=== PATIENT | female | born 1970 | race Caucasian/White ===

== ENCOUNTER 2023-03-14 15:38 | Emergency (ER) | payer MEDICARE, MEDICAID, SELFPAY ==
[2023-03-14] VITALS (12 sets, daily range): BP systolic 130–159; BP diastolic 86–99; PULSE 65–105; RESP 12–20; TEMP 36.9; O2SAT 93–99; BMI 37.5
--- NOTE | 2023-03-14 15:50 | ED.CHESTPAI1 ---
HPI - Chest Pain General Chief Complaint: Chest Pain Stated Complaint: CHEST PAIN, ANXIETY Time Seen by Provider: 03/14/23 15:50 History of Present Illness HPI narrative: pt presents to the emergency department complaining of chest pain. Patient states pain is worse to the left upper chest. Pain is worse with palpation. Pain is worse with movement of the arm. She states the pain is sharp. She took 1 baby aspirin prior to coming to the emergency department. She states she has been ongoing in the last 2 days but worse today. She states she has anxiety and she has been itching getting it to anxiety. Yesterday when she had a she was anxious and she to home Klonopin and it helped. She states she is under a lot of stress because her spouse 4 years ago. The house that she used to live in belonged to her spouse's family and they have evicted her from the property so she is homeless and she has been staying with the kids. She sees a counselor who advised her to come and get checked out. Patient denies any history of heart disease. She had a stress test 4 years ago. She denies any shortness of breath, fever, chills, or cough. She denies any denies lightheadedness. She denies any lower extremity edema, or cramping. Does not have a history of thrombotic embolic disease. Patient is tearful and states that she does not have anyone to drive her home. She states she feels lonely. But that she is fine. She denies any suicide or homicide ideation. Related Data Home Medications Medication Instructions Recorded Confirmed cetirizine 10 mg tablet 10 mg PO DAILY 03/14/23 03/14/23 clonazepam 0.5 mg tablet 0.5 mg PO DAILY PRN anxiety 03/14/23 03/14/23 fluticasone propionate 50 2 spray intranasal Q12H 03/14/23 03/14/23 mcg/actuation nasal spray,suspension omeprazole 40 mg capsule,delayed 40 mg PO DAILY 03/14/23 03/14/23 release Previous Rx's Medication Instructions Recorded hydroxyzine HCl 25 mg tablet 25 mg PO Q8H PRN anxiety #20 tabs 03/14/23 lorazepam 1 mg tablet (Ativan) 0.5 mg PO Q8H PRN anxiety 5 days 03/14/23 #10 tabs Allergies Allergy/AdvReac Type Severity Reaction Status Date / Time azithromycin Allergy Unknown Verified 03/14/23 15:47 dicyclomine [From Bentyl] Allergy Unknown Verified 03/14/23 15:47 metoclopramide [From Reglan] Allergy Unknown Verified 03/14/23 15:47 Review of Systems ROS Status of ROS 10 or more systems reviewed and unremarkable except as noted in history and below PFSH PFS Social History Smoking status: Never smoker Exam Narrative Exam Narrative: Nurses notes and vital signs reviewed and patient is not hypoxic. General: Nontoxic, Well-appearing and in no apparent distress. Skin: Warm, dry, no pallor noted. No Rash Head: Normocephalic, atraumatic. Neck: Supple, non-tender. Eye: Pupils are equal, round and EOMI. No scleral icterus. Ears, Nose, Mouth, and Throat: TM clear, no posterior oropharynx erythema or nasal mucosal hypertrophy, uvula is mid-line Oral mucosa is moist Cardiovascular: Regular Rate and Rhythm without murmur, gallop or rub. Respiratory: No accessory muscle use or respiratory distress. Lungs are clear to auscultation, no wheezing, rales or rhonchi Chest Wall: Moderate tenderness To palpation to ribs 3 and 4 on the left. There is no crepitance, no step-offs, no ecchymosis, no erythema, no rashes, no signs of trauma, infection. Back: No midline thoracic or lumbar vertebral tenderness. No CVA tenderness Musculoskeletal: normal ROM, no calf or popliteal tenderness, no lower extremity edema/swelling GI: Abdomen is soft, non-distended. Normal bowel sounds. No masses appreciated. No tenderness to palpation. No rebound, guarding, or rigidity noted. Neurological: A&O x4. No cranial nerve dysfunction observed. No truncal ataxia. Moves all extremities. Sensation intact. Psychiatric: Cooperative and interactive. tearful Constitutional Vital Signs - 24 hr 03/14/23 15:41 03/14/23 15:44 03/14/23 15:49 Temperature 98.5 F Pulse Rate Pulse Rate [Monitor] 105 H Respiratory Rate 20 Blood Pressure Pulse Oximetry 97 93 L 96 Oxygen Delivery Method Room Air 03/14/23 15:50 03/14/23 16:00 03/14/23 16:00 Temperature Pulse Rate 85 77 78 Pulse Rate [Monitor] Respiratory Rate 15 19 17 Blood Pressure 159/98 H 144/99 H 144/99 H Pulse Oximetry 94 L 94 L 93 L Oxygen Delivery Method 03/14/23 16:30 03/14/23 17:00 03/14/23 17:30 Temperature Pulse Rate 76 70 75 Pulse Rate [Monitor] Respiratory Rate 12 18 13 Blood Pressure 146/97 H 149/97 H 135/95 H Pulse Oximetry 98 98 99 Oxygen Delivery Method 03/14/23 18:00 03/14/23 18:00 03/14/23 18:30 Temperature Pulse Rate 70 65 68 Pulse Rate [Monitor] Respiratory Rate 20 15 15 Blood Pressure 143/86 H 143/86 H 146/94 H Pulse Oximetry 96 96 96 Oxygen Delivery Method Course Vital Signs Vital signs: Vital Signs Temperature 98.5 F 03/14/23 15:41 Pulse Rate 105 H 03/14/23 15:41 Respiratory Rate 20 03/14/23 15:41 Pulse Oximetry 97 03/14/23 15:41 Oxygen Delivery Method Room Air 03/14/23 15:41 Temperature 98.5 F 03/14/23 15:41 Pulse Rate 68 03/14/23 18:30 Respiratory Rate 15 03/14/23 18:30 Blood Pressure 130/86 H 03/14/23 20:09 Pulse Oximetry 96 03/14/23 18:30 Oxygen Delivery Method Room Air 03/14/23 15:41 MDM - Chest Pain MDM Narrative Medical decision making narrative: Patient's history and physical are more consistent with anxiety and anterior chest wall pain. Patient states that she took an aspirin at home and she still having acid of feels like she has to burp. Patient was given a gastrointestinal cocktail. Thhe patient also takes Klonopin but she did not take any today. She took her last pill yesterday. She drove herself here and she does not have a ride so I am unable to give her any antianxiety medication during her stay in the emergency department. I did write the patient a prescription for anxiety. Patient is nontoxic, Differential Diagnosis Differential diagnosis: Likely pneumothorax, unstable angina pectoris, atypical chest pain, st elevation myocardial infarction, costochondritis and chest pain Lab Data Attestation: I reviewed the patient's lab results. Labs: Lab Results 03/14/23 03/14/23 Range/Units 16:15 17:55 WBC 7.0 (4.0-11.0) 10^3/uL RBC 5.39 (4.20-5.40) 10^6/uL Hgb 14.9 (12.0-16.0) g/dL Hct 44.9 (36.0-48.0) % MCV 83.3 (81.0-99.0) fL MCH 27.6 (26.7-34.0) pg MCHC 33.2 (29.9-35.2) g/dL RDW 13.3 (11.0-15.0) % Plt Count 193 (150-450) 10^3/uL MPV 11.0 (9.5-13.5) fL Neut % (Auto) 65.0 (43.0-75.0) % Lymph % (Auto) 24.8 (20.5-60.0) % [place] % (Auto) 7.3 (1.7-12.0) % Eos % (Auto) 1.9 (0.9-7.0) % Baso % (Auto) 0.6 (0.2-2.0) % Neut # (Auto) 4.6 (1.4-6.5) 10^3/uL Lymph # (Auto) 1.7 (1.2-3.8) 10^3/uL [place] # (Auto) 0.5 (0.3-0.8) 10^3/uL Eos # (Auto) 0.1 (0.0-0.7) 10^3/uL Baso # (Auto) 0.0 (0.0-0.1) 10^3/uL Abs Immat Gran (auto) 0.03 (0.00-0.03) 10^3/uL Imm/Tot Granulo (auto) 0.4 (0.0-0.5) % Sodium 137 (136-145) mmol/L Potassium 4.4 (3.5-5.1) mmol/L Chloride 102 (98-107) mmol/L Carbon Dioxide 27.8 (21.0-32.0) mmol/L Anion Gap 11.6 BUN 16.0 (7.0-18.0) mg/dL Creatinine 0.93 (0.55-1.02) mg/dL Est GFR ( Amer) >60 (>=60) Est GFR (Non-Af Amer) >60 (>=60) BUN/Creatinine Ratio 17.2 Glucose 106 (74-106) mg/dL Calcium 9.5 (8.5-10.1) mg/dL Total Bilirubin 0.5 (0.2-1.0) mg/dL AST 19 (15-37) U/L ALT 31 (14-59) U/L Alkaline Phosphatase 89 (46-116) U/L Troponin I High Sens 24.3 24.1 (4.0-51.3) pg/mL Total Protein 8.4 H (6.4-8.2) g/dL Albumin 3.9 (3.4-5.0) g/dL Globulin 4.5 g/dL Albumin/Globulin Ratio 0.9 ECG Data Attestation: I personally reviewed and interpreted this ECG as follows: Discharge Plan Discharge Chief Complaint: Chest Pain Clinical Impression: Anxiety, Atypical chest pain Patient Disposition: Home, Self-Care Time of Disposition Decision: 18:34 Condition: Good Mode of Transportation: Private Vehicle Prescriptions / Home Meds: New lorazepam [Ativan] 1 mg tablet 0.5 mg PO Q8H PRN (Reason: anxiety) 5 Days Qty: 10 0RF hydroxyzine HCl 25 mg tablet 25 mg PO Q8H PRN (Reason: anxiety) Qty: 20 0RF No Action cetirizine 10 mg tablet 10 mg PO DAILY clonazepam 0.5 mg tablet 0.5 mg PO DAILY PRN (Reason: anxiety) omeprazole 40 mg capsule,delayed release(DR/EC) 40 mg PO DAILY fluticasone propionate 50 mcg/actuation spray,suspension 2 spray INTRANASAL Q12H Instructions: Chest Pain (ED), Anxiety (ED) Stand Alone Forms: Portal Instructions Referrals: [facility] [Primary Care Provider] - 1 week Discharge Date/Time: 03/14/23 20:57
--- NOTE | 2023-03-14 15:51 | ECG_ITS ---
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
--- NOTE | 2023-03-14 16:05 | XR_ITS ---
[address] [address] Patient Name: LINA LANDA MRN: [id number] date: 1970 Sex: F Assigned Patient Location: ER Current Patient Location: ER Accession/Order Number: [id number] Exam Date: 03/14/2023 16:25 Report Date: 03/14/2023 17:12 At the request of: MERISSA CRUZ Procedure: XR chest 1V EXAM: XR chest 1V at 1656 hours HISTORY: cp COMPARISON: 07/30/2020 TECHNIQUE: AP upright portable chest x-ray FINDINGS: The heart is not enlarged and the vasculature is not distended. No acute infiltrate, effusion or pneumothorax is identified. The osseous structures are grossly intact. IMPRESSION: No acute infiltrate or evidence of cardiac decompensation. The overall appearance of the chest is essentially unchanged. Electronically authenticated by: SOCRATES TAVAREZ Date: 03/14/2023 17:12
[2023-03-14] MEDS: KETOROLAC TROMETHAMINE 30 MG/ML VIAL IVP (16:21)
[2023-03-14 16:27] LABS: Basophils Percent Auto 0.6 % (0.2-2.0); Eosinophils Absolute Auto 0.1 10^3/uL (0.0-0.7); Eosinophils Percent Auto 1.9 % (0.9-7.0); Hematocrit 44.9 % (36.0-48.0); Hemoglobin 14.9 g/dL (12.0-16.0); Immature Granulocytes Abs Auto 0.03 10^3/uL (0.00-0.03); Immature Granulocytes Pct Auto 0.4 % (0.0-0.5); Lymphocytes Absolute Auto 1.7 10^3/uL (1.2-3.8); Lymphocytes Percent Auto 24.8 % (20.5-60.0); Mean Corpuscular HGB Conc 33.2 g/dL (29.9-35.2); Mean Corpuscular Hemoglobin 27.6 pg (26.7-34.0); Mean Corpuscular Volume 83.3 fL (81.0-99.0); Monocytes Absolute Auto 0.5 10^3/uL (0.3-0.8); Monocytes Percent Auto 7.3 % (1.7-12.0); Neutrophils Absolute Auto 4.6 10^3/uL (1.4-6.5); Platelet Count 193 10^3/uL (150-450); Red Blood Count 5.39 10^6/uL (4.20-5.40); Red Cell Distribution Width 13.3 % (11.0-15.0)
[2023-03-14 16:46] LABS: Alanine Aminotransferase 31 U/L (14-59); Albumin Globulin Ratio 0.9; Albumin Level 3.9 g/dL (3.4-5.0); Alkaline Phosphatase 89 U/L (46-116); Anion Gap 11.6; Aspartate Amino Transferase 19 U/L (15-37); BUN Creatinine Ratio 17.2; Bilirubin Total 0.5 mg/dL (0.2-1.0); Calcium 9.5 mg/dL (8.5-10.1); Carbon Dioxide 27.8 mmol/L (21.0-32.0); Chloride 102 mmol/L (98-107); Estimated GFR (African America >60 (>=60); Estimated GFR (Non-African Ame >60 (>=60); Globulin 4.5 g/dL; Glucose 106 mg/dL (74-106); Potassium 4.4 mmol/L (3.5-5.1); Sodium 137 mmol/L (136-145); Total Protein 8.4 g/dL (6.4-8.2); Troponin I High Sensitivity 24.3 pg/mL (4.0-51.3)
[2023-03-14 18:16] LABS: Troponin I High Sensitivity 24.1 pg/mL (4.0-51.3)
[2023-03-14] MEDS: lidocaine HCL 15 ML, MAG HYDROX/ALUMINUM HYD/SIMETH 30 ML, HYOSCYAMINE SULFATE 0.25 MG PO (19:21)
== END 2023-03-14 20:57 | disposition home or self-care (01) ==
PROVIDERS: Emergency Provider Emergency Medicine
DX: R07.89 Other chest pain (principal); F41.9 Anxiety disorder, unspecified; Z79.899 Other long term (current) drug therapy
CPT/HCPCS: 36415; 71045; 80053; 84484; 85025; 93005; 96374; 99285

== ENCOUNTER 2023-06-04 14:21 | Outpatient (OUT) | payer MEDICARE, MEDICAID, SELFPAY ==
[2023-06-05 06:12] LABS: HSV 2 IgG, Type Spec 9.06 index (0.00-0.90)
== END 2023-06-04 14:22 | disposition home or self-care (01) ==
LOC: LAB 14:25
PROVIDERS: Visit Provider Obstetrics & Gynecology
DX: N89.8 Other specified noninflammatory disorders of vagina (principal)
CPT/HCPCS: 36415; 86695; 86696

== ENCOUNTER 2023-07-31 16:06 | Emergency (ER) | payer MEDICARE, MEDICAID, SELFPAY ==
[2023-07-31] VITALS (9 sets, daily range): BP systolic 147–149; BP diastolic 96–106; PULSE 77–98; RESP 14–22; TEMP 37; O2SAT 95–99; BMI 39.0
--- NOTE | 2023-07-31 16:24 | ECG_ITS ---
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
--- NOTE | 2023-07-31 16:24 | XR_ITS ---
The [address] [address] Patient Name: LINA LANDA MRN: [id number] date: 1970 Sex: F Assigned Patient Location: ER Current Patient Location: ER Accession/Order Number: [id number] Exam Date: 07/31/2023 16:35 Report Date: 07/31/2023 17:01 At the request of: RUTH BROWN Procedure: XR chest 1V EXAM: XR chest 1V at 1633 hours HISTORY: CP COMPARISON: 07/30/2020 TECHNIQUE: AP upright portable chest x-ray FINDINGS: Shallow inspiration. The heart is not enlarged and the vasculature is not distended. No acute infiltrate, effusion or pneumothorax is identified. The osseous structures are grossly intact. XR/XR chest 1V IMPRESSION: No acute infiltrate or evidence of cardiac decompensation. Shallow inspiration is noted. Given the differences in projection and technique, the overall appearance is essentially unchanged. Electronically authenticated by: SOCRATES TAVAREZ Date: 07/31/2023 17:01
--- NOTE | 2023-07-31 16:42 | ED_ITS ---
HPI - Chest Pain General Chief Complaint: Chest Pain Stated Complaint: Upper PAIN Time Seen by Provider: 07/31/23 16:23 Source: patient Mode of arrival: walk-in History of Present Illness HPI narrative: Patient coming to us with 4 days history of left-sided chest pain radiating to her back associated with cough, no nausea no vomiting no other complaints, mentioned that the pain is under her left breast , no nausea no vomiting no association with the take a deep breath but the pain is fixed and continuous since 4 days Palpation can cause the pain Related Data Home Medications Medication Instructions Recorded Confirmed cetirizine 10 mg tablet 10 mg PO DAILY 03/14/23 03/14/23 clonazepam 0.5 mg tablet 0.5 mg PO DAILY PRN anxiety 03/14/23 03/14/23 fluticasone propionate 50 2 spray intranasal Q12H 03/14/23 03/14/23 mcg/actuation nasal spray,suspension omeprazole 40 mg capsule,delayed 40 mg PO DAILY 03/14/23 03/14/23 release Previous Rx's Medication Instructions Recorded hydroxyzine HCl 25 mg tablet 25 mg PO Q8H PRN anxiety #20 tabs 03/14/23 lorazepam 1 mg tablet (Ativan) 0.5 mg PO Q8H PRN anxiety 5 days 03/14/23 #10 tabs meloxicam 7.5 mg tablet 7.5 mg PO DAILY PRN pain #10 tabs 07/31/23 Allergies Allergy/AdvReac Type Severity Reaction Status Date / Time azithromycin Allergy Unknown Verified 03/14/23 15:47 dicyclomine [From Bentyl] Allergy Unknown Verified 03/14/23 15:47 metoclopramide [From Reglan] Allergy Unknown Verified 03/14/23 15:47 Review of Systems ROS Status of ROS 10 or more systems reviewed and unremarkable except as noted in history and below PFSH PFSH Social History Smoking status: Former smoker Exam Narrative Exam Narrative: Nurses notes and vital signs reviewed and patient is not hypoxic. General: Well-appearing and in no apparent distress. Skin: Warm, dry, no pallor noted. No rash. Head: Normocephalic, atraumatic. Neck: Supple, non-tender. Eye: Pupils are equal, round and EOMI. No scleral icterus. Ears, Nose, Mouth, and Throat: TM are clear, no nasal mucosal hypertrophy. Oral mucosa is moist, no posterior oropharynx erythema, uvula is mid-line Cardiovascular: Regular Rate and Rhythm without murmur, gallop or rub. Respiratory: No accessory muscle use or respiratory distress. Lungs are clear to auscultation, no wheezing, rales or rhonchi Chest Wall: Tenderness upon palpation of the left lower chest just below the breast, the patient had tenderness upon palpation of the left shoulder Back: No midline thoracic or lumbar vertebral tenderness. No CVA tenderness Musculoskeletal: normal ROM, no calf or popliteal tenderness, no lower extremity edema/swelling GI: Abdomen is soft, non-distended. Normal bowel sounds. No masses appreciated. No tenderness to palpation. No rebound, guarding, or rigidity noted. Neurological: A&O x4. No cranial nerve dysfunction observed. No truncal ataxia. Moves all extremities. Sensation intact. Psychiatric: Cooperative and interactive. Normal mood and affect. Constitutional Vital Signs, click to edit/add: Last Vital Signs Temp 98.6 F 07/31/23 16:15 Pulse 81 07/31/23 17:20 Resp 19 07/31/23 17:20 BP 147/96 H 07/31/23 17:19 Pulse Ox 98 07/31/23 17:20 O2 Del Method Room Air 07/31/23 16:15 Course Vital Signs Vital signs: Vital Signs Temperature 98.6 F 07/31/23 16:15 Pulse Rate 98 H 07/31/23 16:15 Respiratory Rate 22 07/31/23 16:15 Blood Pressure 149/106 H 07/31/23 16:15 Pulse Oximetry 96 07/31/23 16:15 Oxygen Delivery Method Room Air 07/31/23 16:15 Temperature 98.6 F 07/31/23 16:15 Pulse Rate 81 07/31/23 17:20 Respiratory Rate 19 07/31/23 17:20 Blood Pressure 147/96 H 07/31/23 17:19 Pulse Oximetry 98 07/31/23 17:20 Oxygen Delivery Method Room Air 07/31/23 16:15 MDM - Chest Pain MDM Narrative Medical decision making narrative: the patient EKG showing sinus rhythm with a heart rate of [address] elevation or depression CBC and chemistry showed no acute pathology and the troponin is negative the patient chest x-ray also showed no acute pathology The patient chest pain is mostly muscular at the induced with palpation and has been going on for at least for 4 days the patient also was noted to be very anxious Supportive care right now with Toradol in the ER and the patient was discharged home with Nile She still was instructed to follow-up with her primary care doctor to further evaluation including her cholesterol level and other work-up due to her risk factors The patient is to follow up with primary care physician in next 2-3 days or to return to the emergency department should any of the signs or symptoms worsen or new symptoms develop. The patient agrees with the following Diagnosis and Treatment plan and the patient will be discharged home. Lab Data Labs: Lab Results 07/31/23 Range/Units 16:46 WBC 7.8 (4.0-11.0) 10^3/uL RBC 4.82 (4.20-5.40) 10^6/uL Hgb 13.4 (12.0-16.0) g/dL Hct 40.5 (36.0-48.0) % MCV 84.0 (81.0-99.0) fL MCH 27.8 (26.7-34.0) pg MCHC 33.1 (29.9-35.2) g/dL RDW 13.0 (11.0-15.0) % Plt Count 204 (150-450) 10^3/uL MPV 10.9 (9.5-13.5) fL Neut % (Auto) 64.8 (43.0-75.0) % Lymph % (Auto) 26.4 (20.5-60.0) % [place] % (Auto) 6.2 (1.7-12.0) % Eos % (Auto) 1.4 (0.9-7.0) % Baso % (Auto) 0.9 (0.2-2.0) % Neut # (Auto) 5.1 (1.4-6.5) 10^3/uL Lymph # (Auto) 2.1 (1.2-3.8) 10^3/uL [place] # (Auto) 0.5 (0.3-0.8) 10^3/uL Eos # (Auto) 0.1 (0.0-0.7) 10^3/uL Baso # (Auto) 0.1 (0.0-0.1) 10^3/uL Abs Immat Gran (auto) 0.02 (0.00-0.03) 10^3/uL Imm/Tot Granulo (auto) 0.3 (0.0-0.5) % PT 10.3 (9.0-11.6) sec INR 0.97 Sodium 140 (136-145) mmol/L Potassium 3.7 (3.5-5.1) mmol/L Chloride 106 (98-107) mmol/L Carbon Dioxide 27.6 (21.0-32.0) mmol/L Anion Gap 10.1 BUN 14.0 (7.0-18.0) mg/dL Creatinine 0.94 (0.55-1.02) mg/dL Est GFR ( Amer) >60 (>=60) Est GFR (Non-Af Amer) >60 (>=60) BUN/Creatinine Ratio 14.9 Glucose 91 (74-106) mg/dL Calcium 9.1 (8.5-10.1) mg/dL Total Bilirubin 0.4 (0.2-1.0) mg/dL AST 16 (15-37) U/L ALT 24 (14-59) U/L Alkaline Phosphatase 91 (46-116) U/L Troponin I High Sens 23.9 (4.0-51.3) pg/mL Total Protein 7.8 (6.4-8.2) g/dL Albumin 3.8 (3.4-5.0) g/dL Globulin 4.0 g/dL Albumin/Globulin Ratio 0.9 Discharge Plan Discharge Chief Complaint: Chest Pain Clinical Impression: Chest wall pain Patient Disposition: Home, Self-Care Time of Disposition Decision: 17:37 Prescriptions / Home Meds: New meloxicam 7.5 mg tablet 7.5 mg PO DAILY PRN (Reason: pain ) Qty: 10 0RF No Action cetirizine 10 mg tablet 10 mg PO DAILY clonazepam 0.5 mg tablet 0.5 mg PO DAILY PRN (Reason: anxiety) omeprazole 40 mg capsule,delayed release(DR/EC) 40 mg PO DAILY fluticasone propionate 50 mcg/actuation spray,suspension 2 spray INTRANASAL Q12H lorazepam [Ativan] 1 mg tablet 0.5 mg PO Q8H PRN (Reason: anxiety) 5 Days Qty: 10 0RF hydroxyzine HCl 25 mg tablet 25 mg PO Q8H PRN (Reason: anxiety) Qty: 20 0RF Instructions: Thoracic Pain (ED) Stand Alone Forms: Portal Instructions Referrals: [facility] [Primary Care Provider] - 1 week
[2023-07-31 16:52] LABS: Basophils Absolute Auto 0.1 10^3/uL (0.0-0.1); Basophils Percent Auto 0.9 % (0.2-2.0); Eosinophils Absolute Auto 0.1 10^3/uL (0.0-0.7); Eosinophils Percent Auto 1.4 % (0.9-7.0); Hematocrit 40.5 % (36.0-48.0); Hemoglobin 13.4 g/dL (12.0-16.0); Immature Granulocytes Abs Auto 0.02 10^3/uL (0.00-0.03); Immature Granulocytes Pct Auto 0.3 % (0.0-0.5); Lymphocytes Absolute Auto 2.1 10^3/uL (1.2-3.8); Lymphocytes Percent Auto 26.4 % (20.5-60.0); Mean Corpuscular HGB Conc 33.1 g/dL (29.9-35.2); Mean Corpuscular Hemoglobin 27.8 pg (26.7-34.0); Mean Platelet Volume 10.9 fL (9.5-13.5); Monocytes Absolute Auto 0.5 10^3/uL (0.3-0.8); Monocytes Percent Auto 6.2 % (1.7-12.0); Neutrophils Absolute Auto 5.1 10^3/uL (1.4-6.5); Neutrophils Percent Auto 64.8 % (43.0-75.0); Platelet Count 204 10^3/uL (150-450); Red Blood Count 4.82 10^6/uL (4.20-5.40); White Blood Count 7.8 10^3/uL (4.0-11.0)
[2023-07-31 17:07] LABS: INR 0.97; Prothrombin Time 10.3 sec (9.0-11.6)
[2023-07-31 17:12] LABS: Alanine Aminotransferase 24 U/L (14-59); Albumin Globulin Ratio 0.9; Albumin Level 3.8 g/dL (3.4-5.0); Alkaline Phosphatase 91 U/L (46-116); Anion Gap 10.1; Aspartate Amino Transferase 16 U/L (15-37); BUN Creatinine Ratio 14.9; Bilirubin Total 0.4 mg/dL (0.2-1.0); Calcium 9.1 mg/dL (8.5-10.1); Carbon Dioxide 27.6 mmol/L (21.0-32.0); Chloride 106 mmol/L (98-107); Estimated GFR (African America >60 (>=60); Estimated GFR (Non-African Ame >60 (>=60); Glucose 91 mg/dL (74-106); Potassium 3.7 mmol/L (3.5-5.1); Sodium 140 mmol/L (136-145); Total Protein 7.8 g/dL (6.4-8.2)
[2023-07-31 17:15] LABS: Troponin I High Sensitivity 23.9 pg/mL (4.0-51.3)
[2023-07-31] MEDS: FAMOTIDINE/PF 20 MG/2 ML VIAL IV (17:19)
[2023-07-31] MEDS: KETOROLAC TROMETHAMINE 30 MG/ML VIAL 15 MG IVP (17:19)
== END 2023-07-31 17:57 | disposition home or self-care (01) ==
PROVIDERS: Emergency Provider Emergency Medicine
DX: R07.89 Other chest pain (principal); Z79.899 Other long term (current) drug therapy; Z87.891 Personal history of nicotine dependence
CPT/HCPCS: 36415; 71045; 80053; 84484; 85025; 85610; 93005; 96374; 96375; 99285

== ENCOUNTER 2024-04-13 20:46 | Outpatient (REF) | payer MEDICARE, MEDICAID, SELFPAY ==
--- OUTSIDE RECORDS SUMMARY | 2024-04-13 21:06 | XMS_ITS ---
Patient Summarization (C-CDA 2.1 CCD) Created on: April 13, 2024 Ne Swann : 1970 Sex: Female Author Organization Sample organization Care Team Providers Care Agency Sales Representative Name Role Phone LINDA NUÑEZ Unavailable Unavailable LINDA NUÑEZ Unavailable Unavailable SELF, REFERRED Unavailable Unavailable MIGUEL BOWER Unavailable Unavailable MISC, DR CASTRO Primary Care Unavailable ANTHONY ., MERISSA Consulting Unavailable ANTHONY ., MERISSA Admitting Unavailable ANTHONY ., MERISSA Attending Unavailable JESSEE ADRIAN Consulting Unavailable DIAB ., RUTH Consulting Unavailable THI ., DR DOTSON Admitting Unavailable THI ., DR DOTSON Attending Unavailable MISC, DR CASTRO Primary Care Unavailable THI ., DR DOTSON Consulting Unavailable Bob Marinelli Unavailable MAURI NESS Attending Unavailable SERVICES, [facility] Primary Care Unava ilable JAVAN URBANO Attending Unavailab le SERVICES, [facility] Primary Care Unava ilable SERVICES, [facility] Primary Care Unava ilable VANESSA CRAMER Attending Unavailable JESUS SAVAGE Attending Unavailable JESUS SAVAGE Referring Unavailable SERVICES, [facility] Unava ilable Manuel Bolivar Attending Unavailab le Manuel Bolivar Admitting Unavailab le NON STAFF Primary Care Unavailable Allergies Allergy Classification Reported Allergen(s) Allergy Type Date of Onset Reaction(s) Facility (1 source) azithromycin Drug Allergy 7 [facility] Repository (2 sources) clarithromycin; Translations: [CLARITHROMYCIN] Drug Allergy 4 [facility] Repository (2 sources) dicyclomine Drug Allergy 3 [facility] Repository (2 sources) iothalamate Drug Allergy 3 [facility] Repository (1 source) traMADol Drug Allergy 4 [facility] Repository (1 source) Clarithromycin Drug Allergy 3 [facility] Repository (1 source) Clarithromycin Drug Allergy Unknown [facility] Other (2 sources) Dicyclomine; Translations: [DICYCLOMINE] Drug Allergy 0 Unknown [facility] Repository (2 sources) Metoclopramide; Translations: [METOCLOPRAMIDE] Drug Allergy 7 Unknown [facility] Repository (1 source) Dicyclomine; Translations: [DICYCLOMINE HCL] Drug Allergy 7 [facility] Repository (1 source) Clarithromycin Drug Allergy 3 [facility] Repository (1 source) Dicyclomine Drug Allergy 3 [facility] Repository (1 source) Metoclopramide Drug Allergy 3 [facility] Repository Encounters Encounter Date Encounter Type Care Provider Facility Start: 03-31-2024 ambulatory Manuel Silva acility:[facility] Start: 02-03-2024 End: 02-04-2024 Emergency department patient visit J[facility]US [facility] Start: 01-23-2024 End: 01-23-2024 ambulatory MAURI NESS Not Available Start: 12-06-2023 End: 12-06-2023 Emergency department patient visit [facility] Start: 11-11-2023 End: 11-11-2023 Emergency department patient visit [facility] Start: 12-14-2022 End: 12-14-2022 ambulatory Bob Marinelli Other [facility] Other Start: 12-14-2022 Telephone encounter Bob Reyes [facility] Start: 11-29-2022 End: 11-29-[address] DOCTOR MUSTAFA Facility:[facility] Start: 11-28-2022 End: 11-28-[address] MAURI NESS . Facility: Start: 03-18-2017 End: 03-19-2017 Ambulatory LINDA NUÑEZ Facility:[facility] Medications Current Medications Medication Drug Class(es) Dates Sig (Normalized) Sig (Original) Ascorbic Acid (1 source) Vitamin C Vitamin C Active Calcium (1 source) Phosphate Binder, Calcium Calcium + D Active clonazePAM (1 source) Benzodiazepine KlonoPIN Active Estroven (1 source) Estroven Active omeprazole 40 mg delayed release oral capsule (1 source) Proton Pump Inhibitor take 1 capsule by mouth every twelve hours Omeprazole 40 MG 1 tablet Orally twice a day for 90 days Active Oyster Shell Calcium/D (1 source) Oyster Shell Calcium/D Active RA Allergy Relief (1 source) RA Allergy Relie f Active Payers Date Payer Category Payer Self-pay 1970 Unknown [id number] 2.16.84 [id number] 1970 Unknown [id number] 2.16.84 [id number] 1970 Unknown [id number] 2.16.84 [id number] 1970 Unknown [id number] 2.16.8 [id number] 1970 Unknown [id number] 2.16.8 [id number] 1970 Unknown [id number] 2.16.8 [id number] 1970 Unknown [id number] 2.16.8 [id number] 1960 Medicaid [id number] 1960 Unknown [id number] Medicaid [id number] Unknown [id number] 2.16.8 [id number] Problems Problem Classification Problem Date Documented Da te Episodic/Chronic Abdominal pain (1 source) Right upper quadrant pain; Translations: [Right upper quadrant pain] Episodic Anxiety disorders (1 source) Anxiety disorder, unspecified; Translations: [ANXIETY DISORDER UNSPECIFIED] Onset: 12-03-2022 Chronic Esophageal disorders (2 sources) Gastro-esophageal reflux disease without esophagitis; Translations: [Gastroesophageal reflux disease] Onset: 12-03-2022 Chronic Essential hypertension (2 sources) Essential (primary) hypertension; Translations: [Hypertensive disorder] Onset: 11-11-2023 Chronic Headache; including migraine (4 sources) Headache; including migraine; Translations: [HEADACHE UNSPECIFIED] Onset: 11-29-2022 Other aftercare (1 source) 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; Translations: [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 THERAPY] Onset: 12-03-2022 Episodic Other connective tissue disease (1 source) Other specified soft tissue disorders; Translations: [Other specified soft tissue disorders] Onset: 02-03-2024 Episodic Other connective tissue disease (1 source) Leg swelling symptom Onset: 02-03-2024 Episodic Other gastrointestinal disorders (1 source) Irritable bowel syndrome without diarrhea; Translations: [IRRITABLE BOWEL SYND W/O DIARRHEA] Onset: 12-03-2022 Chronic Other gastrointestinal disorders (1 source) Irritable bowel syndrome; Translations: [Irritable bowel syndrome without diarrhea] Chronic Other gastrointestinal disorders (1 source) Diarrhea; Translations: [Diarrhea, unspecified] Episodic Other gastrointestinal disorders (1 source) Constipation; Translations: [Constipation, unspecified] Episodic Other non-traumatic joint disorders (1 source) Pain of right wrist; Translations: [Pain in right wrist] Episodic Other nutritional; endocrine; and metabolic disorders (2 sources) Obese class II; Translations: [Body mass index (BMI) 36.0-36.9, adult] Chronic Other screening for suspected conditions (not mental disorders or infectious disease) (4 sources) Encounter for screening for malignant neoplasm of cervix; Translations: [ENC SCREENING MALIG NEOPLASM CERV] Onset: 11-28-2022 Episodic Other upper respiratory disease (1 source) Pain in throat Onset: 12-06-2023 Episodic Other upper respiratory infections (1 source) Acute pharyngitis, unspecified; Translations: [Acute pharyngitis, unspecified] Onset: 12-06-2023 Episodic Residual codes; unclassified (1 source) Acquired absence of other specified parts of digestive tract; Translations: [ACQ ABSENCE OTH PART DIGESTV TRACT] Onset: 12-03-2022 Episodic Residual codes; unclassified (1 source) Acquired absence of both cervix and uterus; Translations: [ACQUIRED ABSENCE BOTH CERVIX AND UTERUS] Onset: 12-03-2022 Episodic Screening and history of mental health and substance abuse codes (1 source) Personal history of nicotine dependence; Translations: [PERSONAL HISTORY OF NICOTINE DEPEND] Onset: 12-03-2022 Episodic Unclassified (2 sources) Unknown / UNK(Unknown) Onset: 03-18-2017 Unclassified (1 source) Sore Throat, Anxiety Onset: 12-06-2023 Results Test Name Value Interpretation Reference Range Facil ity Fibrin D-dimer DDU (PPP) [Ma ss/Vol]on 02-03-2024 D DIMER 200 ng/mL DDU Normal <255 [facility] Comment on above: Result Comment: Results <255 ng/mL DDU: The presence of a VTE can safely be excluded with a negative D-Dimer result and Wells score. A negative result doesn't exclude the possibility of DIC. The test be repeated along with other diagnostic tests if the patient's symptoms persist or worsen. [email or web address] Performed By: #### 4 [id number] #### [facility] ([id number]) [address] [place] [address], [place] [address] XR KNEE LT 3 VWSon 4 XR KNEE LT 3 VWS XR KNEE LT 3 VWS XR KNEE LT 3 VWS HISTORY: Pain, swelling. No known injury. COMPARISON: None FINDINGS: No acute osseous abnormality, fracture, or dislocation. A fabella is present. Multiple calcific foci posterior to the knee may represent loose bodies and/or heterotopic ossification. No significant joint effusion is seen. Sclerotic focus in the distal metaphysis may represent ossified nonossifying fibroma. IMPRESSION: * No acute fracture or dislocation. Approved by Resident Joel Joiner MD on 02/03/2024 9:20 PM Bruce Palmer MD have personally reviewed the image(s) and agree with and/or edited the report Finalized by Bruce Armstrong MD on 02/03/2024 9:41 PM Normal [facility] RAPID STREP SCR NURSINGon S. pyogenes Ag EIA Ql (Throat) Negative Normal NEG [facility] Comment on above: Performed By: #### 6 [id number] #### [facility] ([id number]) [address] [facility] [place] [address] SARS/FLU A+B/RSV by NAAT/Mol ecularon 12-06-2023 SARS/FLU A+B/RSV by NAAT/Molecular FLU A PCR Negative (qualifier value) FLU B PCR Negative (qualifier value) RSV by PCR Negative (qualifier value) SARS CoV 2 Not detected (qualifier value) NOTE The Xpert Xpress SARS-CoV-2/Flu/RSV Plus test is a rapid, multiplexed real-time RT-PCR test intended for the simultaneous qualitative detection and differentiation of SARS-CoV-2, influenza A, influenza B and respiratory syncytial virus (RSV) viral RNA from individuals suspected of respiratory viral infection consistent with COVID-19 by their healthcare provider. This test has not been validated in asymptomatic patients. The Xpert Xpress SARS-CoV-2 test is intended for use by qualified and trained operators who are performing tests using either USINE IO or Tansler systems and is limited to laboratories that meet the CLIA requirements to perform high and moderate complexity tests. The Xpert Xpress SARS-CoV-2/Flu/RSV Plus is only for use under the Food and Drug Administration's Emergency Use Authorization. Results are for the simultaneous detection and differentiation of SARS-CoV-2, influenza A, influenza B and RSV nucleic acids in clinical specimens. SARS-CoV-2, influenza A, influenza B and RSV RNA identified by this test are generally detectable in upper respiratory samples during the acute phase of infection. Positive results are indicative of the presence of the identified virus, but do not rule out bacterial infection or co-infection with other pathogens not detected by this test. Clinical correlation with patient history and other diagnostic information is necessary to determine patient infection status. The agent detected may not be the definite cause of disease. Negative results do not preclude SARS-CoV-2, influenza A, influenza B and RSV infection and should not be used as the sole basis for treatment or other patient management decisions. Negative results must be combined with clinical observations, patient history and epidemiological information. An Invalid result may occur with specimen-associated inhibition unable to be resolved with specimen repeat. Fact Sheet for Healthcare Providers: https://www.fda.gov/me ángel/725564/download Fact Sheet for Patients: https://www.fda.gov/me ángel/845311/download Normal [facility] Comment on above: Performed By: #### C OVFLR #### [facility] ([id number]) [address] [place] [address], [place] [address] PAP ACOG PANEL 2: 30 to 65on 12-06-2022 . . Normal [facility] Comment on above: Result Comment: Perf ormed at: WB Performed By: #### 4 [id number] #### [facility] [address] [address] [address] Michael Arndt Age Gdln ACOG Testing - [facility] Comment on above: Performed By: #### 4 [id number] #### [facility] [address] [address] [address] Michael Arndt DIAGNOSIS: Comment Normal [facility] Comment on above: Result Comment: NEGA TIVE FOR INTRAEPITHELIAL LESION OR MALIGNANCY. Performed at: WB Performed By: #### 4 [id number] #### [facility] [address] [address] [address] Michael Arndt HPV Aptima Negative Normal Negative [facility] Comment on above: Result Comment: This nucleic acid amplification test detects fourteen high-risk HPV types (16,18,31,33,35,39,45,51,52,56,58,59,66,68) without differentiation. Performed at: =G Performed By: #### 4 [id number] #### [facility] [address] [address] [address] Michael Arndt HPV Genotype Reflex Comment [facility] Comment on above: Result Comment: Crit eria not met, HPV Genotype not performed. Performed at: WB Performed By: #### 4 [id number] #### [facility] [address] [address] [address] Michael Arndt Methodology: Comment Normal [facility] Comment on above: Result Comment: This liquid based ThinPrep(R) pap test was screened with the use of an image guided system. Performed at: WB Performed By: #### 4 [id number] #### [facility] [address] [place] [address] Dr. Michael Arndt Note: Comment Normal [facility] Comment on above: Result Comment: The Pap smear is a screening test designed to aid in the detection of premalignant and malignant conditions of the uterine cervix. It is not a diagnostic procedure and should not be used as the sole means of detecting cervical cancer. Both false-positive and false-negative reports do occur. . Performed at: WB Performed By: #### 4 [id number] #### [facility] [address] [place] [address] Dr. Michael Arndt Performed by: Comment Normal [facility] Comment on above: Result Comment: Kenia Puga, Edge Stainer (ASCP) Performed at: WB Performed By: #### 4 [id number] #### [facility] [address] [place] [address] Dr. Michael Arndt Specimen adequacy: Comment Normal [facility] Comment on above: Result Comment: Sati sfactory for evaluation. Performed at: WB Performed By: #### 4 [id number] #### [facility] [address] [place] [address] Dr. Michael Arndt CBC AUTO DIFFon 11-29-2022 BASO # 0.1 103/ul Normal 0.0-0.1 [facility] Comment on above: Performed By: #### C BC #### [facility] [address] [place] [address] Dr. Michael Arndt Basophils/100 WBC (Bld) 0.6 % Normal 0.2-2.0 [facility] Comment on above: Performed By: #### C BC #### [facility] [address] [place] [address] Dr. Michael Arndt EO # 0.2 103/ul Normal 0.0-0.7 [facility] Comment on above: Performed By: #### C BC #### [facility] [address] [place] [address] Dr. Michael Arndt Eosinophils/100 WBC (Bld) 2.2 % Normal 0.9-7.0 [facility] Comment on above: Performed By: #### C BC #### [facility] [address] [place] [address] Dr. Michael Arndt Erythrocyte distribution width (RBC) [Ratio] 13.2 % Normal 11.0-15.0 [facility] Comment on above: Performed By: #### C BC #### [facility] [address] [place] [address] Dr. Michael Arndt Hematocrit (Bld) [Volume fraction] 42.9 % Normal 36.0-48.0 [facility] Comment on above: Performed By: #### C BC #### [facility] [address] [place] [address] Dr. Michael Arndt Hemoglobin (Bld) [Mass/Vol] 14.0 g/dL Normal 12.0-16.0 [facility] Comment on above: Performed By: #### C BC #### [facility] [address] [place] [address] Dr. Michael Arndt IG # 0.03 10e3/ul Normal 0.00-0.03 [facility] Comment on above: Performed By: #### C BC #### [facility] [address] [place] [address] Dr. Michael Arndt IG % 0.4 % Normal 0.0-0.5 [facility] Comment on above: Performed By: #### C BC #### [facility] [address] [place] [address] Dr. Michael Arndt LYMPH # 2.1 103/ul Normal 1.2-3.8 [facility] Comment on above: Performed By: #### C BC #### [facility] [address] [place] [address] Dr. Michael Arndt Lymphocytes/100 WBC (Bld) 26.2 % Normal 20.5-60.0 [facility] Comment on above: Performed By: #### C BC #### [facility] [address] [place] [address] Dr. Michael Arndt MANUAL DIFF REQ NO Normal [facility] Comment on above: Performed By: #### C BC #### [facility] [address] [place], [place] [id number] Dr. Michael Arndt MCH (RBC) [Entitic mass] 27.1 pg Normal 26.7-34.0 [facility] Comment on above: Performed By: #### C BC #### [facility] [address] [place] [address] Dr. Michael Arndt MCHC (RBC) [Mass/Vol] 32.6 g/dL Normal 29.9-35.2 [facility] Comment on above: Performed By: #### C BC #### [facility] [address] [place] [address] Dr. Michael Arndt MCV (RBC) [Entitic vol] 83.1 fL Normal 81.0-99.0 [facility] Comment on above: Performed By: #### C BC #### [facility] [address] [place] [address] Dr. Michael Arndt MONO # 0.5 103/ul Normal 0.3-0.8 [facility] Comment on above: Performed By: #### C BC #### [facility] [address] [place] [address] Dr. Michael Arndt Monocytes/100 WBC (Bld) 6.5 % Normal 1.7-12.0 [facility] Comment on above: Performed By: #### C BC #### [facility] [address] [place] [address] Dr. Michael Arndt NEUT # 5.2 103/ul Normal 1.4-6.5 [facility] Comment on above: Performed By: #### C BC #### [facility] [address] [place] [address] Dr. Michael Arndt Neutrophils/100 WBC (Bld) 64.1 % Normal 43.0-75.0 [facility] Comment on above: Performed By: #### C BC #### [facility] [address] [place] [address] Dr. Michael Arndt Platelet mean volume (Bld) [Entitic vol] 10.6 fL Normal 9.5-13.5 [facility] Comment on above: Performed By: #### C BC #### [facility] [address] [address] [address] Michael Arndt PLT 206 103/ul Normal 150-450 [facility] Comment on above: Performed By: #### C BC #### [facility] [address] [address] [address] Michael Arndt RBC 5.16 106/ul Normal 4.20-5.40 [facility] Comment on above: Performed By: #### C BC #### [facility] [id number] Michael Arndt WBC 8.1 103/ul Normal 4.0-11.0 [facility] Comment on above: Performed By: #### C BC #### [facility] [id number] Michael Arndt CT HEAD WO CONon 11-29-2022 CT HEAD WO CON EXAMINATION: CT HEAD WO CON, 11/29/2022 6:11 PM EST HISTORY: HEADACHE COMPARISON: 10/14/2017 TECHNIQUE: CT scan of the head was performed without IV contrast. CT dose reduction technique was used, including Automated Exposure Control. FINDINGS: BRAIN PARENCHYMA/CSF SPACES: Ventricles are normal in size for age. There is no hemorrhage, mass effect or midline shift. There are no other significant findings. PARANASAL SINUSES: Clear. SKULL BASE AND CALVARIUM: Normal. EXTRACRANIAL SOFT TISSUES: Normal. IMPRESSION: No acute intracranial findings. Electronically authenticated by: ADRIAN HOOKS Date: 2022-11-29 19:11 Normal [facility] PROF 14(COMP METB)on 023 Albumin [Mass/Vol] 3.9 g/dL Normal 3.4-5.0 [facility] Comment on above: Performed By: #### C MP #### [facility] [address] [place] [address] Dr. Michael Arndt Albumin/Globulin [Mass ratio] 1.0 {ratio} Normal [facility] Comment on above: Performed By: #### C MP #### [facility] [address] [address] [address] Michael Arndt ALP [Catalytic activity/Vol] 95 U/L Normal 46-116 [facility] Comment on above: Performed By: #### C MP #### [facility] [address] [address] [address] Michael Arndt ALT [Catalytic activity/Vol] 27 U/L Normal 14-59 [facility] Comment on above: Performed By: #### C MP #### [facility] [address] [address] [address] Michael Arndt Anion gap [Moles/Vol] 6.7 mmol/L Normal [facility] Comment on above: Performed By: #### C MP #### [facility] [address] [address] [address] Michael Arndt AST [Catalytic activity/Vol] 30 U/L Normal 15-37 [facility] Comment on above: Performed By: #### C MP #### [facility] [address] [place] [address] Dr. Michael Arndt Bilirubin [Mass/Vol] 0.5 mg/dL Normal 0.2-1.0 [facility] Comment on above: Performed By: #### C MP #### [facility] [address] [place] [address] Dr. Michael Arndt Calcium [Mass/Vol] 9.5 mg/dL Normal 8.5-10.1 [facility] Comment on above: Performed By: #### C MP #### [facility] [address] [place] [address] Dr. Michael Arndt Chloride [Moles/Vol] 102 mmol/L Normal 98-107 [facility] Comment on above: Performed By: #### C MP #### [facility] [address] [place] [address] Dr. Michael Arndt CO2 [Moles/Vol] 27.9 mmol/L Normal 21.0-32.0 [facility] Comment on above: Performed By: #### C MP #### [facility] [address] [place] [address] Dr. Michael Arndt Creatinine [Mass/Vol] 0.89 mg/dL Normal 0.55-1.02 [facility] Comment on above: Performed By: #### C MP #### [facility] [address] [address] [address] Michael Arndt EGFR-AF KYRGYZ >60 Normal >=60 [facility] Comment on above: Performed By: #### C MP #### [facility] [address] [address] [address] Michael Arndt EGFR-NON AF KYRGYZ >60 Normal >=60 [facility] Comment on above: Performed By: #### C MP #### [facility] [address] [address] [address] Michael Arndt Globulin (S) [Mass/Vol] 4.0 g/dL Normal [facility] Comment on above: Performed By: #### C MP #### [facility] [address] [address] [address] Michael Arndt Glucose [Mass/Vol] 76 mg/dL Normal 74-106 [facility] Comment on above: Performed By: #### C MP #### [facility] [address] [address] [address] Michael Arndt Potassium [Moles/Vol] 3.6 mmol/L Normal 3.5-5.1 [facility] Comment on above: Performed By: #### C MP #### [facility] [address] [place] [address] Dr. Michael Arndt Protein [Mass/Vol] 7.9 g/dL Normal 6.4-8.2 [facility] Comment on above: Performed By: #### C MP #### [facility] [address] [address] [address] Michael Arndt Sodium [Moles/Vol] 133 mmol/L Critically low 136-145 [facility] Comment on above: Performed By: #### C MP #### [facility] [address] [place] [address] Dr. Michael Arndt Urea nitrogen [Mass/Vol] 12.0 mg/dL Normal 7.0-18.0 [facility] Comment on above: Performed By: #### C MP #### [facility] [address] [place] [address] Dr. Michael Arndt Urea nitrogen/Creatinin e [Mass ratio] 13.5 mg/mg Normal [facility] Comment on above: Performed By: #### C MP #### [facility] [address], [place] [address] Dr. [facility] 29 mm/hr Normal <=30 [facility] Comment on above: Performed By: #### S EDR #### [facility] [address], [place] [address] Dr. Michael Arndt Social History Date Type Detail Facility Unknown if ever smoked [facility] Other Sex Assigned At Sex Assigned At Bir th [facility] Other Evaluation note Note Date & Type Note Facility Evaluation note No Information [facility] Other History general Narrative - Reported Note Date & Type Note Facility History general Narrative - Reported Type Medical History Hypertension Medical History hypercholesterolemia Medical History Anxiety Medical History seizures Surgical History GALL BLADDER Surgical History PARTIAL HYSTERECTOMY Surgical History APPENDECTOMY [facility] Other Summary Purpose Family History No Family History Records FoundNo Family History Records FoundNo Family History Records FoundNo Family History Records FoundNo Family History Records Found Advance Directives No Advanced Directives Records FoundNo Advanced Directives Records FoundNo Advanced Directives Records FoundNo Advanced Directives Records FoundNo Advanced Directives Records Found Additional Source Comments INFORMATION SOURCE (unrecogn ized section and content) DATE CREATED AUTHOR 03/20/2018 [facility] DATE CREATED AUTHOR AUTHOR'S ORGANIZ ATION 12/07/2022 [facility] DATE CREATED AUTHOR AUTHOR'S ORGANIZ ATION 01/24/2024 [facility] DATE CREATED AUTHOR AUTHOR'S ORGANIZ ATION 02/05/2024 [facility] DATE CREATED AUTHOR AUTHOR'S ORGANIZ ATION 04/13/2024 [facility] REASON FOR VISIT (unrecogniz ed section and content) REFILL FOR RECORDS PERTAINING TO PATIENTS WHO ARE OR HAVE BEEN ENROLLED IN A CHEMICAL DEPENDENCY/SUBSTANCEABUSE PROGRAM, SOME INFORMATION MAY BE OMITTED. This clinical summary was aggregated from multiple sources. Caution should be exercised in using it in the provision of clinical care. This summary normalizes information from multiple sources, and as a consequence, information in this document may materially change the coding, format and clinical context of patient data. In addition, data may be omitted in some cases. CLINICAL DECISIONS SHOULD BE BASED ON THE PRIMARY CLINICAL RECORDS. [employer] [facility]. provides no warranty or guarantee of the accuracy or completeness of information in this document.
== END 2024-04-13 20:47 | disposition home or self-care (01) ==
LOC: LAB 20:46
PROVIDERS: Visit Provider Obstetrics & Gynecology
DX: Z01.419 Encounter for gynecological examination (general) (routine) without abnormal findings (principal)
CPT/HCPCS: 88175

== ENCOUNTER 2024-11-23 21:29 | Outpatient (REF) | payer MEDICARE, MEDICAID, SELFPAY ==
--- OUTSIDE RECORDS SUMMARY | 2024-11-23 21:33 | XMS_ITS | CCD ---
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 Name Role Phone LINDA NUÑEZ Unavailable Unavailable LINDA NUÑEZ Unavailable Unavailable SELF, REFERRED Unavailable Unavailable MIGUEL BOWER Unavailable Unavailable MISC, DR CASTRO Primary Care Unavailable ANTHONY ., MERISSA Consulting Unavailable ANTHONY ., MERISSA Admitting Unavailable ANTHONY ., MERISSA Attending Unavailable ADRIAN HOOKS Consulting Unavailable DIAB ., RUTH Consulting Unavailable JEFFERSON ., DR DOTSON Admitting Unavailable JEFFERSON ., DR DOTSON Attending Unavailable MISC, DR CASTRO Primary Care Unavailable JEFFERSON ., DR DOTSON Consulting Unavailable Bob Marinelli Unavailable [phone] Hanna JACKSON, [facility] Primary Care Provide r Jarett JACKSON, Use Unavailable NON STAFF Primary Care Provider UnavailMD Manuel Arriola Attending Provider ALISA Parkinson Attending Provider [phone] JR. ADONIS, NISHA Cruz Attending Unavaila ble LUCAS PAULINO Attending Unavailable JOSÉ PARKINSON Attending Unavailable JEFFERSONLUCAS Attending Unavailable JOSÉ PARKINSON Attending Unavailable LUCAS PAULINO Attending Unavailable JOSÉ PARKINSON Attending Unavailable LUCAS PAULINO Attending Unavailable JOSÉ PARKINSON Attending Unavailable JOSÉ PARKINSON Referring Unavailable PAM MAX Attending Unavailable LUCAS PAULINO Attending Unavailable JOSÉ PARKINSON Attending Unavailable LUCAS PAULINO Attending Unavailable PAM MAX Attending Unavailable SERVICES, [facility] Primary Care Unava ilable JAVAN URBANO Attending Unavailab le SERVICES, [facility] Primary Care Unava ilable JESUS SAVAGE Attending Unavailable JESUS SAVAGE Referring Unavailable SERVICES, [facility] Unava ilable SERVICES, [facility] Unava ilable SHAYNA, ELMIRA H Attending Unavailable SHAYNA, ELMIRA H Referring Unavailable SERVICES, [facility] Unava ilable SHAYNA, ELMIRA H Attending Unavailable SHAYNA, ELMIRA H Referring Unavailable SERVICES, [facility] Unava ilable SHAYNA, ELMIRA H Attending Unavailable SHAYNA, ELMIRA H Referring Unavailable SERVICES, [facility] Unava ilable JEFFERSON, LUCAS R Referring Unavailable SERVICES, [facility] Unava ilable SERVICES, [facility] Unava ilable YSABEL SCHULTE Attending Unavailable SERVICES, [facility] Unava ilable VANESSA CRAMER Attending Unavailable SERVICES, [facility] Unava ilable CATARINO SURESH Attending Unavailable JEFFERSON, LUCAS R Referring Unavailable SERVICES, [facility] Unava ilable José Parkinson Attending Unavailable José Parkinson Admitting Unavailable NON STAFF Primary Care Unavailable NON STAFF Primary Care Unavailable Manuel Bolivar Attending Unavailab le Manuel Bolivar Admitting Unavailab le Allergies Allergy Classification Reported Allergen(s) Allergy Type Date of Onset Reaction(s) Facility (1 source) azithromycin Drug Allergy 03-04-20 17 [facility] Repository (3 sources) clarithromycin; Translations: [CLARITHROMYCIN] Drug Allergy 03-18-20 14 [facility] Repository (2 sources) dicyclomine Drug Allergy 04-27-20 13 [facility] Repository (2 sources) iothalamate Drug Allergy 04-27-20 13 [facility]OF [facility] Repository (1 source) traMADol Drug Allergy 03-18-20 14 [facility] Repository (1 source) Clarithromycin Drug Allergy 04-27-20 13 [facility] Repository (1 source) Clarithromycin Drug Allergy Unknown [employer] Other (20 sources) Dicyclomine; Translations: [DICYCLOMINE] Drug Allergy 12-08-19 16 Anxiety [employer] Other (20 sources) Metoclopramide; Translations: [METOCLOPRAMIDE] Drug Allergy 12-08-19 16 Anaphylaxis, Anxiety, Rash [employer] Other (20 sources) Clarithromycin Allergy to substance 12-08-19 Anaphylaxis [facility] Work Phone: (20 sources) Dicyclomine; Translations: [DICYCLOMINE HCL] Drug Allergy 12-08-19 16 Anxiety [facility] (20 sources) Loratadine Allergy to substance 01-23-20 24 [facility] (20 sources) traMADol Drug Allergy 03-21-20 21 Nausea Only [facility] (20 sources) Macrolides And Ketolides Drug Allergy 12-08-19 16 Anaphylaxis [facility] (20 sources) Other Allergy to substance 06-19-20 Rash [facility] (1 source) Clarithromycin Drug Allergy 10-08-19 [facility] Repository (1 source) Dicyclomine Drug Allergy 10-08-19 [facility] Repository (1 source) Metoclopramide Drug Allergy 10-08-19 [facility] Repository Medications Current Medications Medication Drug Class(es) Dates Sig (Normalized) Sig (Original) Calcium (1 source) Phosphate Binder, Calcium Calcium + D Active cefTRIAXone 500 mg injection (19 sources) Cephalosporin Antibacterial Start: 07-29-2024 cefTRIAXone (Rocephin) vial 500 mg cephalexin 500 mg oral capsule (20 sources) Cephalosporin Antibacterial Start: 06-08-2024 End: 08-14-2024 take 1 capsule by mouth in the morning, then take 1 capsule by mouth in the evening, then take 1 capsule by mouth at bedtime cephalexin (Keflex) 500 MG capsule Indications: Urinary tract infection without hematuria, site unspecified Take 1 capsule (500 mg) by mouth in the morning and 1 capsule (500 mg) in the evening and 1 capsule (500 mg) before bedtime. Do all this for 10 days. 30 capsule 08/04/2024 08/14/2024 Active cetirizine hydrochloride 10 mg oral tablet (20 sources) Histamine-1 Receptor Antagonist Start: 02-20-2024 take 1 tablet by mouth at bedtime cetirizine (ZyrTEC) 10 MG tablet Take 10 mg by mouth at bedtime 02/20/2024 Active Estroven (1 source) Estroven Active loratadine 10 mg oral tablet (19 sources) loratadine (Claritin) 10 MG tablet Active omeprazole 40 mg delayed release oral capsule (20 sources) Proton Pump Inhibitor Start: 08-09-2024 take 1 capsule by mouth before mealtime omeprazole (PriLOSEC) [address] capsule Take 40 mg by mouth in the morning. Take before meals. 08/09/2024 Active End: 07-29-2024 take 1 capsule by mouth before mealtime omeprazole (PriLOSEC) [address] capsule Take 40 mg by mouth in the morning. Take before meals. 07/29/2024 Discontinued Oyster Shell Calcium/D (1 source) Oyster Shell Serge cium/D Active phenazopyridine hydrochloride 100 mg oral tablet (12 sources) Start: 06-08-20 End: 08-01-20 take 1 tablet by mouth three times daily as needed for muscle spasms phenazopyridine (Pyridium) 100 MG tablet Indications: Urinary tract infection without hematuria, site unspecified Take 1 tablet (100 mg) by mouth 3 (three) times a day as needed for bladder spasms for up to 3 days 10 tablet 07/29/2024 08/01/2024 Active RA Allergy Relief (1 source) RA Allergy Relie f Active terconazole 4 mg/ml vaginal cream (6 sources) Azole Antifungal Start: 09-01-20 End: 09-08-20 24 terconazole (Terazol 7) 0.4 % vaginal cream Indications: Yeast infection Insert 1 applicator into the vagina at bedtime for 7 days 45 g 09/01/2024 09/08/2024 Active Start: 08-04-2024 End: 08-11-2024 terconazole (Terazol 7) 0.4 % vaginal cream Indications: Yeast infection Insert 1 applicator into the vagina at bedtime for 7 days 45 g 08/04/2024 08/11/2024 Active valACYclovir 500 mg oral tablet (19 sources) Herpesvirus Nucleoside Analog DNA Polymerase Inhibitor, Herpes Simplex Virus Nucleoside Analog DNA Polymerase Inhibitor, Herpes Zoster Virus Nucleoside Analog DNA Polymerase Inhibitor Start: 07-29-2024 End: 01-25-2025 take 1 tablet by mouth once daily valACYclovir (Valtrex) 500 MG tablet Indications: Exposure to STD Take 1 tablet (500 mg) by mouth Daily 30 tablet 5 07/29/2024 01/25/2025 Active Completed/Discontinued Medications Medication Drug Class(es) Dates Sig (Normalized) Sig (Original) ascorbic acid 500 mg chewable tablet (12 sources) Vitamin C End: 09-01-2024 Ascorbic Acid (vitamin C) 500 MG tablet 1 (one) time each day at the same time 09/01/2024 Discontinued Vitamin C Active cholecalciferol 0.05 mg oral capsule (11 sources) Vitamin D End: 09-01-2024 cholecalciferol (Vitamin D-3) 50 MCG (1999 UT) capsule 1 capsule 1 (one) time each day at the same time 09/01/2024 Discontinued clonazePAM 0.5 mg oral tablet (13 sources) Benzodiazepine End: 07-29-2024 clonazePAM (KlonoPIN) 0.5 MG tablet Take 0.5 mg by mouth if needed. 07/29/2024 Discontinued KlonoPIN Active hydrocortisone acetate 10 mg/ml / pramoxine hydrochloride 10 mg/ml rectal foam (12 sources) Corticosteroid Start: 04-15-2024 End: 07-29-2024 Hydrocort-Pramoxine, Perianal, (Proctofoam HC) 1-1 % foam Indications: Other hemorrhoids Apply 1 Application topically if needed (every 2 hours) 15 g 04/15/2024 07/29/2024 Discontinued ibuprofen 800 mg oral tablet (11 sources) Nonsteroidal Anti-inflammatory Drug Start: 04-08-2024 End: 09-01-2024 take 1 tablet by mouth in the morning, then take 1 tablet by mouth in the evening, then take 1 tablet by mouth at bedtime ibuprofen 800 MG tablet Take 800 mg by mouth in the morning and 800 mg in the evening and 800 mg before bedtime. 04/08/2024 09/01/2024 Discontinued ketorolac tromethamine 10 mg oral tablet (11 sources) Nonsteroidal Anti-inflammatory Drug, Cyclooxygenase Inhibitor End: 09-01-2024 ketorolac (Toradol) 10 MG tablet 09/01/2024 Discontinued linaclotide 0.29 mg oral capsule (11 sources) Guanylate Cyclase-C Agonist End: 09-01-2024 linaCLOtide (Linzess) 290 MCG capsule 09/01/2024 Discontinued 12 hr loratadine 5 mg / pseudoephedrine sulfate 120 mg extended release oral tablet (11 sources) alpha-Adrenergic Agonist End: 09-01-2024 loratadine-pseudoephedr ine ER (Alavert Allergy/Sinus) 5-120 MG 12 hr tablet 09/01/2024 Discontinued LORazepam 1 mg oral tablet (11 sources) Benzodiazepine End: 09-01-2024 LORazepam (Ativan) 1 MG tablet 09/01/2024 Discontinued lubiprostone 0.008 mg oral capsule (11 sources) Chloride Channel Activator End: 09-01-2024 lubiprostone (Amitiza) 8 MCG capsule 09/01/2024 Discontinued meloxicam 15 mg oral tablet (11 sources) Nonsteroidal Anti-inflammatory Drug End: 09-01-2024 meloxicam (Mobic) 15 MG tablet 09/01/2024 Discontinued methocarbamol 750 mg oral tablet (11 sources) Muscle Relaxant End: 09-01-2024 methocarbamol (Robaxin) 750 MG tablet 09/01/2024 Discontinued 24 hr metoprolol succinate 25 mg extended release oral tablet (11 sources) beta-Adrenergic Diana End: 09-01-2024 metoprolol succinate XL (Toprol-XL) 25 MG 24 hr tablet 09/01/2024 Discontinued metroNIDAZOLE 500 mg oral tablet (20 sources) Nitroimidazole Antimicrobial Start: 10-06-2024 End: 10-20-2024 take 1 tablet by mouth in the morning metroNIDAZOLE (Flagyl) 500 MG tablet Indications: BV (bacterial vaginosis) Take 1 tablet (500 mg) by mouth in the morning and 1 tablet (500 mg) before bedtime. Do all this for 7 days. Do not drink alcohol while taking this medication. 14 tablet 10/06/2024 10/20/2024 Discontinued (Therapy completed) Start: 07-31-2024 End: 08-07-2024 take 1 tablet by mouth in the morning metroNIDAZOLE (Flagyl) 500 MG tablet Indications: BV (bacterial vaginosis) Take 1 tablet (500 mg) by mouth in the morning and 1 tablet (500 mg) before bedtime. Do all this for 7 days. Do not drink alcohol while taking this medication. 14 tablet 07/31/2024 08/07/2024 Active Start: 06-11-2024 End: 06-18-2024 take 1 tablet by mouth in the morning metroNIDAZOLE (Flagyl) 500 MG tablet Indications: Vaginal discharge Take 1 tablet (500 mg) by mouth in the morning and 1 tablet (500 mg) before bedtime. Do all this for 7 days. Do not drink alcohol while taking this medication. 14 tablet 06/11/2024 06/18/2024 Active End: 09-01-2024 metroNIDAZOLE (Vandazole) 0. 75 % vaginal gel 09/01/2024 Discontinued naproxen 500 mg oral tablet (11 sources) Nonsteroidal Anti-inflammatory Drug End: 09-01-2024 naproxen (Naprosyn) 500 MG tablet 09/01/2024 Discontinued simethicone 80 mg chewable tablet (11 sources) End: 09-01-2024 simethicone (Mylicon) 80 MG chewable tablet every 6 (six) hours 09/01/2024 Discontinued tamsulosin hydrochloride 0.4 mg oral capsule (9 sources) alpha-Adrenergic Diana Start: 06-08-2024 End: 07-29-2024 tamsulosin (Flomax) 0.4 MG 24 hr capsule TAKE 1 CAPUSLE DAILY 30 MINUTES AFTER SAME MEAL EACH DAY 06/08/2024 07/29/2024 Discontinued Problems Active Problems Problem Classification Problem Date Documented Da te Episodic/Chronic Abdominal pain (3 sources) Right upper quadrant pain; Translations: [Right upper quadrant pain] Onset: 08-18-2024 Episodic Administrative/social admission (2 sources) Patient encounter status; Translations: [Person consulting for explanation of examination or test findings] 08-04-2024 Episodic Anxiety disorders (1 source) Anxiety disorder, unspecified; Translations: [ANXIETY DISORDER UNSPECIFIED] Onset: 12-03-2022 Chronic Calculus of urinary tract (1 source) Calculus of ureter; Translations: [Calculus of ureter] Onset: 08-18-2024 Episodic E Codes: Fall (1 source) Fall Onset: 06-29-2024 Esophageal disorders (2 sources) Gastro-esophageal reflux disease without esophagitis; Translations: [Gastroesophageal reflux disease] Onset: 12-03-2022 Chronic Essential hypertension (1 source) Hypertensive disorder Onset: 10-06-2024 Chronic Headache; including migraine (4 sources) Headache; including migraine; Translations: [HEADACHE UNSPECIFIED] Onset: 11-29-2022 Hypertension with complications and secondary hypertension (1 source) Secondary hypertension, unspecified; Translations: [Secondary hypertension, unspecified] Onset: 10-06-2024 Chronic Inflammatory diseases of female pelvic organs (4 sources) Bacterial vaginosis; Translations: [Acute vaginitis] 08-04-2024 Episodic Mycoses (4 sources) Mycosis; Translations: [Candidiasis, unspecified] 08-04-2024 Episodic Nonspecific chest pain (1 source) Chest pain, unspecified; Translations: [Chest pain, unspecified] Onset: 10-06-2024 Episodic Other aftercare (1 source) Other predatory animal exterminator (current) drug therapy; Translations: [OTH JAIL CURRENT DRUG THERAPY] Onset: 12-03-2022 Episodic Other connective tissue disease (4 sources) Full thickness rotator cuff tear; Translations: [Complete rotator cuff tear or rupture of right shoulder, not specified as traumatic] 08-05-2024 Episodic Other female genital disorders (2 sources) Vaginal discharge; Translations: [Other specified noninflammatory disorders of vagina] 06-11-2024 Episodic Other female genital disorders (2 sources) Vaginal irritation; Translations: [Other specified noninflammatory disorders of vagina] 06-11-2024 Episodic Other female genital disorders (2 sources) Vaginal odor; Translations: [Other specified noninflammatory disorders of vagina] 06-11-2024 Episodic Other female genital disorders (2 sources) Burning sensation of vagina; Translations: [Other specified conditions associated with female genital organs and menstrual cycle] 10-06-2024 Episodic Other gastrointestinal disorders (1 source) Irritable bowel syndrome without diarrhea; Translations: [IRRITABLE BOWEL SYND W/O DIARRHEA] Onset: 12-03-2022 Chronic Other gastrointestinal disorders (1 source) Irritable bowel syndrome; Translations: [Irritable bowel syndrome without diarrhea] Chronic Other gastrointestinal disorders (1 source) Diarrhea; Translations: [Diarrhea, unspecified] Episodic Other gastrointestinal disorders (1 source) Constipation; Translations: [Constipation, unspecified] Episodic Other non-traumatic joint disorders (2 sources) Derangement of right shoulder joint; Translations: [Other specific joint derangements of right shoulder, not elsewhere classified] 06-29-2024 Chronic Other non-traumatic joint disorders (1 source) Other specific joint derangements of right shoulder, not elsewhere classified; Translations: [Other specific joint derangements of right shoulder, not elsewhere classified] Onset: 07-23-2024 Chronic Other non-traumatic joint disorders (1 source) Pain of right wrist; Translations: [Pain in right wrist] Episodic Other non-traumatic joint disorders (6 sources) Chronic pain of right upper limb; Translations: [Pain in right shoulder] 08-05-2024 Episodic Other nutritional; endocrine; and metabolic disorders (2 sources) Obese class II; Translations: [Body mass index (BMI) 36.0-36.9, adult] Chronic Other screening for suspected conditions (not mental disorders or infectious disease) (5 sources) Encounter for screening for malignant neoplasm of cervix; Translations: [Encounter for screening mammogram for malignant neoplasm of breast] Onset: 11-28-2022 Episodic Residual codes; unclassified (1 source) Acquired absence of other specified parts of digestive tract; Translations: [ACQ ABSENCE OTH PART DIGESTV TRACT] Onset: 12-03-2022 Episodic Residual codes; unclassified (1 source) Acquired absence of both cervix and uterus; Translations: [ACQUIRED ABSENCE BOTH CERVIX AND UTERUS] Onset: 12-03-2022 Episodic Residual codes; unclassified (1 source) Asymptomatic menopausal state; Translations: [Asymptomatic menopausal state] Onset: 11-11-2024 Episodic Screening and history of mental health and substance abuse codes (1 source) Personal history of nicotine dependence; Translations: [PERSONAL HISTORY OF NICOTINE DEPEND] Onset: 12-03-2022 Episodic Sprains and strains (2 sources) Strain of muscle(s) and tendon(s) of the rotator cuff of right shoulder, subsequent encounter; Translations: [Other specified aftercare] 06-10-2024 Episodic Unclassified (2 sources) Unknown / UNK(Unknown) Onset: 03-18-2017 Unclassified (1 source) Arm Injury Onset: 04-06-2024 Unclassified (1 source) Sore Throat, Anxiety Onset: 12-06-2023 Urinary tract infections (8 sources) Urinary tract infectious disease; Translations: [Urinary tract infection, site not specified] 07-29-2024 Episodic Past or Other Problems Problem Classification Problem Date Documented Date Episodic/Chronic E Codes: Fall (3 sources) Fall; Translations: [Unspecified fall, initial encounter] Onset: 06-29-2024 06-29-2024 Episodic Immunizations and screening for infectious disease (7 sources) Exposure to sexually transmissible disorder; Translations: [Contact with and (suspected) exposure to infections with a predominantly sexual mode of transmission] Onset: 06-11-2024 07-29-2024 Episodic Other circulatory disease (1 source) Elevated blood-pressure reading, without diagnosis of hypertension; Translations: [Elevated blood-pressure reading, without diagnosis of hypertension] Onset: 04-06-2024 Episodic Other connective tissue disease (1 source) Pain in upper limb Onset: 06-29-2024 Episodic Other connective tissue disease (1 source) Other specified soft tissue disorders; Translations: [Other specified soft tissue disorders] Onset: 02-03-2024 Episodic Other connective tissue disease (1 source) Leg swelling symptom Onset: 02-03-2024 Episodic Other female genital disorders (1 source) Other specified noninflammatory disorders of vagina; Translations: [Other specified noninflammatory disorders of vagina] Onset: 06-11-2024 Episodic Other injuries and conditions due to external causes (1 source) Unspecified injury of muscle(s) and tendon(s) of the rotator cuff of right shoulder, initial encounter; Translations: [Unspecified injury of muscle(s) and tendon(s) of the rotator cuff of right shoulder, initial encounter] Onset: 04-06-2024 Episodic Other non-traumatic joint disorders (3 sources) Pain in right shoulder; Translations: [Pain in joint, shoulder region] Onset: 06-29-2024 06-29-2024 Episodic Other upper respiratory disease (1 source) Pain in throat Onset: 12-06-2023 Episodic Other upper respiratory infections (1 source) Acute pharyngitis, unspecified; Translations: [Acute pharyngitis, unspecified] Onset: 12-06-2023 Episodic Spondylosis; intervertebral disc disorders; other back problems (1 source) Cervicalgia; Translations: [Cervicalgia] Onset: 06-29-2024 Episodic Superficial injury; contusion (1 source) Contusion of right shoulder, initial encounter; Translations: [Contusion of right shoulder, initial encounter] Onset: 04-06-2024 Episodic Results Test Name Value Interpretation Reference Range Facility MAMM SCREENING BILATERAL W C core stacker 11-12-2024 MAMM SCREENING BILATERAL W CAD MAMM SCREENING BILATERAL W CAD NE SWANN 1970 [id number] EXAM: MAMM SCREENING BILATERAL W CAD, 11/11/2024 2:16 PM CLINICAL INDICATIONS: Screening, Visit for screening mammogram COMPARISON: 12/13/2021 and priors TECHNIQUE: Bilateral digital tomosynthesis MLO and CC views of the breasts were obtained, with creation of synthetic 2D views. Computer aided detection was utilized. FINDINGS: There are scattered areas of fibroglandular density. There are no suspicious masses, calcifications, or areas of architectural distortion. IMPRESSION: No mammographic evidence of malignancy. BI-RADS: BI-RADS 1 - Negative RECOMMENDATION: Routine screening mammogram in 1 year. RISK ASSESSMENT: TC Lifetime risk: 7.6%. The patient's reported personal and family medical history was used calculate their Tyrer-zick lifetime risk of malignancy. Scores less than 20% are not considered high risk per ACR guidelines and patient should continue with the above recommendation. Finalized by Fernie Titus MD on 11/12/2024 11:01 AM 1 b MAMM 1 YR Normal [facility] DEXA SCAN CENTRAL SKELETALon 11-11-2024 DEXA SCAN CENTRAL SKELETAL DEXA SCAN CENTRAL SKELETAL CLINICAL INFORMATION: Postmenopausal. TECHNIQUE: Dual X-ray Absorptiometry (DXA) was performed. COMPARISON: 12/13/2021 FINDINGS: LUMBAR SPINE (L1-L4): BMD is 1.268 gm/cm2. Decrease of 2.5% since prior. T-score is 0.6. LEFT FEMORAL NECK: BMD is 0.928 gm/cm2. T-score is -0.8. LEFT TOTAL FEMUR: BMD is 0.892 gm/cm2. T-score is -0.9. RIGHT FEMORAL NECK: BMD is 0.975 gm/cm2. T-score is -0.5. RIGHT TOTAL FEMUR: BMD is 0.941 gm/cm2. T-score is -0.5. Total mean decrease in the femurs of 6.3% since prior. The estimated 10-year probability for a major osteoporotic fracture (utilizing FRAX) is 5.1% and for a hip fracture is 0.2%. IMPRESSION: The exam is considered to be normal by the National Osteoporosis Foundation guidelines. WHO CLASSIFICATION: Normal: T-score -1.0 or above Osteopenia: T-score -1.1 to < 2.5 Osteoporosis: T-score -2.5 or lower Secondary causes of bone loss should be evaluated if clinically indicated since the etiology of low BMD cannot be determined by BMD measurement alone. The current National Osteoporosis Foundation guide recommends treating patients with FRAX ten year risk scores of greater than or equal to 3% for hip fracture or greater than or equal to 20% for major osteoporotic fracture, to reduce their fracture risk. Finalized by Girish Ramirez MD on 11/11/2024 3:38 PM Normal [facility] RECURRENT VAGINITIS (HTRX)on 10-07-2024 ATOPOBIUM VAGINAE 0 [facility] ATOPOBIUM VAGINAE Not detected [facility] BVAB 2,3 (BACTERIAL VAGINOSIS ASSOCIATED BACTERIA 2, 3); MOBILUNCUS SPP 0 [facility] BVAB 2,3 (BACTERIAL VAGINOSIS ASSOCIATED BACTERIA 2, 3); MOBILUNCUS SPP Not detected [facility] RUBÉN ALBICANS, PARAPSILOSIS, TROPICALIS 0 [facility] RUBÉN ALBICANS, PARAPSILOSIS, TROPICALIS Not detected [facility] RUBÉN GLABRATA 0 [facility] RUBÉN GLABRATA [facility] Not detected N[facility] CHLAMYDIA TRACHOMATIS 0 [facility] CHLAMYDIA TRACHOMATIS Not detected [facility] GARDNERELLA VAGINALIS 28.648 Abnormal [facility] GARDNERELLA VAGINALIS Detected Abnormal [facility] Interpretation and review of laboratory results Abnormal [facility] MEGASPHAERA (TYPES 1, 2) 0 [facility] MEGASPHAERA (TYPES 1, 2) Not detected [facility] MYCOPLASMA GENITALIUM 0 [facility] MYCOPLASMA GENITALIUM Not detected [facility] NEISSERIA GONORRHOEAE 0 [facility] [place] GONORRHOEAE Not detected [facility] TRICHOMONAS VAGINALIS 0 [facility] TRICHOMONAS VAGINALIS Not detected [facility] BASIC METABOLIC PANLon 10-06 Anion gap [Moles/Vol] 9 mmol/L Normal 5-15 [facility] Comment on above: Performed By: #### C OVFLR #### [facility] ([id number]) [address] [place] [address] 55724 Calcium [Mass/Vol] 9.2 mg/dL Normal 8.5-10.5 [facility] Comment on above: Performed By: #### C OVFLR #### [facility] ([id number]) [address] [place] [address] Chloride [Moles/Vol] 103 mmol/L Normal 98-109 [facility] Comment on above: Performed By: #### C OVFLR #### [facility] ([id number]) [address] [place] [address] 68448 CO2 [Moles/Vol] 25 mmol/L Normal 22-32 [facility] Comment on above: Performed By: #### C OVFLR #### [facility] ([id number]) [address] [place] [address] 90545 Creatinine [Mass/Vol] 1.01 mg/dL High 0.40-1.00 [facility] Comment on above: Result Comment: METH OD TRACEABLE TO IDMS STANDARD Performed By: #### C OVFLR #### [facility] ([id number]) [address] [place] [address] 28207 GFR/1.73 sq M.predicted among non-blacks MDRD (S/P/Bld) [Vol rate/Area] 66 mL/min/{1.73_m2} Normal >59 [facility] Comment on above: Result Comment: Reported eGFR is based on the CKD-EPI 1 equation that does not use a race coefficient. Performed By: #### C OVFLR #### [facility] ([id number]) [address] [place] [address] 11304 Glucose [Mass/Vol] 106 mg/dL High 65-99 [facility] Comment on above: Performed By: #### C OVFLR #### [facility] ([id number]) [address] [place] [address] 65612 Potassium [Moles/Vol] 3.7 mmol/L Normal 3.5-5.0 [facility] Comment on above: Performed By: #### C OVFLR #### [facility] ([id number]) [address] [place] [address] 02160 Sodium [Moles/Vol] 137 mmol/L Normal 134-146 [facility] Comment on above: Performed By: #### C OVFLR #### [facility] ([id number]) [address] [place] [address] 03337 Urea nitrogen [Mass/Vol] 23 mg/dL Normal 5-23 [facility] Comment on above: Performed By: #### C OVFLR #### [facility] ([id number]) [address] [place] [address] 72057 CBC AND AUTO DIFFon 10-06-19 25 ABSOLUTE BASOPHIL 0.0 X10E9/L Normal 0.0-0.2 [facility] Comment on above: Performed By: #### C OVFLR #### [facility] ([id number]) [address] [place] [address] 64665 ABSOLUTE NEUTROPHIL 6.2 X10E9/L Normal 1.5-6.6 [facility] Comment on above: Performed By: #### C OVFLR #### [facility] ([id number]) [address] [place] [address] 67983 Basophils/100 WBC (Bld) 0.3 % Normal [facility] Comment on above: Performed By: #### C OVFLR #### [facility] ([id number]) [address] [place] [address] 19860 Eosinophils (Bld) [#/Vol] 0.2 10*3/uL Normal 0.0-0.4 [facility] Comment on above: Performed By: #### C OVFLR #### [facility] ([id number]) [address] [place] [address] 82487 Eosinophils/100 WBC (Bld) 2.0 % Normal [facility] Comment on above: Performed By: #### C OVFLR #### [facility] ([id number]) [address] [place] [address] 35377 Erythrocyte distribution width (RBC) [Ratio] 13.9 % Normal 11.5-15.0 [facility] Comment on above: Performed By: #### C OVFLR #### [facility] ([id number]) [address] [place] [address] 82376 Hematocrit (Bld) [Volume fraction] 42.1 % Normal 35-47 [facility] Comment on above: Performed By: #### C OVFLR #### [facility] ([id number]) [address] [place] [address] 67330 Hemoglobin (Bld) [Mass/Vol] 14.0 g/dL Normal 11.7-15.5 [facility] Comment on above: Performed By: #### C OVFLR #### [facility] ([id number]) [address] [place] [address] 57216 Lymphocytes (Bld) [#/Vol] 2.2 10*3/uL Normal 1.0-3.5 [facility] Comment on above: Performed By: #### C OVFLR #### [facility] ([id number]) [address] [place] [address] 72307 Lymphocytes/100 WBC (Bld) 23.6 % Normal [facility] Comment on above: Performed By: #### C OVFLR #### [facility] ([id number]) [address] [place] [address] 54790 MCH (RBC) [Entitic mass] 27.9 pg Normal 27-34 [facility] Comment on above: Performed By: #### C OVFLR #### [facility] ([id number]) [address] [place] [address] [place] [address] MCHC (RBC) [Mass/Vol] 33.3 g/dL Normal 32-36 [facility] Comment on above: Performed By: #### C OVFLR #### [facility] ([id number]) [address] [place] [address] 79030 MCV (RBC) [Entitic vol] 84 fL Normal 80-100 [facility] Comment on above: Performed By: #### C OVFLR #### [facility] ([id number]) [address] [place] [address] 16118 Monocytes (Bld) [#/Vol] 0.6 10*3/uL Normal 0-0.9 [facility] Comment on above: Performed By: #### C OVFLR #### [facility] ([id number]) [address] [place] [address] 58624 Monocytes/100 WBC (Bld) 6.5 % Normal [facility] Comment on above: Performed By: #### C OVFLR #### [facility] ([id number]) [address] [place] [address] 31614 Neutrophils/100 WBC (Bld) 67.6 % Normal [facility] Comment on above: Performed By: #### C OVFLR #### [facility] ([id number]) [address] [place] [address] 56989 Platelet mean volume (Bld) [Entitic vol] 9.1 fL Normal 7-12 [facility] Comment on above: Performed By: #### C OVFLR #### [facility] ([id number]) [address] [place] [address] 07103 Platelets (Bld) [#/Vol] 198 10*3/uL Normal 150-450 [facility] Comment on above: Performed By: #### C OVFLR #### [facility] ([id number]) [address] [place] [address] 65251 RBC COUNT 5.02 X10E12/L Normal 3.80-5.20 [facility] Comment on above: Performed By: #### C OVFLR #### [facility] ([id number]) [address] [place] [address] 42797 WBC (Bld) [#/Vol] 9.2 10*3/uL Normal 4.0-11.0 [facility] Comment on above: Performed By: #### C OVFLR #### [facility] ([id number]) [address] [place] [address] 35949 Troponin I.cardiac High sens itivity method [Mass/Vol]on 10-06-2024 1 HOUR TROP I, HIGH SENSITIVITY 2 ng/L Normal <16 [facility] Comment on above: Performed By: #### C OVFLR #### [facility] ([id number]) [address] [place] [address] 10750 TROPONIN I, HIGH SENSITIVITY 2 ng/L Normal <16 [facility] Comment on above: Performed By: #### C OVFLR #### [facility] ([id number]) [address] [place] [address] 60177 Urinalysis macro (dipstick) panel (U)on 09-01-2024 Bilirubin, UA Negative Negative - 4(70) +++ mg/dL [facility] Blood, UA Negative Negative - 50 Reinaldo/mcL [facility] Clarity, UA Clear [facility] Color, UA Yellow [facility] [employer] [facility] Glucose, UA Negative Negative - 1999(110) ++++ mg/dL [facility] Interpretation and review of laboratory results Normal [facility] Ketones, UA Negative Negative - 160(16) ++++ mg/dL [facility] Leukocytes, UA Negative Negative - 500+++ Rowan/mcL [facility] Nitrite, UA Negative Negative - Positive [facility] pH, UA 6 5 - 9 [facility] Protein, UA Negative Negative - 1999(20) ++++ mg/dL [facility] Spec Grav, UA 1.02 1 - 1.03 [facility] care Urobilinogen, UA 0.2 0.2 - 12 mg/dL [facility] e CBC AND AUTO DIFFon 08-18-20 24 ABSOLUTE BASOPHIL 0.0 X10E9/L Normal 0.0-0.2 [facility] Comment on above: Performed By: #### C OVFLR #### [facility] ([id number]) [address] [place] [address] 57225 ABSOLUTE NEUTROPHIL 5.0 X10E9/L Normal 1.5-6.6 [facility] Comment on above: Performed By: #### C OVFLR #### [facility] ([id number]) [address] [place] [address] 36828 Basophils/100 WBC (Bld) 0.6 % Normal [facility] Comment on above: Performed By: #### C OVFLR #### [facility] ([id number]) [address] [place] [address] 15179 Eosinophils (Bld) [#/Vol] 0.1 10*3/uL Normal 0.0-0.4 [facility] Comment on above: Performed By: #### C OVFLR #### [facility] ([id number]) [address] [place] [address] 07993 Eosinophils/100 WBC (Bld) 1.1 % Normal [facility] Comment on above: Performed By: #### C OVFLR #### [facility] ([id number]) [address] [place] [address] 71942 Erythrocyte distribution width (RBC) [Ratio] 13.9 % Normal 11.5-15.0 [facility] Comment on above: Performed By: #### C OVFLR #### [facility] ([id number]) [address] [place] [address] 23202 Hematocrit (Bld) [Volume fraction] 42.3 % Normal 35-47 [facility] Comment on above: Performed By: #### C OVFLR #### [facility] ([id number]) [address] [place] [address] 25214 Hemoglobin (Bld) [Mass/Vol] 14.3 g/dL Normal 11.7-15.5 [facility] Comment on above: Performed By: #### C OVFLR #### [facility] ([id number]) [address] [place] [address] 06811 Lymphocytes (Bld) [#/Vol] 1.8 10*3/uL Normal 1.0-3.5 [facility] Comment on above: Performed By: #### C OVFLR #### [facility] ([id number]) [address] [place] [address] 59355 Lymphocytes/100 WBC (Bld) 24.9 % Normal [facility] Comment on above: Performed By: #### C OVFLR #### [facility] ([id number]) [address] [place] [address] 58155 MCH (RBC) [Entitic mass] 28.3 pg Normal 27-34 [facility] Comment on above: Performed By: #### C OVFLR #### [facility] ([id number]) [address] [place] [address] 53720 MCHC (RBC) [Mass/Vol] 33.7 g/dL Normal 32-36 [facility] Comment on above: Performed By: #### C OVFLR #### [facility] ([id number]) [address] [place] [address] 71031 MCV (RBC) [Entitic vol] 84 fL Normal 80-100 [facility] Comment on above: Performed By: #### C OVFLR #### [facility] ([id number]) [address] [place] [address] 29933 Monocytes (Bld) [#/Vol] 0.4 10*3/uL Normal 0-0.9 [facility] Comment on above: Performed By: #### C OVFLR #### [facility] ([id number]) [address] [place] [address] 95546 Monocytes/100 WBC (Bld) 5.2 % Normal [facility] Comment on above: Performed By: #### C OVFLR #### [facility] ([id number]) [address] [place] [address] 17364 Neutrophils/100 WBC (Bld) 68.2 % Normal [facility] Comment on above: Performed By: #### C OVFLR #### [facility] ([id number]) [address] [place] [address] 50540 Platelet mean volume (Bld) [Entitic vol] 9.5 fL Normal 7-12 [facility] Comment on above: Performed By: #### C OVFLR #### [facility] ([id number]) [address] [place] [address] 70221 Platelets (Bld) [#/Vol] 203 10*3/uL Normal 150-450 [facility] Comment on above: Performed By: #### C OVFLR #### [facility] ([id number]) [address] [place] [address] 84636 RBC COUNT 5.04 X10E12/L Normal 3.80-5.20 [facility] Comment on above: Performed By: #### C OVFLR #### [facility] ([id number]) [address] [place] [address] 65417 WBC (Bld) [#/Vol] 7.4 10*3/uL Normal 4.0-11.0 [facility] Comment on above: Performed By: #### C OVFLR #### [facility] ([id number]) [address] [place] [address] [place] [address] COMPREHENSIVE METABOLIC PANE [facility] 08-18-2024 Albumin [Mass/Vol] 4.5 g/dL Normal 3.2-5.3 [facility] Comment on above: Performed By: #### C OVFLR #### [facility] ([id number]) [address] [place] [address] 43705 ALP [Catalytic activity/Vol] 79 U/L Normal 39-130 [facility] Comment on above: Performed By: #### C OVFLR #### [facility] ([id number]) [address] [place] [address] 97305 ALT [Catalytic activity/Vol] 18 U/L Normal 0-31 [facility] Comment on above: Performed By: #### C OVFLR #### [facility] ([id number]) [address] [place] [address] 78640 Anion gap [Moles/Vol] 10 mmol/L Normal 5-15 [facility] Comment on above: Performed By: #### C OVFLR #### [facility] ([id number]) [address] [place] [address] 48786 AST [Catalytic activity/Vol] 20 U/L Normal 0-41 [facility] Comment on above: Performed By: #### C OVFLR #### [facility] ([id number]) [address] [place] [address] 80051 Bilirubin [Mass/Vol] 0.8 mg/dL Normal 0.3-1.2 [facility] Comment on above: Performed By: #### C OVFLR #### [facility] ([id number]) [address] [place] [address] 99336 Calcium [Mass/Vol] 9.7 mg/dL Normal 8.5-10.5 [facility] Comment on above: Performed By: #### C OVFLR #### [facility] ([id number]) [address] [place] [address] 05932 Chloride [Moles/Vol] 104 mmol/L Normal 98-109 [facility] Comment on above: Performed By: #### C OVFLR #### [facility] ([id number]) [address] [place] [address] 92286 CO2 [Moles/Vol] 24 mmol/L Normal 22-32 [facility] Comment on above: Performed By: #### C OVFLR #### [facility] ([id number]) [address] [place] [address] 62433 Creatinine [Mass/Vol] 0.84 mg/dL Normal 0.40-1.00 [facility] Comment on above: Result Comment: METH OD TRACEABLE TO IDMS STANDARD Performed By: #### C OVFLR #### [facility] ([id number]) [address] [place] [address] 25940 GFR/1.73 sq M.predicted among non-blacks MDRD (S/P/Bld) [Vol rate/Area] 82 mL/min/{1.73_m2} Normal >59 [facility] Comment on above: Result Comment: Reported eGFR is based on the CKD-EPI 1 equation that does not use a race coefficient. Performed By: #### C OVFLR #### [facility] ([id number]) [address] [place] [address] 90251 Glucose [Mass/Vol] 86 mg/dL Normal 65-99 [facility] Comment on above: Performed By: #### C OVFLR #### [facility] ([id number]) [address] [place] [address] 27709 Potassium [Moles/Vol] 4.2 mmol/L Normal 3.5-5.0 [facility] Comment on above: Performed By: #### C OVFLR #### [facility] ([id number]) [address] [place] [address] Protein [Mass/Vol] 8.1 g/dL [facility] 6.0-8.0 [facility] Comment on above: Performed By: #### C OVFLR #### [facility] ([id number]) [address] [place] [address] Sodium [Moles/Vol] 138 mmol/L Normal 134-146 [facility] Comment on above: Performed By: #### C OVFLR #### [facility] ([id number]) [address] [place] [address] 93380 Urea nitrogen [Mass/Vol] 12 mg/dL Normal 5-23 [facility] Comment on above: Performed By: #### C OVFLR #### [facility] ([id number]) [address] [place] [address] ABDOMEN AND PELVIS WO CON Ton 08-18-2024 CT ABDOMEN AND PELVIS WO CONT CT ABDOMEN AND PELVIS WO CONT CT ABDOMEN AND PELVIS WO CONT HISTORY: Left-sided abdominal pain radiating to the back COMPARISON: CT abdomen pelvis 03/17/2019 TECHNIQUE: CT images of abdomen and pelvis obtained without the administration of contrast. Lack of IV contrast limits evaluation, especially solid organs. Automated exposure control was utilized. All CT scans at this facility use dose modulation, iterative reconstruction, and/or weight based dosing when appropriate to reduce radiation dose to as low as reasonably achievable. FINDINGS: Suboptimal evaluation of the solid organs, vessels, and lymph nodes in the absence of IV contrast. LOWER CHEST: Mild coronary artery calcification, otherwise unremarkable. LIVER AND BILIARY: No suspicious hepatic mass or lesion given noncontrast technique. Surgically absent gallbladder with clips in gallbladder fossa. PANCREAS: Unremarkable SPLEEN: Unremarkable ADRENALS: Unremarkable KIDNEYS, URETERS, AND BLADDER: Similar lobulated appearance of the right kidney was multifocal cortical irregularities compared to prior infection/infarction and right renal atrophy. No suspicious renal mass or lesion given noncontrast technique. Equivocal punctate calculus in the distal left ureter/UVJ (series 601, image 72). This is most likely a phlebolith. GI TRACT AND PERITONEUM: Surgically absent appendix. The terminal ileum is unremarkable appearing. There is no evidence of bowel obstruction. No pericolonic fat stranding or free intraperitoneal gas. Mild colonic diverticulosis. Small fat-containing periumbilical hernia. VASCULATURE: Unremarkable given noncontrast technique. LYMPH NODES: No enlarged lymph nodes by size criteria. REPRODUCTIVE ORGANS: Sequelae of prior hysterectomy. MUSCULOSKELETAL: Degenerative endplate changes throughout the visualized thoracolumbar spine. Chronic asymmetric sclerotic changes of the anterior portion of the left SI joint with some questionable erosions along the articular surface of the sacrum. IMPRESSION: * Equivocal punctate calculus within the distal left ureter at the UVJ. This is most likely a phlebolith adjacent to the ureter. No significant upstream collecting system dilatation. * Chronic sclerotic changes of the left SI joint with possible subtle erosions involving the articular surface of the sacrum. Correlate for acute on chronic sacroiliitis. This could be characterized in greater detail with nonemergent MRI if clinically indicated. Approved by Resident Ayden Machado DO on 08/18/2024 8:03 PM I, Sean Lambert MD have personally reviewed the image(s) and agree with and/or edited the report Finalized by Sean Lambert MD on 08/18/2024 8:25 PM Normal [facility] LIPASEon 08-18-2024 Lipase [Catalytic activity/Vol] 34 U/L Normal 17-40 [facility] Comment on above: Performed By: #### C OVFLR #### [facility] ([id number]) [address] [place] [address] 98625 URINE CULTUREon 08-18-2024 Bacteria identified Cx Nom (U) CULTURE RESULTS NO GROWTH AT <1000 CFU/mL Normal [facility] Comment on above: Performed By: #### C OVFLR #### [facility] ([id number]) [address] [place] [address] 68973 URN MACROSCOPIC NURon 2023 BILIRUBIN [facility] Negative Normal NEG [facility] Comment on above: Performed By: #### C OVFLR #### [facility] ([id number]) [address] [place] [address] 91422 BLOOD/HGB [facility] Trace Abnormal NEG [facility] Comment on above: Performed By: #### C OVFLR #### [facility] ([id number]) [address] [place] [address] 99878 GLUCOSE [facility] Negative Normal NEG [facility] Comment on above: Performed By: #### C OVFLR #### [facility] ([id number]) [address] [place] [address] 86361 KETONES [facility] Negative Normal NEG [facility] Comment on above: Performed By: #### C OVFLR #### [facility] ([id number]) [address] [place] [address] 23494 LEUKOCYTE ESTERASE [facility] Negative Normal NEG [facility] Comment on above: Performed By: #### C OVFLR #### [facility] ([id number]) [address] [place] [address] 84214 NITRITE [facility] Negative Normal NEG [facility] Comment on above: Performed By: #### C OVFLR #### [facility] ([id number]) [address] [place] [address] 28929 PH [facility] 5.5 Normal 5.0-8.5 [facility] Comment on above: Performed By: #### C OVFLR #### [facility] ([id number]) [address] [place] [address] 05750 PROTEIN [facility] Negative Normal NEG [facility] Comment on above: Performed By: #### C OVFLR #### [facility] ([id number]) [address] [place] [address] 16490 SPECIFIC GRAVITY [facility] 1.015 Normal 1.003-1.035 [facility] Comment on above: Performed By: #### C OVFLR #### [facility] ([id number]) [address] [place] [address], [place] [address] UROBILINOGEN [facility] 0.2 eu/dL Normal <1.1 [facility] Comment on above: Performed By: #### C OVFLR #### [facility] ([id number]) [address] [facility] [place] [address] Urinalysis macro (dipstick) panel (U)on 08-04-2024 Bilirubin, UA Negative Negative - 4(70) +++ mg/dL [facility] Blood, UA Positive Negative - 50 Reinaldo/mcL [facility] Comment on above: trace Clarity, UA Clear [facility] Color, UA Yellow [facility] [employer] [facility] Glucose, UA Negative Negative - 1999(110) ++++ mg/dL [facility] Interpretation and review of laboratory results Abnormal [facility] re Ketones, UA Negative Negative - 160(16) ++++ mg/dL [facility] Leukocytes, UA Negative Negative - 500+++ Rowan/mcL [facility] Nitrite, UA Negative Negative - Positive [facility] pH, UA 5.5 5 - 9 [employer] [facility] e Protein, UA Negative Negative - 1999(20) ++++ mg/dL [facility] Spec Grav, UA 1.01 1 - 1.03 [facility] Urobilinogen, UA 0.2 0.2 - 12 mg/dL [facility] RECURRENT VAGINITIS (HTRX)on 07-31-2024 ATOPOBIUM VAGINAE 15.259 Abnormal [facility] ATOPOBIUM VAGINAE Detected Abnormal [facility] BVAB 2,3 (BACTERIAL VAGINOSIS ASSOCIATED BACTERIA 2, 3); MOBILUNCUS SPP 0 [facility] BVAB 2,3 (BACTERIAL VAGINOSIS ASSOCIATED BACTERIA 2, 3); MOBILUNCUS SPP Not detected [facility] RUBÉN ALBICANS, PARAPSILOSIS, TROPICALIS 0 [facility] RUBÉN ALBICANS, PARAPSILOSIS, TROPICALIS Not detected [facility] RUBÉN GLABRATA 0 [facility] RUB[facility]N GLABRATA Not detected [facility]I [facility] RUBÉN KRUSEI Not [facility] CHLAMYDIA TRACHOMATIS 0 [facility] CHLAMYDIA TRACHOMATIS Not detected [facility] ERMB, C; MEFA 16.78 Abnormal [facility] ERMB, C; MEFA Detected Abnormal [facility] care GARDNERELLA VAGINALIS 23.99 Abnormal [facility] GARDNERELLA VAGINALIS Detected Abnormal [facility] Interpretation and review of laboratory results Abnormal [facility] re MEGASPHAERA (TYPES 1, 2) 0 [facility] MEGASPHAERA (TYPES 1, 2) Not detected [facility] MYCOPLASMA GENITALIUM 0 [facility] MYCOPLASMA GENITALIUM Not detected [facility] NEISSERIA GONORRHOEAE 0 [facility] NEISSERIA GONORRHOEAE Not detected [facility] TET B, TET M 19.734 Abnormal [facility] are TET B, TET M Detected Abnormal [facility] are TRICHOMONAS VAGINALIS 0 [facility] TRICHOMONAS VAGINALIS Not detected [facility] Urinalysis macro (dipstick) panel (U)on 07-29-2024 Bilirubin, UA Negative Negative - 4(70) +++ mg/dL [facility] Blood, UA Positive Negative - 50 Reinaldo/mcL [facility] Comment on above: moderate Clarity, UA Clear [facility] Color, UA Yellow [facility] Glucose, UA Negative Negative - 1999(110) ++++ mg/dL [facility] Interpretation and review of laboratory results Abnormal [facility] Ketones, UA Negative Negative - 160(16) ++++ mg/dL [facility] Leukocytes, UA Positive Negative - 500+++ Rowan/mcL [facility] Comment on above: large Nitrite, UA Negative Negative - Positive [facility] pH, UA 7 5 - 9 [facility] Protein, UA Negative Negative - 1999(20) ++++ mg/dL [facility] Spec Grav, UA 1.02 1 - 1.03 [facility] Urobilinogen, UA 0.2 0.2 - 12 mg/dL [facility] shoulder RT wo conon 07-01 MR shoulder RT wo con [facility] [place] [address] MRI Report Signed Patient: Ne Swann MR#: [id number] : 1970 Acct:[id number] Age/Sex: 54 / F ADM Date: 07/23/24 Loc: [facility] Room: Type: DEP CLI Attending Dr: José Parkinson ONCOLOGY PATIENT NAVIGATOR-C Copies to: José Parkinson 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 COMPARISON: None. PROCEDURE: Axial, oblique coronal, and oblique sagittal long TR images of the shoulder were obtained. FINDINGS: ROTATOR CUFF AND ASSOCIATED STRUCTURES Biceps Tendon: The biceps tendon is normally situated within the bicipital groove. No complete or partial biceps tendon tear is present. Rotator cuff: There is a full-thickness tear of the supraspinatus tendon with 2.4 cm in medial retraction of the tendon fibers. There is a full-thickness tear of the infraspinatus tendon with a few remaining fibers along the posterior aspect of the tendon. The infraspinatus tendon is intact. The subscapularis tendon is intact. Musculature: There is no muscular tear, contusion, or atrophy. Bursa: Fluid is noted throughout the subacromial bursa. OSSEOUS STRUCTURES Acromioclavicular joint: There are mild degenerative changes of the acromioclavicular joint. A type 2 acromion configuration is noted. There is no anterior or lateral acromial downsloping. Bones: No Hill-Sachs, reverse Hill-Sachs, or bony Bankart lesions are seen. There are no fractures or regions of abnormal bone marrow signal intensity. GLENOHUMERAL JOINT Joint: There is a moderate joint effusion. Cartilage: Preserved Labrum: There is increased signal intensity underlying the anterior and superior glenoid labrum possibly relating to a labral tear. Other support structures: Anterior joint capsule appears to be partially stripped from the anterior aspect of the glenoid, 9 mm medial to the articular surface. There is also suggestion of disruption of the joint capsule along the axillary recess, best seen on coronal images. MR/MR shoulder RT wo con IMPRESSION: 1. Anterior joint capsule appears to be partially stripped from the anterior aspect of the glenoid, 9 mm medial to the articular surface. There is also suggestion of disruption of the joint capsule along the axillary recess, best seen on coronal images. 2. There is a full-thickness tear of the supraspinatus tendon with 2.4 cm in medial retraction of the tendon fibers. 3. There is a full-thickness tear of the infraspinatus tendon with a few remaining fibers along the posterior aspect of the tendon. 4. There is increased signal intensity underlying the anterior and superior glenoid labrum possibly relating to a labral tear. 5. There is a moderate joint effusion. Impression dictated by: Teddy Richey M.D.07/23/2024 3:55 PM Dictation Location: RADIO-PC-14 Transcribed By: ALEXANDRU 07/23/24 1555 Dictated By: Teddy Richey II, MD 07/23/24 1540 Signed By: 07/23/24 1559 Normal [facility] XR Shoulder - right 2 Viewso n 07-01-2024 Imaging Result: scapular Y, axillary and AP x-rays of right shoulder showed humeral head to be well centered in the glenoid fossa. There was no evidence of subluxation or dislocation. There was no evidence of degenerative joint disease. Acromioclavicular joint appeared to be well preserved. There was no acute bony process including but not limited to fracture and/or dislocation. Impression: Unremarkable right shoulder. [employer] XR Shoulder - right 2 ViewsO rdered By: Jr. Roman on 07-01-2024 [employer] [employer] Work Phone: CT BRAIN WO CONTon CT BRAIN WO CONT CT BRAIN WO CONT CT BRAIN WO CONT HISTORY: Head pain, right facial bruising, fall COMPARISON: 08/26/2013 TECHNIQUE: * CT brain without intravenous contrast. Automated exposure control was utilized. * All CT scans at this facility use dose modulation, iterative reconstruction, and/or weight based dosing when appropriate to reduce radiation dose to as low as reasonably achievable. FINDINGS: No acute intracranial hemorrhage, territorial infarct, mass effect, or shift of midline structure. The cerebral volume, ventricles, cisterns, and sulci appear appropriate for patient age. Intraorbital contents appear unremarkable. Paranasal sinuses and mastoid air cells appear well aerated. Right infraorbital soft tissue contusion. IMPRESSION: * No acute intracranial findings by CT. * Right infraorbital soft tissue contusion. Approved by Resident: Dima Hidalgo MD on 06/29/2024 3:54 PM Vanessa Palmer MD have personally reviewed the image(s) and agree with and/or edited the report Finalized by Vanessa Ambriz MD on 06/29/2024 3:59 PM Normal [facility] CT CERVICAL SPINE WO CONTon 06-29-2024 CT CERVICAL SPINE WO CONT CT CERVICAL SPINE WO CONT HISTORY: A 53 year old female with the history of the fall and neck trauma days ago. EXAM/TECHNIQUE: Multidetector spiral CT scan of cervical spine is performed. Multiplanar reconstruction images are obtained. All CT scans at this facility use dose modulation, iterative reconstruction, and/or weight based dosing when appropriate to reduce radiation dose to as low as reasonably achievable. COMPARISON: None available. FINDINGS: There is no evidence of fracture through the cervical vertebrae. The posterior elements are intact. Sagittal and coronal images demonstrate normal vertebral heights. There is no evidence of compression fractures or acute bony pathology. Facet joints are intact. The odontoid process is intact. There are diffuse degenerative arthritic changes in the cervical spine with severe changes at C6-C7. Facet arthropathy seen at multiple levels. No significant prevertebral soft tissue abnormality is identified. IMPRESSION: * No evidence of fracture, spondylolisthesis or acute bony pathology. * Diffuse degenerative arthritis in the cervical spine and facet arthropathy at multiple levels. Finalized by Dhruv Cabrera MD on 06/29/2024 3:54 PM Normal [facility] CT FACIAL BONES WO CONTon CT FACIAL BONES WO CONT CT FACIAL BONES WO CONT 06/29/2024 3:34 PM:CT FACIAL BONES WO CONT INDICATION: Facial trauma, blunt COMPARISON: None TECHNIQUE/PROTOCOL: Standard noncontrast images through the facial bones and sinuses obtained with reformatted coronal and sagittal images. All CT scans at this facility use dose modulation, iterative reconstruction, and/or weight based dosing when appropriate to reduce radiation dose to as low as reasonably achievable. FINDINGS: Facial Bones: No acute orbital wall fracture. No acute maxillofacial or mandible fracture. Impacted left posterior maxillary molar. Facial Soft Tissues: Mild right periorbital soft tissue fat stranding.. Paranasal Sinuses: Clear Temporal Bone and Mastoid Air Cells: Normal normal Orbits: Normal Included portions of the brain: See separately dictated CT of the head. IMPRESSION: No acute facial bone fractures. Finalized by Javan Davila on 06/29/2024 3:57 PM Normal [facility] XR Shoulder - right 2 Viewso n 06-29-2024 Radiology Study observation (narrative) [facility] HIV 1+2 Ab+HIV1 p24 Ag IA Ql on 06-11-2024 HIV 1 and 2 Ab/Ag Screen Non-Reactive Normal NRCT [facility] Comment on above: Result Comment: This information has been disclosed to you from confidential records protected from disclosure by state law. You shall make no further disclosure of this information without the specific, written and informed release of the individual to whom it pertains, or as otherwise permitted by state law. A general authorization for the release of medical or other information is not sufficient for the purpose of the release of HIV test results or diagnoses. Performed By: #### 5 [id number] #### [facility] ([id number]) [address] [place] [address] Cytology Cervical or vaginal smear or scraping studyon 04-13-2024 [facility] XR HUMERUS RT MIN 2 VWSon XR HUMERUS RT MIN 2 VWS XR HUMERUS RT MIN 2 VWS Right humerus: HISTORY: Humeral pain. 2 views right humerus are obtained. There is no acute osseous, articular, or soft tissue abnormality. IMPRESSION: No acute findings. Finalized by Bruce Armstrong MD on 04/06/2024 8:52 PM Normal [facility] XR SHOULDER RT MIN 2 VWSon 0 04-06-2024 XR SHOULDER RT MIN 2 VWS XR SHOULDER RT MIN 2 VWS CLINICAL INFORMATION: fall c pain TECHNIQUE: XR SHOULDER RT MIN 2 VWS 3 views right shoulder were obtained. AC joint degenerative changes are mild. Humeral head shows normal articulation with the glenoid. No fracture or dislocation. IMPRESSION: Degenerative changes Finalized by Bruce Armstrong MD on 04/06/2024 8:46 PM Normal [facility] Fibrin D-dimer DDU (PPP) [Ma ss/Vol]on 02-03-2024 D DIMER 200 ng/mL DDU Normal <255 [facility] Comment on above: Result Comment: Results <255 ng/mL DDU: The presence of a VTE can safely be excluded with a negative D-Dimer result and Wells score. A negative result doesn't exclude the possibility of DIC. The test be repeated along with other diagnostic tests if the patient's symptoms persist or worsen. [email or web address] Performed By: #### 4 [id number] #### [facility] ([id number]) [address] [place] [id number] XR KNEE LT 3 VWSon XR KNEE LT 3 VWS XR KNEE [...] Joel Joiner MD on 02/03/2024 9:20 PM I, Bruce Armstrong MD have personally reviewed the image(s) and agree with and/or edited the report Finalized by Bruce Armstrong MD on 02/03/2024 9:41 PM Normal [facility] RAPID STREP SCR NURSINGon S. pyogenes Ag EIA Ql (Throat) Negative Normal NEG [facility] Comment on above: Performed By: #### 6 [id number] #### [facility] ([id number]) [address] [place] [address] SARS/FLU A+B/RSV by NAAT/Mol ecularon 12-06-2023 SARS/FLU [...] operators who are performing tests using either [employer]Be[employer] or P[employer] systems and is limited to laboratories that [...] repeat. Fact Sheet for Healthcare Providers: https://www.fda.gov/me ángel/834066/download Fact Sheet for Patients: https://www.fda.gov/me ángel/823382/download Normal [facility] Comment on above: Performed By: #### C OVFLR #### [facility] ([id number]) [address] [place] [address], [place] [address] PAP ACOG PANEL 2: 30 to 65on 12-06-2022 . . Normal [facility] Comment on above: Result Comment: Perf ormed at: WB Performed By: #### 4 [id number] #### [facility] [address] [place] [address] Dr. Michael Arndt Age Gdln ACOG Testing 30-65 Normal [facility] Comment on above: Performed By: #### 4 [id number] #### [facility] [address] [address] [address] Michael Arndt DIAGNOSIS: Comment Normal [facility] Comment on above: Result Comment: NEGA TIVE FOR INTRAEPITHELIAL LESION OR MALIGNANCY. Performed at: WB Performed By: #### 4 [id number] #### [facility] [address] [place] [address] Dr. Michael Arndt HPV Aptima Negative Normal Negative [facility] Comment on above: Result Comment: This nucleic acid amplification test detects fourteen high-risk HPV types (16,18,31,33,35,39,45,51,52,56,58,59,66,68) without differentiation. Performed at: =G Performed By: #### 4 [id number] #### [facility] [address] [address] [address] Michael Arndt HPV Genotype Reflex Comment Normal [facility] Comment on above: Result Comment: Crit eria not met, HPV Genotype not performed. Performed at: WB Performed By: #### 4 [id number] #### [facility] [address] [address] [address] Michael Arndt Methodology: Comment Normal [facility] Comment on above: Result Comment: This liquid based ThinPrep(R) pap test was screened with the use of an image guided system. Performed at: WB Performed By: #### 4 [id number] #### [facility] [address] [place] [address] Dr. Michael Arndt Note: Comment Normal [facility] Comment on above: Result Comment: The Pap smear is a screening test designed to aid in the detection of premalignant and malignant conditions of the uterine cervix. It is not a diagnostic procedure and should not be used as the sole means of detecting cervical cancer. Both false-positive and false-negative reports do occur. . Performed at: WB Performed By: #### 4 [id number] #### [facility] [address] [place] [address] Dr. Michael Arndt Performed by: Comment Normal [facility] Comment on above: Result Comment: Kenia Puga, Loom Doffer (ASCP) Performed at: WB Performed By: #### [id number] #### [facility] [address] [place] [address] Dr. Michael Arndt Specimen adequacy: Comment Normal [facility] Comment on above: Result Comment: Sati sfactory for evaluation. Performed at: WB Performed By: #### 4 [id number] #### [facility] [address] [place] [address] Dr. Michael Arndt CBC AUTO DIFFon 11-29-2022 BASO # 0.1 103/ul Normal 0.0-0.1 [facility] Comment on above: Performed By: #### C BC #### [facility] [address] [place] [address] Dr. Michael Arndt Basophils/100 WBC (Bld) 0.6 % Normal 0.2-2.0 [facility] Comment on above: Performed By: #### C BC #### [facility] [address] [place] [address] Dr. Michael Arndt EO # 0.2 103/ul Normal 0.0-0.7 [facility] Comment on above: Performed By: #### C BC #### [facility] [address] [place] [address] Dr. Michael Arndt Eosinophils/100 WBC (Bld) 2.2 % Normal 0.9-7.0 [facility] Comment on above: Performed By: #### C BC #### [facility] [address] [place] [address] Dr. Michael Arndt Erythrocyte distribution width (RBC) [Ratio] 13.2 % Normal 11.0-15.0 [facility] Comment on above: Performed By: #### C BC #### [facility] [address] [address] [address] Michael Arndt Hematocrit (Bld) [Volume fraction] 42.9 % Normal 36.0-48.0 [facility] Comment on above: Performed By: #### C BC #### [facility] [address] [place] [address] Dr. Michael Arndt Hemoglobin (Bld) [Mass/Vol] 14.0 g/dL Normal 12.0-16.0 [facility] Comment on above: Performed By: #### C BC #### [facility] [address] [place] [address] Dr. Michael Arndt IG # 0.03 10e3/ul Normal 0.00-0.03 [facility] Comment on above: Performed By: #### C BC #### [facility] [address] [place] [address] Dr. Michael Arndt IG % 0.4 % Normal 0.0-0.5 [facility] Comment on above: Performed By: #### C BC #### [facility] [address] [place] [address] Dr. Michael Arndt LYMPH # 2.1 103/ul Normal 1.2-3.8 [facility] Comment on above: Performed By: #### C BC #### [facility] [address] [place] [address] Dr. Michael Arndt Lymphocytes/100 WBC (Bld) 26.2 % Normal 20.5-60.0 [facility] Comment on above: Performed By: #### C BC #### [facility] [address] [place] [address] Dr. Michael Arndt MANUAL DIFF REQ NO Normal [facility] Comment on above: Performed By: #### C BC #### [facility] [address] [place] [address] Dr. Michael Arndt MCH (RBC) [Entitic mass] 27.1 pg Normal 26.7-34.0 [facility] Comment on above: Performed By: #### C BC #### [facility] [address] [address] [address] Michael Arndt MCHC (RBC) [Mass/Vol] 32.6 g/dL Normal 29.9-35.2 [facility] Comment on above: Performed By: #### C BC #### [facility] [address] [address] [address] Michael Arndt MCV (RBC) [Entitic vol] 83.1 fL Normal 81.0-99.0 [facility] Comment on above: Performed By: #### C BC #### [facility] [address] [place] [address] Dr. Michael Arndt MONO # 0.5 103/ul Normal 0.3-0.8 [facility] Comment on above: Performed By: #### C BC #### [facility] [address] [place] [address] Dr. Michael Arndt Monocytes/100 WBC (Bld) 6.5 % Normal 1.7-12.0 [facility] Comment on above: Performed By: #### C BC #### [facility] [address] [place] [address] Dr. Michael Arndt NEUT # 5.2 103/ul Normal 1.4-6.5 [facility] Comment on above: Performed By: #### C BC #### [facility] [address] [place] [address] Dr. Michael Arndt Neutrophils/100 WBC (Bld) 64.1 % Normal 43.0-75.0 [facility] Comment on above: Performed By: #### C BC #### [facility] [address] [place] [address] Dr. Michael Arndt Platelet mean volume (Bld) [Entitic vol] 10.6 fL Normal 9.5-13.5 [facility] Comment on above: Performed By: #### C BC #### [facility] [address] [place] [address] Dr. Michael Arndt PLT 206 103/ul Normal 150-450 [facility] Comment on above: Performed By: #### C BC #### [facility] [address] [address] [address] Michael Arndt RBC 5.16 106/ul Normal 4.20-5.40 [facility] Comment on above: Performed By: #### C BC #### [facility] [address] [place] [address] Dr. Michael Arndt WBC 8.1 103/ul Normal 4.0-11.0 [facility] Comment on above: Performed By: #### C BC #### [facility] [address] [place] [address] HEAD WO CONon [...] ADRIAN HOOKS Date: 2022-11-29 19:11 Normal [facility] PROF 14(COMP METB)on 023 Albumin [Mass/Vol] 3.9 g/dL Normal 3.4-5.0 [facility] Comment on above: Performed By: #### C MP #### [facility] [address] [place] [address] Dr. Michael Arndt Albumin/Globulin [Mass ratio] 1.0 {ratio} Normal [facility] Comment on above: Performed By: #### C MP #### [facility] [address] [place] [address] Dr. Michael Arndt ALP [Catalytic activity/Vol] 95 U/L Normal 46-116 [facility] Comment on above: Performed By: #### C MP #### [facility] [address] [place] [address] Dr. Michael Arndt ALT [Catalytic activity/Vol] 27 U/L Normal 14-59 [facility] Comment on above: Performed By: #### C MP #### [facility] [address] [address] [address] Michael Arndt Anion gap [Moles/Vol] 6.7 mmol/L Normal [facility] Comment on above: Performed By: #### C MP #### [facility] [address] [address] [address] Michael Arndt AST [Catalytic activity/Vol] 30 U/L Normal 15-37 [facility] Comment on above: Performed By: #### C MP #### [facility] [address] [address] [address] Michael Arndt Bilirubin [Mass/Vol] 0.5 mg/dL Normal 0.2-1.0 [facility] Comment on above: Performed By: #### C MP #### [facility] [address] [address] [address] Michael Arndt Calcium [Mass/Vol] 9.5 mg/dL Normal 8.5-10.1 [facility] Comment on above: Performed By: #### C MP #### [facility] [address] [address] [address] Michael Arndt Chloride [Moles/Vol] 102 mmol/L Normal 98-107 [facility] Comment on above: Performed By: #### C MP #### [facility] [address] [address] [address] Michael Arndt CO2 [Moles/Vol] 27.9 mmol/L Normal 21.0-32.0 [facility] Comment on above: Performed By: #### C MP #### [facility] [address] [address] [address] Michael Arndt Creatinine [Mass/Vol] 0.89 mg/dL Normal 0.55-1.02 [facility] Comment on above: Performed By: #### C MP #### [facility] [address] [address] [address] Michael Arndt EGFR-AF CITIZ[place] >60 Normal >=60 [facility] Comment on above: Performed By: #### C MP #### [facility] [address] [place] [address] Dr. Michael Arndt EGFR-NON AF CITIZEN [place] >60 Normal >=60 [facility] Comment on above: Performed By: #### C MP #### [facility] [address] [place] [address] Dr. Michael Arndt Globulin (S) [Mass/Vol] 4.0 g/dL Normal [facility] Comment on above: Performed By: #### C MP #### [facility] [address] [address] [address] Michael Arndt Glucose [Mass/Vol] 76 mg/dL Normal 74-106 [facility] Comment on above: Performed By: #### C MP #### [facility] [address] [place] [address] Dr. Michael Arndt Potassium [Moles/Vol] 3.6 mmol/L Normal 3.5-5.1 [facility] Comment on above: Performed By: #### C MP #### [facility] [address] [place] [address] Dr. Michael Arndt Protein [Mass/Vol] 7.9 g/dL Normal 6.4-8.2 [facility] Comment on above: Performed By: #### C MP #### [facility] [address] [place] [address] Dr. Michael Arndt Sodium [Moles/Vol] 133 mmol/L Critically low 136-145 [facility] Comment on above: Performed By: #### C MP #### [facility] [address] [place] [address] Dr. Michael Arndt Urea nitrogen [Mass/Vol] 12.0 mg/dL Normal 7.0-18.0 [facility] Comment on above: Performed By: #### C MP #### [facility] [address] [place] [address] Dr. Michael Arndt Urea nitrogen/Creatinine [Mass ratio] 13.5 mg/mg Normal [facility] Comment on above: Performed By: #### C MP #### [facility] Laboratory [address] [place] [address] Dr. Michael Arndt [facility] SED RATE 29 mm/hr Normal <=30 [facility] Comment on above: Performed By: #### S EDR #### [facility] [address] [place], [place] [id number] Dr. Michael Arndt Vital Signs Date Time Vital Sign Value Performing Clinician Ruba palomo 10-06-2024 13:48-0500 Body mass index (BMI) [Ratio] 33.81 kg/m2 Pam PLUMMER Work Phone: [facility] 10-06-2024 13:48-0500 Body weight 89.36 kg Pam Max PA Work Phone: [facility] 10-06-2024 13:48-0500 Diastolic blood pressure 78 mm[Hg] Pam PLUMMER Work Phone: [facility] 10-06-2024 13:48-0500 Systolic blood pressure 122 mm[Hg] Pam Max PA Work Phone: [facility] 09-01-2024 14:41-0500 Body height 162.6 cm Lucas Jefferson DO Work Phone: [facility] 09-01-2024 14:41-0500 Body mass index (BMI) [Ratio] 34.64 kg/m2 Lucas Jefferson DO Work Phone: [facility] 09-01-2024 14:41-0500 Body weight 91.54 kg Lucas Jefferson DO Work Phone: [facility] 09-01-2024 14:41-0500 Diastolic blood pressure 80 mm[Hg] Lucas Jefferson DO Work Phone: [facility] 09-01-2024 14:41-0500 Systolic blood pressure 120 mm[Hg] Lucas Jefferson DO Work Phone: [facility] 08-04-2024 13:32-0500 Body mass index (BMI) [Ratio] 35.96 kg/m2 Lucas Jefferson DO Work Phone: [facility] 08-04-2024 13:32-0500 Body weight 92.08 kg Lucas Jefferson DO Work Phone: [facility] 08-04-2024 13:32-0500 Diastolic blood pressure 74 mm[Hg] Lucas Jefferson DO Work Phone: [facility] 08-04-2024 13:32-0500 Systolic blood pressure 130 mm[Hg] Lucas Jefferson DO Work Phone: [facility] 07-29-2024 15:21-0400 Body mass index (BMI) [Ratio] 35.61 kg/m2 Pam PLUMMER Work Phone: [facility] 07-29-2024 15:21-0400 Body weight 91.17 kg Pam PLUMMER Work Phone: [facility] 06-11-2024 11:24-0400 Body height 160 cm Lucas Jefferson DO Work Phone: [facility] 06-11-2024 11:24-0400 Body mass index (BMI) [Ratio] 35.78 kg/m2 Lucas Jefferson DO Work Phone: [facility] 06-11-2024 11:24-0400 Body weight 91.63 kg Lucas Jefferson DO Work Phone: [facility] 06-11-2024 11:24-0400 Diastolic blood pressure 82 mm[Hg] Lucas Jefferson DO Work Phone: [facility] 06-11-2024 11:24-0400 Systolic blood pressure 130 mm[Hg] Lucas Jefferson DO Work Phone: [facility] Encounters Encounter Date Encounter Type Care Provider Facility Start: 11-23-2024 End: 11-23-2024 Bamboo flowsheet Lucas Jefferson DO Work Phone: [facility] Start: 11-23-2024 End: 11-23-2024 Bamboo flowsheet Lucas Jefferson DO Work Phone: [facility] Start: 11-11-2024 End: 11-11-2024 ambulatory [facility] Start: 11-10-2024 ambulatory NON STAFF Facility:[facility] Start: 10-20-2024 End: 10-20-2024 Bamboo flowsheet Jr. Nisha Roman DO Work Phone: [facility] Start: 10-20-2024 End: 10-20-2024 Bamboo flowsheet Jr. Nisha Cruz Stepanic DO Work Phone: [facility] Start: 10-20-2024 End: 10-20-2024 Office outpatient visit 15 minutes Jr. Nisha Cruz Stepdesiree DO Work Phone: [facility] Comment on above: Complete tear of rig ht rotator cuff, unspecified whether traumatic (Primary Dx); Chronic right shoulder pain Start: 10-20-2024 End: 10-20-2024 ambulatory NISHA SCOTT KARENDESIREE Not Available Start: 10-06-2024 End: 10-06-2024 Bamboo flowsheet Pam PLUMMER Work Phone: [facility] Start: 10-06-2024 End: 10-07-2024 Bamboo flowsheet Pam PLUMMER Work Phone: [facility] Start: 10-06-2024 End: 10-07-2024 External Result Encounter Pam PLUMMER Work Phone: [facility] Unsolicited Start: 10-06-2024 End: 10-06-2024 ambulatory PAM MAX Not Available Start: 10-06-2024 End: 10-06-2024 Office outpatient visit 15 minutes Pam PLUMMER Work Phone: [facility] Comment on above: Exposure to STD; Vaginal burning; BV (bacterial vaginosis) Start: 10-06-2024 End: 10-06-2024 Emergency department patient visit [facility] Start: 09-01-2024 End: 09-01-2024 Office outpatient visit 15 minutes Lucas Jefferson DO Work Phone: [facility] Comment on above: E-coli UTI; Yeast infection Start: 09-01-2024 End: 09-01-2024 ambulatory LUCAS JEFFERSON Not Available Start: 09-01-2024 End: 09-01-2024 Bamboo flowsheet Lucas Jefferson DO Work Phone: [facility] Start: 09-01-2024 End: 09-01-2024 Bamboo flowsheet Lucas Jefferson DO Work Phone: [facility] Start: 08-18-2024 End: 08-18-2024 Emergency department patient visit [facility] Start: 08-05-2024 End: 08-05-2024 Office outpatient visit 15 minutes José Parkinson NP Work Phone: [facility] Comment on above: Complete tear of rig ht rotator cuff, unspecified whether traumatic (Primary Dx); Chronic right shoulder pain Start: 08-05-2024 End: 08-05-2024 ambulatory JOSÉ PARKINSON Not Available Start: 08-04-2024 End: 08-04-2024 Bamboo flowsheet Lucas Jefferson DO Work Phone: [facility] Start: 08-04-2024 End: 08-04-2024 Bamboo flowsheet Lucas Jefferson DO Work Phone: [facility] Start: 08-04-2024 End: 08-04-2024 ambulatory LUCAS JEFFERSON Not Available Start: 08-04-2024 End: 08-04-2024 Office outpatient visit 15 minutes Lucas Jefferson DO Work Phone: [facility] Comment on above: Encounter to discuss test results; BV (bacterial vaginosis); E-coli UTI; Urinary tract infection without hematuria, site unspecified; Yeast infection Start: 07-29-2024 End: 07-29-2024 Office outpatient visit 15 minutes Pam PLUMMER Work Phone: [facility] Comment on above: Exposure to STD; Urinary tract infection without hematuria, site unspecified Start: 07-29-2024 End: 07-29-2024 ambulatory PAM MAX Not Available Start: 07-29-2024 End: 07-31-2024 External Result Encounter Pam PLUMMER Work Phone: [facility] Unsolicited Start: 07-29-2024 End: 07-31-2024 External Result Encounter Pam PLUMMER Work Phone: [facility] Unsolicited Start: 07-23-2024 End: 07-23-2024 Patient encounter procedure [facility] [address] Work Phone: Start: 07-23-2024 End: 07-23-2024 ambulatory NON STAFF [facility] Work Phone: Start: 07-10-2024 Registered Recurring [facility] Start: 07-08-2024 End: 07-14-2024 Telephone encounter José Parkinson NP Work Phone: [facility] Start: 07-02-2024 End: 07-02-2024 Telephone encounter José Parkinson NP Work Phone: [facility] Start: 06-29-2024 End: 06-29-2024 Emergency department patient visit [facility] Start: 06-29-2024 End: 06-29-2024 Office outpatient visit 10 minutes José Pakrinson NP Work Phone: [facility] Comment on above: Internal derangement of right shoulder (Primary Dx); Right shoulder pain, unspecified chronicity; Fall, initial encounter Start: 06-29-2024 End: 06-29-2024 ambulatory JOSÉ PARKINSON Not Available Start: 06-29-2024 End: 06-29-2024 Bamboo flowsheet José Parkinson ONCOLOGY PATIENT NAVIGATOR Work Phone: [facility] Start: 06-29-2024 End: 06-29-2024 Bamboo flowsheet José Parkinson ONCOLOGY PATIENT NAVIGATOR Work Phone: [facility] Start: 06-11-2024 End: 06-11-2024 ambulatory [facility] Start: 06-11-2024 End: 06-11-2024 Office outpatient visit 15 minutes Lucas Jefferson DO Work Phone: [facility] Comment on above: Vaginal discharge; Sexually transmitted disease exposure; Vaginal irritation; Vaginal odor Start: 06-11-2024 End: 06-11-2024 ambulatory LUCAS JEFFERSON Not Available Start: 06-10-2024 End: 06-10-2024 Office outpatient visit 10 minutes José Parkinson NP Work Phone: [facility] Comment on above: Strain of tendon of right rotator cuff, subsequent encounter (Primary Dx); Chronic right shoulder pain Start: 06-10-2024 End: 06-10-2024 ambulatory JOSÉ PARKINSON Not Available Start: 06-10-2024 End: 06-10-2024 Bamboo flowsheet José Parkinson NP Work Phone: [facility] Start: 06-10-2024 End: 06-10-2024 Bamboo flowsheet José Parkinson NP Work Phone: [facility] Start: 05-12-2024 End: 05-12-2024 ambulatory LUCAS JEFFERSON Not Available Start: 04-15-2024 End: 04-15-2024 ambulatory JOSÉ PARKINSON Not Available Start: 04-13-2024 End: 04-13-2024 ambulatory LUCAS JEFFERSON Not Available Start: 04-08-2024 End: 04-08-2024 ambulatory JOSÉ PARKINSON Not Available Start: 04-06-2024 End: 04-07-2024 Emergency department patient visit ELMIRA Uriarte [facility] Start: 04-06-2024 End: 04-07-2024 Emergency department patient visit ELMIRA Uriarte [facility] Start: 02-03-2024 End: 02-04-2024 Emergency department patient visit JESUS SAVAGE [facility] Start: 01-23-2024 End: 01-23-2024 ambulatory LUCAS JEFFERSON Not Available Start: 12-06-2023 End: 12-06-2023 Emergency department patient visit [facility] Start: 12-14-2022 End: 12-14-2022 ambulatory Bob Marinelli Other [employer] Other Start: 12-14-2022 Telephone encounter Bob Reyes ck [facility] Start: 11-29-2022 End: 11-29-[address] DOCTOR MUSTAFA Facility:[facility] Start: 11-28-2022 End: 11-28-[address] LUCAS PAULINO . Facility: Start: 03-18-2017 End: 03-19-2017 Ambulatory LINDA NUÑEZ Facility:[facility] Procedures Date Procedure Procedure Detail Performing Clinician Start: 10-06-2024 RECURRENT VAGINITIS (HTRX) Pam PLUMMER Work Phone: Start: 09-01-2024 Urnls dip stick/tabl et rgnt non-auto w/o micrscp Lucas Jefferson DO Work Phone: Start: 08-04-2024 Urnls dip stick/tabl et rgnt non-auto w/o micrscp Lucas Jefferson DO Work Phone: Start: 07-29-2024 RECURRENT VAGINITIS (HTRX) Pam PLUMMER Work Phone: Start: 07-29-2024 Urnls dip stick/tabl et rgnt non-auto w/o micrscp aPm PLUMMER Work Phone: Start: 07-23-2024 MRI of right shoulder Start: 06-29-2024 Radex shoulder compl ete minimum 2 views José Parkinson NP Work Phone: Start: 04-13-2024 Cytp cerv/vag auto t hin layer prep mnl screen Lucas Jefferson DO Work Phone: Plan of Treatment Date Care Activity Detail Author Start: 12-01-2024 End: 12-01-2024 Patient encounter procedure 12/01/2024 11:00 AM EST Office Visit [facility] [address] [place] [address] Jr. Nisha Roman, DO [address] [facility] [address] [place] [address] [facility] Start: 11-23-2024 End: 11-23-2024 Patient encounter procedure 11/23/2024 11:30 AM EST Procedure Visit [facility] [address] [place] [phone] Lucas Paulino, DO [address] [place] [address] Arrived [facility] Comment on above: Arrived Start: 11-12-2024 End: 11-12-2024 Patient encounter procedure 11/12/2024 11:00 AM EST Procedure Visit [facility] [address] [place] [place] [phone] Lucas Paulino, DO [address] [place] [address] [facility] Start: 10-20-2024 End: 10-20-2024 Patient encounter procedure [facility] Comment on above: Arrived Start: 09-09-2024 End: 09-09-2024 Patient encounter procedure 09/09/2024 11:15 AM EST Office Visit [facility] [address] [place] [address] [place] [address] Jr. Nisha Roman, DO [address] [facility] [address] [place] [address] [facility] Start: 09-01-2024 End: 09-01-2024 Patient encounter procedure [facility] Comment on above: Arrived Start: 08-12-2024 End: 08-12-2024 Patient encounter procedure 08/12/2024 1:45 PM EST Office Visit [facility] [address] [place] [address] [place] [address] Jr. Nisha Roman, DO [address] [facility] [address] [place] [address] [facility] Start: 08-05-2024 End: 08-05-2024 Patient encounter procedure 08/05/2024 1:00 PM EST Office Visit [facility] [address] [place] [phone] José Parkinson, NETTIE [address] [place] [address] [facility] Start: 07-23-2024 XR pre/post mri xray XR pre/post mri xray [facility] Start: 07-23-2024 [facility] Start: 07-14-2024 End: 07-14-2024 Professional / ancillary services management 07/14/2024 2:30 PM EDT Ancillary Procedure [facility] [address] [facility] [address] [place] [phone] [facility] Start: 07-01-2024 End: 07-01-2024 ambulatory 07/01/2024 1:00 PM EDT Evaluation [facility] [address] [place] [phone] Noam Carl, PT [address] [place] [address] [facility] Start: 06-29-2024 End: 06-29-2024 Patient encounter procedure 06/29/2024 2:15 PM EDT Office Visit [facility] [address] [place] [phone] José Parkinson, ONCOLOGY PATIENT NAVIGATOR [address] [place] [address] Arrived [facility] Comment on above: Arrived Start: 06-29-2024 End: 06-29-2025 MR Shoulder - right WO contrast MR shoulder right wo IV contrast Imaging Routine Internal derangement of right shoulder Expected: 06/29/2024 (Approximate), Expires: 06/29/2025 [facility] Work Phone: Comment on above: Expected: 06/29/2024 (Approximate), Expires: 06/29/2025 Start: 06-11-2024 End: 06-11-2024 Patient encounter procedure 06/11/2024 11:30 AM EDT [facility] [address] [place] [address] Lucas Paulino DO [address] [facility] [place] [address] [facility] Start: 06-10-2024 End: 06-10-2024 Patient encounter procedure 06/10/2024 2:30 PM EDT Office Visit [facility] [address] [place] [address] José Parkinson, NETTIE [address] [place], [place] [id number] Arrived [facility] Comment on above: Arrived CHLAMYDIA TRACHOMATI S (GENITO/STI) CHLAMYDIA TRACHOMATIS (GENITO/STI) Lab Routine Exposure to STD Ordered: 07/29/2024 [facility] Comment on above: Ordered: 07/29/2024 CHLAMYDIA TRACHOMATI S (GENITO/STI) CHLAMYDIA TRACHOMATIS (GENITO/STI) Lab Routine Vaginal discharge Ordered: 06/11/2024 [facility] Comment on above: Ordered: 06/11/2024 Hepatitis B virus surface Ag [Presence] in Serum or Plasma by Immunoassay Hepatitis BsAg Lab Routine Vaginal discharge Vaginal irritation Vaginal odor Ordered: 06/11/2024 [facility] Comment on above: Ordered: 06/11/2024 HIV-1/HIV-2 antigen/antibody combination immunoassay HIV-1 and HIV-2 antibodies Lab Routine Sexually transmitted disease exposure Ordered: 06/11/2024 [facility] Comment on above: Ordered: 06/11/2024 Neisseria gonorrhoea e DNA [Presence] in Unspecified specimen by ASHLEE with probe detection Neisseria gonorrhea DNA probe, direct Lab Routine Exposure to STD Ordered: 07/29/2024 [facility] Comment on above: Ordered: 07/29/2024 Neisseria gonorrhoea e DNA [Presence] in Unspecified specimen by ASHLEE with probe detection Neisseria gonorrhea DNA probe, direct Lab Routine Vaginal discharge Ordered: 06/11/2024 [facility] Comment on above: Ordered: 06/11/2024 Reagin Ab [Presence] in Serum by RPR RPR Lab Routine Vaginal discharge Vaginal irritation Vaginal odor Ordered: 06/11/2024 [facility] Comment on above: Ordered: 06/11/2024 SURESWAB(R) ADVANCED VAGINITIS PLUS, TMA SURESWAB(R) ADVANCED VAGINITIS PLUS, TMA Pathology and Cytology Routine Exposure to STD Ordered: 07/29/2024 [facility] [employer] Work Phone: Comment on above: Ordered: 07/29/2024 SURESWAB(R) ADVANCED VAGINITIS PLUS, TMA SURESWAB(R) ADVANCED VAGINITIS PLUS, TMA Pathology and Cytology Routine Vaginal discharge Ordered: 06/11/2024 [facility] [employer] Work Phone: Comment on above: Ordered: 06/11/2024 Payers Date Payer Category Payer Self-pay [id number] 2020 Medicare [employer] MEDICARE ADVANTAGE [facility] MEDICARE ADVANTAGE [id number] 2020-Present [id number] 2020 Medicare (Managed Care) [facility] [id number]. [id number] 2019 Medicaid [id number]. [id number]. [id number] 1969 Unknown [id number] 2.16.840.1.833421.3.579.2. 593 1969 Unknown [id number] 2.16.840.1.917467.3.579.2. 593 1969 Unknown [id number] 2.16.840.1.881703.3.579.2. 1259 1969 Unknown [id number] 2.16.840.1.566193.3.579.2. 125 1969 Unknown [id number] 2.16.840.1.381776.3.579.2. 1258 1969 Unknown [id number] 2.16.840.1.820005.3.579.2. 1258 1969 Unknown [id number] 2.16.840.1.224072.3.579.2. 125 1969 Unknown [id number] 2.16.840.1.690447.3.579.2. 125 1969 Unknown [id number] 2.16.840.1.425025.3.579.2. 1258 1969 Unknown [id number] 2.16.840.1.290863.3.579.2. 125 1969 Unknown [id number] 2.16.840.1.529159.3.579.2. 1259 1969 Unknown [id number] 2.16.840.1.400288.3.579.2. 125 1969 Unknown [id number] 2.16.840.1.050898.3.579.2. 1258 1969 Unknown [id number] 2.16.840.1.897411.3.579.2. 1258 1969 Unknown [id number] 2.16.840.1.726895.3.579.2. 1259 1969 Unknown [id number] 2.16.840.1.848800.3.579.2. 1259 1969 Unknown [id number] 2.16.840.1.396627.3.579.2. 1259 1969 Unknown [id number] 2.16.840.1.461867.3.579.2. 1286 1969 Unknown [id number] 2.16.840.1.306915.3.579.2. 128 1969 Unknown [id number] 2.16.840.1.781546.3.579.2. 128 1969 Unknown [id number] 2.16.840.1.724961.3.579.2. 1285 1969 Unknown [id number] 2.16.840.1.480267.3.579.2. 1285 1969 Unknown [id number] 2.16.840.1.987865.3.579.2. 1285 1969 Unknown [id number] 2.16.840.1.769831.3.579.2. 128 1969 Unknown [id number] 2.16.840.1.277601.3.579.2. 1285 1969 Unknown [id number] 2.16.840.1.089735.3.579.2. 1285 1969 Unknown [id number] 2.16.840.1.091538.3.579.2. 1285 1969 Unknown [id number] 2.16.840.1.134905.3.579.2. 128 1969 Unknown [id number] 2.16.840.1.698695.3.579.2. 1285 1969 Unknown [id number] 2.16.840.1.064352.3.579.2. 1286 1959 Medicaid [id number] 1959 Unknown [id number] Medicaid [id number] Unknown [id number] 2.16.840.1.251097.3.579.2. 531 Unknown [id number] 2.16.840.1.296779.3.579.2. 531 Social History Date Type Detail Facility Unknown if ever smoked [facility] [employer] Other Start: 10-20-2024 Sex Assigned At N [facility] [employer] Other Tobacco smoking status [facility] Tobacco smoking consumption unknown [facility] Start: 1970 Sex assigned at Not on file [facility] Start: 02-04-2018 Tobacco smoking status [facility] Never smoked tobacco (finding) [facility] Start: 1970 Sex Assigned At Female F [facility] Start: 10-20-2024 Tobacco smoking status [facility] Ex-smoker [facility] History of tobacco use Current smoker [facility] History of tobacco use Cigarette Smoker [facility] Start: 10-20-2024 Tobacco use and exposure Smokeless tobacco non-user [facility] Start: 10-20-2024 Alcoholic beverage intake Current drinker of alcohol (finding) [facility] Start: 10-20-2024 History of Social function [facility] Clinical Notes 06-10-2024 to 10-20-2024 Jr. Nisha Roman DO - 10/20/2024 11:00 AM KAVITHA Ferguson - 10/06/2024 1:10 PM Og Flores LPN - 09/01/2024 2:10 PM Tyrell aPrkinson NP - 08/05/2024 1:00 PM EST Note Date & Type Note Facility 10-20-2024 History of Present illness Narrative Images from the original note were not included. HISTORY OF PRESENT ILLNESS: EST PT Ne Swann is an 54 y.o. @ female. (EST PT) RT SHOULDER INJURY 04/05/24 (6 MTHS), TRIPPED AND FELL. ON 06/27/24, SHE WENT OUT WITH HER FRIENDS AND TRIPPED ON THE SIDEWALK AND FELL. HERE TO DISCUSS SURGICAL OPTIONS. PT FEARFUL ABOUT SURGERY/ANESTHESIA. XRAY EPIC 06/29/24 XRAY [facility] SHOULDER AND HUMERUS 04/06/24 MRI [facility] 07/23/24 (PUSHED THROUGH PACS) DEPO INJECTION 04/08/24 PHYSICIAN DIRECTED HEP PAIN DIFFUSE IN SHOULDER AND IN AXILLA. NOTES INTERMITTENT FLARE UPS, WORSE WITH COLD WEATHER. TAKING TYL PRN. USING ICE AND HEAT PRN. LIMITED ROM. ADMITS STIFFNESS AND TIGHTNESS. INTERMITTENT N/T IN FINGERS. DOES NOT WAKE AT HS. PAIN /10 TODAY. + POPPING. RT HANDED. ALLERGIES: Allergies Allergen Reactions Clarithromycin Anaphylaxis Other Reaction(s): respiratory distress Macrolides And Ketolides Anaphylaxis Metoclopramide Anaphylaxis, Anxiety and Rash Other Reaction(s): other Loratadine Other Reaction(s): skin feels like on fire Tramadol Nausea Only Dicyclomine Anxiety Other Reaction(s): Comments: increases pt's anxiety, increased anxiety Other Reaction(s): other Dicyclomine Hcl Anxiety Other Rash HOME MEDICATIONS: Current Outpatient Medications Medication Instructions cephalexin (KEFLEX) 500 mg, Oral, As needed cetirizine (ZYRTEC) 10 mg, Nightly loratadine (Claritin) 10 MG tablet omeprazole (PRILOSEC) 40 mg, Daily before breakfast valACYclovir (VALTREX) 500 mg, Oral, Daily PHYSICAL EXAM: Shoulder Musculoskeletal Exam Inspection Right Right shoulder inspection is normal. Ecchymosis: none Peripheral edema: none Atrophy: none Masses: none Palpation Right Crepitus: no crepitus Increased warmth: none Tenderness: present Anterior shoulder: mild AC joint: mild Proximal biceps: moderate Lateral arm: mild Range of Motion Right Right shoulder range of motion is normal. Active ROM: pain. Passive ROM: pain. Active forward elevation: 160. Passive forward elevation: 160. Shoulder active abduction: 160. Passive abduction: 160. Active external rotation at side: 40. Passive external rotation at side: 50. Internal rotation: L1. Strength Right External rotation: 5/5. Internal rotation: 5/5. Abduction: 3/5. Biceps: 5/5. Triceps: 5/5. Neurovascular Right Radial pulse: normal and 2+ Capillary refill: <3 sec Axillary nerve sensory distribution: normal Scapula Right Right shoulder scapula is normal. Position: normal Winging: none Special Tests Right Rotator Cuff Signs Neer's test: positive Wheeler test: positive Painful arc test: positive Biceps/lucho Signs Speed's test: positive General Constitutional: appears stated age Neurological: alert and oriented x3 Vitals: There is no height or weight on file to calculate BMI. Tobacco Use: Medium Risk (10/20/2024) Patient History Smoking Tobacco Use: Former Smokeless Tobacco Use: Never Passive Exposure: Not on file Alcohol Use: Not on file IMAGING: Procedures No orders of the defined types were placed in this encounter. ASSESSMENT: ICD-10-CM 1. Complete tear of right rotator cuff, unspecified whether traumatic M75.121 2. Chronic right shoulder pain M25.511 G89.29 PLAN: We have discussed the patient's MRI, symptoms, And physical exam at length. She has a large rotator cuff tear with impingement syndrome. We have discussed surgical and nonsurgical treatment options with her and the risks and benefits associated with both and she is requesting Nonsurgical treatment at this time because she has significant anxiety about going to sleep for surgical intervention. Ever since her . We have given her home exercise program. We have discussed restrictions and we'll see her back in 6 weeks and possibly discuss arthroscopy for attempted rotator cuff repair right shoulder. Questions answered in laymen terms at the bedside. The diagnosis, home exercise plan and any ongoing restrictions/ recommendations reviewed. If unable to be reached in office, I recommend evaluation at nearest Emergency Room if any symptoms worsened or new symptoms develop for requiring urgent evaluation. documented in this encounter [facility] 10-06-2024 History of Present illness Narrative Reason for Appointment: Patient ID: Ne Swann is a 54 y.o. female who presents for STI Screening (PT present today for STD check and vaginal burning.) Patient presents today for STD Check. MEDICATIONS Current Outpatient Medications Medication Instructions cephalexin (KEFLEX) 500 mg, Oral, As needed cetirizine (ZYRTEC) 10 mg, Nightly loratadine (Claritin) 10 MG tablet omeprazole (PRILOSEC) 40 mg, Daily before breakfast valACYclovir (VALTREX) 500 mg, Oral, Daily ALLERGIES Allergies Allergen Reactions Clarithromycin Anaphylaxis Other Reaction(s): respiratory distress Macrolides And Ketolides Anaphylaxis Metoclopramide Anaphylaxis, Anxiety and Rash Other Reaction(s): other Loratadine Other Reaction(s): skin feels like on fire Tramadol Nausea Only Dicyclomine Anxiety Other Reaction(s): Comments: increases pt's anxiety, increased anxiety Other Reaction(s): other Dicyclomine Hcl Anxiety Other Rash PROBLEMS Active Ambulatory Problems Diagnosis Date Noted No Active Ambulatory Problems Resolved Ambulatory Problems Diagnosis Date Noted No Resolved Ambulatory Problems Past Medical History: Diagnosis Date Arthritis Depression (CMS/HCC) Female bladder prolapse VIOLET (generalized anxiety disorder) (CMS/HCC) Hypertension (CMS/HCC) IBS (irritable bowel syndrome) Seizures (CMS/HCC) Venous stasis HISTORY PAST MEDICAL HISTORY SOCIAL HISTORY Past Medical History: Diagnosis Date Arthritis Depression (CMS/HCC) Female bladder prolapse VIOLET (generalized anxiety disorder) (CMS/HCC) Hypertension (CMS/HCC) IBS (irritable bowel syndrome) Seizures (CMS/HCC) Venous stasis Social History Tobacco Use Smoking status: Not on file Smokeless tobacco: Not on file Substance Use Topics Alcohol use: Not on file Drug use: Not on file FAMILY HISTORY Family History Problem Relation Name Age of Onset Ovarian cancer Mother Liver cancer Mother Diabetes Mother Heart failure Father Diabetes Father Hypertension Father Hyperlipidemia Father Heart disease Father Arthritis Father SURGICAL HISTORY Past Surgical History: Procedure Laterality Date APPENDECTOMY CHOLECYSTECTOMY 2012 HYSTERECTOMY LAPAROSCOPY DIAGNOSTIC / BIOPSY / ASPIRATION / LYSIS diagnostic REVIEW OF SYSTEMS Review of Systems: Review of Systems Constitutional: Negative. HENT: Negative. Eyes: Negative. Respiratory: Negative. Cardiovascular: Negative. Gastrointestinal: Negative. Genitourinary: Negative. Musculoskeletal: Negative. Skin: Negative. Neurological: Negative. All other systems reviewed and are negative. Hematological: Negative. Endocrine: Negative. Allergic/Immunologic: Negative. OBJECTIVE Objective: Physical Exam Constitutional: Appearance: Normal appearance. She is normal weight. Genitourinary: Right Adnexa: not tender and no mass present. Left Adnexa: not tender and no mass present. No cervical discharge. Breasts: Breasts are soft. Right: Normal. Left: Normal. HENT: Head: Normocephalic. Nose: Nose normal. Mouth/Throat: Mouth: Mucous membranes are moist. Cardiovascular: Rate and Rhythm: Normal rate. Pulses: Normal pulses. Pulmonary: Effort: Pulmonary effort is normal. Breath sounds: Normal breath sounds. Abdominal: General: Bowel sounds are normal. Palpations: Abdomen is soft. Musculoskeletal: General: Normal range of motion. Cervical back: Normal range of motion. Neurological: General: No focal deficit present. Mental Status: She is alert and oriented to person, place, and time. Skin: General: Skin is warm and dry. Psychiatric: Mood and Affect: Mood normal. Behavior: Behavior normal. Thought Content: Thought content normal. Judgment: Judgment normal. Vitals and nursing note reviewed. Exam conducted with a fish drier present. Vitals: Estimated body mass index is 34.64 kg/m as calculated from the following: Height as of 09/01/24: 5' 4 . Weight as of 09/01/24: 201 lb 12.8 oz. BP: No LMP recorded. Patient has had a hysterectomy. ASSESSMENT & PLAN ICD-10-CM 1. Exposure to STD Z20.2 2. Vaginal burning N94.89 Pt present today for an STD check and vaginal burning. PT states she had unprotected sex with her partner and would like to have cx's done for peace of mind. Documented by Neida Son MA on behalf of: KAVITHA Saldivar documented in this encounter [facility] 09-01-2024 History of Present illness Narrative Reason for Appointment: Patient ID: Ne Swann is a 54 y.o. female who presents for No chief complaint on file. Patient presents today for Acute Visit. and Follow up appointment to discuss results. MEDICATIONS Current Outpatient Medications Medication Instructions cephalexin (KEFLEX) 500 mg, Oral, As needed cetirizine (ZYRTEC) 10 mg, Nightly loratadine (Claritin) 10 MG tablet omeprazole (PRILOSEC) 40 mg, Daily before breakfast valACYclovir (VALTREX) 500 mg, Oral, Daily ALLERGIES Allergies Allergen Reactions Clarithromycin Anaphylaxis Other Reaction(s): respiratory distress Macrolides And Ketolides Anaphylaxis Metoclopramide Anaphylaxis, Anxiety and Rash Other Reaction(s): other Loratadine Other Reaction(s): skin feels like on fire Tramadol Nausea Only Dicyclomine Anxiety Other Reaction(s): Comments: increases pt's anxiety, increased anxiety Other Reaction(s): other Dicyclomine Hcl Anxiety Other Rash PROBLEMS Active Ambulatory Problems Diagnosis Date Noted No Active Ambulatory Problems Resolved Ambulatory Problems Diagnosis Date Noted No Resolved Ambulatory Problems Past Medical History: Diagnosis Date Arthritis Depression ([facility]) Female bladder prolapse VIOLET (generalized anxiety disorder) ([facility]/HCC) Hypertension (CMS/HCC) IBS (irritable bowel syndrome) Seizures (CMS/HCC) Venous stasis HISTORY PAST MEDICAL HISTORY SOCIAL HISTORY Past Medical History: Diagnosis Date Arthritis Depression (CMS/HCC) Female bladder prolapse VIOLET (generalized anxiety disorder) (CMS/HCC) Hypertension (CMS/HCC) IBS (irritable bowel syndrome) Seizures (CMS/HCC) Venous stasis Social History Tobacco Use Smoking status: Not on file Smokeless tobacco: Not on file Substance Use Topics Alcohol use: Not on file Drug use: Not on file FAMILY HISTORY Family History Problem Relation Name Age of Onset Ovarian cancer Mother Liver cancer Mother Diabetes Mother Heart failure Father Diabetes Father Hypertension Father Hyperlipidemia Father Heart disease Father Arthritis Father SURGICAL HISTORY Past Surgical History: Procedure Laterality Date APPENDECTOMY CHOLECYSTECTOMY 2012 HYSTERECTOMY LAPAROSCOPY DIAGNOSTIC / BIOPSY / ASPIRATION / LYSIS diagnostic REVIEW OF SYSTEMS Review of Systems: Review of Systems Constitutional: Negative. HENT: Negative. Eyes: Negative. Respiratory: Negative. Cardiovascular: Negative. Gastrointestinal: Negative. Genitourinary: Negative. Musculoskeletal: Negative. Skin: Negative. Neurological: Negative. All other systems reviewed and are negative. Hematological: Negative. Endocrine: Negative. Allergic/Immunologic: Negative. OBJECTIVE Objective: Physical Exam Constitutional: Appearance: Normal appearance. She is well-developed. Cardiovascular: Rate and Rhythm: Normal rate and regular rhythm. Pulmonary: Effort: Pulmonary effort is normal. Breath sounds: Normal breath sounds. Abdominal: General: Bowel sounds are normal. There is no distension. Palpations: Abdomen is soft. Tenderness: There is no abdominal tenderness. There is no guarding or rebound. Musculoskeletal: General: No swelling. Normal range of motion. Right lower leg: No edema. Left lower leg: No edema. Neurological: Mental Status: She is alert and oriented to person, place, and time. Skin: General: Skin is warm and dry. Psychiatric: Mood and Affect: Mood normal. Behavior: Behavior normal. Vitals and nursing note reviewed. Exam conducted with a fish drier present. Vitals: Estimated body mass index is 34.64 kg/m as calculated from the following: Height as of this encounter: 5' 4 . Weight as of this encounter: 201 lb 12.8 oz. BP: 120/80 No LMP recorded. Patient has had a hysterectomy. ASSESSMENT & PLAN ICD-10-CM 1. E-coli UTI N39.0 B96.20 Pt presents for UTI follow up- UA obtained. Pt has yeast infection after antibiotic. Rx for terazol 7 faxed to pharmacy. Pt to return for annual exam unless needed sooner. Documented by Fabiola Flores LPN on behalf of: Lucas Paulino DO documented in this encounter [facility] 08-05-2024 History of Present illness Narrative Images from the original note were not included. NAME: Ne Swann : 1970 HISTORY OF PRESENT ILLNESS: Ne Swann is an 54 y.o. @ female. (EST PT) RT SHOULDER INJURY 04/05/24 (4 MTHS), TRIPPED AND FELL. ON 06/27/24, SHE WENT OUT WITH HER FRIENDS AND TRIPPED ON THE SIDEWALK AND FELL. [place] [facility] [place] [facility] [place] 04/06[place] [facility] [place] ([place]ED THROUGH PACS) DEPO INJECTION 04/08/24 PHYSICIAN DIRECTED HEP PAIN DIFFUSE IN SHOULDER, ANTERIOR AND IN AXILLA. DENIES RADIATION DOWN ARM. TAKING TYL PRN. USING ICE AND HEAT PRN. SOMEWHAT IMPROVED ROM. STIFFNESS. INTERMITTENT N/T IN FINGERS. DOES NOT WAKE AT HS. RT HANDED. PAST MEDICAL HISTORY: Past Medical History: Diagnosis Date Arthritis Depression (CMS/HCC) Female bladder prolapse VIOLET (generalized anxiety disorder) ([facility]/HCC) Hypertension ([facility]/HCC) IBS (irritable bowel syndrome) Seizures ([facility]) Venous stasis PAST SURGICAL HISTORY: Past Surgical History: Procedure Laterality Date APPENDECTOMY CHOLECYSTECTOMY 2012 HYSTERECTOMY LAPAROSCOPY DIAGNOSTIC / BIOPSY / ASPIRATION / LYSIS diagnostic ALLERGIES: Allergies Allergen Reactions Clarithromycin Anaphylaxis Other Reaction(s): respiratory distress Macrolides And Ketolides Anaphylaxis Metoclopramide Anaphylaxis, Anxiety and Rash Other Reaction(s): other Loratadine Other Reaction(s): skin feels like on fire Tramadol Nausea Only Dicyclomine Anxiety Other Reaction(s): Comments: increases pt's anxiety, increased anxiety Other Reaction(s): other Dicyclomine Hcl Anxiety Other Rash HOME MEDICATIONS: Current Outpatient Medications Medication Instructions Ascorbic Acid (vitamin C) 500 MG tablet Every 24 hours cephalexin (KEFLEX) 500 mg, Oral, 3 times daily cephalexin (KEFLEX) 500 mg, Oral, 3 times daily cetirizine (ZYRTEC) 10 mg, Oral, Nightly cholecalciferol (Vitamin D-3) 50 MCG (1999) capsule 1 capsule, Every 24 hours ibuprofen 800 mg, 3 times daily ketorolac (Toradol) 10 MG tablet linaCLOtide (Linzess) 290 MCG capsule loratadine (Claritin) 10 MG tablet loratadine-pseudoephedrine ER (Alavert Allergy/Sinus) 5-120 MG 12 hr tablet LORazepam (Ativan) 1 MG tablet lubiprostone (Amitiza) 8 MCG capsule meloxicam (Mobic) 15 MG tablet methocarbamol (Robaxin) 750 MG tablet metoprolol succinate XL (Toprol-XL) 25 MG 24 hr tablet metroNIDAZOLE (FLAGYL) 500 mg, Oral, 2 times daily, Do not drink alcohol while taking this medication metroNIDAZOLE (Vandazole) 0.75 % vaginal gel naproxen (Naprosyn) 500 MG tablet simethicone (Mylicon) 80 MG chewable tablet Every 6 hours terconazole (Terazol 7) 0.4 % vaginal cream 1 applicator, Vaginal, Nightly valACYclovir (VALTREX) 500 mg, Oral, Daily Vitals: There is no height or weight on file to calculate BMI. PHYSICAL EXAM: Right Shoulder Exam Tenderness Right shoulder tenderness location: anterior lateral shoulder pain. Range of Motion Active abduction: 120 Forward flexion: 140 Muscle Strength Right shoulder normal muscle strength: 4+/5. Tests Cross arm: positive Impingement: positive Other Erythema: absent Right shoulder sensation: radicular pain down arm occasionally. Pulse: present Comments: Difficult to fully test due to pain. IMAGING: [place] [facility] [place]: 1. Anterior joint capsule appears to be partially stripped from the anterior aspect of the glenoid, 9 mm medial to the articular surface. There is also suggestion of disruption of the joint capsule along the axillary recess, best seen on coronal images. 2. There is a full-thickness tear of the supraspinatus tendon with 2.4 cm in medial retraction of the tendon fibers. 3. There is a full-thickness tear of the infraspinatus tendon with a few remaining fibers along the posterior aspect of the tendon. 4. There is increased signal intensity underlying the anterior and superior glenoid labrum possibly relating to a labral tear. 5. There is a moderate joint effusion. Impression dictated by: Teddy Richey Procedures ASSESSMENT: ICD-10-CM 1. Complete tear of right rotator cuff, unspecified whether traumatic M75.121 2. Chronic right shoulder pain M25.511 G89.29 PLAN: I reviewed MRI findings with the patient and discussed treatment options, answered questions. I discussed treatment options with patient including arthroscopic surgery. Patient is hesitant as she has fears about going through general anesthesia. Discussion included but was not limited to the risk of infection, blood clot, failure to improve and need for additional surgery. The patient was advised that surgery is not likely to make them pain free. I answered all of the patients questions. She will follow up with Dr. Roman to further discuss right shoulder scope. Questions answered in laymen terms at the bedside. The diagnosis, home exercise plan and any ongoing restrictions/ recommendations reviewed. If unable to be reached in office, I recommend evaluation at nearest Emergency Room if any symptoms worsened or new symptoms develop for requiring urgent evaluation. José Parkinson APRN-[employer] documented in this encounter [facility] 08-04-2024 History of Present illness Narrative Reason for Appointment: Patient ID: Ne Swann is a 54 y.o. female who presents for abnormal cx (Pt present today to discuss abnormal test results. Pt was positive for BV and positive Ecoli. Pt would like to discuss why she still has Ecoli after taking medication. ) Patient presents today for Acute Visit. MEDICATIONS Current Outpatient Medications Medication Instructions Ascorbic Acid (vitamin C) 500 MG tablet Every 24 hours cephalexin (KEFLEX) 500 mg, Oral, 3 times daily cetirizine (ZYRTEC) 10 mg, Oral, Nightly cholecalciferol (Vitamin D-3) 50 MCG (1999) capsule 1 capsule, Every 24 hours ibuprofen 800 mg, 3 times daily ketorolac (Toradol) 10 MG tablet linaCLOtide (Linzess) 290 MCG capsule loratadine (Claritin) 10 MG tablet loratadine-pseudoephedrine ER (Alavert Allergy/Sinus) 5-120 MG 12 hr tablet LORazepam (Ativan) 1 MG tablet lubiprostone (Amitiza) 8 MCG capsule meloxicam (Mobic) 15 MG tablet methocarbamol (Robaxin) 750 MG tablet metoprolol succinate XL (Toprol-XL) 25 MG 24 hr tablet metroNIDAZOLE (FLAGYL) 500 mg, Oral, 2 times daily, Do not drink alcohol while taking this medication metroNIDAZOLE (Vandazole) 0.75 % vaginal gel naproxen (Naprosyn) 500 MG tablet simethicone (Mylicon) 80 MG chewable tablet Every 6 hours valACYclovir (VALTREX) 500 mg, Oral, Daily ALLERGIES Allergies Allergen Reactions Clarithromycin Anaphylaxis Other Reaction(s): respiratory distress Macrolides And Ketolides Anaphylaxis Metoclopramide Anaphylaxis, Anxiety and Rash Other Reaction(s): other Loratadine Other Reaction(s): skin feels like on fire Tramadol Nausea Only Dicyclomine Anxiety Other Reaction(s): Comments: increases pt's anxiety, increased anxiety Other Reaction(s): other Dicyclomine Hcl Anxiety Other Rash PROBLEMS Active Ambulatory Problems Diagnosis Date Noted No Active Ambulatory Problems Resolved Ambulatory Problems Diagnosis Date Noted No Resolved Ambulatory Problems Past Medical History: Diagnosis Date Arthritis Depression (CMS/HCC) Female bladder prolapse VIOLET (generalized anxiety disorder) (CMS/HCC) Hypertension (CMS/HCC) IBS (irritable bowel syndrome) Seizures (CMS/HCC) Venous stasis HISTORY PAST MEDICAL HISTORY SOCIAL HISTORY Past Medical History: Diagnosis Date Arthritis Depression (CMS/HCC) Female bladder prolapse VIOLET (generalized anxiety disorder) (CMS/HCC) Hypertension (CMS/HCC) IBS (irritable bowel syndrome) Seizures (CMS/HCC) Venous stasis Social History Tobacco Use Smoking status: Not on file Smokeless tobacco: Not on file Substance Use Topics Alcohol use: Not on file Drug use: Not on file FAMILY HISTORY Family History Problem Relation Name Age of Onset Ovarian cancer Mother Liver cancer Mother Diabetes Mother Heart failure Father Diabetes Father Hypertension Father Hyperlipidemia Father Heart disease Father Arthritis Father SURGICAL HISTORY Past Surgical History: Procedure Laterality Date APPENDECTOMY CHOLECYSTECTOMY 2012 HYSTERECTOMY LAPAROSCOPY DIAGNOSTIC / BIOPSY / ASPIRATION / LYSIS diagnostic REVIEW OF SYSTEMS Review of Systems: Review of Systems OBJECTIVE Objective: OBGyn Exam Vitals: Estimated body mass index is 35.96 kg/m as calculated from the following: Height as of 06/11/24: 5' 3 . Weight as of this encounter: 203 lb. BP: 130/74 No LMP recorded. Patient has had a hysterectomy. ASSESSMENT & PLAN ICD-10-CM 1. Encounter to discuss test results Z71.2 2. BV (bacterial vaginosis) N76.0 B96.89 3. E-coli UTI N39.0 B96.20 4. Urinary tract infection without hematuria, site unspecified N39.0 POCT urinalysis dipstick manually resulted Documented by Fabiola Flores LPN on behalf of: Lucas Paulino DO documented in this encounter [facility] 07-29-2024 History of Present illness Narrative Reason for Appointment: Patient ID: Ne Swann is a 54 y.o. female who presents for STI Screening (Pt present today for std check) Patient presents today for STD Check. MEDICATIONS Current Outpatient Medications Medication Instructions Ascorbic Acid (vitamin C) 500 MG tablet Every 24 hours cetirizine (ZYRTEC) 10 mg, Oral, Nightly cholecalciferol (Vitamin D-3) 50 MCG (1999 [place]) capsule 1 capsule, Every 24 hours ibuprofen 800 mg, 3 times daily ketorolac (Toradol) 10 MG tablet linaCLOtide (Linzess) 290 MCG capsule loratadine (Claritin) 10 MG tablet loratadine-pseudoephedrine ER (Alavert Allergy/Sinus) 5-120 MG 12 hr tablet LORazepam (Ativan) 1 MG tablet lubiprostone (Amitiza) 8 MCG capsule meloxicam (Mobic) 15 MG tablet methocarbamol (Robaxin) 750 MG tablet metoprolol succinate XL (Toprol-XL) 25 MG 24 hr tablet metroNIDAZOLE (Vandazole) 0.75 % vaginal gel naproxen (Naprosyn) 500 MG tablet simethicone (Mylicon) 80 MG chewable tablet Every 6 hours ALLERGIES Allergies Allergen Reactions Clarithromycin Anaphylaxis Other Reaction(s): respiratory distress Macrolides And Ketolides Anaphylaxis Metoclopramide Anaphylaxis, Anxiety and Rash Other Reaction(s): other Loratadine Other Reaction(s): skin feels like on fire Tramadol Nausea Only Dicyclomine Anxiety Other Reaction(s): Comments: increases pt's anxiety, increased anxiety Other Reaction(s): other Dicyclomine Hcl Anxiety Other Rash PROBLEMS Active Ambulatory Problems Diagnosis Date Noted No Active Ambulatory Problems Resolved Ambulatory Problems Diagnosis Date Noted No Resolved Ambulatory Problems Past Medical History: Diagnosis Date Arthritis Depression (CMS/HCC) Female bladder prolapse VIOLET (generalized anxiety disorder) (CMS/HCC) Hypertension (CMS/HCC) IBS (irritable bowel syndrome) Seizures (CMS/HCC) Venous stasis HISTORY PAST MEDICAL HISTORY SOCIAL HISTORY Past Medical History: Diagnosis Date Arthritis Depression (CMS/HCC) Female bladder prolapse VIOLET (generalized anxiety disorder) (CMS/HCC) Hypertension (CMS/HCC) IBS (irritable bowel syndrome) Seizures (CMS/HCC) Venous stasis Social History Tobacco Use Smoking status: Not on file Smokeless tobacco: Not on file Substance Use Topics Alcohol use: Not on file Drug use: Not on file FAMILY HISTORY Family History Problem Relation Name Age of Onset Ovarian cancer Mother Liver cancer Mother Diabetes Mother Heart failure Father Diabetes Father Hypertension Father Hyperlipidemia Father Heart disease Father Arthritis Father SURGICAL HISTORY Past Surgical History: Procedure Laterality Date APPENDECTOMY CHOLECYSTECTOMY 2012 HYSTERECTOMY LAPAROSCOPY DIAGNOSTIC / BIOPSY / ASPIRATION / LYSIS diagnostic REVIEW OF SYSTEMS Review of Systems: Review of Systems Constitutional: Negative. HENT: Negative. Eyes: Negative. Respiratory: Negative. Cardiovascular: Negative. Gastrointestinal: Negative. Genitourinary: Positive for dysuria, flank pain and genital sores. Skin: Negative. Neurological: Negative. All other systems reviewed and are negative. Hematological: Negative. Endocrine: Negative. Allergic/Immunologic: Negative. OBJECTIVE Objective: Physical Exam Constitutional: Appearance: Normal appearance. She is normal weight. Genitourinary: Genitourinary Comments: Genital ulcer consistent with hsv Right Labia: rash. Left Labia: rash. HENT: Head: Normocephalic. Cardiovascular: Rate and Rhythm: Normal rate. Pulses: Normal pulses. Pulmonary: Effort: Pulmonary effort is normal. Breath sounds: Normal breath sounds. Abdominal: Palpations: Abdomen is soft. Musculoskeletal: General: Normal range of motion. Neurological: General: No focal deficit present. Mental Status: She is alert and oriented to person, place, and time. Psychiatric: Mood and Affect: Mood normal. Behavior: Behavior normal. Thought Content: Thought content normal. Judgment: Judgment normal. Vitals and nursing note reviewed. Vitals: Estimated body mass index is 35.61 kg/m as calculated from the following: Height as of 06/11/24: 5' 3 . Weight as of this encounter: 201 lb. BP: No LMP recorded. Patient has had a hysterectomy. ASSESSMENT & PLAN ICD-10-CM 1. Exposure to STD Z20.2 SURESWAB(R) ADVANCED VAGINITIS PLUS, TMA CHLAMYDIA TRACHOMATIS (GENITO/STI) Neisseria gonorrhea DNA probe, direct 2. Urinary tract infection without hematuria, site unspecified N39.0 Pt present today for a std check for having unprotected sex and a UTI. Pt is complaining of burning and irritation when she urinates. Complains of rectal pain w/some bleeding. A vaginal check and cx's were taken at today's visit. Pt believes she could of contracted an std from her partner and is having a lot of vaginal discomfort from having rough sex. Pam Max visualized some scratches inside the vagina and patient stated it was done by partners fingers. Pt was advised the cx's will come back in 2 days and someone in the office will call her if anything comes back positive. Urine was also sent out for cx. Pt complains of having an outbreak along her lips and would like a refill on her Valtrex. Pt was given a 500 mg Rocephin shot on the left glute due to PID symptoms. Pt unable to tolerated doxy or zithromax, we will notify pt if further tx needed when cultures returned. Keflex, pyridium and Valtrex was sent to her pharmacy to begin taking. Documented by Neida Son MA on behalf of: KAVITHA Saldivar documented in this encounter [facility] 07-14-2024 Telephone encounter Note error [facility] 07-14-2024 Miscellaneous Notes error documented in this encounter [facility] 07-02-2024 Telephone encounter Note Patient called asking if she could get her MRI done at [facility]? She called and they have an open machine. [facility] 07-02-2024 Miscellaneous Notes Patient called asking if she could get her MRI done at [facility]? She called and they have an open machine. documented in this encounter [facility] 06-29-2024 History of Present illness Narrative Images from the original note were not included. NAME: Ne Swann : 1970 HISTORY OF PRESENT ILLNESS: Ne Swann is an 53 y.o. @ female. (EST PT) RT SHOULDER INJURY 04/05/24 (12 WKS 1 DAY), TRIPPED AND FELL. S/P PT - HAS NOT BEEN TO PT YET ON WEDNESDAY 06/27, SHE WENT OUT WITH HER FRIENDS AND TRIPPED ON THE SIDEWALK AND FELL. XRAY TODAY EPIC 06/29/24 XRAY [facility] SHOULDER AND HUMERUS 04/06/24 DEPO INJECTION 04/08/24 PHYSICIAN DIRECTED HEP PAIN DIFFUSE IN SHOULDER, AXILLA AND DOWN ARM. TAKING TYL PRN. USING ICE AND HEAT. LIMITED ROM. RT HANDED. PAST MEDICAL HISTORY: Past Medical History: Diagnosis Date Arthritis Depression (CMS/HCC) Female bladder prolapse VIOLET (generalized anxiety disorder) (CMS/HCC) Hypertension (CMS/HCC) IBS (irritable bowel syndrome) Seizures (CMS/HCC) Venous stasis PAST SURGICAL HISTORY: Past Surgical History: Procedure Laterality Date APPENDECTOMY CHOLECYSTECTOMY 2012 HYSTERECTOMY LAPAROSCOPY DIAGNOSTIC / BIOPSY / ASPIRATION / LYSIS diagnostic ALLERGIES: Allergies Allergen Reactions Clarithromycin Anaphylaxis Other Reaction(s): respiratory distress Macrolides And Ketolides Anaphylaxis Metoclopramide Anaphylaxis, Anxiety and Rash Other Reaction(s): other Loratadine Other Reaction(s): skin feels like on fire Tramadol Nausea Only Dicyclomine Anxiety Other Reaction(s): Comments: increases pt's anxiety, increased anxiety Other Reaction(s): other Dicyclomine Hcl Anxiety Other Rash HOME MEDICATIONS: Current Outpatient Medications Medication Instructions cephalexin (Keflex) 500 MG capsule TAKE 1 CAPSULE BY MOUTH 3 TIMES DAILY FOR 7 DAYS UNITL GONE TAKE WITH FOOD cetirizine (ZYRTEC) 10 mg, Oral, Nightly clonazePAM (KLONOPIN) 0.5 mg, Oral, As needed Hydrocort-Pramoxine, Perianal, (Proctofoam HC) 1-1 % foam 1 Application, Apply externally, As needed omeprazole (PRILOSEC) 40 mg, Oral, Daily before breakfast phenazopyridine (Pyridium) 100 MG tablet TAKE 1-2 TABLETS 3 TIMES DAILY FOR URINARY PAIN TAKE WITH LARGE MEAL tamsulosin (Flomax) 0.4 MG 24 hr capsule TAKE 1 CAPUSLE DAILY 30 MINUTES AFTER SAME MEAL EACH DAY Vitals: There is no height or weight on file to calculate BMI. PHYSICAL EXAM: Right Shoulder Exam Tenderness Right shoulder tenderness location: anterior lateral shoulder pain. Range of Motion Active abduction: 90 Forward flexion: 90 Muscle Strength Abduction: 5/5 Tests Cross arm: positive Impingement: positive Other Erythema: absent Right shoulder sensation: radicular pain down arm occasionally. Pulse: present Comments: Difficult to fully test due to pain. IMAGING: I reviewed xray of humerus and right shoulder from [facility] 04/06/24 which showed no acute findings. XR shoulder 2+ views right Imaging Result: scapular Y, axillary and AP x-rays of right shoulder showed humeral head to be well centered in the glenoid fossa. There was no evidence of subluxation or dislocation. There was no evidence of degenerative joint disease. Acromioclavicular joint appeared to be well preserved. There was no acute bony process including but not limited to fracture and/or dislocation. Impression: Unremarkable right shoulder. Procedures ASSESSMENT: ICD-10-CM 1. Internal derangement of right shoulder M24.811 MR shoulder right wo IV contrast 2. Right shoulder pain, unspecified chronicity M25.511 XR shoulder 2+ views right 3. Fall, initial encounter W19.XXXA PLAN: Patient was doing well but had fall over the weekend and hit her right shoulder an right side of her face. Her shoulder xray showed no acute fracture but recommend MRI to rule out rotator cuff injury. She will follow up post MRI. She is noted to have large area of ecchymosis over right eye and pain over posterior aspect of skull. I recommend that patient go to the ER for further evaluation. Questions answered in laymen terms at the bedside. The diagnosis, home exercise plan and any ongoing restrictions/ recommendations reviewed. If unable to be reached in office, I recommend evaluation at nearest Emergency Room if any symptoms worsened or new symptoms develop for requiring urgent evaluation. José Parkinson, DEJA-MAVERICK documented in this encounter [facility] 06-11-2024 History of Present illness Narrative Reason for Appointment: Patient ID: Ne Swann is a 53 y.o. female who presents for STI Screening Patient presents today for Consult appointment. MEDICATIONS Current Outpatient Medications Medication Instructions cephalexin (Keflex) 500 MG capsule TAKE 1 CAPSULE BY MOUTH 3 TIMES DAILY FOR 7 DAYS UNITL GONE TAKE WITH FOOD cetirizine (ZYRTEC) 10 mg, Oral, Nightly clonazePAM (KLONOPIN) 0.5 mg, Oral, As needed Hydrocort-Pramoxine, Perianal, (Proctofoam HC) 1-1 % foam 1 Application, Apply externally, As needed omeprazole (PRILOSEC) 40 mg, Oral, Daily before breakfast phenazopyridine (Pyridium) 100 MG tablet TAKE 1-2 TABLETS 3 TIMES DAILY FOR URINARY PAIN TAKE WITH LARGE MEAL tamsulosin (Flomax) 0.4 MG 24 hr capsule TAKE 1 CAPUSLE DAILY 30 MINUTES AFTER SAME MEAL EACH DAY ALLERGIES Allergies Allergen Reactions Clarithromycin Anaphylaxis Other Reaction(s): respiratory distress Macrolides And Ketolides Anaphylaxis Metoclopramide Anaphylaxis, Anxiety and Rash Other Reaction(s): other Loratadine Other Reaction(s): skin feels like on fire Tramadol Nausea Only Dicyclomine Anxiety Other Reaction(s): Comments: increases pt's anxiety, increased anxiety Other Reaction(s): other Dicyclomine Hcl Anxiety Other Rash PROBLEMS Active Ambulatory Problems Diagnosis Date Noted No Active Ambulatory Problems Resolved Ambulatory Problems Diagnosis Date Noted No Resolved Ambulatory Problems Past Medical History: Diagnosis Date Arthritis Depression (CMS/HCC) Female bladder prolapse VIOLET (generalized anxiety disorder) ([facility]) Hypertension (CMS/[facility]) IBS (irritable bowel syndrome) Seizures (CMS/HCC) Venous stasis HISTORY PAST MEDICAL HISTORY SOCIAL HISTORY Past Medical History: Diagnosis Date Arthritis Depression (CMS/HCC) Female bladder prolapse VIOLET (generalized anxiety disorder) (CMS/HCC) Hypertension (CMS/HCC) IBS (irritable bowel syndrome) Seizures (CMS/HCC) Venous stasis Social History Tobacco Use Smoking status: Not on file Smokeless tobacco: Not on file Substance Use Topics Alcohol use: Not on file Drug use: Not on file FAMILY HISTORY Family History Problem Relation Name Age of Onset Ovarian cancer Mother Liver cancer Mother Diabetes Mother Heart failure Father Diabetes Father Hypertension Father Hyperlipidemia Father Heart disease Father Arthritis Father SURGICAL HISTORY Past Surgical History: Procedure Laterality Date APPENDECTOMY CHOLECYSTECTOMY 2012 HYSTERECTOMY LAPAROSCOPY DIAGNOSTIC / BIOPSY / ASPIRATION / LYSIS diagnostic REVIEW OF SYSTEMS Review of Systems: Review of Systems Genitourinary: Positive for pelvic pain. All other systems reviewed and are negative. OBJECTIVE Objective: Physical Exam Constitutional: Appearance: Normal appearance. She is well-developed. Genitourinary: Vulva normal. Cardiovascular: Rate and Rhythm: Normal rate and regular rhythm. Pulmonary: Effort: Pulmonary effort is normal. Breath sounds: Normal breath sounds. Abdominal: General: Bowel sounds are normal. There is no distension. Palpations: Abdomen is soft. Tenderness: There is no abdominal tenderness. There is no guarding or rebound. Musculoskeletal: General: No swelling. Normal range of motion. Right lower leg: No edema. Left lower leg: No edema. Neurological: Mental Status: She is alert and oriented to person, place, and time. Skin: General: Skin is warm and dry. Psychiatric: Mood and Affect: Mood normal. Behavior: Behavior normal. Vitals and nursing note reviewed. Exam conducted with a fish drier present. Vitals: Estimated body mass index is 35.78 kg/m as calculated from the following: Height as of this encounter: 5' 3 . Weight as of this encounter: 202 lb. BP: 130/82 No LMP recorded. Patient has had a hysterectomy. ASSESSMENT & PLAN ICD-10-CM 1. Vaginal discharge N89.8 SURESWAB(R) ADVANCED VAGINITIS PLUS, TMA CHLAMYDIA TRACHOMATIS (GENITO/STI) Neisseria gonorrhea DNA probe, direct Patient presents today for STD check as she recently had a new partner & is having symptoms. Patient voiced she is having pelvic pain and bleeding. Patient given Flagyl for vaginal odor and discharge. Unable to send Azithromycin due to ALLERGIC REACTION and will wait for cultures to come back for treatment as patient will have to use alternate antibiotic. Patient request blood work as well and order printed. Patient stated she will have labs drawn closer to home, advised patient that she would need to call office when labs are drawn so then nursing will be able to look out for results. Documented by Nicole Cadena LPN on behalf of: Lucas Paulino DO documented in this encounter [facility] 06-10-2024 History of Present illness Narrative Images from the original note were not included. NAME: Ne Swann : 1970 HISTORY OF PRESENT ILLNESS: Ne Swann is an 53 y.o. @ female. (EST PT) RT SHOULDER INJURY 04/05/24 (9 WKS 3 DAYS), TRIPPED AND FELL. S/P HEP XRAY [facility] SHOULDER AND HUMERUS 04/06/24 DEPO INJECTION 04/08/24 PHYSICIAN DIRECTED HEP PAIN ANTERIOR AND LATERAL SHOULDER, RADIATES SOME INTO UPPER ARM/BICEP AREA. TIGHTNESS TOP OF SHOULDER AND RADIATES POSTERIORLY. NO PAIN MEDS. USING ICE PRN. DENIES N/T, SWELLING. PAIN MOSTLY WITH LAYING ON RT SIDE AND WHEN IT GETS COLD. ADMITS CRACKING. DENIES HEP. RT HANDED. PAST MEDICAL HISTORY: Past Medical History: Diagnosis Date Arthritis Depression (CMS/HCC) Female bladder prolapse VIOLET (generalized anxiety disorder) (CMS/HCC) Hypertension (CMS/HCC) IBS (irritable bowel syndrome) Seizures (CMS/HCC) Venous stasis PAST SURGICAL HISTORY: Past Surgical History: Procedure Laterality Date APPENDECTOMY CHOLECYSTECTOMY 2012 HYSTERECTOMY LAPAROSCOPY DIAGNOSTIC / BIOPSY / ASPIRATION / LYSIS diagnostic ALLERGIES: Allergies Allergen Reactions Clarithromycin Anaphylaxis Other Reaction(s): respiratory distress Macrolides And Ketolides Anaphylaxis Metoclopramide Anaphylaxis, Anxiety and Rash Other Reaction(s): other Loratadine Other Reaction(s): skin feels like on fire Tramadol Nausea Only Dicyclomine Anxiety Other Reaction(s): Comments: increases pt's anxiety, increased anxiety Other Reaction(s): other Dicyclomine Hcl Anxiety Other Rash HOME MEDICATIONS: Current Outpatient Medications Medication Instructions cephalexin (Keflex) 500 MG capsule TAKE 1 CAPSULE BY MOUTH 3 TIMES DAILY FOR 7 DAYS UNITL GONE TAKE WITH FOOD cetirizine (ZYRTEC) 10 mg, Oral, Nightly clonazePAM (KLONOPIN) 0.5 mg, Oral, As needed Hydrocort-Pramoxine, Perianal, (Proctofoam HC) 1-1 % foam 1 Application, Apply externally, As needed metroNIDAZOLE (FLAGYL) 500 mg, Oral, 2 times daily, Do not drink alcohol while taking this medication omeprazole (PRILOSEC) 40 mg, Oral, Daily before breakfast phenazopyridine (Pyridium) 100 MG tablet TAKE 1-2 TABLETS 3 TIMES DAILY FOR URINARY PAIN TAKE WITH LARGE MEAL tamsulosin (Flomax) 0.4 MG 24 hr capsule TAKE 1 CAPUSLE DAILY 30 MINUTES AFTER SAME MEAL EACH DAY Vitals: There is no height or weight on file to calculate BMI. PHYSICAL EXAM: Right Shoulder Exam Tenderness Right shoulder tenderness location: anterior lateral shoulder pain with trapezius tightness. Range of Motion Active abduction: 140 Forward flexion: 140 Muscle Strength Abduction: 5/5 Tests Cross arm: positive Impingement: positive Drop arm: negative Other Erythema: absent Right shoulder sensation: radicular pain down arm occasionally. Pulse: present IMAGING: I reviewed xray of humerus and right shoulder from [facility] 04/06/24 which showed no acute findings. Procedures ASSESSMENT: ICD-10-CM 1. Strain of tendon of right rotator cuff, subsequent encounter S46.011D Ambulatory referral to Physical Therapy 2. Chronic right shoulder pain M25.511 Ambulatory referral to Physical Therapy G89.29 PLAN: Patient has good ROM but still having trapezius muscle tightness and anterior lateral shoulder pain. I recommend that she start PT 1-3x a week for 6-12 weeks. She will follow up in 6-8 weeks for RCK. Consider MRI if still painful. Questions answered in laymen terms at the bedside. The diagnosis, home exercise plan and any ongoing restrictions/ recommendations reviewed. If unable to be reached in office, I recommend evaluation at nearest Emergency Room if any symptoms worsened or new symptoms develop for requiring urgent evaluation. José Parkinson APRN-MAVERICK documented in this encounter [facility] Evaluation note No Information [facility] [employer] Other Evaluation note Diagnosis Internal derangement of right shoulder- Primary Right shoulder pain, unspecified chronicity Fall, initial encounter documented in this encounter [facility] noteNo assessment information [facility] Work Phone: Evaluation note* Diagnosis Exposure to STD Urinary tract infection without hematuria, site unspecified documented in this encounter [facility]* Diagnosis Complete tear of right rotator cuff, unspecified whether traumatic- Primary Chronic right shoulder pain Pain in joint, shoulder region documented in this encounter [facility]* Diagnosis Encounter to discuss test results Other specified counseling BV (bacterial vaginosis) Unspecified vaginitis and vulvovaginitis E-coli UTI Urinary tract infection without hematuria, site unspecified Yeast infection documented in this encounter [facility]* Diagnosis E-coli UTI Yeast infection documented in this encounter [facility]* Diagnosis Strain of tendon of right rotator cuff, subsequent encounter- Primary Chronic right shoulder pain Pain in joint, shoulder region documented in this encounter [facility]* Diagnosis Vaginal discharge Leukorrhea, not specified as infective Sexually transmitted disease exposure Contact with or exposure to venereal diseases Vaginal irritation Pruritus of genital organs Vaginal odor Unspecified symptom associated with female genital organs documented in this encounter [facility]* Diagnosis Exposure to STD Vaginal burning Other specified symptom associated with female genital organs BV (bacterial vaginosis) Unspecified vaginitis and vulvovaginitis documented in this encounter [facility]* Diagnosis Complete tear of right rotator cuff, unspecified whether traumatic- Primary Chronic right shoulder pain Pain in joint, shoulder region documented in this encounter [facility] HealthcareHistory general Narrative - Reported* Type Description Date Medical History Hypertension Medical History hypercholesterolemia Medical History Anxiety Medical History seizures Surgical History GALL BLADDER Surgical History PARTIAL HYSTERECTOMY Surgical History APPENDECTOMY [employer] Other Summary Purpose Family History Relationship Condition Age at Onset Recorded Date/T josh aunt Malignant neoplasm Unknown Unknown mother Unknown Malignant neoplasm Unknown Advance Directives Advance Directive Response Recorded Date/ Time Advance Directives No May 4:30pm Reason for Referral Specialty Diagnoses / Procedures Referred By Juan gutierrez Referred To Contact Physical Therapy Diagnoses Strain of tendon of right rotator cuff, subsequent encounter Chronic right shoulder pain Procedures [place] OFFICE/OUTPATIENT [facility] 60 MINUTES José Parkinson, ONCOLOGY PATIENT NAVIGATOR [address] [place] [address] Noam Carl, PT [address] [place] [address] Referral ID Status Reason Start Date Expiration Date Visits Requested Visits Authorized [id number] Pending Review Specialty Services Required 06/10/2024 12/07/2024 1 1 Specialty Diagnoses / Procedures Referred By Juan gutierrez Referred To Contact Radiology Diagnoses Internal derangement of right shoulder Procedures MR shoulder right wo IV contrast José Parkinsno, ONCOLOGY PATIENT NAVIGATOR [address] [place] [address] [employer] [facility] [address] [place] [address] Referral ID Status Reason Start Date Expiration Date V isits Requested Visits Authorized [id number] Authorized 06/29/2024 12/26/2024 1 1 Chief Complaint and Reason for Visit Chief Complaint m24.811 Additional Source Comments INFORMATION SOURCE (unrecogn ized section and content) DATE CREATED AUTHOR 03/20/2018 [facility] DATE CREATED AUTHOR AUTHOR'S ORGANIZ ATION 12/07/2022 [facility] pital DATE CREATED AUTHOR AUTHOR'S ORGANIZ ATION 10/22/2024 [facility] EPIC DATE CREATED AUTHOR AUTHOR'S ORGANIZ ATION 11/13/2024 [facility] DATE CREATED AUTHOR AUTHOR'S ORGANIZ ATION 11/17/2024 [facility] REASON FOR VISIT (unrecogniz ed section and content) Reason Comments Follow-up Reason Comments STI Screening Pt present today for std check Reason Comments Follow-up Reason Comments abnormal cx Pt present today to discuss abnormal test results. Pt was positive for BV and positive Ecoli. Pt would like to discuss why she still has Ecoli after taking medication. Reason Comments STI Screening Reason Comments STI Screening PT present today for STD check and vaginal burning. Reason Comments Pain Care Teams (unrecognized sec tion and content) Artificial Cherry Maker Relationship Specialty Start Date End Date Brittanie Ferreira MD [address] [place] [address] PCP - General Behavioral Health 04/08/24 Sue Denson MD [address] [place], [place] [id number] Referring Physician Family Medicine 04/08/24 Artificial Cherry Maker Relationship Specialty Start Date End Date Brittanie Ferreira MD [address] [place], [place] [id number] PCP - General Behavioral Health 04/08/24 Sue Denson MD [address] [place], [place] [id number] Referring Physician Family Medicine 04/08/24 Artificial Cherry Maker Relationship Specialty Start Date End Date Brittanie Ferreira MD [address] [place], [place] [id number] PCP - General Behavioral Health 04/08/24 Sue Denson MD [address], [place] [id number] Referring Physician Family Medicine 04/08/24 Team Status: Active Member Role Status Dates NON STAFF Primary Care Provider Active Team Status: Active Member Role Status Dates NON STAFF Primary Care Provider Active Start: July 10, 2024 Manuel Bolivar MD Attending Provider Active Start: July 10, 2024 Team Status: Inactive Member Role Status Dates NON STAFF Primary Care Provider Active Start: July 23, 2024 End: July 23, 2024 ALISA Velasquez Attending Provider Active Start: July 23, 2024 End: July 23, 2024 Artificial Cherry Maker Relationship Specialty Start Date End Date Brittanie Ferreira MD [address] [place], [place] [id number] PCP - General Behavioral Health 04/08/24 Sue Denson MD [address] [place], [place] [id number] Referring Physician Family Medicine 04/08/24 Artificial Cherry Maker Relationship Specialty Start Date End Date Brittanie Ferreira MD [address] [place] [address] PCP - General Behavioral Health 04/08/24 Sue Denson MD [address] [place] [address] Referring Physician Family Medicine 04/08/24 Artificial Cherry Maker Relationship Specialty Start Date End Date Brittanie Ferreira MD [address] [place] [address] PCP - General Behavioral Health 04/08/24 Sue Denson MD [address] [place] [address] Referring Physician Family Medicine 04/08/24 Artificial Cherry Maker Relationship Specialty Start Date End Date Brittanie Ferreira MD [address] [place] [address] PCP - General Behavioral Health 04/08/24 Sue Denson MD [address] [place] [address] Referring Physician Family Medicine 04/08/24 Artificial Cherry Maker Relationship Specialty Start Date End Date Brittanie Ferreira MD [address] [place] [address] PCP - General Behavioral Health 04/08/24 Sue Denson MD [address] [place] [address] Referring Physician Family Medicine 04/08/24 Artificial Cherry Maker Relationship Specialty Start Date End Date Brittanie Ferreira MD [address] [place] [address] PCP - General Behavioral Health 04/08/24 Sue Denson MD [address] [place] [address] Referring Physician Family Medicine 04/08/24 Artificial Cherry Maker Relationship Specialty Start Date End Date Brittanie Ferreira MD [address] [place] [address] PCP - General Behavioral Health 04/08/24 Sue Denson MD [address] [place] [address] Referring Physician Family Medicine 04/08/24 Artificial Cherry Maker Relationship Specialty Start Date End Date Brittanie Ferreira MD [address] [place] [address] PCP - General Behavioral Health 04/08/24 Sue Denson MD [address] [place] [address] Referring Physician Family Medicine 04/08/24 Artificial Cherry Maker Relationship Specialty Start Date End Date Brittanie Ferreira MD [address] [place], [place] [id number] PCP - General Behavioral Health 04/08/24 Sue Denson MD [address] [place] [address] Referring Physician Family Medicine 04/08/24 Artificial Cherry Maker Relationship Specialty Start Date End Date Brittanie Ferreira MD [address] [place] [address] PCP - General Behavioral Health 04/08/24 Sue Denson MD [address] [place] [address] Referring Physician Family Medicine 04/08/24 Artificial Cherry Maker Relationship Specialty Start Date End Date Brittanie Ferreira MD [address] [place] [phone] PCP - General Behavioral Health 04/08/24 Sue Denson MD [address] [place], [place] [id number] Referring Physician Family Medicine 04/08/24 Goals (unrecognized section and content) Goals may be documented in a n alternate section FOR RECORDS PERTAINING TO PATIENTS WHO ARE [...] BE BASED ON THE PRIMARY CLINICAL RECORDS. [employer] [facility]. provides no warranty or guarantee of the accuracy or completeness of information in this document.
== END 2024-11-23 21:30 | disposition home or self-care (01) ==
LOC: LAB 21:29
PROVIDERS: Visit Provider Obstetrics & Gynecology
DX: R87.612 Low grade squamous intraepithelial lesion on cytologic smear of cervix (LGSIL) (principal)
CPT/HCPCS: 88175

== ENCOUNTER 2024-12-11 18:18 | Emergency (ER) | payer MEDICARE, MEDICAID, SELFPAY ==
[2024-12-11 18:25] VITALS: BP 153/92; PULSE 90; TEMP 36.6; O2SAT 98; BMI 35.7
--- OUTSIDE RECORDS SUMMARY | 2024-12-11 18:27 | XMS_ITS | CCD ---
Author Organization [facility] Care Team Providers Care Pst Manager Name Role Phone SAVANNAHLINDA Unavailable Unavailable LINDA NUÑEZ Unavailable Unavailable SELF, [...] DR DOTSON Consulting Unavailable Bob Marinelli Unavailable Hanna JACKSON, [facility] Primary Care Provide r Jarett JACKSON, Sue Unavailable [phone] NON STAFF Primary Care Provider UnavailMD Manuel Arriola Attending Provider ALISA Parkinson Attending Provider [phone] SERVICES, [facility] Primary Care Unava ilable JAVAN URBANO Attending Unavailab le SERVICES, [facility] Primary Care Unava ilable JESUS SAVAGE Attending Unavailable JESUS SAVAGE Referring Unavailable SERVICES, [facility] Primary Care Unava ilable SERVICES, [facility] Primary Care Unava ilable SHAYNA, ELMIRA H Attending Unavailable SHAYNA, ELMIRA H Referring Unavailable SERVICES, [facility] Primary Care Unava ilable SHAYNA ELMIRA H Attending Unavailable SHAYNA, ELMIRA H Referring Unavailable SERVICES, [facility] Primary Care Unava ilable SHAYNA, ELMIRA H Attending Unavailable SHAYNA, ELMIRA H Referring Unavailable SERVICES, [facility] Primary Care Unava ilable LUCAS PAULINO Referring Unavailable SERVICES, [facility] Primary Care Unava ilable SERVICES, [facility] Unava YSABEL Carmen Attending Unavailable SERVICES, [facility] Unava ilable VANESSA CRAMER Attending Unavailable SERVICES, [facility] Unava ilable CATARINO SURESH Attending Unavailable JEFFERSONLUCAS Referring Unavailable SERVICES, [facility] Unava ilable JR. ROMAN GEORGE C Attending Unavaila ble JEFFERSON, LUCAS Attending Unavailable JEFFERSON, LUCAS Attending Unavailable PARKINSONJOSÉ Attending Unavailable JEFFERSON, LUCAS Attending Unavailable PARKINSON, JOSÉ Gutierrez Attending Unavailable JEFFERSON, LUCAS Attending Unavailable PARKINSON, JOSÉ Gutierrez Attending Unavailable JEFFERSON, LUCAS Attending Unavailable PARKINSON, JOSÉ Gutierrez Attending Unavailable PARKINSON, JOSÉ Gutierrez Referring Unavailable PAM MAX Attending Unavailable JEFFERSON, LUCAS Attending Unavailable PARKINSON, JOSÉ Gutierrez Attending Unavailable JEFFERSON, LUCAS Attending Unavailable MANSOORPAM KIRK Attending Unavailable José Parkinson Attending Unavailable José Parkinson Admitting Unavailable NON STAFF Primary Care Unavailable NON STAFF Primary Care Unavailable Manuel Bolivar Attending Unavailab le Manuel Bolivar Admitting Unavailab le Allergies Allergy Classification Reported Allergen(s) Allergy Type Date of Onset Reaction(s) Facility (1 source) azithromycin Drug Allergy 03-04-20 17 [facility] Repository (3 sources) clarithromycin; Translations: [CLARITHROMYCIN] Drug Allergy 03-18-20 14 [facility] Repository (2 sources) dicyclomine Drug Allergy 04-27-20 13 [facility] Repository (2 sources) iothalamate Drug Allergy 04-27-20 13 [facility] Repository (1 source) traMADol Drug Allergy 03-18-20 14 [facility] Repository (1 source) Clarithromycin Drug Allergy 04-27-20 13 [facility] Repository (1 source) Clarithromycin Drug Allergy Unknown [facility] Other (20 sources) Dicyclomine; Translations: [DICYCLOMINE] Drug Allergy 12-08-19 16 Anxiety [facility] Other (20 sources) Metoclopramide; Translations: [METOCLOPRAMIDE] Drug Allergy 12-08-19 16 Anaphylaxis, Anxiety, Rash [facility] Other (20 sources) Clarithromycin Allergy to substance 12-08-19 16 Anaphylaxis [facility] Work Phone: (20 sources) Dicyclomine; Translations: [DICYCLOMINE HCL] Drug Allergy 12-08-19 16 Anxiety [facility] (20 sources) Loratadine Allergy to substance 01-23-20 [facility] (20 sources) traMADol Drug Allergy 03-21-20 21 Nausea Only [facility] (20 sources) Macrolides And Ketolides Drug Allergy 12-08-19 16 Anaphylaxis [facility] (20 sources) Other Allergy to substance 06-19-20 23 Rash [facility] (1 source) Clarithromycin Drug Allergy 10-08-19 [facility] Repository (1 source) Dicyclomine Drug Allergy 10-08-19 [facility] Repository (1 source) Metoclopramide Drug Allergy 10-08-19 [facility] Repository Medications Current Medications Medication Drug Class(es) Dates Sig (Normalized) Sig (Original) Calcium (1 source) Phosphate Binder, Calcium Calcium + D Active cefTRIAXone 500 mg injection (20 sources) Cephalosporin Antibacterial Start: 07-29-2024 cefTRIAXone (Rocephin) [...] Estroven Active loratadine 10 mg oral tablet (20 sources) loratadine (Claritin) 10 MG tablet Active [...] sources) Azole Antifungal Start: 09-01-20 End: 09-08-20 terconazole (Terazol 7) 0.4 % vaginal cream Indications: Yeast infection Insert 1 applicator into the vagina at bedtime for 7 days 45 g 09/01/2024 09/08/2024 Active Start: 08-04-2024 End: 08-11-2024 terconazole (Terazol 7) 0.4 % vaginal cream Indications: Yeast infection Insert 1 applicator into the vagina at bedtime for 7 days 45 g 08/04/2024 08/11/2024 Active valACYclovir 500 mg oral tablet (20 sources) Herpesvirus Nucleoside Analog DNA Polymerase Inhibitor, [...] Translations: [Calculus of ureter] Onset: 08-18-2024 Episodic Cancer of cervix (4 sources) Cervical intraepithelial neoplasia grade 1; Translations: [Low grade squamous intraepithelial lesion on cytologic smear of cervix (LGSIL)] Onset: 11-23-2024 11-23-2024 Episodic E Codes: Fall (1 source) Fall [...] Translations: [Secondary hypertension, unspecified] Onset: 10-06-2024 Chronic Immunizations and screening for infectious disease (11 sources) Exposure to sexually transmissible disorder; Translations: [Contact with and (suspected) exposure to infections with a predominantly sexual mode of transmission] Onset: 06-11-2024 07-29-2024 Episodic Inflammatory diseases of female pelvic organs (4 sources) Bacterial vaginosis; Translations: [Acute vaginitis] 08-04-2024 Episodic Mycoses (4 sources) Mycosis; Translations: [Candidiasis, unspecified] 08-04-2024 Episodic Nonspecific chest pain (1 source) Chest pain, unspecified; Translations: [Chest pain, unspecified] Onset: 10-06-2024 Episodic Other aftercare (1 source) Other alf (current) drug therapy; Translations: [OTH HALF-WAY CURRENT DRUG THERAPY] Onset: 12-03-2022 Episodic Other [...] fall, initial encounter] Onset: 06-29-2024 06-29-2024 Episodic Other circulatory disease (1 source) Elevated [...] Test Name Value Interpretation Reference Range Facility PAP IG, APT HPV RFX 16/18,45 on 11-27-2024 HPV APTIMA Negative Negative [facility] Comment on above: This nucleic acid am plification test detects fourteen high- risk HPV types (16,18,31,33,35,39,45,51,52,56,58,59,66,68) without differentiation. Performed at: - [facility] [id number] [facility] Director: Bridget Caballero MD, Phone: [phone] Performed at: = - [facility] [id number] [facility] Director: Bridget Caballero MD, Phone: [phone] Interpretation and review of laboratory results Abnormal [facility] (IMAGE GUIDED) Note Abnormal . [facility] Comment on above: TESTS RESULT FLAG UN ITS REF RANGE LAB Clinician Provided Cytology Information Source.............Vagina No. of containers..01 ThinPrep Vial DIAGNOSIS: [A] 01 EPITHELIAL CELL ABNORMALITY. ATYPICAL SQUAMOUS CELLS OF UNDETERMINED SIGNIFICANCE (ASC-US) (VAGINAL). Recommendation: [A] 01 Suggest follow up as clinically appropriate. Specimen adequacy: 01 Satisfactory for evaluation. Performed by: Thomas Mauricio, Director Of Catering Sales (ASCP) Electronically si... 01 Renea Paredes MD, Pathologist . 01 Pathologist ICD10: 01 R87.620 Note: Note 01 The Pap smear is a screening test designed to aid in the detection of premalignant and malignant conditions of the uterine cervix. It is not a diagnostic procedure and should not be used as the sole means of detecting cervical cancer. Both false-positive and false-negative reports do occur. Test Methodology: Note 01 This liquid based ThinPrep(R) pap test was screened with the use of an image guided system. HPV Genotype Reflex Note 01 Criteria not met, HPV Genotype not performed. FLAG LEGEND: L-Low Normal,H-High Normal,LL-Alert Low,HH-Alert High <-Panic Low,>-Panic High,A-Abnormal,AA-Critical Abnormal Performed at: [address] [id number] Bridget Caballero MD, SPATULA-ALONE VAGINA [facility] RECURRENT VAGINITIS (HTRX)on 11-24-2024 ATOPOBIUM VAGINAE 26.233 Abnormal [facility] ATOPOBIUM VAGINAE Detected [facility] BVAB 2,3 (BACTERIAL VAGINOSIS ASSOCIATED BACTERIA 2, 3); MOBILUNCUS SPP 0 [facility] BVAB 2,3 (BACTERIAL VAGINOSIS ASSOCIATED BACTERIA 2, 3); MOBILUNCUS SPP Not detected [facility] RUBÉN ALBICANS, PARAPSILOSIS, TROPICALIS 0 [facility] RUBÉN ALBICANS, PARAPSILOSIS, TROPICALIS Not detected [facility] RUBÉN GLABRATA 0 [facility] RUBÉN GLABRATA Not detected [facility]UB[facility]N KRUSEI [facility] RUB[facility]N KRUSEI Not detected [facility] CHLAMYDIA TRACHOMATIS 0 [facility] CHLAMYDIA TRACHOMATIS Not detected [facility] ERMB, C; MEFA 18.702 Abnormal [facility] ERMB, C; MEFA Detected Abnormal [facility] GARDNERELLA VAGINALIS 32.548 Abnormal [facility] GARDNERELLA VAGINALIS Detected Abnormal [facility] Interpretation and review of laboratory results Abnormal [facility] MEGASPHAERA (TYPES 1, 2) 0 [facility] MEGASPHAERA (TYPES 1, 2) Not detected [facility] MYCOPLASMA GENITALIUM 0 [facility] MYCOPLASMA GENITALIUM Not detected [facility] NEISSERIA GONORRHOEAE 0 [facility] NEISSERIA GONORRHOEAE Not detected [facility] TRICHOMONAS VAGINALIS 0 [facility] TRICHOMONAS VAGINALIS Not detected [facility] MAMM SCREENING BILATERAL W C irrigator sprinkling system 11-12-2024 MAMM SCREENING BILATERAL W CAD MAMM SCREENING BILATERAL W CAD NE SWANN 1970 [id number] EXAM: MAMM SCREENING BILATERAL W CAD, 11/11/2024 [...] family medical history was used calculate their Tyrer-zi lifetime risk of malignancy. Scores less than 20% are not considered high risk per ACR guidelines and patient should continue with the above recommendation. Finalized by Fernie Titus MD on 11/12/2024 11:01 AM 1 b MAMM 1 YR Normal [facility] DEXA SCAN CENTRAL SKELETALon 11-11-2024 DEXA SCAN [...] Ramirez MD on 11/11/2024 3:38 PM Normal [facility] RECURRENT VAGINITIS (HTRX)on 10-07-2024 ATOPOBIUM VAGINAE 0 [...] [facility] RUBÉN GLABRATA Not detected [facility] RUBÉN KRUSEI 0 [facility] RUBÉN KRUSEI Not detected [facility] CHLAMYDIA TRACHOMATIS 0 [facility] CHLAMYDIA TRACHOMATIS Not detected [facility] GARDNERELLA VAGINALIS 28.648 Abnormal [facility] GARDNERELLA VAGINALIS Detected Abnormal [facility] Interpretation and review of laboratory results Abnormal [facility] MEGASPHAERA (TYPES 1, 2) 0 [facility] MEGASPHAERA (TYPES 1, 2) Not detected [facility] MYCOPLASMA GENITALIUM 0 [facility] MYCOPLASMA GENITALIUM Not detected [facility] NEISSERIA GONORRHOEAE 0 [facility] NEISSERIA GONORRHOEAE Not detected [facility] TRICHOMONAS VAGINALIS 0 [facility] TRICHOMONAS VAGINALIS Not detected [facility] BASIC METABOLIC PANLon 10-06 Anion gap [Moles/Vol] 9 mmol/L Normal 5-15 [facility] Comment on above: Performed By: #### C OVFLR #### [facility] ([id number]) [address] [place] [address] 80446 Calcium [Mass/Vol] 9.2 mg/dL Normal 8.5-10.5 [facility] Comment on above: Performed By: #### C OVFLR #### [facility] ([id number]) [address] [place] [address] 21871 Chloride [Moles/Vol] 103 mmol/L Normal 98-109 [facility] Comment on above: Performed By: #### C OVFLR #### [facility] ([id number]) [address] [place] [address] 88486 CO2 [Moles/Vol] 25 mmol/L Normal 22-32 [facility] Comment on above: Performed By: #### C OVFLR #### [facility] ([id number]) [address] [place] [address] 03106 Creatinine [Mass/Vol] 1.01 mg/dL High 0.40-1.00 [facility] Comment on above: Result Comment: METH OD TRACEABLE TO IDMS STANDARD Performed By: #### C OVFLR #### [facility] ([id number]) [address] [place] [address] 73312 GFR/1.73 sq M.predicted among non-blacks MDRD (S/P/Bld) [Vol rate/Area] 66 mL/min/{1.73_m2} Normal >59 [facility] Comment on above: Result Comment: Reported eGFR is based on the CKD-EPI 1 equation that does not use a race coefficient. Performed By: #### C OVFLR #### [facility] ([id number]) [address] [place] [address] 32146 Glucose [Mass/Vol] 106 mg/dL High 65-99 [facility] Comment on above: Performed By: #### C OVFLR #### [facility] ([id number]) [address] [place] [address] 01514 Potassium [Moles/Vol] 3.7 mmol/L Normal 3.5-5.0 [facility] Comment on above: Performed By: #### C OVFLR #### [facility] ([id number]) [address] [place] [address] 62931 Sodium [Moles/Vol] 137 mmol/L Normal 134-146 [facility] Comment on above: Performed By: #### C OVFLR #### [facility] ([id number]) [address] [place] [address] 78595 Urea nitrogen [Mass/Vol] 23 mg/dL Normal 5-23 [facility] Comment on above: Performed By: #### C OVFLR #### [facility] ([id number]) [address] [place] [address] 03984 CBC AND AUTO DIFFon 10-06-19 25 ABSOLUTE BASOPHIL 0.0 X10E9/L Normal 0.0-0.2 [facility] Comment on above: Performed By: #### C OVFLR #### [facility] ([id number]) [address] [place] [address] 02934 ABSOLUTE NEUTROPHIL 6.2 X10E9/L Normal 1.5-6.6 [facility] Comment on above: Performed By: #### C OVFLR #### [facility] ([id number]) [address] [place] [address] 66100 Basophils/100 WBC (Bld) 0.3 % Normal [facility] Comment on above: Performed By: #### C OVFLR #### [facility] ([id number]) [address] [place] [address] 26201 Eosinophils (Bld) [#/Vol] 0.2 10*3/uL Normal 0.0-0.4 [facility] Comment on above: Performed By: #### C OVFLR #### [facility] ([id number]) [address] [place] [address] 70358 Eosinophils/100 WBC (Bld) 2.0 % Normal [facility] Comment on above: Performed By: #### C OVFLR #### [facility] ([id number]) [address] [place] [address] 09797 Erythrocyte distribution width (RBC) [Ratio] 13.9 % Normal 11.5-15.0 [facility] Comment on above: Performed By: #### C OVFLR #### [facility] ([id number]) [address] [place] [address] 34290 Hematocrit (Bld) [Volume fraction] 42.1 % Normal 35-47 [facility] Comment on above: Performed By: #### C OVFLR #### [facility] ([id number]) [address] [place] [address] 52453 Hemoglobin (Bld) [Mass/Vol] 14.0 g/dL Normal 11.7-15.5 [facility] Comment on above: Performed By: #### C OVFLR #### [facility] ([id number]) [address] [place] [address] 73187 Lymphocytes (Bld) [#/Vol] 2.2 10*3/uL Normal 1.0-3.5 [facility] Comment on above: Performed By: #### C OVFLR #### [facility] ([id number]) [address] [place] [address] 87432 Lymphocytes/100 WBC (Bld) 23.6 % Normal [facility] Comment on above: Performed By: #### C OVFLR #### [facility] ([id number]) [address] [place] [address] 41249 MCH (RBC) [Entitic mass] 27.9 pg Normal 27-34 [facility] Comment on above: Performed By: #### C OVFLR #### [facility] ([id number]) [address] [place] [address] 80698 MCHC (RBC) [Mass/Vol] 33.3 g/dL Normal 32-36 [facility] Comment on above: Performed By: #### C OVFLR #### [facility] ([id number]) [address] [place] [address] 93280 MCV (RBC) [Entitic vol] 84 fL Normal 80-100 [facility] Comment on above: Performed By: #### C OVFLR #### [facility] ([id number]) [address] [place] [address] 22091 Monocytes (Bld) [#/Vol] 0.6 10*3/uL Normal 0-0.9 [facility] Comment on above: Performed By: #### C OVFLR #### [facility] ([id number]) [address] [place] [address] 43629 Monocytes/100 WBC (Bld) 6.5 % Normal [facility] Comment on above: Performed By: #### C OVFLR #### [facility] ([id number]) [address] [place] [address] 47482 Neutrophils/100 WBC (Bld) 67.6 % Normal [facility] Comment on above: Performed By: #### C OVFLR #### [facility] ([id number]) [address] [place] [address] 37500 Platelet mean volume (Bld) [Entitic vol] 9.1 fL Normal 7-12 [facility] Comment on above: Performed By: #### C OVFLR #### [facility] ([id number]) [address] [place] [address] 48541 Platelets (Bld) [#/Vol] 198 10*3/uL Normal 150-450 [facility] Comment on above: Performed By: #### C OVFLR #### [facility] ([id number]) [address] [place] [address] 35929 RBC COUNT 5.02 X10E12/L Normal 3.80-5.20 [facility] Comment on above: Performed By: #### C OVFLR #### [facility] ([id number]) [address] [place] [address] 16335 WBC (Bld) [#/Vol] 9.2 10*3/uL Normal 4.0-11.0 [facility] Comment on above: Performed By: #### C OVFLR #### [facility] ([id number]) [address] [place] [address] 08269 Troponin I.cardiac High sens itivity method [Mass/Vol]on 10-06-2024 1 HOUR TROP I, HIGH SENSITIVITY 2 ng/L Normal <16 [facility] Comment on above: Performed By: #### C OVFLR #### [facility] ([id number]) [address] [place] [address] 38011 TROPONIN I, HIGH SENSITIVITY 2 ng/L Normal <16 [facility] Comment on above: Performed By: #### C OVFLR #### [facility] ([id number]) [address] [place] [address] 63741 Urinalysis macro (dipstick) panel (U)on 09-01-2024 Bilirubin, UA Negative Negative - 4(70) +++ mg/dL [facility] Blood, UA Negative Negative - 50 Reinaldo/mcL [facility] Clarity, UA Clear [facility] Color, UA Yellow [facility] Glucose, UA Negative Negative - 2000(110) ++++ mg/dL [facility] Interpretation and review of laboratory results Normal [facility] Ketones, UA Negative Negative - 160(16) ++++ mg/dL [facility] Leukocytes, UA Negative Negative - 500+++ Rowan/mcL [facility] Nitrite, UA Negative Negative - Positive [facility] pH, UA 6 5 - 9 [facility] Protein, UA Negative Negative - 2000(20) ++++ mg/dL [facility] Spec Grav, UA 1.02 1 - 1.03 [facility] Urobilinogen, UA 0.2 0.2 - 12 mg/dL [facility] CBC AND AUTO DIFFon 08-18-20 24 ABSOLUTE BASOPHIL 0.0 X10E9/L Normal 0.0-0.2 [facility] Comment on above: Performed By: #### C OVFLR #### [facility] ([id number]) [address] [place] [address] 35432 ABSOLUTE NEUTROPHIL 5.0 X10E9/L Normal 1.5-6.6 [facility] Comment on above: Performed By: #### C OVFLR #### [facility] ([id number]) [address] [place] [address] 76787 Basophils/100 WBC (Bld) 0.6 % Normal [facility] Comment on above: Performed By: #### C OVFLR #### [facility] ([id number]) [address] [place] [address] 19846 Eosinophils (Bld) [#/Vol] 0.1 10*3/uL Normal 0.0-0.4 [facility] Comment on above: Performed By: #### C OVFLR #### [facility] ([id number]) [address] [place] [address] 57162 Eosinophils/100 WBC (Bld) 1.1 % Normal [facility] Comment on above: Performed By: #### C OVFLR #### [facility] ([id number]) [address] [place] [address] 98456 Erythrocyte distribution width (RBC) [Ratio] 13.9 % Normal 11.5-15.0 [facility] Comment on above: Performed By: #### C OVFLR #### [facility] ([id number]) [address] [place] [address] 77186 Hematocrit (Bld) [Volume fraction] 42.3 % Normal 35-47 [facility] Comment on above: Performed By: #### C OVFLR #### [facility] ([id number]) [address] [place] [address] 55895 Hemoglobin (Bld) [Mass/Vol] 14.3 g/dL Normal 11.7-15.5 [facility] Comment on above: Performed By: #### C OVFLR #### [facility] ([id number]) [address] [place] [address] 14250 Lymphocytes (Bld) [#/Vol] 1.8 10*3/uL Normal 1.0-3.5 [facility] Comment on above: Performed By: #### C OVFLR #### [facility] ([id number]) [address] [place] [address] 21013 Lymphocytes/100 WBC (Bld) 24.9 % Normal [facility] Comment on above: Performed By: #### C OVFLR #### [facility] ([id number]) [address] [place] [address] 77313 MCH (RBC) [Entitic mass] 28.3 pg Normal 27-34 [facility] Comment on above: Performed By: #### C OVFLR #### [facility] ([id number]) [address] [place] [address] 67422 MCHC (RBC) [Mass/Vol] 33.7 g/dL Normal 32-36 [facility] Comment on above: Performed By: #### C OVFLR #### [facility] ([id number]) [address] [place] [address] 71893 MCV (RBC) [Entitic vol] 84 fL Normal 80-100 [facility] Comment on above: Performed By: #### C OVFLR #### [facility] ([id number]) [address] [place] [address] 42830 Monocytes (Bld) [#/Vol] 0.4 10*3/uL Normal 0-0.9 [facility] Comment on above: Performed By: #### C OVFLR #### [facility] ([id number]) [address] [place] [address] 51444 Monocytes/100 WBC (Bld) 5.2 % Normal [facility] Comment on above: Performed By: #### C OVFLR #### [facility] ([id number]) [address] [place] [address] 50212 Neutrophils/100 WBC (Bld) 68.2 % Normal [facility] Comment on above: Performed By: #### C OVFLR #### [facility] ([id number]) [address] [place] [address] 45929 Platelet mean volume (Bld) [Entitic vol] 9.5 fL Normal 7-12 [facility] Comment on above: Performed By: #### C OVFLR #### [facility] ([id number]) [address] [place] [address] 03989 Platelets (Bld) [#/Vol] 203 10*3/uL Normal 150-450 [facility] Comment on above: Performed By: #### C OVFLR #### [facility] ([id number]) [address] [place] [address] 98302 RBC COUNT 5.04 X10E12/L Normal 3.80-5.20 [facility] Comment on above: Performed By: #### C OVFLR #### [facility] ([id number]) [address] [place] [address] WBC (Bld) [#/Vol] 7.4 10*3/uL Normal 4.0-11.0 [facility] Comment on above: Performed By: #### C OVFLR #### [facility] ([id number]) [address] [place] [address] 73789 COMPREHENSIVE METABOLIC PANE Drake 08-18-2024 Albumin [Mass/Vol] 4.5 g/dL Normal 3.2-5.3 [facility] Comment on above: Performed By: #### C OVFLR #### [facility] ([id number]) [address] [place] [address] ALP [Catalytic activity/Vol] 79 U/L Normal 39-130 [facility] Comment on above: Performed By: #### C OVFLR #### [facility] ([id number]) [address] [place] [address] 98178 ALT [Catalytic activity/Vol] 18 U/L Normal 0-31 [facility] Comment on above: Performed By: #### C OVFLR #### [facility] ([id number]) [address] [place] [address] 33478 Anion gap [Moles/Vol] 10 mmol/L Normal 5-15 [facility] Comment on above: Performed By: #### C OVFLR #### [facility] ([id number]) [address] [place] [address] [place] [address] AST [Catalytic activity/Vol] 20 U/L Normal 0-41 [facility] Comment on above: Performed By: #### C OVFLR #### [facility] ([id number]) [address] [place] [address] 02345 Bilirubin [Mass/Vol] 0.8 mg/dL Normal 0.3-1.2 [facility] Comment on above: Performed By: #### C OVFLR #### [facility] ([id number]) [address] [place] [address] 53889 Calcium [Mass/Vol] 9.7 mg/dL Normal 8.5-10.5 [facility] Comment on above: Performed By: #### C OVFLR #### [facility] ([id number]) [address] [place] [address] 56797 Chloride [Moles/Vol] 104 mmol/L Normal 98-109 [facility] Comment on above: Performed By: #### C OVFLR #### [facility] ([id number]) [address] [place] [address] 79193 CO2 [Moles/Vol] 24 mmol/L Normal 22-32 [facility] Comment on above: Performed By: #### C OVFLR #### [facility] ([id number]) [address] [place] [address] 47989 Creatinine [Mass/Vol] 0.84 mg/dL Normal 0.40-1.00 [facility] Comment on above: Result Comment: METH OD TRACEABLE TO IDMS STANDARD Performed By: #### C OVFLR #### [facility] ([id number]) [address] [place] [address] 92921 GFR/1.73 sq M.predicted among non-blacks MDRD (S/P/Bld) [Vol rate/Area] 82 mL/min/{1.73_m2} Normal >59 [facility] Comment on above: Result Comment: Reported eGFR is based on the CKD-EPI 2021 equation that does not use a race coefficient. Performed By: #### C OVFLR #### [facility] ([id number]) [address] [place] [address] 75997 Glucose [Mass/Vol] 86 mg/dL Normal 65-99 [facility] Comment on above: Performed By: #### C OVFLR #### [facility] ([id number]) [address] [place] [address] 81443 Potassium [Moles/Vol] 4.2 mmol/L Normal 3.5-5.0 [facility] Comment on above: Performed By: #### C OVFLR #### [facility] ([id number]) [address] [place] [address] 56894 Protein [Mass/Vol] 8.1 g/dL High 6.0-8.0 [facility] Comment on above: Performed By: #### C OVFLR #### [facility] ([id number]) [address] [place] [address] 29949 Sodium [Moles/Vol] 138 mmol/L Normal 134-146 [facility] Comment on above: Performed By: #### C OVFLR #### [facility] ([id number]) [address] [place] [address] 48235 Urea nitrogen [Mass/Vol] 12 mg/dL Normal 5-23 [facility] Comment on above: Performed By: #### C OVFLR #### [facility] ([id number]) [address] [place] [address] ABDOMEN AND PELVIS WO CON Ton [...] Ayden Machado DO on 08/18/2024 8:03 PM ISean MD have personally reviewed the image(s) and agree with and/or edited the report Finalized by Sean Lambert MD on 08/18/2024 8:25 PM Normal [facility] LIPASEon 08-18-2024 Lipase [Catalytic activity/Vol] 34 U/L Normal 17-40 [facility] Comment on above: Performed By: #### C OVFLR #### [facility] ([id number]) [address] [place] [address] [place] [address] URINE CULTUREon 08-18-2024 Bacteria identified Cx Nom (U) CULTURE RESULTS NO GROWTH AT <1000 CFU/mL Normal [facility] Comment on above: Performed By: #### C OVFLR #### [facility] ([id number]) [address] [place] [address] [place] [address] URN MACROSCOPIC NURon 2023 BILIRUBIN [facility] Negative Normal NEG [facility] Comment on above: Performed By: #### C OVFLR #### [facility] ([id number]) [address] [place] [address], [place] [address] BLOOD/HGB [facility] Trace Abnormal NEG [facility] Comment on above: Performed By: #### C OVFLR #### [facility] ([id number]) [address] [place] [address] [place] [address] GLUCOSE [facility] Negative Normal NEG [facility] Comment on above: Performed By: #### C OVFLR #### [facility] ([id number]) [address] [place] [address] [place] [address] KETONES [facility] Negative Normal NEG [facility] Comment on above: Performed By: #### C OVFLR #### [facility] ([id number]) [address] [place] [address] [place] [address] LEUKOCYTE ESTERASE [facility] Negative Normal NEG [facility] Comment on above: Performed By: #### C OVFLR #### [facility] ([id number]) [address] [place] [address], [place] [address] NITRITE [facility] Negative Normal NEG [facility] Comment on above: Performed By: #### C OVFLR #### [facility] ([id number]) [address] [place] [address] [place] [address] PH [facility] 5.5 Normal 5.0-8.5 [facility] Comment on above: Performed By: #### C OVFLR #### [facility] ([id number]) [address] [place] [address], [place] [address] PROTEIN [facility] Negative Normal NEG [facility] Comment on above: Performed By: #### C OVFLR #### [facility] ([id number]) [address] [facility], [place] [address] SPECIFIC GRAVITY [facility] 1.015 Normal 1.003-1.035 [facility] Comment on above: Performed By: #### C OVFLR #### [facility] ([id number]) [address] [facility], [place] [address] UROBILINOGEN [facility] 0.2 eu/dL Normal <1.1 [facility] Comment on above: Performed By: #### C OVFLR #### [facility] ([id number]) [address] [facility], [place] [address] Urinalysis macro (dipstick) panel (U)on 08-04-2024 Bilirubin, UA Negative Negative - 4(70) +++ mg/dL [facility] Blood, UA Positive Negative - 50 Reinaldo/mcL [facility] Comment on above: trace Clarity, UA Clear [facility] Color, UA Yellow [facility] Glucose, UA Negative Negative - 1999(110) ++++ mg/dL [facility] Interpretation and review of laboratory results Abnormal [facility] re Ketones, UA Negative Negative - 160(16) ++++ mg/dL [facility] Leukocytes, UA Negative Negative - 500+++ Rowan/mcL [facility] Nitrite, UA Negative Negative - Positive [facility] pH, UA 5.5 5 - 9 [facility] Protein, UA Negative Negative - 1999(20) ++++ mg/dL [facility] Spec Grav, UA 1.01 1 - 1.03 [facility] Urobilinogen, UA 0.2 0.2 - 12 mg/dL [facility] e RECURRENT VAGINITIS (HTRX)on 07-31-2024 ATOPOBIUM VAGINAE 15.259 Abnormal [facility] ATOPOBIUM VAGINAE Detected Abnormal [facility] BVAB 2,3 (BACTERIAL VAGINOSIS ASSOCIATED BACTERIA 2, 3); MOBILUNCUS SPP 0 [facility] BVAB 2,3 (BACTERIAL VAGINOSIS ASSOCIATED BACTERIA 2, 3); MOBILUNCUS SPP Not detected [facility] RUBÉN ALBICANS, PARAPSILOSIS, TROPICALIS 0 [facility] RUBÉN ALBICANS, PARAPSILOSIS, TROPICALIS Not detected [facility] RUBÉN GLABRATA 0 [facility] RUBÉN GLABRATA Not detected [facility] ealth[facility] RUBÉN KRUSEI 0 [facility] RUBÉN KRUSEI Not detected [facility] CHLAMYDIA TRACHOMATIS 0 [facility] CHLAMYDIA TRACHOMATIS Not detected [facility] ERMB, C; MEFA 16.78 Abnormal [facility] care ERMB, C; MEFA Detected Abnormal [facility] care GARDNERELLA VAGINALIS 23.99 Abnormal [facility] GARDNERELLA VAGINALIS Detected Abnormal [facility] Interpretation and review of laboratory results Abnormal [facility] re MEGASPHAERA (TYPES 1, 2) 0 [facility] MEGASPHAERA (TYPES 1, 2) Not detected [facility] MYCOPLASMA GENITALIUM 0 [facility] MYCOPLASMA GENITALIUM Not detected [facility] NEISSERIA GONORRHOEAE 0 [facility] NEISSERIA GONORRHOEAE Not detected [facility] TET B, TET M 19.734 Abnormal [facility] are TET B, TET M Detected Abnormal [facility] are TRICHOMONAS VAGINALIS 0 [facility] TRICHOMONAS VAGINALIS Not detected [facility] Urinalysis macro (dipstick) panel (U)on 07-29-2024 Bilirubin, UA Negative Negative - (70) +++ mg/dL [facility] Blood, UA Positive Negative - 50 Reinaldo/mcL [facility] Comment on above: moderate Clarity, UA Clear [facility] re Color, UA Yellow [facility] Glucose, UA Negative Negative - 1999(110) ++++ mg/dL [facility] Interpretation and review of laboratory results Abnormal [facility] re Ketones, UA Negative Negative - 160(16) ++++ mg/dL [facility] Leukocytes, UA Positive Negative - 500+++ Rowan/mcL [facility] Comment on above: large Nitrite, UA Negative Negative - Positive [facility] pH, UA 7 5 - 9 [facility] Protein, UA Negative Negative - 1999(20) ++++ mg/dL [facility] Spec Grav, UA 1.02 1 - 1.03 [facility] Urobilinogen, UA 0.2 0.2 - 12 mg/dL [facility] MR shoulder RT wo conon 10-2 MR shoulder RT wo [facility] [place] [address] [place], [place] [id number] MRI Report Signed Patient: Ne Swann MR#: [id number] : [id number] Acct:[id number] Age/Sex: 54 / F ADM Date: 07/23/24 [facility] Type[facility] CLI Attending Dr: José Parkinson MANAGER PEDIATRIC-C Copies to: José Parkinson MEAT PRESS OPERATOR Ordering Provider: José Parkinson MEAT PRESS OPERATOR Date of Service: 07/23/24 MR/MR shoulder RT wo con: M24.811 ([id number]) XR/XR pre/post mri xray: M24.811 MR RIGHT [...] Teddy Richey M.D.07/23/2024 3:55 PM Dictation Location: [place] [address] Transcribed By: [facility] 07/23/24 1559 Dictated By: Teddy Richey II, MD 07/23/24 1540 Signed By: 07/23/24 8877 Normal [facility] XR Shoulder - right 2 [...] fracture and/or dislocation. Impression: Unremarkable right shoulder. [facility] [employer] XR Shoulder - right 2 ViewsO rdered By: Jr. Roman on 07-01-2024 [facility] Work Phone: CT BRAIN WO CONTon 4 CT BRAIN WO CONT CT BRAIN WO [...] Dima Hidalgo MD on 06/29/2024 3:54 PM I, Vanessa Ambriz MD have personally reviewed the image(s) and agree with and/or edited the report Finalized by Vanessa Ambriz MD on 06/29/2024 3:59 PM Normal [facility] CT CERVICAL SPINE WO CONTon 06-29-2024 CT [...] Cabrera MD on 06/29/2024 3:54 PM Normal [facility] CT FACIAL BONES WO CONTon CT FACIAL [...] Javan Davila on 06/29/2024 3:57 PM Normal [facility] XR Shoulder - right 2 Viewso n 06-29-2024 Radiology Study observation (narrative) [facility] HIV 1+2 Ab+HIV1 p24 Ag IA Ql on 06-11-2024 HIV 1 and 2 Ab/Ag Screen Non-Reactive Normal NRCT [facility] Comment on above: Result Comment: This information [...] diagnoses. Performed By: #### 5 6888-1 #### [facility] ([id number]) [address], [address] [place] [address] Cytology Cervical or vaginal smear or scraping studyon 04-13-2024 [facility] XR HUMERUS RT MIN 2 VWSon XR HUMERUS RT MIN 2 VWS XR HUMERUS RT MIN 2 VWS Right humerus: HISTORY: Humeral pain. 2 views right humerus are obtained. There is no acute osseous, articular, or soft tissue abnormality. IMPRESSION: No acute findings. Finalized by Bruce Armstrong MD on 04/06/2024 8:52 PM Normal [facility] XR SHOULDER RT MIN 2 VWSon 0 [...] Armstrong MD on 04/06/2024 8:46 PM Normal [facility] Fibrin D-dimer DDU (PPP) [Ma ss/Vol]on 02-03-2024 D DIMER 200 ng/mL DDU Normal <255 [facility] Comment on above: Result Comment: Results <255 ng/mL DDU: The presence of a VTE can safely be excluded with a negative D-Dimer result and Wells score. A negative result doesn't exclude the possibility of DIC. The test be repeated along with other diagnostic tests if the patient's symptoms persist or worsen. [email or web address] Performed By: #### 4 [id number] #### [facility] ([id number]) [address] [place] [address], [place] [address] XR KNEE LT 3 VWSon XR KNEE [...] Joel Joiner MD on 02/03/2024 9:20 PM IBruce MD have personally reviewed the image(s) and agree with and/or edited the report Finalized by Bruce Armstrong MD on 02/03/2024 9:41 PM Normal [facility] RAPID STREP SCR NURSINGon S. pyogenes Ag EIA Ql (Throat) Negative Normal NEG [facility] Comment on above: Performed By: #### 6 [id number] #### [facility] ([id number]) [address] [facility] [place] [address] SARS/FLU A+B/RSV by NAAT/Mol ecularon 12-06-2023 SARS/FLU [...] operators who are performing tests using either [employer] or [employer] systems and is limited to laboratories that [...] repeat. Fact Sheet for Healthcare Providers: https://www.fda.gov/me ángel/822767/download Fact Sheet for Patients: https://www.fda.gov/me ángel/596965/download Normal [facility] Comment on above: Performed By: #### C OVFLR #### [facility] ([id number]) [address] [place] [address], [place] [address] PAP ACOG PANEL 2: 30 to 65on 12-06-2022 . . Normal [facility] Comment on above: Result Comment: Perf ormed at: WB Performed By: #### 4 [id number] #### [facility] [address] [place] [address] [address] Michael Arndt Age Gdln ACOG Testing - [facility] Comment on above: Performed By: #### 4 [id number] #### [facility] [address] [address] [address] Michael Arndt DIAGNOSIS: Comment Normal [facility] Comment on above: Result Comment: NEGA TIVE FOR INTRAEPITHELIAL LESION OR MALIGNANCY. Performed at: WB Performed By: #### 4 [id number] #### [facility] [address] [place] [address] [address] Michael Arndt HPV Aptima Negative Normal [facility] Comment on above: Result Comment: This nucleic acid amplification test detects fourteen high-risk HPV types (16,18,31,33,35,39,45,51,52,56,58,59,66,68) without differentiation. Performed at: =G Performed By: #### 4 [id number] #### [facility] [address] [address] [address] Michael Arndt HPV Genotype Reflex Comment Normal [facility] Comment on above: Result Comment: Crit eria not met, HPV Genotype not performed. Performed at: WB Performed By: #### 4 [id number] #### [facility] [address] [address] [address] Michael Arndt Methodology: Comment Normal [facility] Comment on above: Result Comment: This liquid based ThinPrep(R) pap test was screened with the use of an image guided system. Performed at: WB Performed By: #### 4 [id number] #### [facility] [address] [place] [address] Dr. Michael Arndt Note: Comment Normal [facility] Comment on above: Result Comment: The Pap smear is a screening test designed to aid in the detection of premalignant and malignant conditions of the uterine cervix. It is not a diagnostic procedure and should not be used as the sole means of detecting cervical cancer. Both false-positive and false-negative reports do occur. . Performed at: WB Performed By: #### 4 [id number] #### [facility] [address] [place] [address] Dr. Michael Arndt Performed by: Comment Normal [facility] Comment on above: Result Comment: Kenia Puga, Director Of Catering Sales (ASCP) Performed at: WB Performed By: #### 4 [id number] #### [facility] [address] [place] [address] Dr. Michael Arndt Specimen adequacy: Comment Normal [facility] Comment on above: Result Comment: Sati sfactory for evaluation. Performed at: WB Performed By: #### 4 [id number] #### [facility] [address] [place] [address] Dr. Michael Arndt CBC AUTO DIFFon 11-29-2022 BASO # 0.1 103/ul Normal 0.0-0.1 [facility] Comment on above: Performed By: #### C BC #### [facility] [address] [place] [address] Dr. Michael Arndt Basophils/100 WBC (Bld) 0.6 % Normal 0.2-2.0 [facility] Comment on above: Performed By: #### C BC #### [facility] [address] [place] [address] Dr. Michael Arndt EO # 0.2 103/ul Normal 0.0-0.7 [facility] Comment on above: Performed By: #### C BC #### [facility] [address] [place] [address] Dr. Michael Arndt Eosinophils/100 WBC (Bld) 2.2 % Normal 0.9-7.0 [facility] Comment on above: Performed By: #### C BC #### [facility] [address] [place] [address] Dr. Michael Arndt Erythrocyte distribution width (RBC) [Ratio] 13.2 % Normal 11.0-15.0 [facility] Comment on above: Performed By: #### C BC #### [facility] [address] [place] [address] Dr. Michael Arndt Hematocrit (Bld) [Volume fraction] 42.9 % Normal 36.0-48.0 [facility] Comment on above: Performed By: #### C BC #### [facility] [address] [place] [address] Dr. Michael Arndt Hemoglobin (Bld) [Mass/Vol] 14.0 g/dL Normal 12.0-16.0 [facility] Comment on above: Performed By: #### C BC #### [facility] [address] [place] [address] Dr. Michael Arndt IG # 0.03 10e3/ul Normal 0.00-0.03 [facility] Comment on above: Performed By: #### C BC #### [facility] [address] [place] [address] Dr. Michael Arndt IG % 0.4 % Normal 0.0-0.5 [facility] Comment on above: Performed By: #### C BC #### [facility] [address] [place] [address] Dr. Michael Arndt LYMPH # 2.1 103/ul Normal 1.2-3.8 [facility] Comment on above: Performed By: #### C BC #### [facility] [address] [place] [address] Dr. Michael Arndt Lymphocytes/100 WBC (Bld) 26.2 % Normal 20.5-60.0 [facility] Comment on above: Performed By: #### C BC #### [facility] [address] [place] [address] Dr. Michael Arndt MANUAL DIFF REQ NO Normal [facility] Comment on above: Performed By: #### C BC #### [facility] [address] [address] [address] Michael Arndt MCH (RBC) [Entitic mass] 27.1 pg Normal 26.7-34.0 [facility] Comment on above: Performed By: #### C BC #### [facility] [address] [place] [address] Dr. Michael Arndt MCHC (RBC) [Mass/Vol] 32.6 g/dL Normal 29.9-35.2 [facility] Comment on above: Performed By: #### C BC #### [facility] [address] [place] [address] Dr. Michael Arndt MCV (RBC) [Entitic vol] 83.1 fL Normal 81.0-99.0 [facility] Comment on above: Performed By: #### C BC #### [facility] [address] [place] [address] Dr. Michael Arndt MONO # 0.5 103/ul Normal 0.3-0.8 [facility] Comment on above: Performed By: #### C BC #### [facility] [address] [place] [address] Dr. Michael Arndt Monocytes/100 WBC (Bld) 6.5 % Normal 1.7-12.0 [facility] Comment on above: Performed By: #### C BC #### [facility] [address] [place] [address] Dr. Michael Arndt NEUT # 5.2 103/ul Normal 1.4-6.5 [facility] Comment on above: Performed By: #### C BC #### [facility] [address] [place] [address] Dr. Michael Arndt Neutrophils/100 WBC (Bld) 64.1 % Normal 43.0-75.0 [facility] Comment on above: Performed By: #### C BC #### [facility] [address] [place] [address] Dr. Michael Arndt Platelet mean volume (Bld) [Entitic vol] 10.6 fL Normal 9.5-13.5 [facility] Comment on above: Performed By: #### C BC #### [facility] [address] [address] [address] Michael Arndt PLT 206 103/ul Normal 150-450 [facility] Comment on above: Performed By: #### C BC #### [facility] [address] [address] [address] Michael Arndt RBC 5.16 106/ul Normal 4.20-5.40 [facility] Comment on above: Performed By: #### C BC #### [facility] [address] [address] [address] Michael Arndt WBC 8.1 103/ul Normal 4.0-11.0 [facility] Comment on above: Performed By: #### C BC #### [facility] [address] [place] [address] HEAD WO CONon [...] ADRIAN HOOKS Date: 2022-11-29 19:11 Normal [facility] PROF 14(COMP METB)on 023 Albumin [Mass/Vol] 3.9 g/dL Normal 3.4-5.0 [facility] Comment on above: Performed By: #### C MP #### [facility] [address] [place] [address] Dr. Michael Arndt Albumin/Globulin [Mass ratio] 1.0 {ratio} Normal [facility] Comment on above: Performed By: #### C MP #### [facility] [address] [place] [address] Dr. Michael Arndt ALP [Catalytic activity/Vol] 95 U/L Normal 46-116 [facility] Comment on above: Performed By: #### C MP #### [facility] [address] [place] [address] Dr. Michael Arndt ALT [Catalytic activity/Vol] 27 U/L Normal 14-59 [facility] Comment on above: Performed By: #### C MP #### [facility] [address] [place] [address] Dr. Michael Arndt Anion gap [Moles/Vol] 6.7 mmol/L Normal [facility] Comment on above: Performed By: #### C MP #### [facility] [address] [place] [address] Dr. Michael Arndt AST [Catalytic activity/Vol] 30 U/L Normal 15-37 [facility] Comment on above: Performed By: #### C MP #### [facility] [address] [place] [address] Dr. Michael Arndt Bilirubin [Mass/Vol] 0.5 mg/dL Normal 0.2-1.0 [facility] Comment on above: Performed By: #### C MP #### [facility] [address] [place] [address] Dr. Michael Arndt Calcium [Mass/Vol] 9.5 mg/dL Normal 8.5-10.1 [facility] Comment on above: Performed By: #### C MP #### [facility] [address] [address] [address] Michael Arndt Chloride [Moles/Vol] 102 mmol/L Normal 98-107 [facility] Comment on above: Performed By: #### C MP #### [facility] [address] [address] [address] Michael Arndt CO2 [Moles/Vol] 27.9 mmol/L Normal 21.0-32.0 [facility] Comment on above: Performed By: #### C MP #### [facility] [address] [place] [address] Dr. Michael Arndt Creatinine [Mass/Vol] 0.89 mg/dL Normal 0.55-1.02 [facility] Comment on above: Performed By: #### C MP #### [facility] [address] [address] [address] Michael Arndt EGFR-AF [place] >60 Normal >=60 [facility] Comment on above: Performed By: #### C MP #### [facility] [address] [address] [address] Michael Arndt EGFR-NON AF [place] >60 Normal >=60 [facility] Comment on above: Performed By: #### C MP #### [facility] [address] [address] [address] Michael Arndt Globulin (S) [Mass/Vol] 4.0 g/dL Normal [facility] Comment on above: Performed By: #### C MP #### [facility] [address] [place] [address] Dr. Michael Arndt Glucose [Mass/Vol] 76 mg/dL Normal 74-106 [facility] Comment on above: Performed By: #### C MP #### [facility] [address] [address] [address] Michael Arndt Potassium [Moles/Vol] 3.6 mmol/L Normal 3.5-5.1 [facility] Comment on above: Performed By: #### C MP #### [facility] [address] [place] [address] Dr. Michael Arndt Protein [Mass/Vol] 7.9 g/dL Normal 6.4-8.2 [facility] Comment on above: Performed By: #### C MP #### [facility] [address] [address] [address] Michael Arndt Sodium [Moles/Vol] 133 mmol/L Critically low 136-145 [facility] Comment on above: Performed By: #### C MP #### [facility] [address] [address] [address] Michael Arndt Urea nitrogen [Mass/Vol] 12.0 mg/dL Normal 7.0-18.0 [facility] Comment on above: Performed By: #### C MP #### [facility] [address] [address] [address] Michael Arndt Urea nitrogen/Creatinine [Mass ratio] 13.5 mg/mg Normal [facility] Comment on above: Performed By: #### C MP #### [facility] [address] [address] [address] [facility] 29 mm/hr Normal <=30 [facility] Comment on above: Performed By: #### S EDR #### [facility] [address] [address] [address] Michael Arndt Vital Signs Date Time Vital Sign Value Performing Clinician Faci lity 11-23-2024 11:27-0500 Body mass index (BMI) [Ratio] 33.61 kg/m2 Lucas Jefferson DO Work Phone: [facility] 11-23-2024 11:27-0500 Body weight 88.81 kg Lucas Jefferson DO Work Phone: [facility] 11-23-2024 11:27-0500 Diastolic blood pressure 84 mm[Hg] Lucas Jefferson DO Work Phone: [facility] 11-23-2024 11:27-0500 Systolic blood pressure 140 mm[Hg] Lucas Jefferson DO Work Phone: [facility] 10-06-2024 13:48-0500 Body mass index (BMI) [Ratio] 33.81 kg/m2 Pam PLUMMER Work Phone: [facility] 10-06-2024 13:48-0500 Body weight 89.36 kg Pam PLUMMER Work Phone: [facility] 10-06-2024 13:48-0500 Diastolic blood pressure 78 mm[Hg] Pam PLUMMER Work Phone: [facility] 10-06-2024 13:48-0500 Systolic blood pressure 122 mm[Hg] Pam PLUMMER Work Phone: [facility] 09-01-2024 14:41-0500 Body height 162.6 cm Lucas JeffersonSBA Materials Work Phone: [facility] 09-01-2024 14:41-0500 Body mass index (BMI) [Ratio] 34.64 kg/m2 Lucas Jefferson DO Work Phone: [facility] 09-01-2024 14:41-0500 Body weight 91.54 kg Lucas Jefferson DO Work Phone: [facility] 09-01-2024 14:41-0500 Diastolic blood pressure 80 mm[Hg] Lucas Jefferson DO Work Phone: [facility] 09-01-2024 14:41-0500 Systolic blood pressure 120 mm[Hg] Lucas Jefferson DO Work Phone: [facility] 08-04-2024 13:32-0500 Body mass index (BMI) [Ratio] 35.96 kg/m2 Lucas Jefferson DO Work Phone: [facility] 08-04-2024 13:32-0500 Body weight 92.08 kg Lucas Jefferson DO Work Phone: [facility] 08-04-2024 13:32-0500 Diastolic blood pressure 74 mm[Hg] Lucas Jefferson DO Work Phone: [facility] 08-04-2024 13:32-0500 Systolic blood pressure 130 mm[Hg] Lucas Jefferson DO Work Phone: [facility] 07-29-2024 15:21-0400 Body mass index (BMI) [Ratio] 35.61 kg/m2 Pam PLUMMER Work Phone: [facility] 07-29-2024 15:21-0400 Body weight 91.17 kg Pam PLUMMER Work Phone: [facility] 06-11-2024 11:24-0400 Body height 160 cm Lucas Jefferson DO Work Phone: [facility] 06-11-2024 11:24-0400 Body mass index (BMI) [Ratio] 35.78 kg/m2 Lucas Jefferson DO Work Phone: [facility] 06-11-2024 11:24-0400 Body weight 91.63 kg Lucas Jefferson DO Work Phone: [facility] 06-11-2024 11:24-0400 Diastolic blood pressure 82 mm[Hg] Lucas Jefferson DO Work Phone: [facility] 06-11-2024 11:24-0400 Systolic blood pressure 130 mm[Hg] Lucas Jefferson DO Work Phone: [facility] Encounters Encounter Date Encounter Type Care Provider Facility Start: 11-26-2024 ambulatory NON STAFF Facility:[facility] Start: 11-23-2024 End: 11-23-2024 Bamboo flowsheet Lucas Jefferson DO Work Phone: [facility] Start: 11-23-2024 End: 11-27-2024 Bamboo flowsheet Lucas Jefferson DO Work Phone: [facility] Start: 11-23-2024 End: 11-27-2024 Clinisync Result Encounter Lucas Jefferson DO Work Phone: [facility] Department Unsolicited Start: 11-23-2024 End: 11-24-2024 External Result Encounter Lucas Jefferson DO Work Phone: [facility] Unsolicited Start: 11-23-2024 End: 11-23-2024 Office outpatient visit 15 minutes Lucas Jefferson DO Work Phone: [facility] Comment on above: 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 Nisha Roman DO Work Phone: [facility] Start: 10-20-2024 End: 10-20-2024 Bamboo flowsheet Jr. Nisha Roman DO Work Phone: [facility] Start: 10-20-2024 End: 10-20-2024 Office outpatient visit 15 minutes JrKelsy Roman DO Work Phone: [facility] Comment on above: Complete tear of rig ht rotator cuff, unspecified whether traumatic (Primary Dx); Chronic right shoulder pain Start: 10-20-2024 End: 10-20-2024 ambulatory NISHA SCOTT Not Available Start: 10-06-2024 End: 10-06-2024 Bamboo flowsheet Pam PLUMMER Work Phone: [facility] Start: 10-06-2024 End: 10-07-2024 Bamboo flowsheet Pam PLUMMER Work Phone: [facility] Start: 10-06-2024 End: 10-07-2024 External Result Encounter Pam PLUMMER Work Phone: [facility] External Department Unsolicited Start: 10-06-2024 End: 10-06-2024 ambulatory PAM MAX Not Available Start: 10-06-2024 End: 10-06-2024 Office outpatient visit 15 minutes Pam PLUMMER Work Phone: [facility] Comment on above: Exposure to STD; Vaginal burning; BV (bacterial vaginosis) Start: 10-06-2024 End: 10-06-2024 Emergency department patient visit [facility] Start: 09-01-2024 End: 09-01-2024 Office outpatient visit 15 minutes Lucas Jefferson DO Work Phone: [facility] Comment on above: E-coli UTI; Yeast infection Start: 09-01-2024 End: 09-01-2024 ambulatory LUCAS JEFFERSON Not Available Start: 09-01-2024 End: 09-01-2024 Bamboo flowsheet Lucas Jefferson DO Work Phone: [facility] Start: 09-01-2024 End: 09-01-2024 Bamboo flowsheet Lucas Jefferson DO Work Phone: [facility] Start: 08-18-2024 End: 08-18-2024 Emergency department patient visit [facility] Start: 08-05-2024 End: 08-05-2024 Office outpatient visit 15 minutes José Parkinson MANAGER PEDIATRIC Work Phone: [facility] Comment on above: Complete tear of rig ht rotator cuff, unspecified whether traumatic (Primary Dx); Chronic right shoulder pain Start: 08-05-2024 End: 08-05-2024 ambulatory JOSÉ PARKINSON Not Available Start: 08-04-2024 End: 08-04-2024 Bamboo flowsheet Lucas Jefferson DO Work Phone: [facility] Start: 08-04-2024 End: 08-04-2024 Bamboo flowsheet Lucas Jefferson DO Work Phone: [facility] Start: 08-04-2024 End: 08-04-2024 ambulatory LUCAS JEFFERSON Not Available Start: 08-04-2024 End: 08-04-2024 Office outpatient visit 15 minutes Lucas Jefferson DO Work Phone: [facility] Comment on above: Encounter to discuss test results; BV (bacterial vaginosis); E-coli UTI; Urinary tract infection without hematuria, site unspecified; Yeast infection Start: 07-29-2024 End: 07-29-2024 Office outpatient visit 15 minutes Pam PLUMMER Work Phone: [facility] Comment on above: Exposure to STD; Urinary tract infection without hematuria, site unspecified Start: 07-29-2024 End: 07-29-2024 ambulatory PAM MAX Not Available Start: 07-29-2024 End: 07-31-2024 External Result Encounter Pam PLUMMER Work Phone: [facility] External Department Unsolicited Start: 07-29-2024 End: 07-31-2024 External Result Encounter Pam PLUMMER Work Phone: [facility] External Department Unsolicited Start: 07-23-2024 End: 07-23-2024 Patient encounter procedure [facility] [address] Work Phone: Start: 07-23-2024 End: 07-23-2024 ambulatory NON STAFF [facility] Work Phone: Start: 07-10-2024 Registered [facility] Start: 07-08-2024 End: 07-14-2024 Telephone encounter José Parkinson NP Work Phone: [facility] Start: 07-02-2024 End: 07-02-2024 Telephone encounter José Parkinson NP Work Phone: [facility] Start: 06-29-2024 End: 06-29-2024 Emergency department patient visit [facility] Start: 06-29-2024 End: 06-29-2024 Office outpatient visit 10 minutes José Parkinson NP Work Phone: [facility] Comment on above: Internal derangement of right shoulder (Primary Dx); Right shoulder pain, unspecified chronicity; Fall, initial encounter Start: 06-29-2024 End: 06-29-2024 ambulatory JOSÉ PARKINSON Not Available Start: 06-29-2024 End: 06-29-2024 Bamboo flowsheet José Parkinson NP Work Phone: [facility] Start: 06-29-2024 End: 06-29-2024 Bamboo flowsheet José Parkinson NP Work Phone: [facility] Start: 06-11-2024 End: 06-11-2024 ambulatory LUCAS R JEFFERSON [facility] Start: 06-11-2024 End: 06-11-2024 Office outpatient visit 15 minutes Lucas Jefferson DO Work Phone: [facility] Comment on above: Vaginal discharge; Sexually transmitted disease exposure; Vaginal irritation; Vaginal odor Start: 06-11-2024 End: 06-11-2024 ambulatory LUCAS JEFFERSON Not Available Start: 06-10-2024 End: 06-10-2024 Office outpatient visit 10 minutes José Parkinson MANAGER PEDIATRIC Work Phone: [facility] Comment on above: Strain of tendon of right rotator cuff, subsequent encounter (Primary Dx); Chronic right shoulder pain Start: 06-10-2024 End: 06-10-2024 ambulatory OJSÉ PARKINSON Not Available Start: 06-10-2024 End: 06-10-2024 Bamboo flowsheet José Parkinson MANAGER PEDIATRIC Work Phone: [facility] Start: 06-10-2024 End: 06-10-2024 Bamboo flowsheet José Parkinson MANAGER PEDIATRIC Work Phone: [facility] Start: 05-12-2024 End: 05-12-2024 ambulatory LUCAS JEFFERSON Not Available Start: 04-15-2024 End: 04-15-2024 ambulatory JOSÉ PARKINSON Not Available Start: 04-13-2024 End: 04-13-2024 ambulatory LUCAS JEFFERSON Not Available Start: 04-08-2024 End: 04-08-2024 ambulatory JOÉS PARKINSON Not Available Start: 04-06-2024 End: 04-07-2024 Emergency [facility] Start: 04-06-2024 End: 04-07-2024 Emergency department patient visit [facility] Start: 02-03-2024 End: 02-04-2024 Emergency department patient visit [facility] Start: 01-23-2024 End: 01-23-2024 ambulatory LUCAS JEFFERSON Not Available Start: 12-06-2023 End: 12-06-2023 Emergency department patient visit [facility] Start: 12-14-2022 End: 12-14-2022 ambulatory Bob Marinelli Other [employer] Other Start: 12-14-2022 Telephone encounter Bob Reyes ck [facility] Start: 11-29-2022 End: 11-29-[address] DOCTOR MONTEZ Facility: Start: 11-28-2022 End: 11-28-[address] LUCAS PAULINO . Facility: Start: 03-18-2017 End: 03-19-2017 Ambulatory LINDA NUÑEZ Facility:[facility] Procedures Date Procedure Procedure Detail Performing Clinician Start: 11-23-2024 RECURRENT VAGINITIS (HTRX) Lucas Paulino DO Work Phone: Start: 11-23-2024 PAP IG, APT HPV RFX 16/18,45 Lucas Paulino DO Work Phone: Start: 10-06-2024 RECURRENT VAGINITIS (HTRX) Pam PLUMMER Work Phone: Start: 09-01-2024 Urnls dip stick/tabl et rgnt non-auto w/o micrscp Lucas Paulino DO Work Phone: Start: 08-04-2024 Urnls dip stick/tabl et rgnt non-auto w/o micrscp Lucas Paulino DO Work Phone: Start: 07-29-2024 RECURRENT VAGINITIS (HTRX) Pam PLUMMER Work Phone: Start: 07-29-2024 Urnls dip stick/tabl et rgnt non-auto w/o micrscp Pam PLUMMER Work Phone: Start: 07-23-2024 MRI of right shoulder Start: 06-29-2024 Radex shoulder compl ete minimum 2 views José Parkinson NP Work Phone: Start: 04-13-2024 Cytp cerv/vag auto t hin layer prep mnl screen Lucas Paulino DO Work Phone: Plan of Treatment Date Care Activity Detail Author Start: 06-01-2025 End: 06-01-2025 Patient encounter procedure 06/01/2025 1:00 PM EDT Office Visit [facility] [address] [place] [address] Lucas Paulino DO [address] [place] [address] [facility] Start: 12-01-2024 End: 12-01-2024 Patient encounter procedure 12/01/2024 11:00 AM EST Office Visit [facility] [address] [place] [phone] Jr. Nisha Roman, DO [address] [place] [address] [facility] Start: 11-23-2024 End: 11-23-2024 Patient encounter procedure 11/23/2024 11:30 AM EST Procedure Visit [facility] [address] [facility] [place] [address] Lucas Paulino, DO [address] [place] [address] Arrived [facility] Comment on above: Arrived Start: 11-12-2024 End: 11-12-2024 Patient encounter procedure 11/12/2024 11:00 AM EST Procedure Visit [facility] [address] [facility] [place] [phone] Lucas Paulino, DO [address] [place] [address] [facility] Start: 10-20-2024 End: 10-20-2024 Patient encounter procedure [facility] Comment on above: Arrived Start: 09-09-2024 End: 09-09-2024 Patient encounter procedure 09/09/2024 11:15 AM EST Office Visit [facility] [address] [place] [phone] Jr. Nisha Roman, DO [address] [place] [address] [facility] Start: 09-01-2024 End: 09-01-2024 Patient encounter procedure [facility] Comment on above: Arrived Start: 08-12-2024 End: 08-12-2024 Patient encounter procedure 08/12/2024 1:45 PM EST Office Visit [facility] [address] [facility] [address] [place] [address] Jr. Nisha Roman, DO [address] [facility] [address] [place] [address] [facility] Start: 08-05-2024 End: 08-05-2024 Patient encounter procedure 08/05/2024 1:00 PM EST Office Visit [facility] [address] [place] [phone] José Parkinson, MANAGER PEDIATRIC [address] [facility], [place] [phone] [facility] Start: 07-23-2024 XR pre/post mri xray XR pre/post mri xray [facility] Start: 07-23-2024 [facility] Start: 07-14-2024 End: 07-14-2024 Professional / ancillary services management 07/14/2024 2:30 PM EDT Ancillary Procedure [facility] [address] [facility] [address] [place] [phone] [facility] Start: 07-01-2024 End: 07-01-2024 ambulatory 07/01/2024 1:00 PM EDT Evaluation [facility] [address] [place] [phone] Noam Carl, PT [address] [place] [address] [facility] Start: 06-29-2024 End: 06-29-2024 Patient encounter procedure 06/29/2024 2:15 PM EDT Office Visit [facility] [address] [place] [phone] José Parkinson, MANAGER PEDIATRIC [address] [place] [address] Arrived [facility] Comment on above: Arrived Start: 06-29-2024 End: 06-29-2025 MR Shoulder - right WO contrast MR shoulder right wo IV contrast Imaging Routine Internal derangement of right shoulder Expected: 06/29/2024 (Approximate), Expires: 06/29/2025 [facility] Work Phone: Comment on above: Expected: 06/29/2024 (Approximate), Expires: 06/29/2025 Start: 06-11-2024 End: 06-11-2024 Patient encounter procedure 06/11/2024 11:30 AM EDT Office Visit [facility] [address] [place] [address] Lucas Paulino DO [address] [place] [address] [facility] Start: 06-10-2024 End: 06-10-2024 Patient encounter procedure 06/10/2024 2:30 PM EDT Office Visit [facility] [address] [place] [phone] José Parkinson, MANAGER PEDIATRIC [address] [place], [place] [phone] Arrived [facility] Comment on above: Arrived CHLAMYDIA TRACHOMATI S (GENITO/STI) CHLAMYDIA TRACHOMATIS (GENITO/STI) Lab Routine Exposure to STD Ordered: 07/29/2024 [facility] Comment on above: Ordered: 07/29/2024 CHLAMYDIA TRACHOMATI S (GENITO/STI) CHLAMYDIA TRACHOMATIS (GENITO/STI) Lab Routine Vaginal discharge Ordered: 06/11/2024 [facility] Comment on above: Ordered: 06/11/2024 CHLAMYDIA TRACHOMATI S (GENITO/STI) CHLAMYDIA TRACHOMATIS (GENITO/STI) Lab Routine STD exposure Ordered: 11/23/2024 [facility] Comment on above: Ordered: 11/23/2024 Hepatitis B virus surface Ag [Presence] in Serum or Plasma by Immunoassay Hepatitis BsAg Lab Routine Vaginal discharge Vaginal irritation Vaginal odor Ordered: 06/11/2024 [facility] Comment on above: Ordered: 06/11/2024 HIV-1/HIV-2 antigen/antibody combination immunoassay HIV-1 and HIV-2 antibodies Lab Routine Sexually transmitted disease exposure Ordered: 06/11/2024 [facility] Comment on above: Ordered: 06/11/2024 Neisseria gonorrhoea e DNA [Presence] in Unspecified specimen by ASHLEE with probe detection Neisseria gonorrhea DNA probe, direct Lab Routine Exposure to STD Ordered: 07/29/2024 [facility] Comment on above: Ordered: 07/29/2024 Neisseria gonorrhoea e DNA [Presence] in Unspecified specimen by ASHLEE with probe detection Neisseria gonorrhea DNA probe, direct Lab Routine Vaginal discharge Ordered: 06/11/2024 [facility] Comment on above: Ordered: 06/11/2024 Neisseria gonorrhoea e DNA [Presence] in Unspecified specimen by ASHLEE with probe detection Neisseria gonorrhea DNA probe, direct Lab Routine STD exposure Ordered: 11/23/2024 [facility] Comment on above: Ordered: 11/23/2024 Reagin Ab [Presence] in Serum by RPR RPR Lab Routine Vaginal discharge Vaginal irritation Vaginal odor Ordered: 06/11/2024 [facility] Comment on above: Ordered: 06/11/2024 SURESWAB(R) ADVANCED VAGINITIS PLUS, TMA SURESWAB(R) ADVANCED VAGINITIS PLUS, TMA Pathology and Cytology Routine Exposure to STD Ordered: 07/29/2024 [facility] Work Phone: Comment on above: Ordered: 07/29/2024 SURESWAB(R) ADVANCED VAGINITIS PLUS, TMA SURESWAB(R) ADVANCED VAGINITIS PLUS, TMA Pathology and Cytology Routine Vaginal discharge Ordered: 06/11/2024 [facility] Work Phone: Comment on above: Ordered: 06/11/2024 SURESWAB(R) ADVANCED VAGINITIS PLUS, TMA SURESWAB(R) ADVANCED VAGINITIS PLUS, TMA Pathology and Cytology Routine STD exposure Ordered: 11/23/2024 [facility] Comment on above: Ordered: 11/23/2024 THIN PREP TIS PAP AN D HR HPV DNA THIN PREP TIS PAP AND HR HPV DNA Pathology and Cytology Routine LGSIL of cervix of undetermined significance Ordered: 11/23/2024 [facility] Work Phone: Comment on above: Ordered: 11/23/2024 Payers Date Payer Category Payer Self-pay [id number] 2020 Medicare ANTHEM MEDICARE ADVANTAGE AN[employer]M MEDICARE ADVANTAGE [id number] 2020-Present [address] [place] [address] [id number] 2020 Medicare (Managed Care) [facility] EDICARE ADVANTAGE [id number] 2019 Medicaid [id number]. [id number] 1969 Unknown [id number] 2.16.840.1.373934.3.579.2. 593 1969 Unknown [id number] 2.16.840.1.473032.3.579.2. 593 1969 Unknown [id number] 2.16.840.1.111230.3.579.2. 1286 1969 Unknown [id number] 2.16.840.1.203771.3.579.2. 1286 1969 Unknown [id number] 2.16.840.1.290580.3.579.2. 1286 1969 Unknown [id number] 2.16.840.1.873273.3.579.2. 1286 1969 Unknown [id number] 2.16.840.1.450197.3.579.2. 1285 1969 Unknown [id number] 2.16.840.1.855446.3.579.2. 1285 1969 Unknown [id number] 2.16.840.1.828969.3.579.2. 1285 1969 Unknown [id number] 2.16.840.1.857355.3.579.2. 1285 1969 Unknown [id number] 2.16.840.1.788523.3.579.2. 1285 1969 Unknown [id number] 2.16.840.1.477882.3.579.2. 1285 1969 Unknown [id number] 2.16.840.1.103525.3.579.2. 1285 1969 Unknown [id number] 2.16.840.1.209853.3.579.2. 1285 1969 Unknown [id number] 2.16.840.1.346539.3.579.2. 1285 1969 Unknown [id number] 2.16.840.1.698461.3.579.2. 1258 1969 Unknown [id number] 2.16.840.1.211585.3.579.2. 1258 1969 Unknown [id number] 2.16.840.1.340264.3.579.2. 1258 1969 Unknown [id number] 2.16.840.1.117344.3.579.2. 1258 1969 Unknown [id number] 2.16.840.1.114825.3.579.2. 1258 1969 Unknown [id number] 2.16.840.1.774455.3.579.2. 1258 1969 Unknown [id number] 2.16.840.1.369884.3.579.2. 1259 1969 Unknown [id number] 2.16.840.1.223316.3.579.2. 9 1969 Unknown [id number] 2.16.840.1.944198.3.579.2. 9 1969 Unknown [id number] 2.16.840.1.534911.3.579.2. 9 1969 Unknown [id number] 2.16.840.1.843455.3.579.2. 9 1969 Unknown [id number] 2.16.840.1.979173.3.579.2. 9 1969 Unknown [id number] 2.16.840.1.342545.3.579.2. 9 1969 Unknown [id number] 2.16.840.1.724083.3.579.2. 1258 1969 Unknown [id number] 2.16.840.1.543828.3.579.2. 9 1969 Unknown [id number] 2.16.840.1.485313.3.579.2. 1259 1960 Medicaid [id number] 1959 Unknown [id number] Medicaid [id number] Unknown [id number] 2.16.840.1.932480.3.579.2. 531 Unknown [id number] 2.16840.1.947435.3.579.2. 531 Social History Date Type Detail Facility Unknown if ever smoked [facility] Other Start: 10-20-2024 Sex Assigned At N [facility] Other Tobacco smoking status MNIS Tobacco smoking consumption unknown [facility] Start: 1970 Sex assigned at Not on file N [facility] Start: 02-04-2018 Tobacco smoking status MNIS Never smoked tobacco (finding) [facility] Start: 1970 Sex Assigned At Female [facility] Start: 10-20-2024 Tobacco smoking status NHIS Ex-smoker [facility] History of tobacco use Current smoker [facility] History of tobacco use Cigarette Smoker [facility] Start: 10-20-2024 Tobacco use and exposure Smokeless tobacco non-user [facility] Start: 10-20-2024 Alcoholic beverage intake Current drinker of alcohol (finding) [facility] Start: 10-20-2024 History of Social function [facility] Clinical Notes 06-10-2024 to 11-23-2024 Nicole Cadena, [employer] - 11/23/2024 11:30 AM ESTJcamilla Roman, DO - 10/20/2024 11:00 AM KAVITHA Ferguson - 10/06/2024 1:10 PM Og Flores, [facility] - 09/01/2024 2:10 PM EST Note Date & Type Note Facility 11-23-2024 History of Present illness Narrative Reason for Appointment: Patient ID: Ne Swann is a 54 y.o. female who presents for Repeat Pap Patient presents today for Repeat Pap. MEDICATIONS Current Outpatient Medications Medication Instructions cephalexin [...] PROBLEMS Active Ambulatory Problems Diagnosis Date Noted LGSIL of cervix of undetermined significance 11/23/2024 STD exposure 11/23/2024 Resolved Ambulatory Problems Diagnosis Date Noted No Resolved Ambulatory Problems Past Medical History: Diagnosis Date Arthritis Depression (CMS/HCC) Elevated cholesterol (CMS/HCC) Female bladder prolapse VIOLET (generalized anxiety disorder) (CMS/HCC) Hypertension (CMS/HCC) IBS (irritable bowel syndrome) Seizures (CMS/HCC) Venous stasis HISTORY PAST MEDICAL HISTORY SOCIAL HISTORY Past Medical History: Diagnosis Date Arthritis Depression (CMS/HCC) Elevated cholesterol (CMS/HCC) Female bladder prolapse VIOLET (generalized anxiety disorder) (CMS/HCC) Hypertension (CMS/HCC) IBS (irritable bowel syndrome) Seizures (CMS/HCC) Venous stasis Social History Tobacco Use Smoking status: Former Types: Cigarettes Smokeless tobacco: Never Vaping Use Vaping status: Never Used Substance Use Topics Alcohol use: Yes Drug use: Yes Types: Marijuana FAMILY HISTORY Family History Problem Relation Name Age of Onset Ovarian cancer Mother Liver cancer Mother Diabetes Mother Heart failure Father Diabetes Father Hypertension Father Hyperlipidemia Father Heart disease Father Arthritis Father SURGICAL HISTORY Past Surgical History: Procedure Laterality Date APPENDECTOMY CHOLECYSTECTOMY 2012 HYSTERECTOMY LAPAROSCOPY DIAGNOSTIC / BIOPSY / ASPIRATION / LYSIS diagnostic REVIEW OF SYSTEMS Review of Systems: Review of Systems All other systems reviewed and are negative. OBJECTIVE Objective: Physical Exam Constitutional: Appearance: Normal appearance. She is well-developed. Genitourinary: Vulva normal. Vaginal cuff intact. Cervix is absent. Uterus is absent. Cardiovascular: Rate and Rhythm: Normal rate and regular rhythm. Abdominal: General: Bowel sounds are normal. There [...] nursing note reviewed. Exam conducted with a automotive project engineer present. Vitals: Estimated body mass index is 33.61 kg/m as calculated from the following: Height as of 09/01/24: 5' 4 . Weight as of this encounter: 195 lb 12.8 oz. BP: 140/84 No LMP recorded. Patient has had a hysterectomy. ASSESSMENT & PLAN ICD-10-CM 1. LGSIL of cervix of undetermined significance R87.612 THIN PREP TIS PAP AND HR HPV DNA CANCELED: THIN PREP TIS PAP AND HR HPV DNA 2. STD exposure Z20.2 SURESWAB(R) ADVANCED VAGINITIS PLUS, TMA CHLAMYDIA TRACHOMATIS (GENITO/STI) Neisseria gonorrhea DNA probe, direct Repeat Pap: Patient presents today for a repeat pap. Previous pap results were reviewed and noted to be LGSIL and + HPV. Question regarding previous results were discussed. Repeat Pap was obtained without difficulty. Patient to return to clinic in 6 months for Annual Appointment. Patient voiced that she has had he mammogram and DEXA Scan done either end of last month beginning of this month. Follow Up: Patient is to return to the office in 6 months for an annual exam. Documented by Nicole Cadena LPN on behalf of: Lucas Paulino DO documented in this encounter [facility] 10-20-2024 History of Present illness Narrative Images [...] FEARFUL ABOUT SURGERY/ANESTHESIA. XRAY EPIC 06/29/24 XRAY [facility] SHOULDER AND HUMERUS 04/06/24 MRI [facility] [place] 07/23/24 (PUSHED THROUGH PACS) DEPO INJECTION 04/08/24 PHYSICIAN DIRECTED HEP PAIN DIFFUSE IN SHOULDER AND IN AXILLA. NOTES INTERMITTENT FLARE UPS, WORSE WITH COLD WEATHER. TAKING TYL PRN. USING ICE AND HEAT PRN. LIMITED ROM. ADMITS STIFFNESS AND TIGHTNESS. INTERMITTENT N/T IN FINGERS. DOES NOT WAKE AT HS. PAIN 3/10 TODAY. + POPPING. RT HANDED. ALLERGIES: Allergies [...] requiring urgent evaluation. documented in this encounter [facility] 10-06-2024 History of Present illness Narrative [...] Female bladder prolapse VIOLET (generalized anxiety disorder) ([facility]/HCC) Hypertension (CMS/HCC) IBS (irritable bowel syndrome) Seizures [...] nursing note reviewed. Exam conducted with a automotive project engineer present. Vitals: Estimated body mass index is [...] of: KAVITHA Saldivar documented in this encounter [facility] 09-01-2024 History of Present illness Narrative Reason [...] Female bladder prolapse VIOLET (generalized anxiety disorder) ([facility]) Hypertension ([facility]) IBS (irritable bowel syndrome) Seizures (CMS/HCC) Venous stasis HISTORY PAST MEDICAL HISTORY SOCIAL HISTORY Past Medical History: Diagnosis Date Arthritis Depression (CMS/HCC) Female bladder prolapse VIOLET (generalized anxiety disorder) ([facility]/HCC) Hypertension ([facility]/HCC) IBS (irritable bowel syndrome) Seizures ([facility]/HCC) Venous stasis Social History Tobacco Use Smoking [...] nursing note reviewed. Exam conducted with a automotive project engineer present. Vitals: Estimated body mass index is [...] Lucas Paulino DO documented in this encounter [facility] 08-05-2024 History of Present illness Narrative Images from the original note were not included. NAME: Ne Swann : 1970 HISTORY OF PRESENT ILLNESS: Ne Swann is an 54 y.o. @ female. (EST PT) RT SHOULDER INJURY 04/05/24 (4 MTHS), TRIPPED AND FELL. ON 06/27/24, SHE WENT OUT WITH HER FRIENDS AND TRIPPED ON THE SIDEWALK AND FELL. S/P MRI @ [facility] [place] XRAY EPIC 06/29/24 XRAY [facility] SHOULDER AND HUMERUS 04/06/24 MRI [facility] [place] 07/23/24 (PUSHED THROUGH PACS) DEPO INJECTION 04/08/24 PHYSICIAN DIRECTED HEP PAIN DIFFUSE IN SHOULDER, ANTERIOR AND IN AXILLA. DENIES RADIATION DOWN ARM. TAKING TYL PRN. USING ICE AND HEAT PRN. SOMEWHAT IMPROVED ROM. STIFFNESS. INTERMITTENT N/T IN FINGERS. DOES NOT WAKE AT HS. RT HANDED. PAST MEDICAL HISTORY: Past Medical History: Diagnosis Date Arthritis Depression (CMS/HCC) Female bladder prolapse VIOLET (generalized anxiety disorder) ([facility]/HCC) Hypertension ([facility]/HCC) IBS (irritable bowel syndrome) Seizures ([facility]/HCC) Venous stasis PAST SURGICAL HISTORY: Past Surgical [...] test due to pain. IMAGING: MRI from [facility] [place] of the right shoulder dated 07/23/2024: 1. [...] develop for requiring urgent evaluation. José Parkinson, ADMINISTRATIVE DIRECTOR-MEAT PRESS OPERATOR documented in this encounter [facility] 08-04-2024 History of Present illness Narrative [...] calculated from the following: Height as of 24: 5' 3 . Weight as of this [...] Lucas Paulino DO documented in this encounter [facility] 07-29-2024 History of Present illness Narrative [...] Female bladder prolapse VIOLET (generalized anxiety disorder) ([facility]/HCC) Hypertension ([facility]/HCC) IBS (irritable bowel syndrome) Seizures (CMS/HCC) Venous [...] of: KAVITHA Saldivar documented in this encounter [facility] 07-14-2024 Telephone encounter Note error [facility] 07-14-2024 Miscellaneous Notes error documented in this encounter [facility] 07-02-2024 Telephone encounter Note Patient called asking if she could get her MRI done at [facility]? She called and they have an open machine. [facility] 07-02-2024 Miscellaneous Notes Patient called asking if she could get her MRI done at [facility]? She called and they have an open machine. documented in this encounter [facility] 06-29-2024 History of Present illness Narrative [...] Female bladder prolapse VIOLET (generalized anxiety disorder) ([facility]/HCC) Hypertension ([facility]/HCC) IBS (irritable bowel syndrome) Seizures ([facility]) Venous stasis PAST SURGICAL HISTORY: Past Surgical [...] xray of humerus and right shoulder from [facility] 04/06/24 which showed no acute findings. [...] José Parkinson APRN-MAVERICK documented in this encounter [facility] 06-11-2024 History of Present illness Narrative [...] Female bladder prolapse VIOLET (generalized anxiety disorder) ([facility]CC) Hypertension ([facility]) IBS (irritable bowel syndrome) Seizures ([facility]) Venous stasis HISTORY PAST MEDICAL HISTORY SOCIAL HISTORY Past Medical History: Diagnosis Date Arthritis Depression (CMS/HCC) Female bladder prolapse VIOLET (generalized anxiety disorder) ([facility]/HCC) Hypertension ([facility]/HCC) IBS (irritable bowel syndrome) Seizures ([facility]/HCC) Venous stasis Social History Tobacco Use Smoking [...] nursing note reviewed. Exam conducted with a automotive project engineer present. Vitals: Estimated body mass index is [...] Lucas Paulino DO documented in this encounter [facility] 06-10-2024 History of Present illness Narrative [...] xray of humerus and right shoulder from [facility] 04/06/24 which showed no acute findings. [...] develop for requiring urgent evaluation. José Parkinson APRN-MEAT PRESS OPERATOR documented in this encounter [facility] Evaluation note No Information [facility] Other Evaluation note Diagnosis Internal derangement of right shoulder- Primary Right shoulder pain, unspecified chronicity Fall, initial encounter documented in this encounter [facility] noteNo assessment information [facility]Mer[facility] Work Phone: Evaluation note* Diagnosis Exposure to [...] vaginitis and vulvovaginitis [facility] Diagnosis Complete tear of right rotator cuff, unspecified whether traumatic- Primary Chronic right shoulder pain Pain in joint, shoulder region [facility] Diagnosis LGSIL of cervix of undetermined significance STD exposure [facility] N[facility]ative - Reported* Type Description Date Medical History Hypertension Medical History hypercholesterolemia Medical History Anxiety Medical History seizures Surgical History GALL BLADDER Surgical History PARTIAL HYSTERECTOMY Surgical History APPENDECTOMY Chat[employer] Other Summary Purpose Family History Relationship Condition [...] subsequent encounter Chronic right shoulder pain Procedures [facility] MDM 60 MINUTES José Parkinson, NETTIE [address] [place] [address] Noam Carl, PT [address] [place] [address] Referral ID Status Reason Start Date Expiration Date Visits Requested Visits Authorized [id number] Pending Review Specialty Services Required 06/10/2024 12/07/2024 1 1 Specialty Diagnoses / Procedures Referred By Juan gutierrez Referred To Contact Radiology Diagnoses Internal derangement of right shoulder Procedures MR shoulder right wo IV contrast José Parkinson NP [address] [place] [address] [facility] [address] [facility] [address] [place] [address] Referral ID Status Reason Start Date Expiration Date V isits Requested Visits Authorized [id number] Authorized 06/29/2024 12/26/2024 1 1 Chief Complaint and Reason for Visit Chief Complaint m24.811 Additional Source Comments INFORMATION SOURCE (unrecogn ized section and content) DATE CREATED AUTHOR 03/20/[address] [facility] DATE CREATED AUTHOR AUTHOR'S ORGANIZ ATION 12/07/2022 [facility] DATE CREATED AUTHOR AUTHOR'S ORGANIZ ATION 11/13/2024 [facility] DATE CREATED AUTHOR AUTHOR'S ORGANIZ ATION 11/24/2024 [facility] DATE CREATED AUTHOR AUTHOR'S ORGANIZ ATION 11/28/2024 [facility] y[facility] REASON FOR VISIT (unrecogniz ed [...] check and vaginal burning. Reason Comments Pain Reason Comments Repeat Pap Care Teams (unrecognized sec tion and content) Pst Manager Relationship Specialty Start Date End Date Brittanie Ferreira MD [address] [facility] [facility] [address] PCP - General Behavioral Health 04/08/24 Sue Denson MD [address] [place] [address] Referring Physician Family Medicine 04/08/24 Pst Manager Relationship Specialty Start Date End Date Brittanie Ferreira MD [address] [place] [address] PCP - General Behavioral Health 04/08/24 Sue Denson MD [address] [place] [address] Referring Physician Family Medicine 04/08/24 Pst Manager Relationship Specialty Start Date End Date Brittanie Ferreira MD [address] [place] [address] PCP - General Behavioral Health 04/08/24 Sue Denson MD [address], [place] [id number] Referring Physician Family Medicine 04/08/24 Team Status: [...] July 23, 2024 End: July 23, 2024 Pst Manager Relationship Specialty Start Date End Date Brittanie Ferreira MD [address] [place], [place] [id number] PCP - General Behavioral Health 04/08/24 Sue Denson MD [address] [place], [place] [id number] Referring Physician Family Medicine 04/08/24 Pst Manager Relationship Specialty Start Date End Date Brittanie Ferreira MD [address], [place] [id number] PCP - General Behavioral Health 04/08/24 Sue Denson MD [address], [place] [id number] Referring Physician Family Medicine 04/08/24 Pst Manager Relationship Specialty Start Date End Date Brittanie Ferreira MD [address], [place] [id number] PCP - General Behavioral Health 04/08/24 Sue Denson MD [address] [place] [address] Referring Physician Family Medicine 04/08/24 Pst Manager Relationship Specialty Start Date End Date Brittanie Ferreira MD [address] [place] [address] PCP - General Behavioral Health 04/08/24 Sue Denson MD [address] [place] [address] Referring Physician Family Medicine 04/08/24 Pst Manager Relationship Specialty Start Date End Date Brittanie Ferreira MD [address] [place] [address] PCP - General Behavioral Health 04/08/24 Sue Denson MD [address] [place] [address] Referring Physician Family Medicine 04/08/24 Pst Manager Relationship Specialty Start Date End Date Brittanie Ferreira MD [address] [place] [address] PCP - General Behavioral Health 04/08/24 Sue Denson MD [address] [place] [address] Referring Physician Family Medicine 04/08/24 Pst Manager Relationship Specialty Start Date End Date Brittanie Ferreira MD [address] [place] [address] PCP - General Behavioral Health 04/08/24 Sue Denson MD [address] [place] [address] Referring Physician Family Medicine 04/08/24 Pst Manager Relationship Specialty Start Date End Date Brittanie Ferreira MD [address] [place] [address] PCP - General Behavioral Health 04/08/24 Sue Denson MD [address] [place] [address] Referring Physician Family Medicine 04/08/24 Pst Manager Relationship Specialty Start Date End Date Brittanie Ferreira MD [address] [place] [address] PCP - General Behavioral Health 04/08/24 Sue Denson MD [address] [place] [address] Referring Physician Family Medicine 04/08/24 Pst Manager Relationship Specialty Start Date End Date Brittanie Ferreira MD [address] [place] [address] PCP - General Behavioral Health 04/08/24 Sue Denson MD [address] [place] [address] Referring Physician Family Medicine 04/08/24 Pst Manager Relationship Specialty Start Date End Date Brittanie Ferreira MD [address] [place] [address] PCP - General Behavioral Health 04/08/24 Sue Denson MD [address] [place] [address] Referring Physician Family Medicine 04/08/24 Pst Manager Relationship Specialty Start Date End Date Brittanie Ferreira MD [address] [place] [address] PCP - General Behavioral Health 04/08/24 Sue Denson MD [address] [place] [address] Referring Physician Family Medicine 04/08/24 Goals (unrecognized [...] BE BASED ON THE PRIMARY CLINICAL RECORDS. [employer] provides no warranty or guarantee of the accuracy or completeness of information in this document.
--- NOTE | 2024-12-11 18:33 | ED.GENADUL1 ---
HPI HPI - General Adult General Chief complaint: Abdominal Pain Stated complaint: ABDOMINAL PAIN Time Seen by Provider: 12/11/24 18:24 Source: patient Mode of arrival: walk-in Limitations: no limitations History of Present Illness HPI narrative: Patient is a 54-year-old female who is presenting to the ER with chief complaint of nausea, constipation, worsening hemorrhoid, anxiety. Patient states she is having pain to the left upper quadrant. Patient states she took a stool softener earlier this morning along with using Preparation H at 8 AM. Patient states she has a living situation with a boyfriend that she removed from the house. Patient has been having increased anxiety for the past weeks to months. This past week patient's boyfriend was finally eliminated from her house. Patient states that she is more worried about her house than her boyfriend, and he has been causing significant amount anxiety recently. Patient had nausea no vomiting. She has no headache or neck pain. Patient denies any type of physical, sexual, mental abuse. Patient says that she has a large hemorrhoid that is acting up, patient also feels like she needs to push stool out and have a bowel movement but cannot. Patient states she feels like she needs to fart but she cannot do that either. Patient does have a history of acid reflux. Patient does take omeprazole 40 mg daily, but patient's acid reflux has been flaring up as well. Patient thinks that the anxiety could be underlying root to all of her symptoms as well which I agree with her. All systems are negative except as noted/marked. All systems reviewed and otherwise negative. Nurses note and vital signs reviewed and patient is not hypoxic. Miranda GARCIA was at bedside during the entire physical exam General: The patient appears well and in no apparent distress. Patient is resting comfortably on cart. Patient is not toxic, lethargic, or listless patient is admittedly anxious, patient does have slightly rapid speech. Skin: Warm, dry, no pallor noted. There is no rash noted. No petechiae, purpura. Head: Normocephalic, atraumatic Eye: Normal conjunctiva, no drainage, EOMI. PERRL Ears, Nose, Mouth, and Throat: oral mucosa is moist. Nares patent. Mouth without vesicles. Cardiovascular: Regular Rate and Rhythm, no murmur, gallop, rub Respiratory: Patient is in no distress, no accessory muscle use, lungs are clear to auscultation, no wheezing, rales or rhonchi Back: non-tender, no CVA tenderness bilaterally to percussion. No CT LS midline pain GI: no tenderness to palpation, no masses appreciated. No rebound, guarding, or rigidity noted. No distention. : Miranda GARCIA was at bedside during the entire exam. External exam, patient has 1 extremely small soft pink hemorrhoid at the 4 o'clock position, approximately 3 mm in size. There is no large hemorrhoid. Patient has no signs of perirectal or perianal abscess. No fissure or fistula. No pilonidal cyst. Patient had a digital rectal exam. Patient has no mass, no stool in the rectal vault, no signs of rectal abscess, no other acute findings. Musculoskeletal: Patient has full range of motion of all of the extremities, no motor, sensory, or focal neurological deficits Neurological: A&O x4, normal speech; patient is admittedly anxious. Psychiatric: Cooperative Related Data Home Medications ?Medication ?Instructions ?Recorded ?Confirmed cetirizine 10 mg tablet 10 mg PO DAILY 03/14/23 12/11/24 clonazepam 0.5 mg tablet 0.5 mg PO DAILY PRN anxiety 03/14/23 12/11/24 omeprazole 40 mg capsule,delayed 40 mg PO DAILY 03/14/23 12/11/24 release Previous Rx's ?Medication ?Instructions ?Recorded hydroxyzine HCl 50 mg tablet 50 mg PO TID PRN itching #10 tabs 12/11/24 ondansetron 4 mg disintegrating 4 mg PO Q4H PRN nausea and 12/11/24 tablet vomiting 3 days #6 tabs Allergies Allergy/AdvReac Type Severity Reaction Status Date / Time azithromycin Allergy Unknown Anaphylaxis Verified 12/11/24 18:25 dicyclomine (From Bentyl) Allergy Unknown Anxiety Verified 12/11/24 18:25 metoclopramide (From Reglan) Allergy Unknown Agitated Verified 12/11/24 18:25 Opioid HPI Opioid Management Most Recent Opioid Data: No Data to Display PFSH PFSH Social History Smoking status: Former smoker Little interest or pleasure in doing things: not at all Feeling down, depressed, or hopeless: not at all Exam Constitutional Vital Signs, click to edit/add: Last Vital Signs Temp 98 F 12/11/24 18:25 Pulse 90 12/11/24 18:25 Resp 16 12/11/24 18:25 BP 153/92 H 12/11/24 18:25 Pulse Ox 98 12/11/24 18:25 O2 Del Method Room Air 12/11/24 18:25 Course Vital Signs Vital signs: Vital Signs Temperature 98 F 12/11/24 18:25 Pulse Rate 90 12/11/24 18:25 Respiratory Rate 16 12/11/24 18:25 Blood Pressure 153/92 H 12/11/24 18:25 Pulse Oximetry 98 12/11/24 18:25 Oxygen Delivery Method Room Air 12/11/24 18:25 Temperature 98 F 12/11/24 18:25 Pulse Rate 90 12/11/24 18:25 Respiratory Rate 16 12/11/24 18:25 Blood Pressure 153/92 H 12/11/24 18:25 Pulse Oximetry 98 12/11/24 18:25 Oxygen Delivery Method Room Air 12/11/24 18:25 Medical Decision Making MDM Narrative Medical decision making narrative: Patient was ordered a Zofran ODT. Patient initially was not going to take it, but then she agreed to taking it. Patient does take omeprazole daily. Patient feels like she is constipated and needs to have a bowel movement and passed flatulence but cannot. Rectal exam shows no significant hemorrhoid at all, no rectal mass, no stool in the rectal vault. X-ray is done to look at patient's stool and gas pattern. Patient will have a urine tested as well. 0 patient will be transition to Dr. Sher. Patient's discharge has been prepared by myself. Patient will be sent home with Torrifran. Patient will need to start using MiraLAX and mag citrate. Patient was educated using Maalox or Mylanta if needed. Patient will follow-up with PCP. Patient was sent home with prescription for Vistaril to use if needed to help with anxiety. Discharge Plan Discharge Chief Complaint: Abdominal Pain Clinical Impression: Constipation, Anxiety, Abdominal pain Condition: Fair Prescriptions / Home Meds: New ondansetron 4 mg tablet,disintegrating 4 mg PO Q4H PRN (Reason: nausea and vomiting) 3 Days Qty: 6 0RF hydroxyzine HCl 50 mg tablet 50 mg PO TID PRN (Reason: itching) Qty: 10 0RF No Action cetirizine 10 mg tablet 10 mg PO DAILY clonazepam 0.5 mg tablet 0.5 mg PO DAILY PRN (Reason: anxiety) omeprazole 40 mg capsule,delayed release(DR/EC) 40 mg PO DAILY Print Language: Belarusian Additional Instructions: Use MiraLAX twice a day for the next 2 or 3 days to help with stool production. Use 1 bottle of magnesium citrate today and tomorrow if needed to help with stool production. Use Zofran if needed for nausea, use Bentyl if needed for abdominal cramping. Referrals: [facility] [place] [Primary Care Provider] - 1 week
[2024-12-11] MEDS: ONDANSETRON 4 MG RAPDIS TABLET SL (19:02)
[2024-12-11 19:03] LABS: Bilirubin Urine NEGATIVE (NEGATIVE); Blood Urine NEGATIVE (NEGATIVE); Clarity Urine CLEAR (CLEAR); Color Urine LT. YELLOW (YELLOW); Glucose Urine UA NEGATIVE (NEGATIVE); Ketones Urine NEGATIVE (NEGATIVE); Leukocyte Esterase Urine NEGATIVE (NEGATIVE); Nitrite Urine NEGATIVE (NEGATIVE); Protein Urine NEGATIVE (NEG/TRACE); Specific Gravity Urine 1.025 (1.005-1.025); Urobilinogen Urine 0.2 EU/dL (0.2-1.0); pH Urine 5.5 (5.0-9.0)
[2024-12-11 19:15] LABS: Bacteria Urine NONE SEEN #/HPF (NONE SEEN); Cast Seen? NONE SEEN #/LPF (NONE SEEN); Crystals Seen? None Seen #/HPF (None Seen); Mucus Urine NONE SEEN (NONE SEEN); RBC Urine NONE SEEN #/HPF (0-2); Squamous Epithelial Cell Urine RARE #/LPF (NONE/RARE); WBC Urine NONE SEEN #/HPF (NONE SEEN)
--- NOTE | 2024-12-11 19:48 | ED.GENADUL1 ---
HPI HPI - General Adult General Chief complaint: Abdominal Pain Stated complaint: ABDOMINAL PAIN Time Seen by Provider: 12/11/24 18:24 Source: patient Mode of arrival: walk-in Limitations: no limitations History of Present Illness HPI narrative: 54-year-old female presents to the emergency department for chief complaints of abdominal pain and was initially seen by Dr. Orozco and signed out to me after discussing the case with him thoroughly. Please see his full history and physical exam. Related Data Home Medications ?Medication ?Instructions ?Recorded ?Confirmed cetirizine 10 mg tablet 10 mg PO DAILY 03/14/23 12/11/24 clonazepam 0.5 mg tablet 0.5 mg PO DAILY PRN anxiety 03/14/23 12/11/24 omeprazole 40 mg capsule,delayed 40 mg PO DAILY 03/14/23 12/11/24 release Previous Rx's ?Medication ?Instructions ?Recorded hydroxyzine HCl 50 mg tablet 50 mg PO TID PRN itching #10 tabs 12/11/24 ondansetron 4 mg disintegrating 4 mg PO Q4H PRN nausea and 12/11/24 tablet vomiting 3 days #6 tabs Allergies Allergy/AdvReac Type Severity Reaction Status Date / Time azithromycin Allergy Unknown Anaphylaxis Verified 12/11/24 18:25 dicyclomine (From Bentyl) Allergy Unknown Anxiety Verified 12/11/24 18:25 metoclopramide (From Reglan) Allergy Unknown Agitated Verified 12/11/24 18:25 Opioid HPI Opioid Management Most Recent Opioid Data: No Data to Display PFSH PFSH Social History Smoking status: Former smoker Little interest or pleasure in doing things: not at all Feeling down, depressed, or hopeless: not at all Exam Constitutional Vital Signs, click to edit/add: Last Vital Signs Temp 98 F 12/11/24 18:25 Pulse 90 12/11/24 18:25 Resp 16 12/11/24 18:25 BP 153/92 H 12/11/24 18:25 Pulse Ox 98 12/11/24 18:25 O2 Del Method Room Air 12/11/24 18:25 Course Vital Signs Vital signs: Vital Signs Temperature 98 F 12/11/24 18:25 Pulse Rate 90 12/11/24 18:25 Respiratory Rate 16 12/11/24 18:25 Blood Pressure 153/92 H 12/11/24 18:25 Pulse Oximetry 98 12/11/24 18:25 Oxygen Delivery Method Room Air 12/11/24 18:25 Temperature 98 F 12/11/24 18:25 Pulse Rate 90 12/11/24 18:25 Respiratory Rate 16 12/11/24 18:25 Blood Pressure 153/92 H 12/11/24 18:25 Pulse Oximetry 98 12/11/24 18:25 Oxygen Delivery Method Room Air 12/11/24 18:25 Medical Decision Making MDM Narrative Medical decision making narrative: X-ray shows constipation and UA is negative. She was given a bottle of magnesium citrate. She was also recommended MiraLAX. Treatment diagnosis and follow-up were discussed with the patient. Differential Diagnosis Differential Diagnosis: Constipation, UTI, anxiety Lab Data Lab results reviewed: Yes I reviewed the patient's lab results Labs: Lab Results 12/11/24 Range/Units 18:40 Urine Color Lt. yellow (YELLOW) Urine Clarity Clear (CLEAR) Urine pH 5.5 (5.0-9.0) Ur Specific [place] 1.025 (1.005-1.025) Urine Protein Negative (NEG/TRACE) mg/dL Urine Glucose (UA) Negative (NEGATIVE) mg/dL Urine Ketones Negative (NEGATIVE) mg/dL Urine Occult Blood Negative (NEGATIVE) Urine Nitrite Negative (NEGATIVE) Urine Bilirubin Negative (NEGATIVE) Urine Urobilinogen 0.2 (0.2-1.0) EU/dL Ur Leukocyte Esterase Negative (NEGATIVE) Urine RBC None seen (0-2) #/HPF Urine WBC None seen (NONE SEEN) #/HPF Ur Squamous Epith Cells Rare (NONE/RARE) #/LPF Urine Crystals None seen (None Seen) #/HPF Urine Bacteria None seen (NONE SEEN) #/HPF Urine Casts None seen (NONE SEEN) #/LPF Urine Mucus None seen (NONE SEEN) Imaging Data Abdominal x-ray: Radiologist's impression: Nonobstructive bowel gas pattern, mild constipation throughout the colon Discharge Plan Discharge Chief Complaint: Abdominal Pain Clinical Impression: Constipation, Anxiety, Abdominal pain Patient Disposition: Home, Self-Care Time of Disposition Decision: 19:45 Condition: Fair Mode of Transportation: Private Vehicle Prescriptions / Home Meds: New ondansetron 4 mg tablet,disintegrating 4 mg PO Q4H PRN (Reason: nausea and vomiting) 3 Days Qty: 6 0RF hydroxyzine HCl 50 mg tablet 50 mg PO TID PRN (Reason: itching) Qty: 10 0RF No Action cetirizine 10 mg tablet 10 mg PO DAILY clonazepam 0.5 mg tablet 0.5 mg PO DAILY PRN (Reason: anxiety) omeprazole 40 mg capsule,delayed release(DR/EC) 40 mg PO DAILY Print Language: Uruguayan Instructions: Constipation (ED), Anxiety (ED) Additional Instructions: Use MiraLAX twice a day for the next 2 or 3 days to help with stool production. Use 1 bottle of magnesium citrate today and tomorrow if needed to help with stool production. Use Zofran if needed for nausea, use Bentyl if needed for abdominal cramping. Referrals: [facility] [Primary Care Provider] - 1 week
[2024-12-11 19:54] VITALS: BP 160/92; PULSE 83; O2SAT 100
[2024-12-11] MEDS: MAGNESIUM CITRATE 296 ML SOLUTION PO (19:54)
== END 2024-12-11 19:56 | disposition home or self-care (01) ==
PROVIDERS: Emergency Medicine; Emergency Provider Emergency Medicine
DX: K59.00 Constipation, unspecified (principal); R10.9 Unspecified abdominal pain; F41.9 Anxiety disorder, unspecified; Z90.49 Acquired absence of other specified parts of digestive tract; Z87.891 Personal history of nicotine dependence; K21.9 Gastro-esophageal reflux disease without esophagitis; K64.4 Residual hemorrhoidal skin tags
CPT/HCPCS: 74019; 81001; 99284; Q0162

== ENCOUNTER 2025-03-23 14:06 | Outpatient (REF) | payer MEDICARE, MEDICAID, SELFPAY ==
--- OUTSIDE RECORDS SUMMARY | 2025-03-23 12:28 | XMS_ITS ---
Author Name Auto Generated Organization OHIP Support Name Relationship Address Phone MARILYN FERRER Next of Kin Unknown [phone] Marilyn Ferrer Next of Kin Unknown [phone] MARILYN FERRER Next of Kin Unknown [phone] Marilyn Ferrer Next of Kin Unknown [phone] MARILYN FERRER Next of Kin Unknown +[phone] MARILYN FERRER Next of Kin Unknown +[phone] MARILYN FERRER Next of Kin Unknown Unavailable MARILYN FERRER Next of Kin Unknown Unavailable MARILYN FERRER Next of Kin Unknown +[phone] MARILYN FERRER Next of Kin Unknown +[phone] MARILYN FERRER Next of Kin Unknown Unavailable MARILYN FERRER Next of Kin Unknown +[phone] MARILYN FERRER Next of Kin Unknown Unavailable MARILYN FERRER Next of Kin Unknown +[phone] MARILYN FERRER Next of Kin Unknown +[phone] MARILYN FERRER Next of Kin Unknown +[phone] Marilyn Ferrer Next of Kin Unknown +[phone] MARILYN FERRER Next of Kin Unknown Unavailable MARILYN FERRER Next of Kin Unknown +[phone] MARILYN FERRER Next of Kin Unknown +[phone] MARILYN FERRER Next of Kin Unknown Unavailable MARILYN FERRER Next of Kin Unknown +[phone] MARILYN FERRER Next of Kin Unknown +[phone] MARILYN FERRER Next of Kin Unknown +[phone] MARILYN FERRER Next of Kin Unknown +[phone] MARILYN FERRER Next of Kin Unknown +[phone] MARILYN FERRER Next of Kin Unknown +[phone] JASMYNE FERRERLEY Next of Kin Unknown Unavailable MARILYN FERRER Next of Kin Unknown Unavailable CARISSAMARILYN Next of Kin Unknown Unavailable Care Team Providers Care Cistern Room Working Supervisor Name Role Phone JR. ADONIS, NISHA Cruz Attending Unavaila ble JEFFERSON, MAURI Attending Unavailable JOSÉ PARKINSON Attending Unavailable SHAUNA MAX Attending Unavailable JR. ADONIS, NISHA Cruz Attending Unavaila saúl MAX, SHAUNA Attending Unavailable JEFFERSON, MAURI Attending Unavailable PARKINSON, JOSÉ Nieto Attending Unavailable JEFFERSON, MAURI Attending Unavailable PARKINSON, JOSÉ Nieto Attending Unavailable JEFFERSON, MAURI Attending Unavailable PARKINSON, JOSÉ Nieto Attending Unavailable PARKINSON, JOSÉ Nieto Referring Unavailable MANSOOR, SHAUNA Attending Unavailable JEFFERSON, MAURI Attending Unavailable PARKINSON, JOSÉ Nieto Attending Unavailable JEFFERSON, MAURI Attending Unavailable MANSOOR, SHAUNA Attending Unavailable Jefferson, Mauri Admitting Unavailable Jefferson, Mauri Attending Unavailable NON STAFF Primary Care Unavailable José Parkinson Admitting Unavailable José Parkinson Attending Unavailable Manuel Bolivar Attending Unavailab le NON STAFF Primary Care Unavailable Manuel Bolivar Admitting Unavailab le SERVICES, [facility] Unava ilable SHAYNA, ELMIRA H Attending Unavailable SHAYNA, ELMIRA H Attending Unavailable SHAYNA, ELMIRA H Referring Unavailable SERVICES, [facility] Unava ilable SHAYNA, ELMIRA H Attending Unavailable SHAYNA, ELMIRA H Referring Unavailable SERVICES, [facility] Care Unava ilable JEFFERSON, MAURI R Referring Unavailable SERVICES, [facility] Care Unava ilable SERVICES, [facility] Care Unava ilable YSABEL SCHULTE Attending Unavailable SERVICES, [facility] Care Unava ilable VANESSA CRAMER Attending Unavailable SERVICES, [facility] Primary Care Unava ilable CATARINO SURESH Attending Unavailable JEFFERSON, MAURI R Referring Unavailable SERVICES, [facility] Unava ilable JEFFERSON, MAURI R Referring Unavailable SERVICES, [facility] Unava ilable PROBLEMS DATE TYPE CONDITION / CODE ATTENDING STATUS [facility] 11/11/2024 Unknown Asymptomatic men opausal state / Z78.0(ICD-10) NA Active [facility] 11/11/2024 Unknown Encounter for ks reening mammogram for malignant neoplasm of breast / Z12.31(ICD-10) NA Active [facility] 10/06/2024 Unknown Secondary hypert ension, unspecified / I15.9(ICD-10) CATARINO SURESH [facility] 10/06/2024 Unknown Chest pain, unsp ecified / R07.9(ICD-10) CATARINO SURESH [facility] 10/06/2024 Unknown Hypertension / FREETEXT(AOF) CATARINO SURESH [facility] 08/18/2024 Unknown Lower abdominal pain, unspecified / R10.30(ICD-10) VANESSA CRAMER [facility] 08/18/2024 Unknown Calculus of uret er / N20.1(ICD-10) VANESSA CRAMER [facility] 08/18/2024 Unknown Abdominal Pain / FREETEXT(AOF) VANESSA CRAMER [facility] 07/23/2024 Unknown Other specific j oint derangements of right shoulder, not elsewhere classified / M24.811(ICD-10) José Parkinson [facility] 06/29/2024 Unknown Unspecified fall , initial encounter / W19.XXXA(ICD-10) YSABEL SCHULTE [facility] 06/29/2024 Unknown Pain in right sh oulder / M25.511(ICD-10) YSABEL SCHULTE [facility] 06/29/2024 Unknown Cervicalgia / M54.2(ICD-10) YSABEL SCHULTE [facility] 06/29/2024 Unknown Fall / FREETEXT(AOF) YSABEL SCHULTE [facility] 06/29/2024 Unknown Arm Pain / FREETEXT(AOF) IVAN SCHULTE [facility] 06/11/2024 Unknown Contact with and (suspected) exposure to infections with a predominantly sexual mode of transmission / Z20.2(ICD-10) NA [facility] 06/11/2024 Unknown Other specified noninflammatory disorders of vagina / N89.8(ICD-10) NA Active [facility] 04/06/2024 Unknown Contusion of rig ht shoulder, initial encounter / S40.011A(ICD-10) ELMIRA CORRAL [facility] 04/06/2024 Unknown Unspecified inju ry of muscle(s) and tendon(s) of the rotator cuff of right shoulder, initial encounter / S46.001A(ICD-10) ELMIRA CORRAL [facility] 04/06/2024 Unknown Elevated blood-p ressure reading, without diagnosis of hypertension / R03.0(ICD-10) ELMIRA CORRAL [facility] 04/06/2024 Unknown Arm Injury / FREETEXT(AOF) SHAYNA [facility] 04/06/2024 Unknown fall - pain rt a rm / UNK(Unknown) SHAYNA [facility] PROCEDURES No Procedure Records Found RESULTS PATHOLOGY REQUEST FOR LAB GELACIO Collected: 03/23/2025 12:00 AM Status: F Source: [facility] Order Comment: PERIANAL LESI ON TYPE CODE TESTS RESULT OUT OF RANGE REFERENCE UNITS LAB PATH TO [facility] Pathology Request for Lab Gelacio Result Comment: See report. Scanned copy available in EMR. PERFORMED BY: [place] [address] PATHOLOGIST PROFESSIONAL ARCHITECT MATA VERDE M.D. Performed By: #### [facility] #### [address] MAMM SCREENING BILATERAL W CAD Observed: 11/11/2024 2:16 PM Status: COMPLETED Source: [facility] MAMM SCREENING BILATERAL W C ELVIS CASTELLANOSITH Dorothea SWANN 1970 [id number] EXAM: MAMM SCREENING BILATERAL W CAD, 11/11/2024 [...] family medical history was used calculate their [facility] lifetime risk of malignancy. Scores less than 20% are not considered high risk per ACR guidelines and patient should continue with the above recommendation. Finalized by Fernie Titus MD on 11/12/2024 11:01 AM 1 b MAMM 1 YR DEXA SCAN CENTRAL SKELETAL Observed: 08/2025 2:04 PM Status: COMPLETED Source: [facility] DEXA SCAN CENTRAL SKELETAL CLINICAL INFORMATION: Postmenopausal. [...] Girish Ramirez MD on 11/11/2024 3:38 PM 1 HOUR TROP I, HIGH SENSITIVITY Collected: 03/2025 1:52 AM Status: COMPLETED Source: [facility] TYPE CODE TESTS RESULT OUT OF RANGE REFERENCE UNITS LAB TNIHS1(LOINC) 1 HOUR TROP I, HIGH SENSITIVITY 2 <16 ng/L Performed By: #### 57792-7 # ### [facility] ([id number]) [address] [place] [address], [place] [address] CBC AND AUTO DIFF Collected: 10/06/2024 12:52 A M Status: COMPLETED Source: [facility] TYPE CODE TESTS RESULT OUT OF RANGE REFERENCE UNITS LAB WBC(LOINC) WBC COUNT 9.2 4.0-11.0 X10E9/L LAB RBC(LOINC) RBC COUNT 5.02 3.80-5.20 X10E12/L LAB HGB(LOINC) HEMOGLOBIN 14.0 11.7-15.5 g/dL LAB HCT(LOINC) HEMATOCRIT 42.1 35-47 % LAB MCV(LOINC) MCV 84 80-100 fL LAB MCH(LOINC) MCH 27.9 27-34 pg LAB MCHC(LOINC) MCHC 33.3 32-36 g/dL LAB RDW(LOINC) RDW 13.9 11.5-15.0 % LAB PLTC(LOINC) PLATELET COUNT 198 150-450 X10E9 /L LAB MPV(LOINC) MPV 9.1 7-12 fL LAB NEUT(LOINC) % NEUTROPHILS 67.6 % LAB LYMP(LOINC) % LYMPHOCYTES 23.6 % LAB MONO(LOINC) % MONOCYTES 6.5 % LAB EOS(LOINC) % EOSINOPHILS 2.0 % LAB BASO(LOINC) % BASOPHILS 0.3 % LAB ANEUT(LOINC) ABSOLUTE NEUTROPHIL 6.2 1.5-6.6 X10E9/L LAB ALYMP(LOINC) ABSOLUTE LYMPHOCYTE 2.2 1.0-3.5 X10E9/L LAB AMONO(LOINC) ABSOLUTE MONOCYTE 0.6 0-0.9 X10E9/L LAB AEOS(LOINC) ABSOLUTE EOSINOPHIL 0.2 0.0-0.4 X10E9/L LAB ABASO(LOINC) ABSOLUTE BASOPHIL 0.0 0.0-0.2 X10E9/L Performed By: #### VINICIO MERINO , 19218-4 #### [facility] ([id number]) [address] [place] [address] BASIC METABOLIC PANL Collected: 10/06/2024 12:5 2 AM Status: COMPLETED Source: [facility] TYPE CODE TESTS RESULT OUT OF RANGE REFERENCE UNITS LAB NA(LOINC) SODIUM 137 134-146 mmol/L LAB K(LOINC) POTASSIUM 3.7 3.5-5.0 mmol/L LAB CL(LOINC) CHLORIDE 103 98-109 mmol/L LAB CO2(LOINC) CARBON DIOXIDE 25 22-32 mmol/L LAB AGAP(LOINC) ANION GAP 9 5-15 mmol/L LAB BUN(LOINC) BLOOD UREA NITROGEN 23 5-23 mg/dL LAB CRET(LOINC) CREATININE 1.01 High 0.40-1.00 mg/dL Result Comment: METHOD TRACE ABLE TO IDMS STANDARD LAB GLU(LOINC) GLUCOSE 106 High 65-99 mg/dL LAB CA(LOINC) CALCIUM 9.2 8.5-10.5 mg/dL LAB EGFR(LOINC) eGFR (CKD-EPI) NON-RACE DEPENDENT 66 >59 ml/min/1. 73sq.m Result Comment: Reported eGFR is based on the CKD-EPI 2020 equation that does not use a race coefficient. Performed By: #### VINICIO MERINO , 41803-6 #### [facility] ([id number]) [address] [place] [address] TROPONIN I, HIGH SENSITIVITY Collected: 12:52 AM Status: COMPLETED Source: [facility] TYPE CODE TESTS RESULT OUT OF RANGE REFERENCE UNITS LAB TNIHS(LOINC) TROPONIN I, HIGH SENSITIVITY 2 <16 ng/L Performed By: #### VINICIO MERINO , 17599-8 #### [facility] ([id number]) [address] [place] [address] URN MACROSCOPIC [facility] Collected: 08/18/2024 7:53 PM Status: COMPLETED Source: [facility] TYPE CODE TESTS RESULT OUT OF RANGE REFERENCE UNITS LAB SPGRN(LOINC) SPECIFIC GRAVITY [facility] 1.015 1.003-1.035 LAB LESTN(LOINC) LEUKOCYTE ESTERASE [facility] Negative (qualifier value) NEG LAB NITN(LOINC) NITRITE [facility] Negative (qualifier value) NEG LAB PHURN(LOINC) PH [facility] 5.5 5.0-8.5 LAB PRURN(LOINC) PROTEIN [facility] Negative (qualifier value) NEG mg/dL LAB GLURN(LOINC) GLUCOSE [facility] Negative (qualifier value) NEG mg/dL LAB KETN(LOINC) KETONES [facility] Negative (qualifier value) NEG mg/dL LAB UROBN(LOINC) UROBILINOGEN [facility] 0.2 <1.1 eu/dL LAB BILEN(LOINC) BILIRUBIN [facility] Negative (qualifier value) NEG LAB BLURN(LOINC) BLOOD/HGB [facility] Trace Abnormal NEG Performed By: #### NUM #### [facility] ([id number]) [address] [place] [address], [place] [address] CT ABDOMEN AND PELVIS WO CONT Observed: 08/18/2024 7:23 PM Status: COMPLETED Source: [facility] CT ABDOMEN AND PELVIS WO CON T CT ABDOMEN AND PELVIS WO CONT HISTORY: [...] Sean Lambert MD on 08/18/2024 8:25 PM URINE CULTURE Observed: 08/18/2024 6:58 PM Status: COMPLETED Source: [facility] CULTURE RESULTS NO GROWTH AT <1000 CFU/mL Performed By: #### 630-4 ### # [facility] ([id number]) [address] [place] [address], [address] [place] [address] CBC AND AUTO DIFF Collected: 08/18/2024 6:20 PM Status: COMPLETED Source: [facility] TYPE CODE TESTS RESULT OUT OF RANGE REFERENCE UNITS LAB WBC(LOINC) WBC COUNT 7.4 4.0-11.0 X10E9/L LAB RBC(LOINC) RBC COUNT 5.04 3.80-5.20 X10E12/L LAB HGB(LOINC) HEMOGLOBIN 14.3 11.7-15.5 g/dL LAB HCT(LOINC) HEMATOCRIT 42.3 35-47 % LAB MCV(LOINC) MCV 84 80-100 fL LAB MCH(LOINC) MCH 28.3 27-34 pg LAB MCHC(LOINC) MCHC 33.7 32-36 g/dL LAB RDW(LOINC) RDW 13.9 11.5-15.0 % LAB PLTC(LOINC) PLATELET COUNT 203 150-450 X10E9 /L LAB MPV(LOINC) MPV 9.5 7-12 fL LAB NEUT(LOINC) % NEUTROPHILS 68.2 % LAB LYMP(LOINC) % LYMPHOCYTES 24.9 % LAB MONO(LOINC) % MONOCYTES 5.2 % LAB EOS(LOINC) % EOSINOPHILS 1.1 % LAB BASO(LOINC) % BASOPHILS 0.6 % LAB ANEUT(LOINC) ABSOLUTE NEUTROPHIL 5.0 1.5-6.6 X10E9/L LAB ALYMP(LOINC) ABSOLUTE LYMPHOCYTE 1.8 1.0-3.5 X10E9/L LAB AMONO(LOINC) ABSOLUTE MONOCYTE 0.4 0-0.9 X10E9/L LAB AEOS(LOINC) ABSOLUTE EOSINOPHIL 0.1 0.0-0.4 X10E9/L LAB ABASO(LOINC) ABSOLUTE BASOPHIL 0.0 0.0-0.2 X10E9/L Performed By: #### CBCA, CMP , 3040-3 #### [facility] ([id number]) [address] [place] [address], [place] [address] COMPREHENSIVE METABOLIC PANEL Collected: 2023 6:20 PM Status: COMPLETED Source: [facility] TYPE CODE TESTS RESULT OUT OF RANGE REFERENCE UNITS LAB NA(LOINC) SODIUM 138 134-146 mmol/L LAB K(LOINC) POTASSIUM 4.2 3.5-5.0 mmol/L LAB CL(LOINC) CHLORIDE 104 98-109 mmol/L LAB CO2(LOINC) CARBON DIOXIDE 24 22-32 mmol/L LAB AGAP(LOINC) ANION GAP 10 5-15 mmol/L LAB BUN(LOINC) BLOOD UREA NITROGEN 12 5-23 mg/dL LAB CRET(LOINC) CREATININE 0.84 0.40-1.00 mg/dL Result Comment: METHOD TRACE ABLE TO IDMS STANDARD LAB GLU(LOINC) GLUCOSE 86 65-99 mg/dL LAB CA(LOINC) CALCIUM 9.7 8.5-10.5 mg/dL LAB TP(LOINC) TOTAL PROTEIN 8.1 High 6.0-8.0 g/dL LAB ALB(LOINC) ALBUMIN 4.5 3.2-5.3 g/dL LAB ALK(LOINC) ALKALINE PHOSPHATASE 79 39-130 U/L LAB AST(LOINC) AST 20 0-41 U/L LAB ALT1(LOINC) ALT 18 0-31 U/L LAB TBIL(LOINC) BILIRUBIN,TOTAL 0.8 0.3-1.2 mg/d L LAB EGFR(LOINC) eGFR (CKD-EPI) NON-RACE DEPENDENT 82 >59 ml/min/1 .73sq.m Result Comment: Reported eGFR is based on the CKD-EPI 2020 equation that does not use a race coefficient. Performed By: #### KEYA MERINO , 3040-3 #### [facility] ([id number]) [address] [place] [address] LIPASE Collected: 08/18/2024 6:20 PM S tatus: COMPLETED Source: [facility] TYPE CODE TESTS RESULT OUT OF RANGE REFERENCE UNITS LAB LIPA(LOINC) LIPASE 34 17-40 U/L Performed By: #### LONGA, CMP , 3040-3 #### [facility] ([id number]) [address] [place] [address] MR SHOULDER RT WO CON Observed: 07/23/20 24 3:40 PM Status: COMPLETED Source: [facility] [place] [address] MRI Report Signed Patient: Ne Swann MR#: [id number] : 1970 Acct:[id number] Age/Sex: 54 / F ADM Date: 07/23/24 Loc: [facility] Room: Type: [facility] CLI Attending Dr: José Parkinson TAILOR WOMEN'S GARMENT ALTERATION-C Copies to: José Parkinson MAINTENANCE HELPER UTILITY ENGINEER Ordering Provider: José Parkinson MAINTENANCE HELPER UTILITY ENGINEER Date of Service: 07/23/24 MR/MR shoulder RT wo con: M24.811 ([id number]) XR/XR pre/post mri xray: M24.811 MR RIGHT [...] Teddy Richey M.D.07/23/2024 3:55 PM Dictation Location: [place] [address] Transcribed By: [facility] 07/23/24 1555 Dictated By: Teddy Richey II, MD 07/23/24 1540 Signed By: <Electronically signed by Teddy Richey II, MD in OV> 07/23/[address] CERVICAL SPINE WO CONT Observed: 06/02 3:36 PM Status: COMPLETED Source: [facility] CT CERVICAL SPINE WO CONT HISTORY: A [...] Dhruv Cabrera MD on 06/29/2024 3:[address] FACIAL BONES WO CONT Observed: 2023 3:34 PM Status: COMPLETED Source: [facility] CT FACIAL BONES WO CONT 06/29/2024 3:34 [...] No acute facial bone fractures. Finalized by Peter Davila on 06/29/2024 3:[address] BRAIN WO CONT Observed: 06/29/2024 3:33 PM Status: COMPLETED Source: [facility] CT BRAIN WO CONT CT BRAIN WO [...] Dima Hidalgo MD on 06/29/2024 3:54 PM IVanessa MD have personally reviewed the image(s) and agree with and/or edited the report Finalized by Vanessa Ambriz MD on 06/29/2024 3:59 PM HIV 1 AND 2 AB/AG SCREEN Collected: 08/2024 3:59 PM Status: COMPLETED Source: [facility] TYPE CODE TESTS RESULT OUT OF RANGE REFERENCE UNITS LAB HIV4(LOINC) HIV 1 and 2 Ab/Ag Screen Nonreactive (qualifier value) NRCT Result Comment: This information has been disclosed [...] test results or diagnoses. Performed By: #### 29538-7 # ### [facility] ([id number]) [address] [place] [address] XR HUMERUS RT MIN 2 VWS Observed: 04/06/2024 8:40 PM Status: COMPLETED Source: [facility] XR HUMERUS RT MIN 2 VWS Right humerus: HISTORY: Humeral pain. 2 views right humerus are obtained. There is no acute osseous, articular, or soft tissue abnormality. IMPRESSION: No acute findings. Finalized by Bruce Armstrong MD on 04/06/2024 8:52 PM XR SHOULDER RT MIN 2 VWS Observed: 04/06 8:39 PM Status: COMPLETED Source: [facility] XR SHOULDER RT MIN 2 VWS CLINICAL INFORMATION: fall c pain TECHNIQUE: XR SHOULDER RT MIN 2 VWS 3 views right shoulder were obtained. AC joint degenerative changes are mild. Humeral head shows normal articulation with the glenoid. No fracture or dislocation. IMPRESSION: Degenerative changes Finalized by Bruce Armstrong MD on 04/06/2024 8:46 PM ALLERGIES DATE TYPE / CODE NAME / CODE REACTION SEVERITY SOURCE 10/08/2022 Drug Allergy/02523 8002(SNOMED CT) clarithromycin/[id number] 08(RXNORM) Unknown [facility] 10/05/2019 DRUG INGREDI~NON-C BORD/50155783 3(SNOMED CT) DICYCLOMINE [facility] 02/12/2017 DRUG INGREDI~NON-C BORD/63355442 3(SNOMED CT) CLARITHROMYCIN Anaphylaxis High [facility] 02/12/2017 DRUG INGREDI~NON-C BORD/81668931 3(SNOMED CT) METOCLOPRAMIDE Anaphylaxis High [facility] 02/12/2017 DRUG INGREDI~NON-C BORD/03217339 3(SNOMED CT) DICYCLOMINE HCL Anxiety Low [facility] ENCOUNTERS ADMIT/DISCHARGE ACCOUNT NUMBER ADMITTING ENCOUNTER CLASS LOCATION SOURCE 03/23/2025/ 025 [id number] Ambulatory Building:NOM S [facility] 03/23/2025/ 025 [id number] Mauri Paulino [facility] ng:LORI [facility] 03/09/2025/ 025 [id number] Ambulatory Building:[facility] 03/04/2025 [id number] Manuel Bolivar [facility] ng:RIGOBERTO E [facility] 12/17/2024/ 025 [id number] Ambulatory Building:NOM S [facility] 11/23/2024/ 025 [id number] Ambulatory Building:NOM S [facility] 11/11/2024/ 025 [id number] Ambulatory Building:PFM _DXR [facility] 11/11/2024/ 025 [id number] Ambulatory Building:PFM _MAMM [facility] 10/20/2024/ 025 [id number] Ambulatory Building:O [facility] 10/06/2024/ 025 [id number] Ambulatory Building:NOM S [facility] 10/06/2024/ 025 [id number] Emergency Building:PFM _EDRoom: 6Bed: 06 [facility] 09/01/2024/ 024 [id number] Ambulatory Building:NOM S [facility] 08/18/2024/ 024 [id number] Emergency Building:PFM _EDRoom: 3Bed: 03 [facility] 08/05/2024/ 024 [id number] Ambulatory Building:FBO RTHO [facility] 08/04/2024/ 024 [id number] Ambulatory Building:NOM S BCP OB [facility] 07/29/2024/ 024 [id number] Ambulatory Building:NOM S BCP OB [facility] 07/23/2024/ 024 [id number] [facility] 06/29/2024/ 024 [id number] Emergency Building:PFM _EDRoom: H4Bed: H4 [facility] 06/29/2024/ 024 [id number] Ambulatory Building:O [facility] 06/29/2024/ 024 [id number] Ambulatory Building:O [facility] 06/11/2024/ 024 [id number] Ambulatory Building:PFM _LAB [facility] 06/11/2024/ 024 [id number] Ambulatory Building:NOM S [facility] OB [facility] 06/10/2024/ 024 [id number] Ambulatory Building:O [facility] 05/12/2024/ 024 [id number] Ambulatory Building:NOM S BCP OB [facility] 04/15/2024/ 024 [id number] Ambulatory Building:O [facility] 04/13/2024/ 024 [id number] Ambulatory Building:NOM S BCP OB [facility] 04/08/2024/ 024 [id number] Ambulatory Building:O [facility] 04/06/2024/ 024 [id number] Emergency Building:PFM _XR [facility] 04/06/2024/ 024 [id number] Emergency Building:PFM _XR [facility] 04/06/2024/ 024 [id number] Emergency Building:PFM _EDRoom: 7Bed: 07 [facility] PAYERS ENCOUNTER GUARANTOR PAYER SUBSCRIBER SOURCE 03/23/2025 NE DOMINGUEZB: [id number] [place] [address]Zxs: (HP) Primary Insurance:[employer] MEDICARE ADVANTAGEPolicy Number: [id number] Date:2020-09-30 NE DOMINGUEZB: [id number] [place] [address] [facility] EPIC 03/23/2025 Secondary Insurance[place]: [id number] Date:2019-09-30 NE DOMINGUEZB: [id number] [place] [address] [facility] EPIC 03/23/2025 [address] [place] [address]Iav: (HP) Primary Insurance:Self PayPolicy Number: Effective Date:2025-03-[address] [facility] 03/09/2025 NE DOMINGUEZB: [id number] [place] [address]Mhg: (HP) Primary Insurance:[employer] MEDICARE ADVANTAGEPolicy Number: [id number] Date:2020-09-30 NE TSANG: [id number] [place] [address] [facility] EPIC 03/09/2025 Secondary Insurance:[place] Number: [id number] Date:2019-09-30 NE DOMINGUEZB: [id number] [place] [address] [facility] EPIC 03/04/2025 [address] [place] [address]Krg: (HP) Primary Insurance:Self PayPolicy Number: Effective Date:2023-01-[address] [facility] NE SWANNDOB: [place] [address]Bha: (HP) Primary Insurance:[employer] MEDICARE ADVANTAGEPolicy Number: [id number] Date:2020-09-30 NE SWANNDOB: [id number] [place] [address] [facility] EPIC 12/17/2024 Secondary Insurance[place]: [id number] Date:2019-09-30 NE Piedra SYEDADOB: [id number] [place] [address] [facility] EPIC 11/23/2024 NE Piedra SYEDADOB: [place] [address]Jkn: (HP) Primary Insurance:[facility] MEDICARE ADVANTAGEPolicy Number: [id number] Date:2020-09-30 NE SWANNDOB: [id number] [place] [address] [facility] EPIC 11/23/2024 Secondary Insurance[place] Number: [id number] Date:2019-09-30 NE Dorothea SWANNDOB: [id number] [place] [address] [facility] EPIC 11/11/2024 NE Piedra SYEDADOB: [place] [address]Nuw: (HP) Primary Insurance:AN[place] MEDICARE ADVANTAGEPolicy Number: [id number] Date:2020-09-30 NE Piedra SYEDADOB: [id number] [place] [address] [facility] 11/11/2024 [place] Insura [place]ce:[place] MED[place]Policy Number: [id number] Date:2019-11-29 NE SWANNDOB: [id number] [place] [address] [facility] 11/11/2024 NE SWANNDOB: [id number] [place] [address]Tts: (HP) Primary Insurance:[employer] MEDICARE ADVANTAGEPolicy Number: [id number] Date:2020-09-30 NE SWANNDOB: [id number] [place] [address] [facility] 11/11/2024 [place] Ins[place]ce:[place] MED[place]Policy Number: [id number] Date:2019-11-29 NE SWANNDOB: [id number] [place] [address] [facility] 10/20/2024 NE SWANNDOB: [place] [address]Bft: (HP) Primary Insurance:[employer] MEDICARE ADVANTAGEPolicy Number: [id number] Date:2020-09-30 NE SWANNDOB: [id number] [place] [address] [facility] 10/20/2024 Secondary Insurance:[place] Number: [id number] Date:2019-09-30 NE SWANNDOB: [id number] [place] [address] [facility] EPIC 10/06/2024 NE SWANNDOB: [id number] [place] [address]Pdh: (HP) Primary Insurance:[employer] MEDICARE ADVANTAGEPolicy Number: [id number] Date:2020-09-30 NE SWANNB: [id number] [place] [address] [facility] 10/06/2024 Secondary Insurance:[place] Number: [id number] Date:2019-09-30 NE SWANNDOB: [id number] [place] [address] [facility] 10/06/2024 NE [place]ANNDOB: [place] [address]Jhs: (HP) Primary Insurance:[employer] MEDICARE ADVANTAGEPolicy Number: [id number] Date:2020-09-30 NE DOMINGUEZB: [id number] [place] [address] [facility] 10/06/2024 [place] Ins[place]ce[place]Policy Number: [id number] Date:2019-11-29 NE DOMINGUEZB: [id number] [place] [address] [facility] 09/01/2024 NE SWANNDOB: [place] [address]Ggq: (HP) Primary Insurance:[employer] MEDICARE ADVANTAGEPolicy Number: [id number] Date:2020-09-30 NE DOMINGUEZB: [id number] [place] [address] [facility] 09/01/2024 Secondary Insurance:[place] Number: [id number] Date:2019-09-30 NE DOMINGUEZB: [id number] [place] [address] [facility] 08/18/2024 NE SWANNDOB: [place] [address]Ire: (HP) Primary Insurance:[employer] MEDICARE ADVANTAGEPolicy Number: [id number] Date:2020-09-30 NE Piedra SYEDADOB: [id number] [place] [address] [facility] 08/18/2024 [place]: [id number] Date:2019-11-29 NE Piedra SYEDADOB: [id number] [place] [address] [facility] 08/05/2024 NE P SYEDADOB: [place] [address]Nvf: (HP) Primary Insurance:[employer] MEDICARE ADVANTAGEPolicy Number: [id number] Date:2020-09-30 NE P SYEDADOB: [id number] [place] [address] [facility] 08/05/2024 Secondary Insurance:[place]: [id number] Date:2019-09-30 NE P JANICEB: [id number] [place] [address] [facility] EPIC 08/04/2024 NE SWANNDOB: [place] [address]Rkw: (HP) Primary Insurance:[employer] MEDICARE ADVANTAGEPolicy Number: [id number] Date:2020-09-30 NE P SYEDADOB: [id number] [place] [address] [facility] 08/04/2024 Secondary Insurance:[place] Number: [id number] Date:2019-09-30 NE SWANNDOB: [id number] [place] [address] [facility] EPIC 07/29/2024 NE DOMINGUEZB: [place] [address]Nfn: (HP) Primary Insurance:[employer] MEDICARE ADVANTAGEPolicy Number: [id number] Date:2020-09-30 NE DOMINGUEZB: [id number] [place] [address] [facility] 07/29/2024 Secondary Insurance:[place]: [id number] Date:2019-09-30 NE DOMINGUEZB: [id number] [place] [address] [facility] 07/23/2024 Ne Pierda [id number] [place] [address]Hxh: (HP) Primary Insurance:[employer] Dual AdvPolicy Number: [id number] Date:4756-93-94LY[address] [address]BE: Ne DominguezB: [id number] [place] [address]Zxl: () [facility] 07/23/2024 Secondary Insurance:MedicaidPoli cy Number: [id number] Date:2024-07-08 Ne DominguezB: [id number] [place] [address]Pyu: () [facility] 07/23/2024 Tertiary Insurance:Self PayPolicy Number: Effective Date:[address] [facility] 06/[facility]/2024 NE DOMINGUEZB: [id number] [place], [place] [address]Xam: (HP) Primary Insurance:ANTHEM MEDICARE ADVANTAGEPolicy Number: [id number] Date:2020-09-30 NE DOMINGUEZB: [id number] [place] [address] [facility] 06/29/2024 [place] Ins[place]ce:[place]Policy Number: [id number] Date:2019-11-29 NE Piedra SYEDADOB: [id number] [place] [address] [facility] 06/29/2024 NE DOMINGUEZB: [place] [address]Gid: (HP) Primary Insurance:[employer] MEDICARE ADVANTAGEPolicy Number: [id number] Date:2020-09-30 NE DOMINGUEZB: [id number] [place] [address] [facility] 06/29/2024 Secondary Insurance:[place] Number: [id number] Date:2019-09-30 NE DOMINGUEZB: [id number] [place] [address] [facility] 06/29/2024 NE SWANNDOB: [id number] [place] [address]Tqv: (HP) Primary Insurance:[employer] MEDICARE ADVANTAGEPolicy Number: [id number] Date:2020-09-30 NE DOMINGUEZB: [id number] [place] [address] [facility] 06/29/2024 Secondary Insurance:[place]: [id number] Date:2019-09-30 NE SWANNDOB: [id number] [place] [address] [facility] 06/11/2024 NE SWANNDOB: [id number] [place], [place] [address]Dys: (HP) Primary Insurance:[employer] MEDICARE ADVANTAGEPolicy Number: [id number] Date:2020-09-30 NE Piedra JANICEB: [id number] [place], [place] [address]Ngr: (HP) [facility] 06/11/2024 [place]ce:[place]: [id number] Date:2019-11-29 NE DOMINGUEZB: [id number] [place], [place] [address]Vix: (HP) [facility] 06/11/2024 NE DOMINGUEZB: [id number] [place] [address]Srx: (HP) Primary Insurance:ANTHEM MEDICARE ADVANTAGEPolicy Number: [id number] Date:2020-09-30 NE DOMINGUEZB: [id number] [place] [address] [facility] 06/11/2024 Secondary Insurance:[place] Number: [id number] Date:2019-09-30 NE DOMINGUEZB: [id number] [place] [address] [facility] 06/10/2024 NE DOMINGUEZB: [id number] [place] [address]Ihw: () Primary Insurance:ANTHEM MEDICARE ADVANTAGEPolicy Number: [id number] Date:2020-09-30 NE DOMINGUEZB: [id number] [place] [address] [facility] 06/10/2024 Secondary Insurance:[place] Number: [id number] Date:2019-09-30 NE DOMINGUEZB: [id number] [place] [address] [facility] EPIC 05/12/2024 NE DOMINGUEZB: [id number] [place] [address]Hvo: (HP) Primary Insurance:[employer] MEDICARE ADVANTAGEPolicy Number: [id number] Date:2020-09-30 NE SWANNDOB: [id number] [place] [address] [facility] EPIC 05/12/2024 Secondary Insurance:[place] Number: [id number] Date:2019-09-30 NE Piedra SYEDADOB: [id number] [place] [address] [facility] EPIC 04/15/2024 NE P JANICEB: [place] [address]Ixk: (HP) Primary Insurance:[employer] MEDICARE ADVANTAGEPolicy Number: [id number] Date:2020-09-30 NE Piedra SYEDADOB: [id number] [place] [address] [facility] EPIC 04/15/2024 Secondary Insurance:[place] Number: [id number] Date:2019-09-30 NE Dorothea SWANNDOB: [id number] [place] [address] [facility] EPIC 04/13/2024 NE DOMINGUEZB: [place] [address]Qhd: (HP) Primary Insurance:[employer] MEDICARE ADVANTAGEPolicy Number: [id number] Date:2020-09-30 NE SWANNDOB: [id number] [place] [address] [facility] EPIC 04/13/2024 Secondary Insurance:[place] Number: [id number] Date:2019-09-30 NE DOMINGUEZB: [id number] [place] [address] [facility] 04/08/2024 NE DOMINGUEZB: [place] [address]Oza: (HP) Primary Insurance:ANTHEM MEDICARE ADVANTAGEPolicy Number: [id number] Date:2020-09-30 NE DOMINGUEZB: [id number] [place] [address] [facility] 04/08/2024 Secondary Insurance:[place] Number: [id number] Date:2019-09-30 NE DOMINGUEZB: [id number] [place] [address] [facility] 04/06/2024 NE DOMINGUEZB: [place] [facility]PAR[facility], [place] [address]Ose: (HP) Primary Insurance:ANTHEM MEDICARE ADVANTAGEPolicy Number: [id number] Date:2020-09-30 NE DOMINGUEZB: [id number] [place] AVCLARITAPARMA [facility] [place], [place] [address]Kno: () [facility] 04/06/2024 Secondary Insura nce:[place] MEDICAIDPolicy Number: [id number] Date:2019-11-29 NE DOMINGUEZB: [id number] [place], [place] [address]Est: (HP) [facility] 04/06/2024 NE DOMINGUEZB: [place] [address]Bww: (HP) Primary Insurance:ANTHEM MEDICARE ADVANTAGEPolicy Number: [id number] Date:2020-09-30 NE DOMINGUEZB: [id number] [place], [place] [address]Jcg: (HP) [facility] 04/06/2024 Secondary Insura nce:[place] MEDICAIDPolicy Number: [id number] Date:2019-11-29 NE TSANG: [id number] [place] [address]Gpj: () [facility] 04/06/2024 NE TSANG: [place] [address]Fyb: () Primary Insurance:ANTHEM MEDICARE ADVANTAGEPolicy Number: [id number] Date:2020-09-30 NE TSANG: [id number] [place] [address]Bqq: () [facility] 04/06/2024 Secondary Insura nce:[place] MEDICAIDPolicy Number: [id number] Date:2019-11-29 NE TSANG: [id number] [place] [address]Yhk: () [facility]
== END 2025-03-23 14:07 | disposition home or self-care (01) ==
LOC: LAB 14:06
PROVIDERS: Visit Provider Obstetrics & Gynecology
DX: C44.529 Squamous cell carcinoma of skin of other part of trunk (principal)

== ENCOUNTER 2025-06-19 21:21 | Emergency (ER) | payer MEDICARE, MEDICAID, SELFPAY ==
--- OUTSIDE RECORDS SUMMARY | 2025-06-19 21:26 | XMS_ITS | CCD ---
Author Organization [facility] CliniSyct Care Team Providers Care Head Worker Name Role Phone SAVANNAHLINDA Unavailable Unavailable LINDA [...] Consulting Unavailable Bob Marinelli Unavailable Hanna JACKSON, [facility] Primary Care Provide r Jarett JACKSON, Sue Unavailable [phone] NON STAFF Primary Care Provider UnavailMD Manuel Arriola Attending Provider ALISA Parkinson Attending Provider SERVICES, [facility] Primary Care Unava ilable JAVAN URBANO Attending Unavailab le SERVICES, [facility] Care Unava ilable JESUS SAVAGE Attending Unavailable JESUS SAVAGE Referring Unavailable SERVICES, [facility] Care Unava ilable SERVICES, [facility] Care Unava ilable SHAYNA ELMIRA H Attending Unavailable SHAYNA, ELMIRA H Referring Unavailable SERVICES, [facility] Primary Care Unava ilable SHAYNA ELMIRA H Attending Unavailable SHAYNA, ELMIRA H Referring Unavailable SERVICES, [facility] Care Unava ilable SHAYNA ELMIRA H Attending Unavailable SHAYNA, ELMIRA H Referring Unavailable SERVICES, [facility] Unava ilable LUCAS PAULINO Referring Unavailable SERVICES, [facility] Primary Care Unava ilable SERVICES, [facility] Care Unava ilable YSABEL SCHULTE Attending Unavailable SERVICES, [facility] Unava ilable VANESSA CRAMER Attending Unavailable SERVICES, [facility] Unava ilable CATARINO SURESH Attending Unavailable LUCAS PAULINO R Referring Unavailable SERVICES, [facility] Unava ilable NON STAFF Primary Care Provider UnavailManuel Arriola MD Attending Provider Lucas Paulino DO Attending Provider [phone] JR. ADONIS, NISHA Cruz Attending Unavaila ble JEFFERSON, LUCAS Attending Unavailable MIGUEL ÁNGEL, PAM Attending Unavailable JR. ROMAN GEORGE C Attending Unavaila ble MIGUEL ÁNGEL, PAM Attending Unavailable MIGUEL ÁNGEL, PAM Attending Unavailable JEFFERSON, LUCAS Attending Unavailable PARKINSONJOSÉ WALLER Attending Unavailable JEFFERSON, LUCAS Attending Unavailable PARKINSON, JOSÉ Gutierrez Attending Unavailable JOSÉ PARKINSON Referring Unavailable MIGUEL ÁNGEL, PAM Attending Unavailable JEFFERSON, LUCAS Attending Unavailable PARKINSON, JOSÉ Gutierrez Attending Unavailable JEFFERSON, LUCAS Attending Unavailable MIGUEL ÁNGEL, PAM Attending Unavailable NON STAFF Primary Care Provider UnavailaMnuel Arriola MD Attending Provider [phone] Mikael JACKSON, [facility] Primary Care Provider [phone] Leonie Krishna MD Attending Provider Ihsan Coronado MD Referring Provider Lucas Paulino Attending Unavailable Jefferson, Lucas Admitting Unavailable NON STAFF Primary Care Unavailable José Parkinson Admitting Unavailable José Parkinson Attending Unavailable NON STAFF Primary Care Unavailable Manuel Bolivar Admitting Unavailab Manuel Sam Attending Unavailab Ihsan Fierro Referring Unavailable Dora Youssef Primary Care Unavailable Leonie Krishna Admitting Unavailable Leonie Krishna Attending Unavailable Allergies Allergy Classification Reported Allergen(s) Allergy Type Date of Onset Reaction(s) Facility (1 source) azithromycin Drug Allergy 03-04-20 17 AOF [facility] Repository (5 sources) clarithromycin; Translations: [CLARITHROMYCIN] Drug Allergy 03-18-20 14 Anaphylaxis [facility] Repository Comment on above: Respiratory distress (2 sources) dicyclomine Drug Allergy 04-27-20 13 [facility]OF [facility] Repository (2 sources) iothalamate Drug Allergy 04-27-20 13 AOF [facility] Repository (2 sources) traMADol Drug Allergy 03-18-20 14 AOF, Nausea [facility] Repository (1 source) Clarithromycin Drug Allergy 04-27-20 13 [facility] Repository (1 source) Clarithromycin Drug Allergy Unknown [employer] [facility] [employer] Other (20 sources) Dicyclomine; Translations: [DICYCLOMINE] Drug Allergy 12-08-19 16 Anxiety [facility] [employer] Other (20 sources) Metoclopramide; Translations: [METOCLOPRAMIDE] Drug Allergy 12-08-19 16 Anaphylaxis, Anxiety, Rash [facility] [employer] Other (20 sources) Clarithromycin Allergy to substance 12-08-19 16 Anaphylaxis [facility] Work Phone: (20 sources) Dicyclomine; Translations: [DICYCLOMINE HCL] Drug Allergy 12-08-19 16 Anxiety [facility] (20 sources) Loratadine Allergy to substance 01-23-20 24 [facility] (20 sources) traMADol Drug Allergy 03-21-20 21 Nausea Only [facility] (20 sources) Macrolides And Ketolides Drug Allergy 12-08-19 16 Anaphylaxis [facility] (20 sources) Other Allergy to substance 06-19-20 23 Rash [facility] (2 sources) Clarithromycin Drug Allergy 10-08-19 23 [facility] Repository (2 sources) Dicyclomine Drug Allergy 10-08-19 23 [facility] Repository (2 sources) Metoclopramide Drug Allergy 10-08-19 [facility] Repository (1 source) traMADol Drug Allergy 06-08-20 [facility] Repository Medications Current Medications Medication Drug Class(es) Dates Sig (Normalized) Sig (Original) Calcium (1 source) Phosphate Binder, Calcium Calcium + D Active cefTRIAXone 500 mg injection (20 sources) Cephalosporin Antibacterial Start: 07-29-2024 cefTRIAXone (Rocephin) vial 500 mg cephalexin 500 mg oral capsule (20 sources) Cephalosporin Antibacterial Start: 06-08-2024 End: 05-06-2025 take 1 capsule by mouth in the [...] tablet (20 sources) Histamine-1 Receptor Antagonist Start: 06-01-2025 take 1 tablet by mouth once daily as needed Start: 02-20-2024 take 1 tablet by flaco th at bedtime cetirizine (ZyrTEC) 10 MG tablet Take 10 mg by mouth at bedtime 02/20/2024 Active clonazePAM 1 mg oral tablet (14 sources) Benzodiazepine Start: 06-08-2025 take 1 tablet by flaco th once daily as needed End: 07-29-2024 clonazePAM (KlonoPIN) 0.5 MG tablet Take 0.5 mg by mouth if needed. 07/29/2024 Discontinued KlonoPIN Active docusate sodium 100 mg oral capsule (2 sources) Start: 12-17-2024 End: 12-27-2024 take 1 capsule by mouth twice daily as needed for constipation docusate sodium (Colace) 100 MG capsule Indications: Constipation, unspecified constipation type Take 1 capsule (100 mg) by mouth 2 (two) times a day as needed for constipation for up to 10 days 20 capsule 12/17/2024 12/27/2024 Active doxycycline hyclate 100 mg oral capsule (3 sources) Tetracycline-cla ss Drug Start: 05-06-2025 End: 05-13-2025 doxycycline (Vibramycin) 100 MG capsule Indications: Vaginal odor , Yeast infection Take 1 capsule (100 mg) by mouth in the morning and 1 capsule (100 mg) before bedtime. Do all this for 7 days. Take with at least 8 ounces (large glass) of water, do not lie down for 30 minutes after. 14 capsule 05/06/2025 05/13/2025 Active Estroven (1 source) Estroven Active fluconazole 150 mg oral tablet (2 sources) Azole Antifungal Start: 05-06-2025 End: 05-06-2025 take 1 tablet by mouth once, then take 1 tablet by mouth once fluconazole (Diflucan) 150 MG tablet Indications: Yeast infection Take 1 tablet (150 mg) by mouth 1 (one) time for 1 dose This is a 1 time dose, take single tablet by mouth. 1 tablet 1 05/06/2025 05/06/2025 Active loratadine 10 mg oral tablet (20 sources) loratadine (Claritin) 10 MG tablet Active omeprazole 40 mg delayed release oral capsule (20 sources) Proton Pump Inhibitor Start: 06-01-2025 take 1 capsule by mouth once daily Start: 08-09-2024 take 1 capsule by mo uth before mealtime omeprazole (PriLOSEC) [address] [...] days 45 g 08/04/2024 08/11/2024 Active valACYclovir 1000 mg oral tablet (20 sources) Herpesvirus Nucleoside Analog DNA Polymerase Inhibitor, Herpes Simplex Virus Nucleoside Analog DNA Polymerase Inhibitor, Herpes Zoster Virus Nucleoside Analog DNA Polymerase Inhibitor Start: 03-23-2025 End: 04-02-2025 take 1 tablet by mouth in the morning valACYclovir (Valtrex) 1 g tablet Indications: HSV (herpes simplex virus) infection Take 1 tablet (1,000 mg) by mouth in the morning and 1 tablet (1,000 mg) before bedtime. Do all this for 10 days. 20 tablet 03/23/2025 04/02/2025 Active Start: 07-29-2024 End: 01-25-2025 take 1 tablet [...] End: 09-01-2024 cholecalciferol (Vitamin D-3) 50 MCG (1999) capsule 1 capsule 1 (one) time each day at the same time 09/01/2024 Discontinued hydrocortisone acetate 10 mg/ml / pramoxine hydrochloride 10 mg/ml rectal foam (12 sources) Corticosteroid Start: 04-15-2024 End: 07-29-2024 Hydrocort-Pramoxine , Perianal, (Proctofoam HC) 1-1 % foam Indications: [...] tablet (11 sources) alpha-Adrenergic Agonist End: 09-01-2024 loratadine-pseudoep hedrine ER (Alavert Allergy/Sinus) 5-120 MG 12 hr [...] Date Documented Da te Episodic/Chronic Abdominal pain (5 sources) Right upper quadrant pain; Translations: [Right upper quadrant pain] Onset: 08-18-2024 12-17-2024 Episodic Administrative/social admission (2 sources) Patient encounter status; Translations: [Person consulting for explanation of examination or test findings] 08-04-2024 Episodic Anxiety disorders (1 source) Anxiety disorder, unspecified; Translations: [ANXIETY DISORDER UNSPECIFIED] Onset: 12-03-2022 Chronic Calculus of urinary tract (1 source) Calculus of ureter; Translations: [Calculus of ureter] Onset: 08-18-2024 Episodic Cancer of rectum and anus (3 sources) Malignant tumor of anus; 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, unspecified] Onset: 06-08-2025 06-08-2025 Chronic E Codes: Fall (1 source) Fall Onset: 06-29-2024 Esophageal disorders (2 sources) Gastro-esophageal reflux disease without esophagitis; Translations: [Gastroesophageal reflux disease] Onset: 12-03-2022 Chronic Essential hypertension (1 source) Hypertensive disorder Onset: 10-06-2024 Chronic Genitourinary symptoms and ill-defined conditions (4 sources) Dysuria; Translations: [Dysuria] 03-23-2025 Episodic Headache; including migraine (4 sources) Headache; including migraine; Translations: [HEADACHE UNSPECIFIED] Onset: 11-29-2022 Hypertension with complications and secondary hypertension (1 source) Secondary hypertension, unspecified; Translations: [Secondary hypertension, unspecified] Onset: 10-06-2024 Chronic Inflammatory diseases of female pelvic organs (4 sources) Bacterial vaginosis; Translations: [Acute vaginitis] 08-04-2024 Episodic Mycoses (6 sources) Mycosis; Translations: [Candidiasis, unspecified] 08-04-2024 Episodic Nonspecific chest pain (1 source) Chest pain, unspecified; Translations: [Chest pain, unspecified] Onset: 10-06-2024 Episodic Other aftercare (1 source) Other senior care (current) drug therapy; Translations: [OTH USP CURRENT DRUG THERAPY] Onset: 12-03-2022 Episodic Other connective tissue disease (6 sources) Full thickness rotator cuff tear; Translations: [Complete rotator cuff tear or rupture of right shoulder, not specified as traumatic] 08-05-2024 Episodic Other female genital disorders (4 sources) Vaginal discharge; Translations: [Other specified noninflammatory disorders of vagina] 06-11-2024 Episodic Other female genital disorders (4 sources) Vaginal irritation; Translations: [Other specified noninflammatory disorders of vagina] 06-11-2024 Episodic Other female genital disorders (4 sources) Vaginal odor; Translations: [Other specified noninflammatory [...] Translations: [Diarrhea, unspecified] Episodic Other gastrointestinal disorders (3 sources) Constipation; Translations: [Constipation, unspecified] 12-17-2024 Episodic Other non-traumatic joint disorders (2 sources) [...] right wrist] Episodic Other non-traumatic joint disorders (5 sources) Pain in right shoulder; Translations: [Pain in joint, shoulder region] Onset: 06-29-2024 06-29-2024 Episodic Other non-traumatic joint disorders (6 sources) [...] Throat, Anxiety Onset: 12-06-2023 Urinary tract infections (10 sources) Urinary tract infectious disease; Translations: [Urinary tract infection, site not specified] 07-29-2024 Episodic Viral infection (2 sources) Herpes simplex; Translations: [Herpesviral infection, unspecified] 03-23-2025 Episodic Past or Other Problems Problem Classification Problem Date Documented Date Episodic/Chronic Cancer of cervix (19 sources) Cervical intraepithelial neoplasia grade 1; Translations: [Low grade squamous intraepithelial lesion on cytologic smear of cervix (LGSIL)] Onset: 11-23-2024 11-23-2024 Episodic E Codes: Fall (3 sources) Fall; Translations: [Unspecified fall, initial encounter] Onset: 06-29-2024 06-29-2024 Episodic Immunizations and screening for infectious disease (20 sources) Exposure to sexually transmissible disorder; Translations: [...] shoulder, initial encounter] Onset: 04-06-2024 Episodic Other upper respiratory disease (1 source) [...] Test Name Value Interpretation Reference Range Facility HIV 1/O/2 Antigen/Antibodyon 06-08-2025 HIV Screen 4th Generation Non-Reactive Normal Non Reactive [facility] Comment on above: Result Comment: HIV- 1/HIV-2 antibodies and HIV-1 p24 antigen were NOT detected. There is no laboratory evidence of HIV infection. HIV Negative Performed at: [facility] [id number] Upholstery Sewer: Bruce Osorio PhD, Phone: [phone] PERFORMED BY: [address] [id number] PATHOLOGIST [employer] ARCHITECT MATA VERDE M.D. Performed By: #### H IV SCREEN #### [facility] , RECURRENT VAGINITIS (HTRX)on 05-07-2025 ATOPOBIUM VAGINAE 0 [facility] ATOPOBIUM VAGINAE Not detected [facility] BVAB 2,3 (BACTERIAL VAGINOSIS ASSOCIATED BACTERIA 2, 3); MOBILUNCUS SPP 0 [facility] BVAB 2,3 (BACTERIAL VAGINOSIS ASSOCIATED BACTERIA 2, 3); MOBILUNCUS SPP Not detected [facility] RUBÉN ALBICANS, PARAPSILOSIS, TROPICALIS 0 [facility] RUBÉN ALBICANS, PARAPSILOSIS, TROPICALIS Not detected [facility] RUBÉN GLABRATA 0 [facility] RUBÉN GLABRATA Not detected [facility] RUBÉN KRUSEI 0 [facility] RUBÉN KRUSEI Not detected [facility] CHLAMYDIA TRACHOMATIS 0 [facility] CHLAMYDIA TRACHOMATIS Not detected [facility] GARDNERELLA VAGINALIS 0 [facility] GARDNERELLA VAGINALIS Not detected N [facility] MEGASPHAERA (TYPES 1, 2) 0 [facility] MEGASPHAERA (TYPES 1, 2) Not detected [facility] MYCOPLASMA GENITALIUM 0 [facility] MYCOPLASMA GENITALIUM Not detected N [facility] NEISSERIA GONORRHOEAE 0 [facility] NEISSERIA GONORRHOEAE Not detected N [facility] TRICHOMONAS VAGINALIS 0 [facility] TRICHOMONAS VAGINALIS Not detected N [facility] Urinalysis macro (dipstick) panel (U)on 05-06-2025 Bilirubin, UA Negative Negative - 4(70) +++ mg/dL [facility] Blood, UA Positive Negative - 50 Reinaldo/mcL [facility] Comment on above: 1+ Clarity, UA Clear [facility] Color, UA Yellow [facility] Glucose, UA Negative Negative - 2000(110) ++++ mg/dL [facility] Interpretation and review of laboratory results Abnormal [facility] Ketones, UA Negative Negative - 160(16) ++++ mg/dL [facility] Leukocytes, UA Negative Negative - 500+++ Rowan/mcL [facility] Nitrite, UA Negative Negative - Positive [facility] pH, UA 5 5 - 9 [facility] Protein, UA Negative Negative - 2000(20) ++++ mg/dL [facility] Spec Grav, UA 1.03 1 - 1.03 [facility] Urobilinogen, UA 1.0 0.2 - 12 mg/dL [facility] PATHOLOGY REQUEST FOR LAB CO RPon 04-05-2025 PATHOLOGY REQUEST FOR LAB GELACIO [facility] Comment on above: See report. Scanned copy available in EMR. PERIANAL LESION [facility] RECURRENT VAGINITIS (HTRX)on 03-24-2025 ATOPOBIUM VAGINAE 0 [facility] ATOPOBIUM VAGINAE Not detected [facility] BVAB 2,3 (BACTERIAL VAGINOSIS ASSOCIATED BACTERIA 2, 3); MOBILUNCUS SPP 0 [facility] BVAB 2,3 (BACTERIAL VAGINOSIS ASSOCIATED BACTERIA 2, 3); MOBILUNCUS SPP Not detected [facility] RUBÉN ALBICANS, PARAPSILOSIS, TROPICALIS 0 [facility] RUBÉN ALBICANS, PARAPSILOSIS, TROPICALIS Not detected [facility] RUBÉN GLABRATA 0 [facility] RUBÉN GLABRATA Not detected [facility] RUBÉN KRUSEI 0 [facility] RUBÉN KRUSEI Not detected [facility] CHLAMYDIA TRACHOMATIS 0 [facility] CHLAMYDIA TRACHOMATIS Not detected [facility] GARDNERELLA VAGINALIS 0 [facility] GARDNERELLA VAGINALIS Not detected [facility] MEGASPHAERA (TYPES 1, 2) 0 [facility] MEGASPHAERA (TYPES 1, 2) Not detected [facility] MYCOPLASMA GENITALIUM 0 [facility] MYCOPLASMA GENITALIUM Not detected [facility] NEISSERIA GONORRHOEAE 0 [facility] NEISSERIA GONORRHOEAE Not detected [facility] TRICHOMONAS VAGINALIS 0 [facility] TRICHOMONAS VAGINALIS Not detected [facility] No Panel InformationOrdered By: Lucas Paulino on 03-23-2025 Miscellaneous Pathology Test See comment [facility] Comment on above: See report. Scanned copy available in EMR. Pathology Request for Lab Co rpon 03-23-2025 Pathology Request for Lab Gelacio Normal [facility] Comment on above: Order Comment: PERIA NAL LESION Result Comment: See report. Scanned copy available in EMR. PERFORMED BY: [place] [id number] PATHOLOGIST [employer] ARCHITECT MATA VERDE M.D. Performed By: #### P ATH TO [facility] #### [address] Urinalysis macro (dipstick) panel (U)on 03-23-2025 Bilirubin, UA Negative Negative - 4(70) +++ mg/dL [facility] Blood, UA Positive Negative - 50 Reinaldo/mcL [facility] Comment on above: Trace-intact Clarity, UA Clear [facility] Color, UA Yellow [facility] Glucose, UA Negative Negative - 2000(110) ++++ mg/dL [facility] Interpretation and review of laboratory results Abnormal [facility] Ketones, UA Negative Negative - 160(16) ++++ mg/dL [facility] Leukocytes, UA Negative Negative - 500+++ Rowan/mcL [facility] Nitrite, UA Negative Negative - Positive [facility] pH, UA 5.5 5 - 9 [facility] Protein, UA Negative Negative - 1999(20) ++++ mg/dL [facility] Spec Grav, UA 1.01 1 - 1.03 [facility] Urobilinogen, UA 0.2 0.2 - 12 mg/dL [facility] Urinalysis macro (dipstick) panel (U)on 12-17-2024 Bilirubin, UA Negative Negative - 4(70) +++ mg/dL [facility] Blood, UA Positive Negative - 50 Reinaldo/mcL [facility] Comment on above: Trace-lysed Clarity, UA Clear [facility] Color, UA Yellow [facility] Glucose, UA Negative Negative - 1999(110) ++++ mg/dL [facility] Interpretation and review of laboratory results Abnormal [facility] Ketones, UA Negative Negative - 160(16) ++++ mg/dL [facility] Leukocytes, UA Negative Negative - 500+++ Rowan/mcL [facility] Nitrite, UA Negative Negative - Positive [facility] pH, UA 5.5 5 - 9 [facility] Protein, UA Negative Negative - 1999(20) ++++ mg/dL [facility] Spec Grav, UA 1.02 1 - 1.03 [facility] Urobilinogen, UA 0.2 0.2 - 12 mg/dL [facility] PAP IG, APT HPV RFX 16/18,45 on 11-27-2024 HPV APTIMA Negative Negative [facility] Comment on above: This nucleic acid am plification test detects fourteen high- risk HPV types (16,18,31,33,35,39,45,51,52,56,58,59,66,68) without differentiation. Performed at: [address] [id number] Upholstery Sewer: Bridget Caballero MD, Phone: [phone] Performed at: [facility] [id number] Upholstery Sewer: Bridget Caballero MD, Phone: [phone] Interpretation and review of laboratory results Abnormal [facility] PAP IG (IMAGE GUIDED) Note Abnormal . [facility] Comment on above: TESTS RESULT FLAG UN ITS REF RANGE LAB Clinician Provided Cytology Information Source.............Vagina No. of containers..01 ThinPrep Vial DIAGNOSIS: [A] 01 EPITHELIAL CELL ABNORMALITY. ATYPICAL SQUAMOUS CELLS OF UNDETERMINED SIGNIFICANCE (ASC-US) (VAGINAL). Recommendation: [A] 01 Suggest follow up as clinically appropriate. Specimen adequacy: 01 Satisfactory for evaluation. Performed by: Sade Mauricio, Linoleum Layer Helper ([facility]) Electronically si... Renea Paredes MD, Pathologist . 01 Pathologist ICD10: R87.620 Note: Note 01 The Pap smear [...] <-Panic Low,>-Panic High,A-Abnormal,AA-Critical Abnormal Performed at: [address] [facility] [place] [address] Bridget Caballero MD, SPATULA-ALONE VAGINA [facility] RECURRENT VAGINITIS (HTRX)on 11-24-2024 ATOPOBIUM VAGINAE 26.233 Abnormal [facility] ATOPOBIUM VAGINAE Detected Abnormal [facility] BVAB 2,3 (BACTERIAL VAGINOSIS ASSOCIATED BACTERIA 2, 3); MOBILUNCUS SPP 0 [facility] BVAB 2,3 (BACTERIAL VAGINOSIS ASSOCIATED BACTERIA 2, 3); MOBILUNCUS SPP Not detected [facility] RUBÉN ALBICANS, PARAPSILOSIS, TROPICALIS 0 [facility] RUBÉN ALBICANS, PARAPSILOSIS, TROPICALIS Not detected [facility] RUBÉN GLABRATA 0 [facility] RUBÉN GLABRATA Not detected [facility] RUBÉN KRUSEI 0 [facility] RUBÉN KRUSEI Not detected [facility] CHLAMYDIA TRACHOMATIS 0 [facility] CHLAMYDIA TRACHOMATIS Not detected [facility] ERMB, C; MEFA 18.702 Abnormal [facility] ERMB, C; MEFA Detected Abnormal [facility] GARDNERELLA VAGINALIS 32.548 Abnormal [facility] GARDNERELLA VAGINALIS Detected Abnormal [facility] Interpretation and review of laboratory results Abnormal [facility] MEGASPHAERA (TYPES 1, 2) 0 [facility] MEGASPHAERA (TYPES 1, 2) Not detected [facility] MYCOPLASMA GENITALIUM 0 [facility] MYCOPLASMA GENITALIUM Not detected [facility] NEISSERIA GONORRHOEAE 0 [facility] NEISSERIA GONORRHOEAE Not detected [facility] TRICHOMONAS VAGINALIS 0 [facility] TRICHOMONAS VAGINALIS Not detected [facility] MAMM SCREENING BILATERAL W C steam conditioner operator 11-12-2024 MAMM SCREENING BILATERAL W CAD MAMM SCREENING BILATERAL W CAD NE SWANN 1969 [id number] EXAM: MAMM SCREENING BILATERAL W CAD, 11/11/2024 [...] AM 1 b MAMM 1 YR Normal [facility] DEXA SCAN CENTRAL SKELETALon 11-11-2024 DEXA SCAN [...] Ramirez MD on 11/11/2024 3:38 PM Normal [facility] RECURRENT VAGINITIS (HTRX)on 10-07-2024 ATOPOBIUM VAGINAE 0 [facility] ATOPOBIUM VAGINAE Not detected [facility] BVAB 2,3 (BACTERIAL VAGINOSIS ASSOCIATED BACTERIA 2, 3); MOBILUNCUS SPP 0 [facility] BVAB 2,3 (BACTERIAL VAGINOSIS ASSOCIATED BACTERIA 2, 3); MOBILUNCUS SPP Not detected [facility] RUBÉN ALBICANS, PARAPSILOSIS, TROPICALIS 0 [facility] RUBÉN ALBICANS, PARAPSILOSIS, TROPICALIS Not detected [facility] RUBÉN GLABRATA 0 [facility] RUBÉN GLABRATA Not detected [facility] RUBÉN KRUSEI 0 [facility] RUBÉN KRUSEI Not detected N[facility] CHLAMYDIA TRACHOMATIS 0 [facility] [facility] CHLAMYDIA TRACHOMATIS Not detected [facility] GARDNERELLA VAGINALIS 28.648 Abnormal [facility] GARDNERELLA VAGINALIS Detected Abnormal [facility] Interpretation and review of laboratory results Abnormal [facility] MEGASPHAERA (TYPES 1, 2) 0 [facility] MEGASPHAERA (TYPES 1, 2) Not detected [facility] MYCOPLASMA GENITALIUM 0 [facility] MYCOPLASMA GENITALIUM Not detected [facility] NEISSERIA GONORRHOEAE 0 [facility] NEISSERIA GONORRHOEAE Not detected [facility] TRICHOMONAS VAGINALIS 0 [facility] TRICHOMONAS VAGINALIS Not detected [facility] BASIC METABOLIC PANLon 10-06 Anion gap [Moles/Vol] 9 mmol/L Normal 5-15 [facility] Comment on above: Performed By: #### C OVFLR #### [facility] ([id number]) [address] [place] [address] 16364 Calcium [Mass/Vol] 9.2 mg/dL Normal 8.5-10.5 [facility] Comment on above: Performed By: #### C OVFLR #### [facility] ([id number]) [address] [place] [address] 32423 Chloride [Moles/Vol] 103 mmol/L Normal 98-109 [facility] Comment on above: Performed By: #### C OVFLR #### [facility] ([id number]) [address] [place] [address] 84070 CO2 [Moles/Vol] 25 mmol/L Normal 22-32 [facility] Comment on above: Performed By: #### C OVFLR #### [facility] ([id number]) [address] [place] [address] 35745 Creatinine [Mass/Vol] 1.01 mg/dL High 0.40-1.00 [facility] Comment on above: Result Comment: METH OD TRACEABLE TO IDMS STANDARD Performed By: #### C OVFLR #### [facility] ([id number]) [address] [place] [address] 47928 GFR/1.73 sq M.predicted among non-blacks MDRD (S/P/Bld) [Vol rate/Area] 66 mL/min/{1.73_m2} Normal >59 [facility] Comment on above: Result Comment: Reported eGFR is based on the CKD-EPI 2020 equation that does not use a race coefficient. Performed By: #### C OVFLR #### [facility] ([id number]) [address] [place] [address] 71505 Glucose [Mass/Vol] 106 mg/dL High 65-99 [facility] Comment on above: Performed By: #### C OVFLR #### [facility] ([id number]) [address] [place] [address] 59274 Potassium [Moles/Vol] 3.7 mmol/L Normal 3.5-5.0 [facility] Comment on above: Performed By: #### C OVFLR #### [facility] ([id number]) [address] [place] [address] 31794 Sodium [Moles/Vol] 137 mmol/L Normal 134-146 [facility] Comment on above: Performed By: #### C OVFLR #### [facility] ([id number]) [address] [place] [address] 79509 Urea nitrogen [Mass/Vol] 23 mg/dL Normal 5-23 [facility] Comment on above: Performed By: #### C OVFLR #### [facility] ([id number]) [address] [place] [address] 60775 CBC AND AUTO DIFFon 10-06-19 25 ABSOLUTE BASOPHIL 0.0 X10E9/L Normal 0.0-0.2 [facility] Comment on above: Performed By: #### C OVFLR #### [facility] ([id number]) [address] [place] [address] 89259 ABSOLUTE NEUTROPHIL 6.2 X10E9/L Normal 1.5-6.6 [facility] Comment on above: Performed By: #### C OVFLR #### [facility] ([id number]) [address] [place] [address] 28413 Basophils/100 WBC (Bld) 0.3 % Normal [facility] Comment on above: Performed By: #### C OVFLR #### [facility] ([id number]) [address] [place] [address] 79281 Eosinophils (Bld) [#/Vol] 0.2 10*3/uL Normal 0.0-0.4 [facility] Comment on above: Performed By: #### C OVFLR #### [facility] ([id number]) [address] [place] [address] 96867 Eosinophils/100 WBC (Bld) 2.0 % Normal [facility] Comment on above: Performed By: #### C OVFLR #### [facility] ([id number]) [address] [place] [address] 54339 Erythrocyte distribution width (RBC) [Ratio] 13.9 % Normal 11.5-15.0 [facility] Comment on above: Performed By: #### C OVFLR #### [facility] ([id number]) [address] [place] [address] 14396 Hematocrit (Bld) [Volume fraction] 42.1 % Normal 35-47 [facility] Comment on above: Performed By: #### C OVFLR #### [facility] ([id number]) [address] [place] [address] 11598 Hemoglobin (Bld) [Mass/Vol] 14.0 g/dL Normal 11.7-15.5 [facility] Comment on above: Performed By: #### C OVFLR #### [facility] ([id number]) [address] [place] [address] 00760 Lymphocytes (Bld) [#/Vol] 2.2 10*3/uL Normal 1.0-3.5 [facility] Comment on above: Performed By: #### C OVFLR #### [facility] ([id number]) [address] [place] [address] 66560 Lymphocytes/100 WBC (Bld) 23.6 % Normal [facility] Comment on above: Performed By: #### C OVFLR #### [facility] ([id number]) [address] [place] [address] 67395 MCH (RBC) [Entitic mass] 27.9 pg Normal 27-34 [facility] Comment on above: Performed By: #### C OVFLR #### [facility] ([id number]) [address] [place] [address] 51097 MCHC (RBC) [Mass/Vol] 33.3 g/dL Normal 32-36 [facility] Comment on above: Performed By: #### C OVFLR #### [facility] ([id number]) [address] [place] [address] 70812 MCV (RBC) [Entitic vol] 84 fL Normal 80-100 [facility] Comment on above: Performed By: #### C OVFLR #### [facility] ([id number]) [address] [place] [address] 93024 Monocytes (Bld) [#/Vol] 0.6 10*3/uL Normal 0-0.9 [facility] Comment on above: Performed By: #### C OVFLR #### [facility] ([id number]) [address] [place] [address] 33534 Monocytes/100 WBC (Bld) 6.5 % Normal [facility] Comment on above: Performed By: #### C OVFLR #### [facility] ([id number]) [address] [place] [address] 92785 Neutrophils/100 WBC (Bld) 67.6 % Normal [facility] Comment on above: Performed By: #### C OVFLR #### [facility] ([id number]) [address] [place] [address] 65678 Platelet mean volume (Bld) [Entitic vol] 9.1 fL Normal 7-12 [facility] Comment on above: Performed By: #### C OVFLR #### [facility] ([id number]) [address] [place] [address] 06714 Platelets (Bld) [#/Vol] 198 10*3/uL Normal 150-450 [facility] Comment on above: Performed By: #### C OVFLR #### [facility] ([id number]) [address] [place] [address] 98389 RBC COUNT 5.02 X10E12/L Normal 3.80-5.20 [facility] Comment on above: Performed By: #### C OVFLR #### [facility] ([id number]) [address] [place] [address] 65043 WBC (Bld) [#/Vol] 9.2 10*3/uL Normal 4.0-11.0 [facility] Comment on above: Performed By: #### C OVFLR #### [facility] ([id number]) [address] [place] [address] 90144 Troponin I.cardiac High sens itivity method [Mass/Vol]on 10-06-2024 1 HOUR TROP I, HIGH SENSITIVITY 2 ng/L Normal <16 [facility] Comment on above: Performed By: #### C OVFLR #### [facility] ([id number]) [address] [place] [address] 48969 TROPONIN I, HIGH SENSITIVITY 2 ng/L Normal <16 [facility] Comment on above: Performed By: #### C OVFLR #### [facility] ([id number]) [address] [place] [address] 90624 Urinalysis macro (dipstick) panel (U)on 09-01-2024 Bilirubin, UA Negative Negative - 4(70) +++ mg/dL [facility] Blood, UA Negative Negative - 50 Reinaldo/mcL [facility] Clarity, UA Clear [facility] Color, UA Yellow [facility] Glucose, UA Negative Negative - 1999(110) ++++ mg/dL [facility] Interpretation and review of laboratory results Normal [facility] Ketones, UA Negative Negative - 160(16) ++++ mg/dL [facility] Leukocytes, UA Negative Negative - 500+++ Rowan/mcL [facility] Nitrite, UA Negative Negative - Positive [facility] pH, UA 6 5 - 9 [facility] Protein, UA Negative Negative - 2000(20) ++++ mg/dL [facility] Spec Grav, UA 1.02 1 - 1.03 [facility] Urobilinogen, UA 0.2 0.2 - 12 mg/dL [facility] CBC AND AUTO DIFFon 08-18-20 24 ABSOLUTE BASOPHIL 0.0 X10E9/L Normal 0.0-0.2 [facility] Comment on above: Performed By: #### C OVFLR #### [facility] ([id number]) [address] [place] [address] 74967 ABSOLUTE NEUTROPHIL 5.0 X10E9/L Normal 1.5-6.6 [facility] Comment on above: Performed By: #### C OVFLR #### [facility] ([id number]) [address] [place] [address] 50304 Basophils/100 WBC (Bld) 0.6 % Normal [facility] Comment on above: Performed By: #### C OVFLR #### [facility] ([id number]) [address] [place] [address] 96500 Eosinophils (Bld) [#/Vol] 0.1 10*3/uL Normal 0.0-0.4 [facility] Comment on above: Performed By: #### C OVFLR #### [facility] ([id number]) [address] [place] [address] 44077 Eosinophils/100 WBC (Bld) 1.1 % Normal [facility] Comment on above: Performed By: #### C OVFLR #### [facility] ([id number]) [address] [place] [address] 17515 Erythrocyte distribution width (RBC) [Ratio] 13.9 % Normal 11.5-15.0 [facility] Comment on above: Performed By: #### C OVFLR #### [facility] ([id number]) [address] [place] [address] 00991 Hematocrit (Bld) [Volume fraction] 42.3 % Normal 35-47 [facility] Comment on above: Performed By: #### C OVFLR #### [facility] ([id number]) [address] [place] [address] 98121 Hemoglobin (Bld) [Mass/Vol] 14.3 g/dL Normal 11.7-15.5 [facility] Comment on above: Performed By: #### C OVFLR #### [facility] ([id number]) [address] [place] [address] 21871 Lymphocytes (Bld) [#/Vol] 1.8 10*3/uL Normal 1.0-3.5 [facility] Comment on above: Performed By: #### C OVFLR #### [facility] ([id number]) [address] [place] [address] 80000 Lymphocytes/100 WBC (Bld) 24.9 % Normal [facility] Comment on above: Performed By: #### C OVFLR #### [facility] ([id number]) [address] [place] [address] 15915 MCH (RBC) [Entitic mass] 28.3 pg Normal 27-34 [facility] Comment on above: Performed By: #### C OVFLR #### [facility] ([id number]) [address] [place] [address] 79288 MCHC (RBC) [Mass/Vol] 33.7 g/dL Normal 32-36 [facility] Comment on above: Performed By: #### C OVFLR #### [facility] ([id number]) [address] [place] [address] 23686 MCV (RBC) [Entitic vol] 84 fL Normal 80-100 [facility] Comment on above: Performed By: #### C OVFLR #### [facility] ([id number]) [address] [place] [address] 74856 Monocytes (Bld) [#/Vol] 0.4 10*3/uL Normal 0-0.9 [facility] Comment on above: Performed By: #### C OVFLR #### [facility] ([id number]) [address] [place] [address] 31129 Monocytes/100 WBC (Bld) 5.2 % Normal [facility] Comment on above: Performed By: #### C OVFLR #### [facility] ([id number]) [address] [place] [address] 85946 Neutrophils/100 WBC (Bld) 68.2 % Normal [facility] Comment on above: Performed By: #### C OVFLR #### [facility] ([id number]) [address] [place] [address] 90813 Platelet mean volume (Bld) [Entitic vol] 9.5 fL Normal 7-12 [facility] Comment on above: Performed By: #### C OVFLR #### [facility] ([id number]) [address] [place] [address] 31161 Platelets (Bld) [#/Vol] 203 10*3/uL Normal 150-450 [facility] Comment on above: Performed By: #### C OVFLR #### [facility] ([id number]) [address] [place] [address] 60713 RBC COUNT 5.04 X10E12/L Normal 3.80-5.20 [facility] Comment on above: Performed By: #### C OVFLR #### [facility] ([id number]) [address] [place] [address] 16762 WBC (Bld) [#/Vol] 7.4 10*3/uL Normal 4.0-11.0 [facility] Comment on above: Performed By: #### C OVFLR #### [facility] ([id number]) [address] [place] [address] 22266 COMPREHENSIVE METABOLIC PANE [facility] 08-18-2024 Albumin [Mass/Vol] 4.5 g/dL Normal 3.2-5.3 [facility] Comment on above: Performed By: #### C OVFLR #### [facility] ([id number]) [address] [place] [address] 84948 ALP [Catalytic activity/Vol] 79 U/L Normal 39-130 [facility] Comment on above: Performed By: #### C OVFLR #### [facility] ([id number]) [address] [place] [address] 75881 ALT [Catalytic activity/Vol] 18 U/L Normal 0-31 [facility] Comment on above: Performed By: #### C OVFLR #### [facility] ([id number]) [address] [place] [address] 99318 Anion gap [Moles/Vol] 10 mmol/L Normal 5-15 [facility] Comment on above: Performed By: #### C OVFLR #### [facility] ([id number]) [address] [place] [address] 59817 AST [Catalytic activity/Vol] 20 U/L Normal 0-41 [facility] Comment on above: Performed By: #### C OVFLR #### [facility] ([id number]) [address] [place] [address] [place] [address] Bilirubin [Mass/Vol] 0.8 mg/dL Normal 0.3-1.2 [facility] Comment on above: Performed By: #### C OVFLR #### [facility] ([id number]) [address] [place] [address] 27596 Calcium [Mass/Vol] 9.7 mg/dL Normal 8.5-10.5 [facility] Comment on above: Performed By: #### C OVFLR #### [facility] ([id number]) [address] [place] [address] [place] [address] Chloride [Moles/Vol] 104 mmol/L Normal 98-109 [facility] Comment on above: Performed By: #### C OVFLR #### [facility] ([id number]) [address] [place] [address] 82219 CO2 [Moles/Vol] 24 mmol/L Normal 22-32 [facility] Comment on above: Performed By: #### C OVFLR #### [facility] ([id number]) [address] [place] [address] 24691 Creatinine [Mass/Vol] 0.84 mg/dL Normal 0.40-1.00 [facility] Comment on above: Result Comment: METH OD TRACEABLE TO IDMS STANDARD Performed By: #### C OVFLR #### [facility] ([id number]) [address] [place] [address] 03141 GFR/1.73 sq M.predicted among non-blacks MDRD (S/P/Bld) [Vol rate/Area] 82 mL/min/{1.73_m2} Normal >59 [facility] Comment on above: Result Comment: Reported eGFR is based on the CKD-EPI 2020 equation that does not use a race coefficient. Performed By: #### C OVFLR #### [facility] ([id number]) [address] [place] [address] 12974 Glucose [Mass/Vol] 86 mg/dL Normal 65-99 [facility] Comment on above: Performed By: #### C OVFLR #### [facility] ([id number]) [address] [place] [address] 51585 Potassium [Moles/Vol] 4.2 mmol/L Normal 3.5-5.0 [facility] Comment on above: Performed By: #### C OVFLR #### [facility] ([id number]) [address] [place] [address] 95136 Protein [Mass/Vol] 8.1 g/dL High 6.0-8.0 [facility] Comment on above: Performed By: #### C OVFLR #### [facility] ([id number]) [address] [place] [address] 45653 Sodium [Moles/Vol] 138 mmol/L Normal 134-146 [facility] Comment on above: Performed By: #### C OVFLR #### [facility] ([id number]) [address] [facility], [place] [address] Urea nitrogen [Mass/Vol] 12 mg/dL Normal 5-23 [facility] Comment on above: Performed By: #### C OVFLR #### [facility] ([id number]) [address] [facility], [place] [address] CT ABDOMEN AND PELVIS WO CON Ton [...] Lambert MD on 08/18/2024 8:25 PM Normal [facility] LIPASEon 08-18-2024 Lipase [Catalytic activity/Vol] 34 U/L Normal 17-40 [facility] Comment on above: Performed By: #### C OVFLR #### [facility] ([id number]) [address] [place] [address] 47534 URINE CULTUREon 08-18-2024 Bacteria identified Cx Nom (U) CULTURE RESULTS NO GROWTH AT <1000 CFU/mL Normal [facility] Comment on above: Performed By: #### C OVFLR #### [facility] ([id number]) [address] [place] [address] 27687 URN MACROSCOPIC NURon 2023 BILIRUBIN [facility] Negative Normal NEG [facility] Comment on above: Performed By: #### C OVFLR #### [facility] ([id number]) [address] [place] [address] 19615 BLOOD/HGB [facility] Trace Abnormal NEG [facility] Comment on above: Performed By: #### C OVFLR #### [facility] ([id number]) [address] [place] [address] 15695 GLUCOSE [facility] Negative Normal NEG [facility] Comment on above: Performed By: #### C OVFLR #### [facility] ([id number]) [address] [place] [address] KETONES [facility] Negative Normal NEG [facility] Comment on above: Performed By: #### C OVFLR #### [facility] ([id number]) [address] [place] [address] 66402 LEUKOCYTE ESTERASE [facility] Negative Normal NEG [facility] Comment on above: Performed By: #### C OVFLR #### [facility] ([id number]) [address] [place] [address] 10962 NITRITE [facility] Negative Normal NEG [facility] Comment on above: Performed By: #### C OVFLR #### [facility] ([id number]) [address] [place] [address] 51746 PH [facility] 5.5 Normal 5.0-8.5 [facility] Comment on above: Performed By: #### C OVFLR #### [facility] ([id number]) [address] [place] [address] 68538 PROTEIN [facility] Negative Normal NEG [facility] Comment on above: Performed By: #### C OVFLR #### [facility] ([id number]) [address] [place] [address] 91846 SPECIFIC GRAVITY [facility] 1.015 Normal 1.003-1.035 [facility] Comment on above: Performed By: #### C OVFLR #### [facility] ([id number]) [address] [place] [address] 37937 UROBILINOGEN [facility] 0.2 eu/dL Normal <1.1 [facility] Comment on above: Performed By: #### C OVFLR #### [facility] ([id number]) [address] [place] [address] 77665 Urinalysis macro (dipstick) panel (U)on 08-04-2024 Bilirubin, UA Negative Negative - 4(70) +++ mg/dL [facility] Blood, UA Positive Negative - 50 Reinaldo/mcL [facility] Comment on above: trace Clarity, UA Clear [facility] Color, UA Yellow [facility] Glucose, UA Negative Negative - 1999(110) ++++ mg/dL [facility] Interpretation and review of laboratory results Abnormal [facility] Ketones, UA Negative Negative - 160(16) ++++ mg/dL [facility] Leukocytes, UA Negative Negative - 500+++ Rowan/mcL [facility] Nitrite, UA Negative Negative - Positive [facility] pH, UA 5.5 5 - 9 [facility] Protein, UA Negative Negative - 1999(20) ++++ mg/dL [facility] Spec Grav, UA 1.01 1 - 1.03 [facility] Urobilinogen, UA 0.2 0.2 - 12 mg/dL [facility] RECURRENT VAGINITIS (HTRX)on 07-31-2024 ATOPOBIUM VAGINAE 15.259 Abnormal [facility] ATOPOBIUM VAGINAE Detected Abnormal [facility] BVAB 2,3 (BACTERIAL VAGINOSIS ASSOCIATED BACTERIA 2, 3); MOBILUNCUS SPP 0 [facility] BVAB 2,3 (BACTERIAL VAGINOSIS ASSOCIATED BACTERIA 2, 3); MOBILUNCUS SPP Not detected [facility] RUBÉN ALBICANS, PARAPSILOSIS, TROPICALIS 0 [facility] RUBÉN ALBICANS, PARAPSILOSIS, TROPICALIS Not detected [facility] RUBÉN GLABRATA 0 [facility] RUBÉN GLABRATA Not detected [facility] RUBÉN KRUSEI 0 [facility] RUBÉN KRUSEI Not detected [facility] CHLAMYDIA TRACHOMATIS 0 [facility] CHLAMYDIA TRACHOMATIS Not detected N [facility] ERMB, C; MEFA 16.78 Abnormal [facility] ERMB, C; MEFA Detected Abnormal [facility] GARDNERELLA VAGINALIS 23.99 Abnormal [facility] GARDNERELLA VAGINALIS Detected Abnormal [facility] Interpretation and review of laboratory results Abnormal [facility] MEGASPHAERA (TYPES 1, 2) 0 [facility] MEGASPHAERA (TYPES 1, 2) Not detected [facility] MYCOPLASMA GENITALIUM 0 [facility] MYCOPLASMA GENITALIUM Not detected N [facility] NEISSERIA GONORRHOEAE 0 [facility] NEISSERIA GONORRHOEAE Not detected N [facility] TET B, TET M 19.734 Abnormal [facility] TET B, TET M Detected Abnormal [facility] TRICHOMONAS VAGINALIS 0 [facility] TRICHOMONAS VAGINALIS Not detected N [facility] Urinalysis macro (dipstick) panel (U)on 07-29-2024 Bilirubin, UA Negative Negative - 4(70) +++ mg/dL [facility] Blood, UA Positive Negative - 50 Reinaldo/mcL [facility] Comment on above: moderate Clarity, UA Clear [facility] Color, UA Yellow [facility] Glucose, UA Negative Negative - 1999(110) ++++ mg/dL [facility] Interpretation and review of laboratory results Abnormal [facility] Ketones, UA Negative Negative - 160(16) ++++ mg/dL [facility] Leukocytes, UA Positive Negative - 500+++ Rowan/mcL [facility] Comment on above: large Nitrite, UA Negative Negative - Positive [facility] pH, UA 7 5 - 9 [facility] Protein, UA Negative Negative - 1999(20) ++++ mg/dL [facility] Spec Grav, UA 1.02 1 - 1.03 [facility] Urobilinogen, UA 0.2 0.2 - 12 mg/dL [facility] MR shoulder RT wo conon 07-01 MR shoulder RT wo con [facility] [place] [address] MRI Report Signed Patient: Ne Swann MR#: [id number] : [id number] Acct:[id number] Age/Sex: 54 / F ADM Date: 07/23/24 Loc: [facility] Room: Type: [facility] Attending Dr: José aPrkinson STUDENT RECORDS COORDINATOR-C Copies to: José Parkinson VOICE OVER ANNOUNCER Ordering Provider: José Parkinson CNP Date of Service: 07/23/24 MR/MR shoulder RT wo con: M24.811 ([id number]) XR/XR pre/post mri xray: M24.811 MR RIGHT [...] Teddy Richey M.D.07/23/2024 3:55 PM Dictation Location: [place] [address] Transcribed By: [facility] 07/23/24 0571 Dictated By: Teddy Richey II, MD 07/23/24 9458 Signed By: 07/23/24 7292 [facility] XR Shoulder - right 2 [...] fracture and/or dislocation. Impression: Unremarkable right shoulder. [place] XR Shoulder - right 2 ViewsO rdered By: Jr. Roman on 07-01-2024 [place] Work Phone: CT BRAIN WO CONTon CT [...] Ambriz MD on 06/29/2024 3:59 PM Normal [facility] CT CERVICAL SPINE WO CONTon 06-29-2024 CT [...] Cabrera MD on 06/29/2024 3:54 PM Normal [facility] CT FACIAL BONES WO CONTon CT FACIAL [...] Javan Davila on 06/29/2024 3:57 PM Normal [facility] XR Shoulder - right 2 Viewso n 06-29-2024 Radiology Study observation (narrative) [facility] HIV 1+2 Ab+HIV1 p24 Ag IA Ql on 06-11-2024 HIV 1 and 2 Ab/Ag Screen Non-Reactive Normal NRCT [facility] Comment on above: Result Comment: This information [...] diagnoses. Performed By: #### 5 [id number] #### [facility] ([id number]) [address] [place] [address] Cytology Cervical or vaginal smear or scraping studyon 04-13-2024 [facility] XR HUMERUS RT MIN 2 VWSon XR HUMERUS RT MIN 2 VWS XR HUMERUS RT MIN 2 VWS Right humerus: HISTORY: Humeral pain. 2 views right humerus are obtained. There is no acute osseous, articular, or soft tissue abnormality. IMPRESSION: No acute findings. Finalized by Bruce Armstrong MD on 04/06/2024 8:52 PM Normal [facility] XR SHOULDER RT MIN 2 VWSon 0 [...] Armstrong MD on 04/06/2024 8:46 PM Normal [facility] Fibrin D-dimer DDU (PPP) [Ma ss/Vol]on 02-03-2024 D DIMER 200 ng/mL DDU Normal <255 [facility] Comment on above: Result Comment: Results <255 ng/mL DDU: The presence of a VTE can safely be excluded with a negative D-Dimer result and Wells score. A negative result doesn't exclude the possibility of DIC. The test be repeated along with other diagnostic tests if the patient's symptoms persist or worsen. [email or web address] Performed By: #### 4 [id number] #### [facility] ([id number]) [address] [place] [address] XR KNEE LT 3 VWSon 4 XR [...] Armstrong MD on 02/03/2024 9:41 PM Normal [facility] RAPID STREP SCR NURSINGon S. pyogenes Ag EIA Ql (Throat) Negative Normal NEG [facility] Comment on above: Performed By: #### 6 [id number] #### [facility] ([id number]) [address] [place] [id number] SARS/FLU A+B/RSV by NAAT/Mol ecularon 12-06-2023 SARS/FLU [...] operators who are performing tests using either [employer] Tacones DX or GeneX[employer] Infinity systems and is limited to laboratories that [...] specimen repeat. Fact Sheet for Healthcare Providers: https://www.fda.gov/m edia/363084/download Fact Sheet for Patients: https://www.fda.gov/m edia/395657/download Normal [facility] Comment on above: Performed By: #### C OVFLR #### [facility] ([id number]) [address] [place] [address], [place] [address] PAP ACOG PANEL 2: 30 to 65on 12-06-2022 . . Normal [facility] Comment on above: Result Comment: Perf ormed at: WB Performed By: #### 4 [id number] #### [facility] [address] [place] [address] Dr. Michael Arndt Age Gdln ACOG Testing 30-65 [facility] Comment on above: Performed By: #### 4 [id number] #### [facility] [address] [place] [address] Dr. Michael Arndt DIAGNOSIS: Comment [facility] Comment on above: Result Comment: NEGA TIVE FOR INTRAEPITHELIAL LESION OR MALIGNANCY. Performed at: WB Performed By: #### 4 [id number] #### [facility] [address] [place] [address] Dr. Michael Arndt HPV Aptima Negative Normal Negative [facility] Comment on above: Result Comment: This nucleic acid amplification test detects fourteen high-risk HPV types (16,18,31,33,35,39,45,51,52,56,58,59,66,68) without differentiation. Performed at: =G Performed By: #### 4 [id number] #### [facility] [address] [place] [address] Dr. Michael Arndt HPV Genotype Reflex Comment Normal [facility] Comment on above: Result Comment: Crit eria not met, HPV Genotype not performed. Performed at: WB Performed By: #### 4 [id number] #### [facility] [address] [place] [address] Dr. Michael Arndt Methodology: Comment Normal [facility] Comment on above: Result Comment: This liquid based ThinPrep(R) pap test was screened with the use of an image guided system. Performed at: WB Performed By: #### 4 [id number] #### [facility] [address] [place] [address] Dr. Michael Arndt Note: Comment Normal [facility] Comment on above: Result Comment: The Pap smear is a screening test designed to aid in the detection of premalignant and malignant conditions of the uterine cervix. It is not a diagnostic procedure and should not be used as the sole means of detecting cervical cancer. Both false-positive and false-negative reports do occur. . Performed at: WB Performed By: #### [id number] #### [facility] [address] [place] [address] Dr. Michael Arndt Performed by: Comment Normal [facility] Comment on above: Result Comment: Kenia Puga, Linoleum Layer Helper (ASCP) Performed at: WB Performed By: #### 4 [id number] #### [facility] [address] [place] [address] Dr. Michael Arndt Specimen adequacy: Comment Normal [facility] Comment on above: Result Comment: Sati sfactory for evaluation. Performed at: WB Performed By: #### 4 [id number] #### [facility] [address] [place] [address] Dr. Michael Arndt CBC AUTO DIFFon 11-29-2022 BASO # 0.1 103/ul Normal 0.0-0.1 [facility] Comment on above: Performed By: #### C BC #### [facility] [address] [place] [address] Dr. Michael Arndt Basophils/100 WBC (Bld) 0.6 % Normal 0.2-2.0 [facility] Comment on above: Performed By: #### C BC #### [facility] [address] [place] [address] Dr. Michael Arndt EO # 0.2 103/ul Normal 0.0-0.7 [facility] Comment on above: Performed By: #### C BC #### [facility] [address] [place] [address] Dr. Michael Arndt Eosinophils/100 WBC (Bld) 2.2 % Normal 0.9-7.0 [facility] Comment on above: Performed By: #### C BC #### [facility] [address] [place] [address] Dr. Michael Arndt Erythrocyte distribution width (RBC) [Ratio] 13.2 % Normal 11.0-15.0 [facility] Comment on above: Performed By: #### C BC #### [facility] [address] [place] [address] Dr. Michael Arndt Hematocrit (Bld) [Volume fraction] 42.9 % Normal 36.0-48.0 [facility] Comment on above: Performed By: #### C BC #### [facility] [address] [place] [address] Dr. Michael Arndt Hemoglobin (Bld) [Mass/Vol] 14.0 g/dL Normal 12.0-16.0 [facility] Comment on above: Performed By: #### C BC #### [facility] [address] [place] [address] Dr. Michael Arndt IG # 0.03 10e3/ul Normal 0.00-0.03 [facility] Comment on above: Performed By: #### C BC #### [facility] [address] [place] [address] Dr. Michael Arndt IG % 0.4 % Normal 0.0-0.5 [facility] Comment on above: Performed By: #### C BC #### [facility] [address] [place] [address] Dr. Michael Arndt LYMPH # 2.1 103/ul Normal 1.2-3.8 [facility] Comment on above: Performed By: #### C BC #### [facility] [address] [place] [address] Dr. Michael Arndt Lymphocytes/100 WBC (Bld) 26.2 % Normal 20.5-60.0 [facility] Comment on above: Performed By: #### C BC #### [facility] [address] [place] [address] Dr. Michael Arndt MANUAL DIFF REQ NO Normal [facility] Comment on above: Performed By: #### C BC #### [facility] [address] [place] [address] Dr. Michael Arndt MCH (RBC) [Entitic mass] 27.1 pg Normal 26.7-34.0 [facility] Comment on above: Performed By: #### C BC #### [facility] [address] [place] [address] Dr. Michael Arndt MCHC (RBC) [Mass/Vol] 32.6 g/dL Normal 29.9-35.2 [facility] Comment on above: Performed By: #### C BC #### [facility] [address] [place] [address] Dr. Michael Arndt MCV (RBC) [Entitic vol] 83.1 fL Normal 81.0-99.0 [facility] Comment on above: Performed By: #### C BC #### [facility] [address] [place] [address] Dr. Michael Arndt MONO # 0.5 103/ul Normal 0.3-0.8 [facility] Comment on above: Performed By: #### C BC #### [facility] [address] [address] [address] Michael Arndt Monocytes/100 WBC (Bld) 6.5 % Normal 1.7-12.0 [facility] Comment on above: Performed By: #### C BC #### [facility] [address] [address] [address] Michael Arndt NEUT # 5.2 103/ul Normal 1.4-6.5 [facility] Comment on above: Performed By: #### C BC #### [facility] [address] [place] [address] Dr. Michael Arndt Neutrophils/100 WBC (Bld) 64.1 % Normal 43.0-75.0 [facility] Comment on above: Performed By: #### C BC #### [facility] [address] [place] [address] Dr. Michael Arndt Platelet mean volume (Bld) [Entitic vol] 10.6 fL Normal 9.5-13.5 [facility] Comment on above: Performed By: #### C BC #### [facility] [address] [place] [address] Dr. Michael Arndt PLT 206 103/ul Normal 150-450 [facility] Comment on above: Performed By: #### C BC #### [facility] [address] [place] [address] Dr. Michael Arndt RBC 5.16 106/ul Normal 4.20-5.40 [facility] Comment on above: Performed By: #### C BC #### [facility] [address] [place] [address] Dr. Michael Arndt WBC 8.1 103/ul Normal 4.0-11.0 [facility] Comment on above: Performed By: #### C BC #### [facility] [address] [place] [address] HEAD WO CONon [...] ADRIAN HOOKS Date: 2022-11-29 19:11 Normal [facility] PROF 14(COMP METB)on 023 Albumin [Mass/Vol] 3.9 g/dL Normal 3.4-5.0 [facility] Comment on above: Performed By: #### C MP #### [facility] [address] [place] [address] Dr. Michael Arndt Albumin/Globulin [Mass ratio] 1.0 {ratio} Normal [facility] Comment on above: Performed By: #### C MP #### [facility] [address] [place] [address] Dr. Michael Arndt ALP [Catalytic activity/Vol] 95 U/L Normal 46-116 [facility] Comment on above: Performed By: #### C MP #### [facility] [address] [place] [address] Dr. Michael Arndt ALT [Catalytic activity/Vol] 27 U/L Normal 14-59 [facility] Comment on above: Performed By: #### C MP #### [facility] [address] [place] [address] Dr. Michael Arndt Anion gap [Moles/Vol] 6.7 mmol/L Normal [facility] Comment on above: Performed By: #### C MP #### [facility] [address] [place] [address] Dr. Michael Arndt AST [Catalytic activity/Vol] 30 U/L Normal 15-37 [facility] Comment on above: Performed By: #### C MP #### [facility] [address] [place] [address] Dr. Michael Arndt Bilirubin [Mass/Vol] 0.5 mg/dL Normal 0.2-1.0 [facility] Comment on above: Performed By: #### C MP #### [facility] [address] [address] [address] Michael Arndt Calcium [Mass/Vol] 9.5 mg/dL Normal 8.5-10.1 [facility] Comment on above: Performed By: #### C MP #### [facility] [address] [address] [address] Michael Arndt Chloride [Moles/Vol] 102 mmol/L Normal 98-107 [facility] Comment on above: Performed By: #### C MP #### [facility] [address] [place] [address] Dr. Michael Arndt CO2 [Moles/Vol] 27.9 mmol/L Normal 21.0-32.0 [facility] Comment on above: Performed By: #### C MP #### [facility] [address] [place] [address] Dr. Michael Arndt Creatinine [Mass/Vol] 0.89 mg/dL Normal 0.55-1.02 [facility] Comment on above: Performed By: #### C MP #### [facility] [address] [place] [address] Dr. Michael Arndt EGFR-AF DANISH >60 Normal >=60 [facility] Comment on above: Performed By: #### C MP #### [facility] [address] [place] [address] Dr. Michael Arndt EGFR-NON AF DANISH >60 Normal >=60 [facility] Comment on above: Performed By: #### C MP #### [facility] [address] [place] [address] Dr. Michael Arndt Globulin (S) [Mass/Vol] 4.0 g/dL Normal [facility] Comment on above: Performed By: #### C MP #### [facility] [address] [place] [address] Dr. Michael Arndt Glucose [Mass/Vol] 76 mg/dL Normal 74-106 [facility] Comment on above: Performed By: #### C MP #### [facility] [address] [address] [address] Michael Arndt Potassium [Moles/Vol] 3.6 mmol/L Normal 3.5-5.1 [facility] Comment on above: Performed By: #### C MP #### [facility] [address] [address] [address] Michael Arndt Protein [Mass/Vol] 7.9 g/dL Normal 6.4-8.2 [facility] Comment on above: Performed By: #### C MP #### [facility] [address] [address] [address] Michael Arndt Sodium [Moles/Vol] 133 mmol/L Critically low 136-145 [facility] Comment on above: Performed By: #### C MP #### [facility] [address] [address] [address] Michael Arndt Urea nitrogen [Mass/Vol] 12.0 mg/dL Normal 7.0-18.0 [facility] Comment on above: Performed By: #### C MP #### [facility] [address] [address] [address] Michael Arndt Urea nitrogen/Creatinine [Mass ratio] 13.5 mg/mg Normal [facility] Comment on above: Performed By: #### C MP #### [facility] [address] [address] [address] Michael Arndt SED RATE [facility] 2022 SED RATE 29 mm/hr Normal <=30 [facility] Comment on above: Performed By: #### S EDR #### [facility] [address] [address] [address] Michael Arndt Vital Signs Date Time Vital Sign Value Performing Clinician Facility 06-08-2025 14:34-0400 Body temperature 98.4 [degF] Lucas Jefferson DO Work Phone: [facility] 06-08-2025 14:34-0400 Body weight 89.1 kg Lucas Jefferson DO Work Phone: [facility] 06-08-2025 14:34-0400 Diastolic blood pressure 105 mm[Hg] Lucas Jefferson DO Work Phone: [facility] 06-08-2025 14:34-0400 Heart rate 83 /min Lucas Jefferson DO Work Phone: [facility] 06-08-2025 14:34-0400 Respiratory rate 16 /min Lucas Jefferson DO Work Phone: [facility] 06-08-2025 14:34-0400 SaO2% (BldA) [Mass fraction] 100 % Lucas Jefferson DO Work Phone: [facility] 06-08-2025 14:34-0400 Systolic blood pressure 150 mm[Hg] Lucas Jefferson DO Work Phone: [facility] 05-06-2025 14:26-0400 Body mass index (BMI) [Ratio] 33.44 kg/m2 Pam Miguel Ángel PA Work Phone: [facility] 05-06-2025 14:26-0400 Body weight 88.36 kg Pam Miguel Ángel PA Work Phone: [facility] 05-06-2025 14:26-0400 Diastolic blood pressure 80 mm[Hg] Pam Miguel Ángel PA Work Phone: [facility] 05-06-2025 14:26-0400 Systolic blood pressure 138 mm[Hg] Pam Phippsburg PA Work Phone: [facility] 03-23-2025 13:12-0400 Body mass index (BMI) [Ratio] 33.43 kg/m2 Pam Miguel Ángel PA Work Phone: [facility] 03-23-2025 13:12-0400 Body weight 88.34 kg Pam Miguel Ángel PA Work Phone: [facility] 03-23-2025 13:12-0400 Diastolic blood pressure 84 mm[Hg] Pam Miguel Ángel PA Work Phone: [facility] 03-23-2025 13:12-0400 Systolic blood pressure 126 mm[Hg] Pam Miguel Ángel PA Work Phone: [facility] 12-17-2024 08:44-0400 Body mass index (BMI) [Ratio] 33.44 kg/m2 Pam Miguel Ángel PA Work Phone: [facility] 12-17-2024 08:44-0400 Body weight 88.36 kg Pam Miguel Ángel PA Work Phone: [facility] 12-17-2024 08:44-0400 Diastolic blood pressure 80 mm[Hg] Pam Phippsburg PA Work Phone: [facility] 12-17-2024 08:44-0400 Systolic blood pressure 130 mm[Hg] Pam Miguel Ángel PA Work Phone: [facility] 11-23-2024 11:27-0500 Body mass index (BMI) [Ratio] 33.61 kg/m2 Lucas Jefferson DO Work Phone: [facility] 11-23-2024 11:27-0500 Body weight 88.81 kg Lucas Jefferson DO Work Phone: [facility] 11-23-2024 11:27-0500 Diastolic blood pressure 84 mm[Hg] Lucas Jefferson DO Work Phone: [facility] 11-23-2024 11:27-0500 Systolic blood pressure 140 mm[Hg] Lucas Jefferson DO Work Phone: [facility] 10-06-2024 13:48-0500 Body mass index (BMI) [Ratio] 33.81 kg/m2 Pam Miguel Ángel PA Work Phone: [facility] 10-06-2024 13:48-0500 Body weight 89.36 kg Pam Miguel Ángel PA Work Phone: [facility] 10-06-2024 13:48-0500 Diastolic blood pressure 78 mm[Hg] Pam Miguel Ángel PA Work Phone: [facility] 10-06-2024 13:48-0500 Systolic blood pressure 122 mm[Hg] Pam Phippsburg PA Work Phone: [facility] 09-01-2024 14:41-0500 Body height 162.6 cm Lucas Jefferson DO Work Phone: [facility] 09-01-2024 14:41-0500 Body mass index (BMI) [Ratio] 34.64 kg/m2 Lucas Jefferson DO Work Phone: [facility] 09-01-2024 14:41-0500 Body weight 91.54 kg Lucas Jefferson DO Work Phone: [facility] 09-01-2024 14:41-0500 Diastolic blood pressure 80 mm[Hg] Lucas Jefferson DO Work Phone: [facility] 09-01-2024 14:41-0500 Systolic blood pressure 120 mm[Hg] Lucas Jefferson DO Work Phone: [facility] 08-04-2024 13:32-0500 Body mass index (BMI) [Ratio] 35.96 kg/m2 Lucas Jefferson DO Work Phone: [facility] 08-04-2024 13:32-0500 Body weight 92.08 kg Lucas Jefferson DO Work Phone: [facility] 08-04-2024 13:32-0500 Diastolic blood pressure 74 mm[Hg] Lucas Jefferson DO Work Phone: [facility] 08-04-2024 13:32-0500 Systolic blood pressure 130 mm[Hg] Lucas Jefferson DO Work Phone: [facility] 07-29-2024 15:21-0400 Body mass index (BMI) [Ratio] 35.61 kg/m2 Pam PLUMMER Work Phone: [facility] 07-29-2024 15:21-0400 Body weight 91.17 kg Pam PLUMMER Work Phone: [facility] 06-11-2024 11:24-0400 Body height 160 cm Lucas Jefferson DO Work Phone: [facility] 06-11-2024 11:24-0400 Body mass index (BMI) [Ratio] 35.78 kg/m2 Lucas Jefferson DO Work Phone: [facility] 06-11-2024 11:24-0400 Body weight 91.63 kg Lucas Jefferson DO Work Phone: [facility] 06-11-2024 11:24-0400 Diastolic blood pressure 82 mm[Hg] Lucas Jefferson DO Work Phone: [facility] 06-11-2024 11:24-0400 Systolic blood pressure 130 mm[Hg] Lucas Jefferson DO Work Phone: [facility] Encounters Encounter Date Encounter Type Care Provider Facility Start: 06-10-2025 ambulatory NON STAFF Facility:[facility] Start: 06-08-2025 Registered Recurring Leonie de la fuente MD -[facility] Acute Work Phone: Start: 06-08-2025 End: 06-08-2025 ambulatory NON STAFF [facility] Work Phone: Start: 06-08-2025 End: 06-08-2025 Patient encounter procedure Leonie Krishna MD -[facility] Ambulatory Work Phone: Start: 05-27-2025 Registered Recurring Norm Bolivar MD [facility] Start: 05-06-2025 End: 05-06-2025 Office outpatient visit 15 minutes Pam PLUMMER Work Phone: [facility] Comment on above: Vaginal odor; Yeast infection; Dysuria; E-coli UTI Start: 05-06-2025 End: 05-06-2025 ambulatory PAM DEL ROSARIO Not Available Start: 05-06-2025 End: 05-06-2025 Bamboo flowsheet Pam PLUMMER Work Phone: [facility] Start: 05-06-2025 End: 05-07-2025 Bamboo flowsheet Pam PLUMMER Work Phone: [facility] Start: 05-06-2025 End: 05-07-2025 External Result Encounter Pam PLUMMER Work Phone: [facility] External Department Unsolicited Start: 03-23-2025 End: 03-23-2025 Bamboo flowsheet Pam Del Rosario KAVITHA Work Phone: [facility] Start: 03-23-2025 End: 04-05-2025 Bamboo flowsheet Pam Del Rosario KAVITHA Work Phone: [facility] Start: 03-23-2025 End: 04-05-2025 External Result Encounter Pam Del Rosario KAVITHA Work Phone: [facility] External Department Unsolicited Start: 03-23-2025 End: 03-23-2025 Office outpatient visit 15 minutes Pam Phippsburg PA Work Phone: [facility] Comment on above: Vaginal irritation; Dysuria; HSV (herpes simplex virus) infection Start: 03-23-2025 End: 03-23-2025 ambulatory NON STAFF [facility] Work Phone: Start: 03-23-2025 End: 03-23-2025 Departed Referred Lucas Paulino -[facility] Start: 03-09-2025 End: 03-09-2025 Bamboo flowsheet Jr. Nisha Roman DO Work Phone: [facility] Start: 03-09-2025 End: 03-09-2025 Bamboo flowsheet Jr. Nisha Roman DO Work Phone: [facility] Start: 03-09-2025 End: 03-09-2025 Office outpatient visit 15 minutes Jr. Nisha Roman DO Work Phone: [facility] Comment on above: Right shoulder pain, unspecified chronicity (Primary Dx); Complete tear of right rotator cuff, unspecified whether traumatic Start: 03-09-2025 End: 03-09-2025 ambulatory NISHA SCOTT Not Available Start: 03-04-2025 Registered Recurring Norm Bolivar MD - [facility] Start: 12-17-2024 End: 12-17-2024 Bamboo flowsheet Pam PLUMMER Work Phone: [facility] Start: 12-17-2024 End: 12-17-2024 Bamboo flowsheet Pam PLUMMER Work Phone: [facility] Start: 12-17-2024 End: 12-17-2024 Office outpatient visit 15 minutes Pam PLUMMER Work Phone: [facility] Comment on above: Constipation, unspec ified constipation type (Primary Dx); Vaginal pain; Vaginal discharge Start: 12-17-2024 End: 12-17-2024 ambulatory PAM DEL ROSARIO Not Available Start: 11-23-2024 End: 11-23-2024 Bamboo flowsheet Lucas Jefferson DO Work Phone: [facility] Start: 11-23-2024 End: 11-27-2024 Bamboo flowsheet Lucas Jefferson DO Work Phone: [facility] Start: 11-23-2024 End: 11-27-2024 Clinisync Result Encounter Lucas Jefferson DO Work Phone: [facility] External Department Unsolicited Start: 11-23-2024 End: 11-24-2024 External Result Encounter Lucas Jefferson DO Work Phone: [facility] External Department Unsolicited Start: 11-23-2024 End: 11-23-2024 Office outpatient visit 15 minutes Lucas Jefferson DO Work Phone: [facility] Comment on above: 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 Nisha Cruz Stepanic DO Work Phone: [facility] Comment on above: Complete tear of rig ht rotator cuff, unspecified whether traumatic (Primary Dx); Chronic right shoulder pain Start: 10-20-2024 End: 10-20-2024 ambulatory NISHA SCOTT STEPANIC Not Available Start: 10-06-2024 End: 10-06-2024 Bamboo flowsheet Pam PLUMMER Work Phone: [facility] Start: 10-06-2024 End: 10-07-2024 Bamboo flowsheet Pam PLUMMER Work Phone: [facility] Start: 10-06-2024 End: 10-07-2024 External Result Encounter Pam PLUMMER Work Phone: [facility] External Department Unsolicited Start: 10-06-2024 End: 10-06-2024 ambulatory PAM DEL ROSARIO Not Available Start: 10-06-2024 End: 10-06-2024 Office outpatient visit 15 minutes Pam PLUMMER Work Phone: [facility] Comment on above: Exposure to STD; Vaginal burning; BV (bacterial vaginosis) Start: 10-06-2024 End: 10-06-2024 Emergency department patient visit [facility] Start: 09-01-2024 End: 09-01-2024 Office outpatient visit 15 minutes Lucas Jefferson DO Work Phone: [facility] Comment on above: E-coli UTI; Yeast infection Start: 09-01-2024 End: 09-01-2024 ambulatory LUCAS JEFFERSON Not Available Start: 09-01-2024 End: 09-01-2024 Bamboo flowsheet Lucas Jefferson DO Work Phone: [facility] Start: 09-01-2024 End: 09-01-2024 Bamboo flowsheet Lucas Jefferson DO Work Phone: [facility] Start: 08-18-2024 End: 08-18-2024 Emergency department patient visit [facility] Start: 08-05-2024 End: 08-05-2024 Office outpatient visit 15 minutes José Parkinson STUDENT RECORDS COORDINATOR Work Phone: [facility] Comment on above: Complete tear of rig ht rotator cuff, unspecified whether traumatic (Primary Dx); Chronic right shoulder pain Start: 08-05-2024 End: 08-05-2024 ambulatory JOSÉ PARKINSON Not Available Start: 08-04-2024 End: 08-04-2024 Bamboo flowsheet Lucas Jefferson DO Work Phone: [facility] Start: 08-04-2024 End: 08-04-2024 Bamboo flowsheet Lucas Jefferson DO Work Phone: [facility] Start: 08-04-2024 End: 08-04-2024 ambulatory LUCAS JEFFERSON Not Available Start: 08-04-2024 End: 08-04-2024 Office outpatient visit 15 minutes Lucas Jefferson DO Work Phone: [facility] Comment on above: Encounter to discuss test results; BV (bacterial vaginosis); E-coli UTI; Urinary tract infection without hematuria, site unspecified; Yeast infection Start: 07-29-2024 End: 07-29-2024 Office outpatient visit 15 minutes Pam PLUMMER Work Phone: [facility] Comment on above: Exposure to STD; Urinary tract infection without hematuria, site unspecified Start: 07-29-2024 End: 07-29-2024 ambulatory PAM DEL ROSARIO Not Available Start: 07-29-2024 End: 07-31-2024 External Result Encounter Pam PLUMMER Work Phone: [facility] Unsolicited Start: 07-29-2024 End: 07-31-2024 External Result Encounter Pam PLUMMER Work Phone: [facility] External Department Unsolicited Start: 07-23-2024 End: 07-23-2024 Patient encounter procedure [facility] [address] Work Phone: Start: 07-23-2024 End: 07-23-2024 ambulatory NON STAFF [facility] Work Phone: Start: 07-10-2024 Registered [facility] Start: 07-08-2024 End: 07-14-2024 Telephone encounter José Parkinson NP Work Phone: [facility] Start: 07-02-2024 End: 07-02-2024 Telephone encounter José Parkinson NP Work Phone: [facility] Start: 06-29-2024 End: 06-29-2024 Emergency department patient visit [facility] Start: 06-29-2024 End: 06-29-2024 Office outpatient [...] Start: 06-11-2024 End: 06-11-2024 [facility] Start: 06-11-2024 End: 06-11-2024 Office outpatient visit 15 minutes Lucas Jefferson DO Work Phone: [facility] Comment on above: Vaginal discharge; Sexually transmitted disease exposure; Vaginal irritation; Vaginal odor Start: 06-11-2024 End: 06-11-2024 ambulatory LUCAS JEFFERSON Not Available Start: 06-10-2024 End: 06-10-2024 Office outpatient visit 10 minutes José Parkinson NP Work Phone: [facility] Comment on above: Strain of tendon of right rotator cuff, subsequent encounter (Primary Dx); Chronic right shoulder pain Start: 06-10-2024 End: 06-10-2024 ambulatory JOSÉ PARKINSON Not Available Start: 06-10-2024 End: 06-10-2024 Bamboo flowsheet José Parkinson STUDENT RECORDS COORDINATOR Work Phone: [facility] Start: 06-10-2024 End: 06-10-2024 Bamboo flowsheet José Parkinson STUDENT RECORDS COORDINATOR Work Phone: [facility] Start: 05-12-2024 End: 05-12-2024 ambulatory LUCAS PAULINO Not Available Start: 04-06-2024 End: 04-07-2024 Emergency department patient visit [facility] Start: 04-06-2024 End: 04-07-2024 Emergency department patient visit [facility] Start: 02-03-2024 End: 02-04-2024 Emergency department patient visit [facility] Start: 12-06-2023 End: 12-06-2023 Emergency department patient visit [facility] Start: 12-14-2022 End: 12-14-2022 ambulatory Bob Marinelli Other [facility] Other Start: 12-14-2022 Telephone encounter Bob Reyes [facility] Start: 11-29-2022 End: 11-29-[address] DOCTOR MUSTAFA Facility:[facility] Start: 11-28-2022 End: 11-28-[address] LUCAS PAULINO . Facility:[facility] Start: 03-18-2017 End: 03-19-2017 Ambulatory LINDA NUÑEZ Facility:[facility] Procedures Date Procedure Procedure Detail Performing Clinician Start: 05-06-2025 RECURRENT VAGINITIS (HTRX) Pam PLUMMER Work Phone: Start: 05-06-2025 Urnls dip stick/tabl et rgnt non-auto w/o micrscp Pam PLUMMER Work Phone: Start: 03-23-2025 RECURRENT VAGINITIS (HTRX) Pam PLUMMER Work Phone: Start: 03-23-2025 Urnls dip stick/tabl et rgnt non-auto w/o micrscp Pam PLUMMER Work Phone: Start: 03-23-2025 PATHOLOGY REQUEST FO R LAB GELACIO Lucas Jefferson DO Work Phone: Start: 12-17-2024 Urnls dip stick/tabl et rgnt non-auto w/o micrscp Lucas Jefferson DO Work Phone: Start: 11-23-2024 RECURRENT VAGINITIS (HTRX) Lucas Jefferson DO Work Phone: Start: 11-23-2024 PAP IG, APT HPV RFX 16/18,45 Lucas Jefferson DO Work Phone: Start: 10-06-2024 RECURRENT VAGINITIS [...] compl ete minimum 2 views José Parkinson STUDENT RECORDS COORDINATOR Work Phone: Start: 04-13-2024 Cytp cerv/vag auto t hin layer prep mnl screen Lucas Jefferson DO Work Phone: Plan of Treatment Date Care Activity Detail Author Start: 07-06-2025 End: 07-06-2025 Patient encounter procedure [facility] Start: 06-08-2025 [facility] Start: 06-01-2025 End: 06-01-2025 Patient encounter procedure [facility] Start: 05-06-2025 End: 05-06-2025 Patient encounter procedure 05/06/2025 3:00 PM EDT Office Visit [facility] [address] [place] [phone] Pam Del Rosario PA [address] [place], [facility] Arrived [facility] Comment on above: Arrived Start: 04-26-2025 End: 04-26-2025 Patient encounter procedure 04/26/2025 2:40 PM EDT Office Visit [facility] [address] [phone] Lucas Paulino DO [address] [place], [facility] Start: 03-23-2025 End: 03-23-2025 Patient encounter procedure 03/23/2025 1:30 PM EDT Office Visit [facility] [address] [place] [address] Pam Del Rosario, PA [address] [facility] [address] [place], [facility] Arrived [facility] Comment on above: Arrived Start: 03-23-2025 [facility] Start: 03-09-2025 End: 03-09-2025 Patient encounter procedure 03/09/2025 10:45 AM EDT Office Visit [facility] [address] [place] [phone] Jr. Nisha Roman, [address] [facility] [place] [address] Arrived [facility] Comment on above: Arrived Start: 12-29-2024 End: 12-29-2024 Patient encounter procedure 12/29/2024 10:45 AM EDT Office Visit [facility] [address] [place] [phone] Jr. Nisha Roman, DO [address] [facility] [address] [place] [address] [facility] Start: 12-17-2024 End: 12-17-2024 Patient encounter procedure 12/17/2024 9:00 AM EDT Office Visit [facility] [address] [place] [phone] Pam Del Rosario PA [address] [place] [address] Arrived [facility] Comment on above: Arrived Start: 12-01-2024 End: 12-01-2024 Patient encounter procedure 12/01/2024 11:00 AM EST Office Visit [facility] [address] [place] [phone] Jr. Nisha Roman, DO [address] [facility] [address] [place] [address] [facility] Start: 11-23-2024 End: 11-23-2024 Patient encounter procedure 11/23/2024 11:30 AM EST Procedure Visit [facility] [address] [place] [phone] Lucas Paulino, DO [address] [place] [address] Arrived [facility] Comment on above: Arrived Start: 11-12-2024 End: 11-12-2024 Patient encounter procedure 11/12/2024 11:00 AM EST Procedure Visit [facility] [address] [place] [address] Lucas Paulino, DO [address] [facility] [place] [address] [facility] Start: 10-20-2024 End: 10-20-2024 Patient encounter procedure [facility] Comment on above: Arrived Start: 09-09-2024 End: 09-09-2024 Patient encounter procedure 09/09/2024 11:15 AM EST Office Visit [facility] [address] [place] [address] [place] [address] Jr. Nisha Roman, DO [address] [facility] [address] [place] [address] [facility] Start: 09-01-2024 End: 09-01-2024 Patient encounter procedure [facility] Comment on above: Arrived Start: 08-12-2024 End: 08-12-2024 Patient encounter procedure 08/12/2024 1:45 PM EST Office Visit [facility] [address] [place] [address] [place] [phone] Jr. Nisha Roman, DO [address] [facility] [address] [place] [address] [facility] Start: 08-05-2024 End: 08-05-2024 Patient encounter procedure 08/05/2024 1:00 PM EST Office Visit [facility] [address] [place] [phone] José Parkinson, NETTIE [address] [place], [place] [phone] [facility] Start: 07-23-2024 XR pre/post mri xray XR pre/post mri xray [facility] Start: 07-23-2024 [facility] Start: 07-14-2024 End: 07-14-2024 Professional / ancillary services management 07/14/2024 2:30 PM EDT Ancillary Procedure [facility] [address] [place] [address] [place] [phone] [facility] Start: 07-01-2024 End: 07-01-2024 ambulatory 07/01/2024 1:00 PM EDT Evaluation [facility] [address] [place] [phone] Noam Carl, PT [address] [place], [place] [phone] [facility] Start: 06-29-2024 End: 06-29-2024 Patient encounter procedure 06/29/2024 2:15 PM EDT Office Visit [facility] [address] [place] [phone] José Parkinson, STUDENT RECORDS COORDINATOR [address] [place], [place] [phone] Arrived [facility] Comment on above: Arrived Start: 06-29-2024 End: 06-29-2025 MR Shoulder - right WO contrast MR shoulder right wo IV contrast Imaging Routine Internal derangement of right shoulder Expected: 06/29/2024 (Approximate), Expires: 06/29/2025 [facility] Work Phone: Comment on above: Expected: 06/29/2024 (Approximate), Expires: 06/29/2025 Start: 06-11-2024 End: 06-11-2024 Patient encounter procedure 06/11/2024 11:30 AM EDT Office Visit [facility] [address] [place] [phone] Lucas Paulino, [address] [place], [place] [phone] [facility] Start: 06-10-2024 End: 06-10-2024 Patient encounter procedure 06/10/2024 2:30 PM EDT Office Visit [facility] [address] [place] [address] José Parkinson, STUDENT RECORDS COORDINATOR [address] [place] [address] Arrived [facility] Comment on above: Arrived Bacteria identified in Urine by Culture Urine culture Microbiology Routine Vaginal discharge Ordered: 12/17/2024 [facility] Work Phone: Comment on above: Ordered: 12/17/2024 Bacteria identified in Urine by Culture Urine culture Microbiology Routine Dysuria Ordered: 03/23/2025 [facility] Comment on above: Ordered: 03/23/2025 Bacteria identified in Urine by Culture Urine culture Microbiology Routine Vaginal odor Dysuria E-coli UTI Ordered: 05/06/2025 [facility] Comment on above: Ordered: 05/06/2025 CHLAMYDIA TRACHOMATI S (GENITO/STI) CHLAMYDIA TRACHOMATIS (GENITO/STI) Lab Routine Exposure to STD Ordered: 07/29/2024 [facility] Comment on above: Ordered: 07/29/2024 CHLAMYDIA TRACHOMATI S (GENITO/STI) CHLAMYDIA TRACHOMATIS (GENITO/STI) Lab Routine Vaginal discharge Ordered: 06/11/2024 [facility] Comment on above: Ordered: 06/11/2024 CHLAMYDIA TRACHOMATI S (GENITO/STI) CHLAMYDIA TRACHOMATIS (GENITO/STI) Lab Routine STD exposure Ordered: 11/23/2024 [facility] Comment on above: Ordered: 11/23/2024 CHLAMYDIA TRACHOMATI S (GENITO/STI) CHLAMYDIA TRACHOMATIS (GENITO/STI) Lab Routine Vaginal discharge Ordered: 12/17/2024 [facility] Comment on above: Ordered: 12/17/2024 CHLAMYDIA TRACHOMATI S (GENITO/STI) CHLAMYDIA TRACHOMATIS (GENITO/STI) Lab Routine Vaginal irritation Ordered: 03/23/2025 [facility] Comment on above: Ordered: 03/23/2025 CHLAMYDIA TRACHOMATI S (GENITO/STI) CHLAMYDIA TRACHOMATIS (GENITO/STI) Lab Routine Vaginal odor Ordered: 05/06/2025 [facility] Comment on above: Ordered: 05/06/2025 Hepatitis B virus alcantara rface Ag [Presence] in Serum or Plasma by Immunoassay Hepatitis BsAg Lab Routine Vaginal discharge Vaginal irritation Vaginal odor Ordered: 06/11/2024 [facility] Comment on above: Ordered: 06/11/2024 HIV-1/HIV-2 antigen/antibody combination immunoassay HIV-1 and HIV-2 antibodies Lab Routine Sexually transmitted disease exposure Ordered: 06/11/2024 [facility] Comment on above: Ordered: 06/11/2024 Human immunodeficien cy virus antibody test [facility] Neisseria gonorrhoea e DNA [Presence] in Unspecified specimen by ASHLEE with probe detection Neisseria gonorrhea DNA probe, direct Lab Routine Exposure to STD Ordered: 07/29/2024 [facility] Comment on above: Ordered: 07/29/2024 Neisseria gonorrhoea e DNA [Presence] in Unspecified specimen by ASHLEE with probe detection Neisseria gonorrhea DNA probe, direct Lab Routine Vaginal discharge Ordered: 06/11/2024 [facility] Comment on above: Ordered: 06/11/2024 Neisseria gonorrhoea e DNA [Presence] in Unspecified specimen by ASHLEE with probe detection Neisseria gonorrhea DNA probe, direct Lab Routine STD exposure Ordered: 11/23/2024 [facility] Comment on above: Ordered: 11/23/2024 Neisseria gonorrhoea e DNA [Presence] in Unspecified specimen by ASHLEE with probe detection Neisseria gonorrhea DNA probe, direct Lab Routine Vaginal discharge Ordered: 12/17/2024 [facility] Comment on above: Ordered: 12/17/2024 Neisseria gonorrhoea e DNA [Presence] in Unspecified specimen by ASHLEE with probe detection Neisseria gonorrhea DNA probe, direct Lab Routine Vaginal irritation Ordered: 03/23/2025 [facility] Comment on above: Ordered: 03/23/2025 Neisseria gonorrhoea e DNA [Presence] in Unspecified specimen by ASHLEE with probe detection Neisseria gonorrhea DNA probe, direct Lab Routine Vaginal odor Ordered: 05/06/2025 [facility] Comment on above: Ordered: 05/06/2025 Reagin Ab [Presence] in Serum by RPR RPR Lab Routine Vaginal discharge Vaginal irritation Vaginal odor Ordered: 06/11/2024 [facility] Comment on above: Ordered: 06/11/2024 SURESWAB(R) ADVANCED VAGINITIS PLUS, TMA SURESWAB(R) ADVANCED VAGINITIS PLUS, TMA Pathology and Cytology Routine Exposure to STD Ordered: 07/29/2024 [facility] Work Phone: Comment on above: Ordered: 07/29/2024 SURESWAB(R) ADVANCED VAGINITIS PLUS, TMA SURESWAB(R) ADVANCED VAGINITIS PLUS, TMA Pathology and Cytology Routine Vaginal discharge Ordered: 06/11/2024 [facility] [employer] [facility] [employer] Work Phone: Comment on above: Ordered: 06/11/2024 SURESWAB(R) ADVANCED VAGINITIS PLUS, TMA SURESWAB(R) ADVANCED VAGINITIS PLUS, TMA Pathology and Cytology Routine STD exposure Ordered: 11/23/2024 [facility] [employer] Comment on above: Ordered: 11/23/2024 SURESWAB(R) ADVANCED VAGINITIS PLUS, TMA SURESWAB(R) ADVANCED VAGINITIS PLUS, TMA Pathology and Cytology Routine Vaginal discharge Ordered: 12/17/2024 [facility] [employer] Comment on above: Ordered: 12/17/2024 SURESWAB(R) ADVANCED VAGINITIS PLUS, TMA SURESWAB(R) ADVANCED VAGINITIS PLUS, TMA Pathology and Cytology Routine Vaginal irritation Ordered: 03/23/2025 [facility] [employer] Work Phone: Comment on above: Ordered: 03/23/2025 SURESWAB(R) ADVANCED VAGINITIS PLUS, TMA SURESWAB(R) ADVANCED VAGINITIS PLUS, TMA Pathology and Cytology Routine Vaginal odor Ordered: 05/06/2025 [facility] Work Phone: Comment on above: Ordered: 05/06/2025 THIN PREP TIS PAP AN D HR HPV DNA THIN PREP TIS PAP AND HR HPV DNA Pathology and Cytology Routine LGSIL of cervix of undetermined significance Ordered: 11/23/2024 [facility] [employer] Work Phone: Comment on above: Ordered: 11/23/2024 Payers Date Payer Category Payer Self-pay [id number] 2020 Medicare ANTHEM MEDICARE ADVANTAGE ANTHEM MEDICARE ADVANTAGE [id number] 2020-Present [address] [place] [address] [id number] 2020 Medicare (Managed Care) KAY ARGUETA ADVANTAGE [id number] 2019 Medicaid [id number]. [id number] 1969 Unknown [id number] 2.16.840.1.571480.3.579.2. 593 1969 Unknown [id number] 2.16.840.1.459684.3.579.2. 593 1969 Unknown [id number] 2.16.840.1.647831.3.579.2. 1286 1969 Unknown [id number] 2.16.840.1.819517.3.579.2. 1286 1969 Unknown [id number] 2.16.840.1.431075.3.579.2. 1286 1969 Unknown [id number] 2.16.840.1.458283.3.579.2. 1286 1969 Unknown [id number] 2.16.840.1.319021.3.579.2. 1286 1969 Unknown [id number] 2.16.840.1.320595.3.579.2. 1286 1969 Unknown [id number] 2.16.840.1.767701.3.579.2. 1286 1969 Unknown [id number] 2.16.840.1.893229.3.579.2. 1286 1969 Unknown [id number] 2.16.840.1.690989.3.579.2. 1286 1969 Unknown [id number] 2.16.840.1.069238.3.579.2. 6 1969 Unknown [id number] 2.16.840.1.345464.3.579.2. 6 1969 Unknown [id number] 2.16.840.1.627574.3.579.2. 1285 1969 Unknown [id number] 2.16.840.1.984007.3.579.2. 1285 1969 Unknown [id number] 2.16.840.1.843845.3.579.2. 1258 1969 Unknown [id number] 2.16.840.1.105723.3.579.2. 1258 1969 Unknown [id number] 2.16.840.1.594858.3.579.2. 1258 1969 Unknown [id number] 2.16.840.1.077317.3.579.2. 1258 1969 Unknown [id number] 2.16.840.1.837949.3.579.2. 1258 1969 Unknown [id number] 2.16.840.1.144684.3.579.2. 1258 1969 Unknown [id number] 2.16.840.1.800125.3.579.2. 1258 1969 Unknown [id number] 2.16.840.1.809887.3.579.2. 1258 1969 Unknown [id number] 2.16.840.1.703231.3.579.2. 1258 1969 Unknown [id number] 2.16.840.1.643221.3.579.2. 1258 1969 Unknown [id number] 2.16.840.1.430909.3.579.2. 1258 1969 Unknown [id number] 2.16.840.1.577642.3.579.2. 1259 1969 Unknown [id number] 2.16.840.1.474508.3.579.2. 9 1969 Unknown [id number] 2.16.840.1.326754.3.579.2. 9 1969 Unknown [id number] 2.16.840.1.444096.3.579.2. 9 1969 Unknown [id number] 2.16.840.1.011093.3.579.2. 1259 1959 Medicaid [id number] 1959 Unknown [id number] Medicaid [id number] Unknown [id number] 2.16.840.1.046443.3.579.2. 531 Unknown [id number] 2.16.840.1.106655.3.579.2. 531 Unknown [id number] 2.16.840.1.137287.3.579.2. 531 Unknown [id number] 2.16.840.1.758398.3.579.2. 531 Social History Date Type Detail Facility Unknown if ever smoked [facility] Other Start: 10-20-2024 End: 03-09-2025 Sex Assigned At [employer] Other Tobacco smoking status NVIS Tobacco smoking consumption unknown [facility] Start: 1970 Sex assigned at Not on file [facility] Start: 02-04-2018 Tobacco smoking status NVIS Never smoked tobacco (finding) [facility] Start: 1970 Sex Assigned At Female F [facility] Start: 10-20-2024 End: 06-08-2025 Tobacco smoking status NVIS Ex-smoker [facility] History of tobacco use Current smoker [facility] History of tobacco use Cigarette Smoker [facility] Start: 10-20-2024 Tobacco use and exposure Smokeless tobacco non-user [facility] Start: 10-20-2024 End: 05-06-2025 Alcoholic beverage intake Current drinker of alcohol (finding) [facility] Start: 10-20-2024 End: 03-09-2025 History of Social function [facility] Sex Female (finding) [facility] Clinical Notes 06-10-2024 to 03-23-2025 KAVITHA Saldivar - 03/23/2025 1:30 PM EDTJr. Nisha Roman, DO - 03/09/2025 10:45 AM KAVITHA Penaloza - 12/17/2024 9:00 AM JUANITSdavid Cadena LPN - 11/23/2024 11:30 AM EST Note Date & Type Note Facility 03-23-2025 History of Present illness Narrative Images from the original note were not included. Reason for Appointment: Patient ID: Ne Swann is a 54 y.o. female who presents for Vaginal Irritation Patient presents today for Acute Visit. MEDICATIONS Current Outpatient Medications Medication Instructions cephalexin (KEFLEX) 500 mg, Oral, As needed cetirizine (ZYRTEC) 10 mg, Nightly loratadine (Claritin) 10 MG tablet omeprazole (PRILOSEC) 40 mg, Daily before breakfast ALLERGIES Allergies Allergen Reactions Clarithromycin Anaphylaxis Other [...] Past Medical History: Diagnosis Date Arthritis Depression Elevated cholesterol Female bladder prolapse VIOLET (generalized anxiety disorder) Hypertension IBS (irritable bowel syndrome) Seizures (HCC) Venous stasis HISTORY PAST MEDICAL HISTORY SOCIAL HISTORY Past Medical History: Diagnosis Date Arthritis Depression Elevated cholesterol Female bladder prolapse VIOLET (generalized anxiety disorder) Hypertension IBS (irritable bowel syndrome) Seizures (HCC) Venous stasis Social History Tobacco Use Smoking [...] Cardiovascular: Negative. Gastrointestinal: Negative. Genitourinary: Positive for vaginal pain. Musculoskeletal: Negative. Skin: Negative. Perineal lesion on right Neurological: Negative. All other systems reviewed and are negative. Hematological: Negative. Endocrine: Negative. Allergic/Immunologic: Negative. OBJECTIVE Objective: Physical Exam Constitutional: Appearance: Normal appearance. She is well-developed. Genitourinary: Vulva normal. Genitourinary Comments: Vascular like lesion probable condyloma Cardiovascular: Rate and Rhythm: Normal rate and [...] nursing note reviewed. Exam conducted with a knife operator present. Vitals: Estimated body mass index is 33.43 kg/m as calculated from the following: Height as of 09/01/24: 5' 4 . Weight as of this encounter: 194 lb 12 oz. BP: 126/84 No LMP recorded. Patient has had a hysterectomy. ASSESSMENT & PLAN ICD-10-CM 1. Vaginal irritation N89.8 SURESWAB(R) ADVANCED VAGINITIS PLUS, TMA CHLAMYDIA TRACHOMATIS (GENITO/STI) Neisseria gonorrhea DNA probe, direct POCT urinalysis dipstick manually resulted 2. Dysuria R30.0 Urine culture Pt presents with vaginal and perineal irritation. Cultures obtained. Pt advised to take valtrex. Pt voiced understanding. Pt has a small lesion on right perineal area. patient was placed in dorsal lithotomy position and was draped in normal fashion. Area cleansed with alcohol, lidocaine injected after allowing sufficient time to take affect. tack picker and scissors used to remove affected area. Placed in formalin and sent to pathology. Post-procedure instructions given. Pt to follow up with Dr Paulino. Rx for valtrex faxed to pharmacy Follow Up: In one month with Dr Paulino Documented by Fabiola Flores LPN on behalf of: KAVITHA Saldivar documented in this encounter [facility] 03-09-2025 History of Present illness Narrative Images from the original note were not included. HISTORY OF PRESENT ILLNESS: EST PT Ne Swann is an 54 y.o. @ female. (EST PT) RT SHOULDER INJURY 04/05/24 (~11MO) - POSSIBLY DISCUSS SURGERY-PT FEARFUL ABOUT SURGERY/ANESTHESIA- IF SURGERY IS NEED SHE WOULD LIKE TO WAIT UNTIL WINTER XRAY EPIC 06/29/24 XRAY [facility] SHOULDER AND HUMERUS 04/06/24 MRI [facility] 07/23/24 (PUSHED THROUGH PACS) DEPO INJECTION 04/08/24 PHYSICIAN DIRECTED HEP NOTES INTERMITTENT DISCOMFORT POSTERIOR SHOULDER- +STIFFNESS- GOOD ROM- SOME WEAKNESS- USES CBD OIL; GOOD RELIEF RT HANDED. TRACY: TRIPPED AND FELL. ON 06/27/24, SHE WENT OUT WITH HER FRIENDS AND TRIPPED ON THE SIDEWALK AND FELL ALLERGIES: Allergies Allergen Reactions Clarithromycin Anaphylaxis Other [...] omeprazole (PRILOSEC) 40 mg, Daily before breakfast PHYSICAL EXAM: Shoulder Musculoskeletal Exam Inspection Right Right shoulder inspection is normal. Ecchymosis: none Peripheral edema: none Atrophy: none Masses: none Palpation Right Crepitus: no crepitus Increased warmth: none Tenderness: present Anterior shoulder: moderate Posterior shoulder: mild AC joint: mild Proximal biceps: [...] types were placed in this encounter. ASSESSMENT: No diagnosis found. PLAN: Patient still refuses surgical intervention for fear of anesthetic. She understands the risks and benefits of waiting on surgical intervention versus surgical intervention. She is willing to except those risks. We'll see her back in June. If Still symptomatic we recommended arthroscopy for rotator cuff tear and SLAP lesion. Questions answered in laymen terms at the bedside. The diagnosis, home exercise plan and any ongoing restrictions/ recommendations reviewed. If unable to be reached in office, I recommend evaluation at nearest Emergency Room if any symptoms worsened or new symptoms develop for requiring urgent evaluation. documented in this encounter [facility] 12-17-2024 History of Present illness Narrative Reason for Appointment: Patient ID: Ne Swann is a 54 y.o. female who presents for Vaginal Pain Patient presents today for Acute Visit. MEDICATIONS Current Outpatient Medications Medication Instructions cephalexin [...] Appearance: Normal appearance. She is normal weight. HENT: Head: Normocephalic. Cardiovascular: Rate and Rhythm: [...] reviewed. Vitals: Estimated body mass index is 33.44 kg/m as calculated from the following: Height as of 09/01/24: 5' 4 . Weight as of this encounter: 194 lb 12.8 oz. BP: 130/80 No LMP recorded. Patient has had a hysterectomy. ASSESSMENT & PLAN ICD-10-CM 1. Vaginal pain R10.2 2. Vaginal discharge N89.8 Urine culture POCT urinalysis dipstick manually resulted SURESWAB(R) ADVANCED VAGINITIS PLUS, TMA CHLAMYDIA TRACHOMATIS (GENITO/STI) Neisseria gonorrhea DNA probe, direct Patient presents for vaginal cultures. Patient concerned of vaginal odor or possible sti. Cultures obtained today. Patient states history of constipation we will send in colace. Patient to be notified if treatment needed Documented by KAVITHA Saldivar on behalf of: KAVITHA Saldivar documented in this encounter [facility] 11-23-2024 History of Present illness Narrative Reason [...] Hypertension (CMS/HCC) IBS (irritable bowel syndrome) Seizures ([facility]/HCC) Venous stasis Social History Tobacco Use Smoking [...] nursing note reviewed. Exam conducted with a knife operator present. Vitals: Estimated body mass index is [...] Lucas Paulino DO documented in this encounter [facility] 10-20-2024 History of Present [...] FEARFUL ABOUT SURGERY/ANESTHESIA. XRAY EPIC 06/29/24 XRAY [facility] SHOULDER AND HUMERUS 04/06/24 MRI [facility] 07/23/24 (PUSHED THROUGH PACS) DEPO INJECTION 04/08/24 [...] requiring urgent evaluation. documented in this encounter [facility] 10-06-2024 History of Present [...] nursing note reviewed. Exam conducted with a knife operator present. Vitals: Estimated body mass index is [...] of: KAVITHA Saldivar documented in this encounter [facility] 09-01-2024 History of Present illness Narrative [...] Past Medical History: Diagnosis Date Arthritis Depression ([facility]) Female bladder prolapse VIOLET (generalized anxiety disorder) ([facility]) Hypertension ([facility]) IBS (irritable bowel syndrome) Seizures ([facility]) Venous stasis HISTORY PAST MEDICAL HISTORY SOCIAL HISTORY Past Medical History: Diagnosis Date Arthritis Depression ([facility]) Female bladder prolapse VIOLET (generalized anxiety disorder) (CMS/HCC) Hypertension (CMS/HCC) IBS (irritable bowel syndrome) Seizures ([facility]) Venous stasis Social History Tobacco Use Smoking [...] nursing note reviewed. Exam conducted with a knife operator present. Vitals: Estimated body mass index is [...] Lucas Paulino DO documented in this encounter [facility] 08-05-2024 History of Present illness Narrative Images from the original note were not included. NAME: eN Swann : 1970 HISTORY OF PRESENT ILLNESS: Ne Swann is an 54 y.o. @ female. (EST PT) RT SHOULDER INJURY 04/05/24 (4 MTHS), TRIPPED AND FELL. ON 06/27/24, SHE WENT OUT WITH HER FRIENDS AND TRIPPED ON THE SIDEWALK AND FELL. S/P MRI @ [facility] XRAY EPIC 06/29/24 XRAY [facility] SHOULDER AND HUMERUS 04/06/24 MRI [facility] 07/23/24 (PUSHED THROUGH PACS) DEPO INJECTION 04/08/24 PHYSICIAN DIRECTED HEP PAIN DIFFUSE IN SHOULDER, ANTERIOR AND IN AXILLA. DENIES RADIATION DOWN ARM. TAKING TYL PRN. USING ICE AND HEAT PRN. SOMEWHAT IMPROVED ROM. STIFFNESS. INTERMITTENT N/T IN FINGERS. DOES NOT WAKE AT HS. RT HANDED. PAST MEDICAL HISTORY: Past Medical History: Diagnosis Date Arthritis Depression (CMS/HCC) Female bladder prolapse VIOLET (generalized anxiety disorder) ([facility]/HCC) Hypertension (CMS/HCC) IBS (irritable bowel syndrome) Seizures ([facility]/HCC) Venous stasis PAST SURGICAL HISTORY: Past Surgical [...] test due to pain. IMAGING: MRI from [facility] of the right shoulder dated 07/23/2024: 1. [...] develop for requiring urgent evaluation. José Parkinson APRN-VOICE OVER ANNOUNCER documented in this encounter [facility] 08-04-2024 History of Present [...] Lucas Paulino DO documented in this encounter [facility] 07-29-2024 History of Present [...] Past Medical History: Diagnosis Date Arthritis Depression ([facility]) Female bladder prolapse VIOLET (generalized anxiety disorder) [...] vaginal discomfort from having rough sex. Pam Del Rosario visualized some scratches inside the vagina and [...] of: KAVITHA Saldivar documented in this encounter [facility] 07-14-2024 Telephone encounter Note error [facility] 07-14-2024 Miscellaneous Notes error documented in this encounter [facility] 07-02-2024 Telephone encounter Note Patient called asking if she could get her MRI done at [facility]? She called and they have an open machine. [facility] 07-02-2024 Miscellaneous Notes Patient called asking if she could get her MRI done at [facility]? She called and they have an open machine. documented in this encounter [facility] 06-29-2024 History of Present [...] xray of humerus and right shoulder from [facility] 04/06/24 which showed no acute findings. [...] develop for requiring urgent evaluation. José Parkinson, DEJA-VOICE OVER ANNOUNCER documented in this encounter [facility] 06-11-2024 History of Present [...] Female bladder prolapse VIOLET (generalized anxiety disorder) ([facility]) Hypertension ([facility]) IBS (irritable bowel syndrome) Seizures ([facility]/HCC) Venous stasis HISTORY PAST MEDICAL HISTORY SOCIAL HISTORY Past Medical History: Diagnosis Date Arthritis Depression (CMS/HCC) Female bladder prolapse VIOLET (generalized anxiety disorder) ([facility]) Hypertension ([facility]/HCC) IBS (irritable bowel syndrome) Seizures ([facility]) Venous stasis Social History Tobacco Use Smoking [...] nursing note reviewed. Exam conducted with a knife operator present. Vitals: Estimated body mass index is [...] Lucas Paulino DO documented in this encounter [facility] 06-10-2024 History of Present [...] xray of humerus and right shoulder from [facility] 04/06/24 which showed no acute findings. [...] José Parkinson APRN-MAVERICK documented in this encounter [facility] Evaluation note No Information [facility] [employer] Other Evaluation note Diagnosis Internal derangement of right shoulder- Primary Right shoulder pain, unspecified chronicity Fall, initial encounter documented in this encounter [facility] HealthcareEvaluation noteNo assessment information availableWayne Hospital Work Phone: Evaluation note* Diagnosis Exposure to STD Urinary tract infection without hematuria, site unspecified documented in this encounter [facility] HealthcareEvaluation note* Diagnosis Complete tear of right rotator cuff, unspecified whether traumatic- Primary Chronic right shoulder pain Pain in joint, shoulder region documented in this encounter [facility] HealthcareEvaluation note* Diagnosis Encounter to discuss test results Other specified counseling BV (bacterial vaginosis) Unspecified vaginitis and vulvovaginitis E-coli UTI Urinary tract infection without hematuria, site unspecified Yeast infection documented in this encounter [facility] HealthcareEvaluation note* Diagnosis E-coli UTI Yeast infection documented in this encounter [facility] HealthcareEvaluation note* Diagnosis Strain of tendon of right rotator cuff, subsequent encounter- Primary Chronic right shoulder pain Pain in joint, shoulder region documented in this encounter [facility] HealthcareEvaluation note* Diagnosis Vaginal discharge Leukorrhea, not specified as infective Sexually transmitted disease exposure Contact with or exposure to venereal diseases Vaginal irritation Pruritus of genital organs Vaginal odor Unspecified symptom associated with female genital organs documented in this encounter [facility] HealthcareEvaluation note* Diagnosis Exposure to STD Vaginal burning Other specified symptom associated with female genital organs BV (bacterial vaginosis) Unspecified vaginitis and vulvovaginitis documented in this encounter [facility] HealthcareEvaluation note* Diagnosis Complete tear of right rotator cuff, unspecified whether traumatic- Primary Chronic right shoulder pain Pain in joint, shoulder region documented in this encounter [facility] HealthcareEvaluation note* Diagnosis LGSIL of cervix of undetermined significance STD exposure documented in this encounter [facility] HealthcareEvaluation note* Diagnosis Constipation, unspecified constipation type- Primary Vaginal pain Unspecified symptom associated with female genital organs Vaginal discharge Leukorrhea, not specified as infective documented in this encounter [facility] HealthcareEvaluation note* Diagnosis Right shoulder pain, unspecified chronicity- Primary Complete tear of right rotator cuff, unspecified whether traumatic documented in this encounter [facility] note* Diagnosis Vaginal irritation Pruritus of genital organs Dysuria HSV (herpes simplex virus) infection Herpes simplex without mention of complication documented in this encounter [facility] HealthcareEvaluation note* Diagnosis Vaginal odor Unspecified symptom associated with female genital organs Yeast infection Dysuria E-coli UTI documented in this encounter [facility] HealthcareEvaluation note* Diagnosis Onset Date Resolution Status Admit Date Anal squamous cell carcinoma acute June 08, 2025 2:24pm [facility] Work Phone: History general Narrative - Reported* Type Description Date Medical History Hypertension Medical History hypercholesterolemia Medical History Anxiety Medical History seizures Surgical History GALL BLADDER Surgical History PARTIAL HYSTERECTOMY Surgical History APPENDECTOMY [employer] Other History of Present illness Narrative* KAVITHA Saldivar - 05/06/2025 3:00 PM EDT Reason for Appointment: Patient ID: Ne Swann is a 54 y.o. female who presents for vaginal odor Patient presents today for Vaginal odor. MEDICATIONS Current Outpatient Medications Medication Instructions cetirizine (ZYRTEC) 10 mg, Nightly loratadine (Claritin) 10 MG tablet omeprazole (PRILOSEC) 40 mg, Daily before breakfast ALLERGIES Allergies Allergen Reactions Clarithromycin Anaphylaxis Other [...] Past Medical History: Diagnosis Date Arthritis Depression Elevated cholesterol Female bladder prolapse VIOLET (generalized anxiety disorder) Hypertension IBS (irritable bowel syndrome) Seizures (HCC) Venous stasis HISTORY PAST MEDICAL HISTORY SOCIAL HISTORY Past Medical History: Diagnosis Date Arthritis Depression Elevated cholesterol Female bladder prolapse VIOLET (generalized anxiety disorder) Hypertension IBS (irritable bowel syndrome) Seizures (HCC) Venous stasis Social History Tobacco Use Smoking [...] Appearance: Normal appearance. She is well-developed. Genitourinary: Left Adnexa: no mass present. No cervical discharge. Cardiovascular: Rate and Rhythm: Normal rate and [...] nursing note reviewed. Exam conducted with a knife operator present. Vitals: Estimated body mass index is 33.44 kg/m as calculated from the following: Height as of 09/01/24: 5' 4 . Weight as of this encounter: 194 lb 12.8 oz. BP: 138/80 No LMP recorded. Patient has had a hysterectomy. ASSESSMENT & PLAN ICD-10-CM 1. Vaginal odor N89.8 SURESWAB(R) ADVANCED VAGINITIS PLUS, TMA CHLAMYDIA TRACHOMATIS (GENITO/STI) Neisseria gonorrhea DNA probe, direct POCT urinalysis dipstick manually resulted Patient presents today for Vaginal odor. Patient does have itching and burning. Patient advised we will send in scripts for her and Cultures obtained without difficulty. Urine Culture sent out this time. Patient has follow up for squamous cell carcinoma with dermatolgy is on of this month Documented by Mariel Joshi LPN on behalf of: KAVITHA Saldivar documented in [facility] SystemsReason for referral (narrative)No reason for referral information availableWayne Hospital Work Phone: Summary Purpose Family History No Family History Records Found Relationship Condition Age at Onset Recorded Date/T josh aunt Malignant neoplasm Unknown Unknown mother Unknown Malignant neoplasm Unknown Relationship Condition Age at Onset Recorded Date/T josh aunt Malignant neoplasm Unknown Unknown mother Unknown Malignant neoplasm Unknown Diabetes mellitus Unknown father Heart disease Unknown Hypertension Unknown High blood cholesterol Unknown Advance Directives No Advanced Directives Records Found Advance Directive Response Recorded Date/ Time Advance Directives No May 4:30pm Reason for Referral Specialty Diagnoses / Procedures Referred By Juan gutierrez Referred To Contact Physical Therapy Diagnoses Strain of tendon of right rotator cuff, subsequent encounter Chronic right shoulder pain Procedures ME OFFICE/OUTPATIENT NEW HIGH MDM 60 MINUTES José Parkinson, STUDENT RECORDS COORDINATOR [address] [place] [address] Noam Carl, PT [address] [place] [address] Referral ID Status Reason Start Date Expiration Date Visits Requested Visits Authorized [id number] Pending Review Specialty Services Required 06/10/2024 12/07/2024 1 1 Specialty Diagnoses / Procedures Referred By Juan gutierrez Referred To Contact Radiology Diagnoses Internal derangement of right shoulder Procedures MR shoulder right wo IV contrast José Parkinson, STUDENT RECORDS COORDINATOR [address] [place] [address] [facility] Mr [address] [facility] [address] [place] [address] Referral ID Status Reason Start Date Expiration Date V isits Requested Visits Authorized [id number] Authorized 06/29/2024 12/26/2024 1 1 Chief Complaint and Reason for Visit Chief Complaint m24.811 Chief Complaint Admit Date March 04, 2025 10:50 am Unknown March 23, 2025 9:00 am Chief Complaint Admit Date Unknown March 23, 2025 9:00 am May 27, 2025 11 :15am New Patient, SCC Anus June 08 2:24pm 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 08, 2025 2:25pm 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 Additional Source Comments INFORMATION SOURCE (unrecogn ized section and content) DATE CREATED AUTHOR 03/20/2018 [facility] DATE CREATED AUTHOR AUTHOR'S ORGANIZ ATION 12/07/2022 [facility] DATE CREATED AUTHOR AUTHOR'S ORGANIZ ATION 11/13/2024 [facility] DATE CREATED AUTHOR AUTHOR'S ORGANIZ ATION 05/09/2025 [facility] EPIC DATE CREATED AUTHOR AUTHOR'S ORGANIZ ATION 06/16/2025 [facility] y[facility] REASON FOR VISIT (unrecogniz [...] Reason Comments Pain Reason Comments Repeat Pap Reason Comments Vaginal Pain Reason Comments Vaginal Irritation Reason Comments vaginal odor Care Teams (unrecognized sec tion and content) Team Status: Active Member Role Status Dates Dora Youssef MD Primary Care Provider Active Team Status: Inactive Member Role Status Dates Lucas Paulino DO Attending Provider Active Start : March 23, 2025 End: March 23, 2025 Team Status: Active Member Role Status Dates NON STAFF Primary Care Provider Active Start: May 27, 2025 Manuel Bolivar MD Attending Provider Active Start: May 27, 2025 Team Status: Inactive Member Role Status Dates Dora Youssef MD Primary Care Provider Active S tart: June 08, 2025 End: June 08, 2025 Leonie Krishna MD Attending Provider Active Start: June 08, 2025 End: June 08, 2025 Ihsan Coronado MD Referring Provider Active Start: June 08, 2025 End: June 08, 2025 Team Status: Active Member Role Status Dates Dora Youssef MD Primary Care Provider Active S tart: June 08, 2025 Leonie Krishna MD Attending Provider Active Start: June 08, 2025 Ihsan Coronado MD Referring Provider Active Start: June 08, 2025 Head Worker Relationship Specialty Start Date End Date Brittanie Ferreira MD [address] [place] [address] PCP - General Behavioral Health 04/08/24 Sue Denson MD [address] [place] [address] Referring Physician Family Medicine 04/08/24 Head Worker Relationship Specialty Start Date End Date Brittanie Ferreira MD [address] [place] [address] PCP - General Behavioral Health 04/08/24 Sue Denson MD [address] [place] [address] Referring Physician Family Medicine 04/08/24 Head Worker Relationship Specialty Start Date End Date Brittanie Ferreira MD [address] [place] [address] PCP - General Behavioral Health 04/08/24 Sue Denson MD [address] [place], [place] [id number] Referring Physician Family Medicine 04/08/24 Team Status: [...] July 23, 2024 End: July 23, 2024 Head Worker Relationship Specialty Start Date End Date Brittanie Ferreira MD [address] [place] [address] PCP - General Behavioral Health 04/08/24 Sue Denson MD [address] [place], [place] [id number] Referring Physician Family Medicine 04/08/24 Head Worker Relationship Specialty Start Date End Date Brittanie Ferreira MD [address] [place], [place] [id number] PCP - General Behavioral Health 04/08/24 Sue Denson MD [address] [place] [address] Referring Physician Family Medicine 04/08/24 Head Worker Relationship Specialty Start Date End Date Brittanie Ferreira MD [address] [place] [address] PCP - General Behavioral Health 04/08/24 Sue Denson MD [address] [place] [address] Referring Physician Family Medicine 04/08/24 Head Worker Relationship Specialty Start Date End Date Brittanie Ferreira MD [address] [place] [address] PCP - General Behavioral Health 04/08/24 Sue Denson MD [address] [place] [address] Referring Physician Family Medicine 04/08/24 Head Worker Relationship Specialty Start Date End Date Brittanie Ferreira MD [address] [place] [address] PCP - General Behavioral Health 04/08/24 Sue Denson MD [address] [place] [address] Referring Physician Family Medicine 04/08/24 Head Worker Relationship Specialty Start Date End Date Brittanie Ferreira MD [address] [place] [address] PCP - General Behavioral Health 04/08/24 Sue Denson MD [address] [place] [address] Referring Physician Family Medicine 04/08/24 Head Worker Relationship Specialty Start Date End Date Brittanie Ferreira MD [address] [place] [address] PCP - General Behavioral Health 04/08/24 Sue Denson MD [address] [place] [address] Referring Physician Family Medicine 04/08/24 Head Worker Relationship Specialty Start Date End Date Brittanie [place]reira MD [address] [place] [address] PCP - General Behavioral Health 04/08/24 Sue Denson MD [address] [place] [address] Referring Physician Family Medicine 04/08/24 Head Worker Relationship Specialty Start Date End Date Brittanie Ferreira MD [address] [place] [address] PCP - General Behavioral Health 04/08/24 Sue Denson MD [address] [place] [address] Referring Physician Family Medicine 04/08/24 Head Worker Relationship Specialty Start Date End Date Brittanie Ferreira MD [address] [place], [place] [id number] PCP - General Behavioral Health 04/08/24 Sue Denson MD [address] [place] [address] Referring Physician Family Medicine 04/08/24 Head Worker Relationship Specialty Start Date End Date Brittanie Ferreira MD [address] [place] [address] PCP - General Behavioral Health 04/08/24 Sue Denson MD [address] [place] [address] Referring Physician Family Medicine 04/08/24 Head Worker Relationship Specialty Start Date End Date Brittanie Ferreira MD [address] [place] [address] PCP - General Behavioral Health 04/08/24 Sue Denson MD [address] [place] [address] Referring Physician Family Medicine 04/08/24 Head Worker Relationship Specialty Start Date End Date Brittanie Ferreira MD [address] [place] [address] PCP - General Behavioral Health 04/08/24 Sue Denson MD [address] [place] [place] [address] Referring Physician Family Medicine 04/08/24 Head Worker Relationship Specialty Start Date End Date Brittanie [place] MD [address] [place] [address] PCP - General Behavioral Health 04/08/24 Sue Denson MD [address] [place] [address] Referring Physician Family Medicine 04/08/24 Head Worker Relationship Specialty Start Date End Date Brittanie Ferreira MD [address] [place], [place] [id number] PCP - General Behavioral Health 04/08/24 Sue Denson MD [address] [place], [place] [id number] Referring Physician Family Medicine 04/08/24 Team Status: Active Member Role Status Dates NON STAFF Primary Care Provider Active Start: March 04, 2025 Manuel Bolivar MD Attending Provider Active Start: March 04, 2025 Goals (unrecognized section and content) Goals may [...] BE BASED ON THE PRIMARY CLINICAL RECORDS. [employer] provides no warranty or guarantee of the accuracy or completeness of information in this document.
[2025-06-19 21:40] VITALS: BP 141/99; PULSE 83; TEMP 36.7; O2SAT 96; BMI 33.7
--- NOTE | 2025-06-19 21:58 | ECG_ITS ---
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 Measurements Intervals [place] Rate: 76 P: 44 MT: 200 QRS: 60 QRSD: 84 T: 11 QT: 394 QTc: 425 Interpretive Statements 1100 Sinus rhythm 9110 normal ECG Compared to ECG 07/31/2023 16:25:51 No significant changes Electronically Signed On 06-20-2025 13:56:11 EDT by NISHA CARCAMO M.D.
[2025-06-19 22:28] LABS: Hematocrit 40.0 % (36.0-48.0); Hemoglobin 13.7 g/dL (12.0-16.0); Immature Granulocytes Abs Auto 0.01 10^3/uL (0.00-0.03); Immature Granulocytes Pct Auto 0.2 % (0.0-0.5); Lymphocytes Absolute Auto 1.6 10^3/uL (1.2-3.8); Mean Corpuscular HGB Conc 34.3 g/dL (29.9-35.2); Mean Corpuscular Hemoglobin 28.7 pg (26.7-34.0); Mean Corpuscular Volume 83.7 fL (81.0-99.0); Platelet Count 144 10^3/uL (150-450); Red Blood Count 4.78 10^6/uL (4.20-5.40); White Blood Count 4.1 10^3/uL (4.0-11.0)
[2025-06-19 22:45] LABS: Alanine Aminotransferase 48 U/L (14-59); Albumin Globulin Ratio 1.0; Albumin Level 3.6 g/dL (3.4-5.0); Alkaline Phosphatase 83 U/L (46-116); Anion Gap 12.1; Aspartate Amino Transferase 27 U/L (15-37); Blood Urea Nitrogen 14.0 mg/dL (7.0-18.0); Calcium 8.8 mg/dL (8.5-10.1); Carbon Dioxide 24.5 mmol/L (21.0-32.0); Chloride 106 mmol/L (98-107); Estimated GFR (African America >60 (>=60 mL/min/1.73m^2); Estimated GFR (Non-African Ame >60 (>=60 mL/min/1.73m^2); Globulin 3.5 g/dL; Glucose 100 mg/dL (74-106); Lipase 40.0 U/L (16.0-77.0); Potassium 3.6 mmol/L (3.5-5.1); Sodium 139 mmol/L (136-145); Total Protein 7.1 g/dL (6.4-8.2)
[2025-06-19] MEDS: lidocaine HCL 15 ML, MAG HYDROX/ALUMINUM HYD/SIMETH 30 ML, HYOSCYAMINE SULFATE 0.25 MG PO (23:11)
[2025-06-19] MEDS: FAMOTIDINE/PF 20 MG/2 ML VIAL IV (23:11)
[2025-06-19] MEDS: 0.9 % SODIUM CHLORIDE 1,000 ML 1000 ML IV (23:12)
--- NOTE | 2025-06-20 00:31 | ED_ITS ---
HPI HPI - General Adult General Chief complaint: Abdominal Pain Stated complaint: abdominal pain Time Seen by Provider: 06/19/25 21:35 Mode of arrival: walk-in Limitations: no limitations History of Present Illness HPI narrative: Patient is a 54-year-old female presenting to the emergency department for evaluation of abdominal pain. Patient states that she has had abdominal pain for the last 2 days. She states was seen at an outside ED yesterday for the same complaint. She states they did blood work, which was normal. She states that the pain is located upper part of her abdomen and feels burning in nature. She also endorses nausea without vomiting. She has been having mild amount of diarrhea. She states she has a history of IBS. She also has a history of prior appendectomy and cholecystectomy. She denies fevers or chills. No chest pain or shortness of breath. Related Data Home Medications ?Medication ?Instructions ?Recorded ?Confirmed cetirizine 10 mg tablet 10 mg PO DAILY 03/14/2311/28 clonazepam 0.5 mg tablet 0.5 mg PO DAILY PRN anxiety 03/14/23 12/11/24 omeprazole 40 mg capsule,delayed 40 mg PO DAILY 12/11/24 release Previous Rx's ?Medication ?Instructions ?Recorded hydroxyzine HCl 50 mg tablet 50 mg PO TID PRN itching #10 tabs 12/11/24 ondansetron 4 mg disintegrating 4 mg PO Q4H PRN nausea and 12/11/24 tablet vomiting 3 days #6 tabs Allergies Allergy/AdvReac Type Severity Reaction Status Date / Time azithromycin Allergy Unknown Anaphylaxis Verified 12/11/24 18:25 dicyclomine (From Bentyl) Allergy Unknown Anxiety Verified 12/11/24 18:25 metoclopramide (From Reglan) Allergy Unknown Agitated Verified 12/11/24 18:25 Review of Systems ROS Status of ROS 10 or more systems reviewed and unremark able except as noted in history and below PFSH PFSH Social History Smoking status: Former smoker Little interest or pleasure in doing things: not at all Feeling down, depressed, or hopeless: not at all Exam Narrative Exam Narrative: CONSTITUTIONAL: Well-appearing, answering questions and following commands appropriately SKIN: Was warm and dry. EYES: Sclerae white. EARS, NOSE, THROAT: Moist oral mucosa. RESPIRATORY: Clear to auscultation bilaterally, no wheezes, crackles, or stridor, no use of accessory muscles CARDIOVASCULAR: Normal rate and regular rhythm. There is no S3, S4, murmur, rub. GASTROINTESTINAL: Abdomen soft, nontender, and nondistended. No rebound tenderness or guarding. Nondistended. MUSCULOSKELETAL: No peripheral edema. NEUROLOGIC: Patient is awake and alert. Facies were symmetrical. Constitutional Vital Signs, click to edit/add: Last Vital Signs Temp 98.1 F 06/19/25 21:40 Pulse 83 06/19/25 21:40 Resp 06/19/25 21:40 BP 141/99 H 06/19/25 21:40 Pulse Ox 96 06/19/25 21:40 O2 Del Method Room Air 06/19/25 21:40 Course Vital Signs Vital signs: Vital Signs Temperature 98.1 F 06/19/25 21:40 Pulse Rate 83 06/19/25 21:40 Respiratory Rate 06/19/25 21:40 Blood Pressure 141/99 H 06/19/25 21:40 Pulse Oximetry 96 06/19/25 21:40 Oxygen Delivery Method Room Air 06/19/25 21:40 Temperature 98.1 F 06/19/25 21:40 Pulse Rate 83 06/19/25 21:40 Respiratory Rate 06/19/25 21:40 Blood Pressure 141/99 H 06/19/25 21:40 Pulse Oximetry 96 06/19/25 21:40 Oxygen Delivery Method Room Air 06/19/25 21:40 Medical Decision Making MDM Narrative Medical decision making narrative: Patient is a 54-year-old female presenting to the emergency department for 2-day history of upper abdominal pain, nausea, and diarrhea. Her vital signs on arrival are within normal limits. She is afebrile and hemodynamically stable. On examination, the patient points to the upper part of her abdomen when asked where her pain is. However, she has no abdominal tenderness and no peritoneal signs. She overall appears well and not significantly dehydrated. Differential diagnose includes gastroenteritis, gastritis, GERD, IBS exacerbation, pancreatitis. Patient's exam is not consistent with surgical etiologies of abdominal pain such as perforated viscus. IV was established and laboratory studies were obtained. She was given IV Zofran, IV famotidine, and GI cocktail for symptomatic treatment. Laboratory studies were unremarkable. No significant electrolyte or metabolic derangement. No evidence of acute kidney injury. No anemia, leukocytosis, or thrombocytopenia. No transaminitis or hyperbilirubinemia. Troponin nonelevated. Lipase nonelevated. 12 Lead EKG: Normal sinus rhythm at a normal rate. Normal axis. No ST segment elevations. QRS, [place], and QTc interval within normal limits. Final impression: normal sinus rhythm without evidence of acute myocardial ischemia On reevaluation, patient feels somewhat improved. She has had no active vomiting while in the ED. Her abdomen remains nontender on repeat examination. I do believe the patient is stable for discharge. They were instructed to follow up with her outpatient physicians as previously scheduled. Return precautions were given including any new or worsening symptoms. Patient understands and agrees to the plan. FINAL IMPRESSION: #Acute epigastric abdominal pain and diarrhea, likely gastroenteritis #History of IBS DISPOSITION: Discharged home CONDITION: Good Medical Records Medical records reviewed: Yes I reviewed the patient's medical records Lab Data Lab results reviewed: Yes I reviewed the patient's lab results Labs: Lab Results 06/19/25 Range/Units 22:16 WBC 4.1 (4.0-11.0) 10^3/uL RBC 4.78 (4.20-5.40) 10^6/uL Hgb 13.7 (12.0-16.0) g/dL Hct 40.0 (36.0-48.0) % MCV 83.7 (81.0-99.0) fL MCH 28.7 (26.7-34.0) pg MCHC 34.3 (29.9-35.2) g/dL RDW 12.9 (11.0-15.0) % Plt Count 144 L (150-450) 10^3/uL MPV 11.1 (9.5-13.5) fL Neut % (Auto) 49.6 (43.0-75.0) % Lymph % (Auto) 39.5 (20.5-60.0) % [place] % (Auto) 9.0 (1.7-12.0) % Eos % (Auto) 1.2 (0.9-7.0) % Baso % (Auto) 0.5 (0.2-2.0) % Neut # (Auto) 2.0 (1.4-6.5) 10^3/uL Lymph # (Auto) 1.6 (1.2-3.8) 10^3/uL [place] # (Auto) 0.4 (0.3-0.8) 10^3/uL Eos # (Auto) 0.1 (0.0-0.7) 10^3/uL Baso # (Auto) 0.0 (0.0-0.1) 10^3/uL Abs Immat Gran (auto) 0.01 (0.00-0.03) 10^3/uL Imm/Tot Granulo (auto) 0.2 (0.0-0.5) % Sodium 139 (136-145) mmol/L Potassium 3.6 (3.5-5.1) mmol/L Chloride 106 (98-107) mmol/L Carbon Dioxide 24.5 (21.0-32.0) mmol/L Anion Gap 12.1 BUN 14.0 (7.0-18.0) mg/dL Creatinine 0.85 (0.55-1.02) mg/dL Est GFR ( Amer) >60 (>=60 mL/min/1.73m^2) Est GFR (Non-Af Amer) >60 (>=60 mL/min/1.73m^2) BUN/Creatinine Ratio 16.5 Glucose 100 (74-106) mg/dL Calcium 8.8 (8.5-10.1) mg/dL Total Bilirubin 0.5 (0.2-1.0) mg/dL AST 27 (15-37) U/L ALT 48 (14-59) U/L Alkaline Phosphatase 83 (46-116) U/L Troponin I High Sens 22.0 (4.0-51.3) pg/mL Total Protein 7.1 (6.4-8.2) g/dL Albumin 3.6 (3.4-5.0) g/dL Globulin 3.5 g/dL Albumin/Globulin Ratio 1.0 Lipase 40.0 (16.0-77.0) U/L ECG Data Attestation: I personally reviewed and interpreted this ECG as follows: Discharge Plan Discharge Chief Complaint: Abdominal Pain Clinical Impression: Abdominal pain Patient Disposition: Home, Self-Care Time of Disposition Decision: 23:07 Condition: Good Mode of Transportation: Private Vehicle Prescriptions / Home Meds: No Action cetirizine 10 mg tablet 10 mg PO DAILY clonazepam 0.5 mg tablet 0.5 mg PO DAILY PRN (Reason: anxiety) omeprazole 40 mg capsule,delayed release(DR/EC) 40 mg PO DAILY ondansetron 4 mg tablet,disintegrating 4 mg PO Q4H PRN (Reason: nausea and vomiting) 3 Days Qty: 6 0RF hydroxyzine HCl 50 mg tablet 50 mg PO TID PRN (Reason: itching) Qty: 10 0RF Print Language: Slovak Instructions: Abdominal Pain (ED) Referrals: [facility] [Primary Care Provider, Unknown] - 1 week
== END 2025-06-19 23:55 | disposition home or self-care (01) ==
PROVIDERS: Emergency Provider Student in an Organized Health Care Education/Training Program
DX: R10.9 Unspecified abdominal pain (principal); Z90.49 Acquired absence of other specified parts of digestive tract; K58.9 Irritable bowel syndrome, unspecified
CPT/HCPCS: 36415; 80053; 83690; 84484; 85025; 93005; 96361; 96374; 96375; 99285; J2405; J3490

== ENCOUNTER 2025-08-03 18:44 | Outpatient (REF) | payer MEDICARE, MEDICAID, SELFPAY ==
--- OUTSIDE RECORDS SUMMARY | 2025-03-09 09:45 | XMS_ITS ---
Author Organization [facility] vices Address [address] [place], [place] [id number] Care Team Providers Care Hemodialysis Patient Care Specialist Name Role Phone Dora Youssef Primary Care Provider Miranda Garcia Unavailable [phone] REASON FOR VISIT 3wk fu lab fu Social History Sex Assigned At : Social History Observation Description Sex Assigned At Unknown Encounters Encounter Location Date Provider Diagnosis [address] [id number] 03/09/2025 Dora Youssef Plan Of Treatment Next Appt Details Provider Name:Dora Youssef, 11/11/2025 02:45:00 PM, [address] [place], [address], Progress Notes * Ne SWANN PDOB: [birth year] (55 yo F)Acc No.[id number]:03/09/2025 Medical Note Patient: Gianni STEINERNe :?Dora Youssef MDDOB:1970???Age:54 Y???Sex: FemaleDate:03/09/2025Phone:[phone]:[address] [place] [id number] Subjective: * Chief Complaints: * 1 . 3wk fu lab fu. * Medical History: Objective: * Vitals: Assessment: Plan: * Treatment: * Billing Information: * Visit Code: * Procedure Codes: * Electronic signature of Dora Youssef MD on 08/03/2025 at 06:50 PM ESTSign off status: Pending * Provider: Sudha Youssef MD Date: 0 03/09/2025 Generated for Printing/Faxing/eTransmitting on:?08/03/2025 06:50 PM EST
--- OUTSIDE RECORDS SUMMARY | 2025-03-19 05:15 | XMS_ITS ---
Author Organization [facility] vices Address [address] [place] [id number] Care Team Providers Care Drawing Supervisor Name Role Phone Dora Youssef Primary Care Provider [phone] Miranda Garcia [phone] REASON FOR VISIT Rest #18-B Social History Sex Assigned At : Social History Observation Description Sex Assigned At Unknown Encounters Encounter Location Date Provider Diagnosis [facility] [address] [place], [place] [id number] 03/19/2025 Miranda Garcia Plan Of Treatment Next Appt Details Provider Name:Dora Youssef, 11/11/2025 02:45:00 PM, [address] [place] [address], [phone], Progress Notes * Ne SWANN PDOB: [birth year] (55 yo F)Acc No.[id number]:03/19/2025 Patient:?Ne SWANN :?Miranda Garcia DMDDOB:1970???Age:54 Y ???Sex:FemaleDate:03/19/2025Phone:[phone]:[address] [place] [id number]:Dora Youssef Subjective: * Chief Complaints: * 1 . Rest #18-B. * Medical History: Objective: * Vitals: Assessment: Plan: * Treatment: * Billing Information: * Visit Code: * Procedure Codes: * Electronic signature of Miranda Garcia DMD on 08/03/2025 at 06:49 PM ESTSign off status: Pending * Provider: Gianni Garcia DMD Date: 0 03/19/2025 Generated for Printing/Faxing/eTransmitting on:?08/03/2025 06:49 PM EST
--- OUTSIDE RECORDS SUMMARY | 2025-03-25 09:45 | XMS_ITS ---
Author Organization Formerly [facility] vices Address [address] [place], [place] [address] Care Team Providers Care Antenna Rigger Name Role Phone Dora Youssef Primary Care Provider [phone] Miranda Garcia Unavailable [phone] REASON FOR VISIT f/u Lab Social History Sex Assigned At : Social History Observation Description Sex Assigned At Unknown Encounters Encounter Location Date Provider Diagnosis [place] [address] [place] [address] 03/25/2025 Dora Youssef Plan Of Treatment Next Appt Details Provider Name:Dora Youssef, 11/11/2025 02:45:00 PM, [address] [place], [address], Progress Notes * Ne SWANN PDOB: [birth year] (55 yo F)Acc No.[id number]:03/25/2025 Medical Note Patient: Gianni Ne STEINER :?Dora Youssef MDDOB:1970???Age:54 Y???Sex: FemaleDate:03/25/2025Phone:[phone]:[address] [place] [address] Subjective: * Chief Complaints: * 1 . f/u Lab. * Medical History: Objective: * Vitals: Assessment: Plan: * Treatment: * Billing Information: * Visit Code: * Procedure Codes: * Electronic signature of Dora Youssef MD on 08/03/2025 at 06:50 PM ESTSign off status: Pending * Provider: Sudha Youssef MD Date: 0 03/25/2025 Generated for Printing/Faxing/eTransmitting on:?08/03/2025 06:50 PM EST
--- OUTSIDE RECORDS SUMMARY | 2025-04-06 09:45 | XMS_ITS ---
Author Organization [facility]ly [facility] vices Address [address] [place], [place] [address] Care Team Providers Care Engineer Fishing Vessel Name Role Phone Dora Youssef Primary Care Provider Miranda Garcia Unavailable [phone] REASON FOR VISIT Review Labs Social History Sex Assigned At : Social History Observation Description Sex Assigned At Unknown Encounters Encounter Location Date Provider Diagnosis [place] [address] [place] [address] 04/06/2025 Dora Youssef Plan Of Treatment Next Appt Details Provider Name:Dora Youssef, 11/11/2025 02:45:00 PM, [address] [place], [address], Progress Notes * Ne SWANN PDOB: [birth year] (55 yo F)Acc No.[id number]:04/06/2025 Medical Note Patient: Gianni Ne STEINER :?Dora Youssef MDDOB:1970???Age:54 Y???Sex: FemaleDate:04/06/2025Phone:[phone]:[address] [place] [address] Subjective: * Chief Complaints: * 1 . Review Labs. * Medical History: Objective: * Vitals: Assessment: Plan: * Treatment: * Billing Information: * Visit Code: * Procedure Codes: * Electronic signature of Dora Youssef MD on 08/03/2025 at 06:50 PM ESTSign off status: Pending * Provider: Sudha Youssef MD Date: 0 04/06/2025 Generated for Printing/Faxing/eTransmitting on:?08/03/2025 06:50 PM EST
--- OUTSIDE RECORDS SUMMARY | 2025-04-15 09:30 | XMS_ITS ---
Author Organization [facility] vices Address [address] [place], [place] [address] Care Team Providers Care Lure Maker Name Role Phone Dora Youssef Primary Care Provider Miranda Garcia Unavailable [phone] REASON FOR VISIT Review Labs Social History Sex Assigned At : Social History Observation Description Sex Assigned At Unknown Encounters Encounter Location Date Provider Diagnosis [place] [address] [place] [address] 04/15/2025 Dora Youssef Plan Of Treatment Next Appt Details Provider Name:Dora Youssef, 11/11/2025 02:45:00 PM, [address] [place], [address], Progress Notes * Ne SWANN PDOB: [birth year] (55 yo F)Acc No.[id number]:04/15/2025 Medical Note Patient: Gianni Ne STEINER :?Dora Youssef MDDOB:1970???Age:54 Y???Sex: FemaleDate:04/15/2025Phone:[phone]:[address] [place] [address] Subjective: * Chief Complaints: * 1 . Review Labs. * Medical History: Objective: * Vitals: Assessment: Plan: * Treatment: * Billing Information: * Visit Code: * Procedure Codes: * Electronic signature of Dora Youssef MD on 08/03/2025 at 06:49 PM ESTSign off status: Pending * Provider: Sudha Youssef MD Date: 0 04/15/2025 Generated for Printing/Faxing/eTransmitting on:?08/03/2025 06:49 PM EST
--- OUTSIDE RECORDS SUMMARY | 2025-04-29 09:30 | XMS_ITS ---
Author Organization Formerly [facility] vices Address [address] [place], [place] [address] Care Team Providers Care Bender Helper Name Role Phone Dora Youssef Primary Care Provider Miranda Garcia Unavailable [phone] REASON FOR VISIT Review Labs Social History Sex Assigned At : Social History Observation Description Sex Assigned At Unknown Encounters Encounter Location Date Provider Diagnosis [place] [address] [place] [address] 04/29/2025 Dora Youssef Plan Of Treatment Next Appt Details Provider Name:Dora Youssef, 11/11/2025 02:45:00 PM, [address] [place], [address], Progress Notes * Ne SWANN PDOB: [birth year] (55 yo F)Acc No.[id number]:04/29/2025 Patient:?Ne SWANN :?Dora Youssef MDDOB:1970???Age:54 Y???Sex: FemaleDate:04/29/2025Phone:[phone]:[address] [place] [address] Subjective: * Chief Complaints: * 1 . Review Labs. * Medical History: Objective: * Vitals: Assessment: Plan: * Treatment: * Billing Information: * Visit Code: * Procedure Codes: * Electronic signature of Dora Youssef MD on 08/03/2025 at 06:49 PM ESTSign off status: Pending * Provider: Sudha Youssef MD Date: 0 04/29/2025 Generated for Printing/Faxing/eTransmitting on:?08/03/2025 06:49 PM EST
--- OUTSIDE RECORDS SUMMARY | 2025-05-06 11:15 | XMS_ITS ---
Author Organization Formerly [facility] vices Address [address] [place], [place] [address] Care Team Providers Care Overseer Kosher Kitchen Name Role Phone Dora Youssef Primary Care Provider Miranda Garcia Unavailable [phone] REASON FOR VISIT Review Labs Social History Sex Assigned At : Social History Observation Description Sex Assigned At Unknown Encounters Encounter Location Date Provider Diagnosis [place] [address] [place] [address] 05/06/2025 Dora Youssef Plan Of Treatment Next Appt Details Provider Name:Dora Youssef, 11/11/2025 02:45:00 PM, [address] [place], [address], Progress Notes * Ne SWANN PDOB: [birth year] (55 yo F)Acc No.[id number]:05/06/2025 Medical Note Patient: Gianni Ne STEINER :?Dora Youssef MDDOB:1970???Age:54 Y???Sex: FemaleDate:05/06/2025Phone:[phone]:[address] [place] [address] Subjective: * Chief Complaints: * 1 . Review Labs. * Medical History: Objective: * Vitals: Assessment: Plan: * Treatment: * Billing Information: * Visit Code: * Procedure Codes: * Electronic signature of Dora Youssef MD on 08/03/2025 at 06:49 PM ESTSign off status: Pending * Provider: Sudha Youssef MD Date: 0 05/06/2025 Generated for Printing/Faxing/eTransmitting on:?08/03/2025 06:49 PM EST
--- OUTSIDE RECORDS SUMMARY | 2025-06-15 09:45 | XMS_ITS ---
Author Organization [facility] vices Address [address] [place], [place] [address] Care Team Providers Care Icu Manager Name Role Phone Dora Youssef Primary Care Provider Miranda Garcia Unavailable [phone] REASON FOR VISIT stomach ache, nausea Social History Sex Assigned At : Social History Observation Description Sex Assigned At Unknown Encounters Encounter Location Date Provider Diagnosis [place] [address] [place] [address] 06/15/2025 Dora Youssef Plan Of Treatment Next Appt Details Provider Name:Dora Youssef, 11/11/2025 02:45:00 PM, [address] [place], [address], Progress Notes * Ne SWANN PDOB: [birth year] (55 yo F)Acc No.[id number]:06/15/2025 Medical Note Patient: Gianni Ne STEINER :?Dora Youssef MDDOB:1970???Age:54 Y???Sex: FemaleDate:06/15/2025Phone:[phone]:[address] [place] [address] Subjective: * Chief Complaints: * 1 . Stomach ache, nausea. * Medical History: Objective: * Vitals: Assessment: Plan: * Treatment: * Billing Information: * Visit Code: * Procedure Codes: * Electronic signature of Dora Youssef MD on 08/03/2025 at 07:57 AM ESTSign off status: Pending * Provider: Sudha Youssef MD Date: 0 06/15/2025 Generated for Printing/Faxing/eTransmitting on:?08/03/2025 07:57 AM EST
--- OUTSIDE RECORDS SUMMARY | 2025-07-23 08:54 | XMS_ITS | Encounter Summary ---
Author Organization [employer] Address [facility] [place]-[id number] [place] [address] Care Team Providers Care [employer] Equipment Operator Name Role Phone Services, Formerly [facility], [facility]–1983 Primary Care Provider Reason for Referral * Diagnostic Imaging (Routine) - ClosedSpecialtyDiagnoses / ProceduresReferred By ContactReferred To ContactRadiology Diagnoses Mass in rectum Anal cancer (CMS-HCC) Procedures PET CT skull to thigh Quiana Sotelo MD [address] [address] Phone: tel: fax: Referral IDStatusReasonStart DateExpiration DateVisits RequestedVisits [id number]/10/202510/10/202611 Reason for Visit * Diagnostic Imaging (Routine) - ClosedSpecialtyDiagnoses / ProceduresReferred By ContactReferred To ContactRadiology Diagnoses Mass in rectum Anal cancer (CMS-HCC) Procedures PET CT skull to thigh Quiana Sotelo MD [address] [address] Phone: tel: fax: Referral IDStatusReasonStart DateExpiration DateVisits RequestedVisits [id number]/10/202510/10/202611 Encounter Details DateTypeDepartmentCare Team (Latest Contact Info)Ymvqzxocrtg65/24/2025 9:54 AM EDT - 07/23/2025 11:59 PM EDTHospital Encounter [facility] [address] [place] [address] Mass in rectum; Anal cancer ([facility]-H[facility]) Discharge Disposition: Home Social History Tobacco UseTypesPacks/DayYears UsedDateSmoking Tobacco: FormerSmokeless Tobacco: NeverAlcohol UseStandard Drinks/WeekCommentsNo0 (1 standard drink = 0.6 oz pure alcohol)ChildcareAnswerDate IgmiuepgUmdszzexqIcngonn41/12/2019EmploymentAnswer Date SscrnxmtLbsboaoouzYacizyo36/12/2019Hunger ScreeningAnswerDate Recorded Within the past 12 months we worried whether our food would run out before we got money to buy more.Never True10/06/2024Within the past 12 months the food we bought just didn't last and we didn't have money to get more.Never True 10/06/2024Purpose - LifeAnswerDate RecordedPurpose and direction in lifeUnknown 1CommentsNoSex and Gender InformationValueDate RecordedSex Assigned at BirthNot on fileLegal QykGzwmzg66/06/2015 11:23 AM EDTGender IdentityNot on fileSexual OrientationNot on filedocumented as of this encounter Last Filed Vital Signs Vital SignReadingTime TakenCommentsBlood Pressure--Pulse--Temperature-- Respiratory Rate--Oxygen Saturation--Inhaled Oxygen Concentration--Drcjyv43.2 kg (201 lb)07/23/2025 9:00 AM EDTHeight--Body Mass Index35.6109 3:04 PM EDT documented in this encounter Medications at Time of Discharge MedicationSigDispense QuantityRefillsLast FilledStart DateEnd Date azelastine (ASTELIN) 137 mcg (0.1 %) nasal spray 1 spray 2 (two) times a day. cetirizine (ZyrTEC) 10 mg tablet Take 10 mg by mouth nightly. clonazePAM (KlonoPIN) 0.5 mg tablet Take by mouth as needed. clonazePAM (KlonoPIN) 0.5 mg tablet Take 1 tablet (0.5 mg total) by mouth. docusate sodium (COLACE) 100 mg capsule Take 100 mg by mouth daily. ibuprofen (MOTRIN) 800 mg tablet Take 1 tablet (800 mg total) by mouth 3 (three) times a day. 21 tablet 04/06/2024 ketotifen (ZADITOR) 0.025 % (0.035 %) ophthalmic solution 02/06/2019 omeprazole (PriLOSEC) 40 mg capsule Take 40 mg by mouth 2 (two) times a day. ondansetron ODT (ZOFRAN ODT) 4 mg disintegrating tablet Indications:Calculus of distal ureterDissolve 1 tablet (4 mg total) on tongue every 8 (eight) hours as needed for nausea for up to 10 doses. 10 tablet 08/18/2024 tamsulosin (FLOMAX) 0.4 mg capsule Take 1 capsule (0.4 mg total) by mouth in the morning. 7 capsule 4documented as of this encounter Plan of Treatment Not on file documented as of this encounter Procedures Procedure NamePriorityDate/TimeAssociated DiagnosisCommentsPET CT SKULL TO THIGH Isobyxk8907/23/2025 1:08 PM EDT Mass in rectum Anal cancer (CMS-HCC) documented in this encounter Results * PET CT skull to thigh (07/23/2025 1:08 PM EDT)Anatomical RegionLaterality ModalityNuc MedN/APositron Emission Tomography (PET)Specimen (Source) Anatomical Location / LateralityCollection Method / VolumeCollection Time Received Time07/26/2025 9:58 AM EDT Narrative 07/26/2025 10:12 AM EDT History: Rectal mass removed approximately 3 weeks ago. No chemotherapy or radiation treatment at this time Mass in rectum; Anal cancer (CMS-HCC) Procedure: PET/CT performed from skull base to the mid thigh using FDG without complications. Findings: Uptake at the origin of the left hamstring musculature is likely mechanical Multiple hypermetabolic lymph nodes suspicious for neoplasm including right axillary maximum SUV 3.6 and short diameter 8.6 mm Right external iliac History 6.49 and short diameter 8 mm Right obturator maximum SUV 8.97 and short diameter 8.2 mm Right inguinal shows 3 separate lymph nodes with the largest a collection of 2 separate contiguous lymph nodes short diameter 1 cm and maximum SUV 7.3 Right parapharyngeal level 2 maximum SUV 5.19 and short diameter 8.6 mm Nonspecific linear uptake scattered throughout the bowel including rectum but difficult to localizea focal suspicious area within the rectum postoperatively. Hot uptake within the urinary tract, bowel, and oropharynx is likely physiologic. There is no mediastinal or hilar uptake. There are no hot lung nodules. There are no hot liver lesions or adrenal lesions. No pathologic skeletal uptake. Impression: * ??Multiple hypermetabolic lymph nodes involving right parapharyngeal region level 2, right axilla, right external iliac, right obturator, and right inguinal. All these areas are suspicious for metastatic adenopathy. * ??No other suspicious uptake identified currently. Finalized by Malcolm Alvarado MD on 07/26/2025 10:12 AM Procedure Note Malcolm Alvarado MD - 07/26/2025 History: Rectal mass removed approximately 3 weeks ago. No chemotherapy orradiation treatment at this time Mass in rectum; Anal cancer (CMS-HCC) Procedure: PET/CT performed from skull base to the mid thigh using FDG without complications. Findings: Uptake at the origin of the left hamstring musculature is likelymechanical Multiple hypermetabolic lymph nodes suspicious for neoplasm includingright axillary maximum SUV 3.6 and short diameter 8.6 mm Right external iliac History 6.49 and short diameter 8 mm Right obturator maximum SUV 8.97 and short diameter 8.2 mm Right inguinal shows 3 separate lymph nodes with the largest a collectionof 2 separate contiguous lymph nodes short diameter 1 cm and maximum SUV7.3 Right parapharyngeal level 2 maximum SUV 5.19 and short diameter 8.6 mm Nonspecific linear uptake scattered throughout the bowel including rectumbut difficult to localize a focal suspicious area within the rectumpostoperatively. Hot uptake within the urinary tract, bowel, and oropharynx is likelyphysiologic. There is no mediastinal or hilar uptake. There are no hot lung nodules. There are no hot liver lesions or adrenal lesions. No pathologic skeletal uptake. Impression: * Multiple hypermetabolic lymph nodes involving right parapharyngealregion level 2, right axilla, right external iliac, right obturator, andright inguinal. All these areas are suspicious for metastaticadenopathy. * No other suspicious uptake identified currently. Finalized by Malcolm Alvarado MD on 07/26/2025 10:12 AM Authorizing ProviderResult TypeResult StatusEmtariq Sotelo MDIMMisael PET ORDERABLESFinal Result documented in this encounter Visit Diagnoses Diagnosis Mass in rectum Other symptoms involving digestive system Anal cancer (CMS-HCC) Malignant neoplasm of anus, unspecified site documented in this encounter Administered Medications Medication OrderMAR ActionAction DateDoseRateSite fluorodeoxyglucose F 18 (FDG) injection 12.768 millicurie 12.768 millicurie (0.14 adrian curie/kg ?? 91.2 kg), intravenous, Once in imaging, contrast, Radiopharmaceutical, Starting on Sat07/23/25 at 1021, For 1 dose, Indications: diagnostic imaging Indications:diagnostic olnvoofUqjlz16/24/2025 10:46 AM EDT10.62 millicuries sodium chloride 0.9 % flush 10 mL 10 mL, intravenous, As needed, line care, PET CT, Starting on Sat07/23/25 at 1021, For 1 dose Given07/23/2025 10:46 AM EDT10 mLdocumented in this encounter Care Teams Team MemberRelationshipSpecialtyStfonda DateEnd Date [place] [id number] [place], [place] PCP - GeneralFamily Medicine10/06/24documented as of this encounter
--- OUTSIDE RECORDS SUMMARY | 2025-07-29 11:00 | XMS_ITS | Continuity of Care Document ---
Author Organization [facility] Address [address] [place] [address] Phone Care Team Providers Care Senior Project Accountant Name Role Phone Dora Youssef MD Primary Care Provider Leonie Krishna MD Attending Provider Ihsan Coronado MD Referring Provider NON STAFF Primary Care Provider Manuel Hills MD Attending Provider [phone] Care Teams Patient Care Team Team Status: Active Member Role/Relationship Status Dates Dora Youssef MD Primary Care Provider Active Visit Care Team Team Status: Inactive Member Role/Relationship Status Dates Dora Youssef MD Primary Care Provider Active S tart: June 08, 2025 End: June 08, 2025NoHope Monroy ProviderActiveStart: June 08, 2025 End: June 08, 2025Rafael Burrell ProviderActiveStart: June 08, 2025 End: June 08, 2025 Visit Care Team Team Status: Active Member Role/Relationship Status Dates NON STAFF Primary Care Provider Active Start: July 09, 2025 Hope Botello ProviderActiveStart: July 09, 2025 Patient Care Team Team Status: Inactive Member Role/Relationship Status Dates Dora Youssef MD Primary Care Provider Active S tart: July 29, 2025 End: July 29, 2025NoHope Monroy ProviderActiveStart: July 29, 2025 End: July 29, 2025Ihsan Coronado MDReferring ProviderActiveStart: July 29, 2025 Chief Complaint and Reason for Visit Chief Complaint Admit Date New Patient, SCC Anus June 08 2:24pm BH July 09, 2025 1 1:31am Follow Up, Review EUS Findings July 022024 3:19pm 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 Anal squamous cell carcinoma June 3:19pm Reason for Referral Type Reason(s) Provider Provider Contact Information Dorothea ayala Address Start Date Squamous cell carcinoma of anus C21.0 - Malignant neoplasm of anus, unspecifiedSquamous cell carcinoma of anus C21.0 - Malignant neoplasm of anus, unspecifiedSquamous cell carcinoma of anus C21.0 - Malignant neoplasm of anus, czstlvpiijnC26.0 - Malignant neoplasm of anus, unspecifiedN[facility] ONCOLOGYOctober 21.0 - Malignant neoplasm of anus, unspecifiedWeston Fox APRNWork Phone: [phone] [facility] [address]Rikvepb 21.0 - Malignant neoplasm of anus, unspecified@ [facility]BE [place] , [facility] [place] Allergies, Adverse Reactions, Alerts Allergen Type Severity Reaction Last Updated Verified Status Comments clarithromycin Allergy Severe Anaphylaxis June 08, 2025 2:37pm Yes Active Respiratory distress metoclopramide Allergy Severe Anaphylaxis June 08, 2025 2:37pm Yes Active dicyclomineAllergyMildAnxietySept2024 2:37pmYesActivetramadolAllergy MildNauseaSept2024 2:37pmYesActive Social History Smoking Status Status Start Date End Date Date of Observa tion Ex-smoker (finding) June 08, 2025 2:40pm Observation Status Observation Response Date of Response Legal Sex Female (finding) [facility] Family History Relationship Condition Age at Onset Recorded Date/T josh aunt Malignant neoplasm Unknown DeceasedUnknownmotherDeceasedUnknownMalignant neoplasmUnknownDiabetes mellitus UnknownfatherHeart diseaseUnknownDiabetes mellitusUnknownHypertensionUnknownHigh blood cholesterolUnknown Problems Active Problems Problem Diagnosis/Recorded Date Onset Date Stat Anal squamous cell carcinoma June 08, 2025 3:19p m Unknown Active Medications Medication Status Dose Units Route Directions Qty Days Refills S tart Date Stop Date End Date Reason(s) Instructions Adherence Ondansetron 8 mg tablet,disintegrating Active 8 M G PO Every 8 hours as needed for Nausea 30 1Sept2024 12:00amSquamous cell carcinoma of anus Malignant neoplasm of anus, unspecifiedTake one tablet every eight hours as needed for nausea.UnknownCetirizine (Zyrtec) 10 mg objvztOuaybv17ZJKQUegzg as neededSept2024 12:00amUnknownOmeprazole 40 mg capsule,delayed release(DR/EC)Mzxozr77KUFMHrdzcFmzuctdui 2nd, 2025 12:00amUnknownClonazepam (Klonopin) 1 mg nyqyezIhpefx2PDGOTvasc as neededSept2024 12:00am Unknown Vital Signs Vital Reading Result Reference Range Collection Date/Time Weight 89.10 kg June 08, 2025 2:34pmBody Wcsrmzweenv13.4 [degF]97.6-99.0pt2024 2:34pmHeart Rate83 /iyz72-307CdrdztoqpJune 08, 2025 2:34pmRespiratory rate16 /etf36-86Jyaubyqsu 9th, 2025 2:34pmOxygen saturation by Pulse bgcjddaw096 % 95-100pt2024 2:34pmBP Ltqzerug675 mm[Hg]100-140Sept2024 2:34pmBP Txmfdheho397 mm[Hg]60-100Sept2024 2:37zjHblnfg96 [in_i] June 22, 2025 8:26qzRpflii29.10 kgSept2024 2:34pm Advance Directives Advance Directive Response Recorded Date/ Time Advance Directives No May 4:30pm Insurance Providers Guarantor Ne Swann , P Address [address] [address]Xcjzpyu Info.Home Phone: Payer Group Member ID Coverage Type Subscriber Relationship to Subscriber Effective Date Expiration Date Medicaid [id number] Jackson , P Id: [id number] [address] [address] Home Phone: [employer] Medicaid [id number] Jackson , P Id: [id number] [address] [address] Home Phone: Self[employer]them [employer] Dual Adv Disabled Id: [id number] Jackson , P Id: [id number] [address] [address] Home Phone: Self Encounters Encounter Location(s) Arrival/Admit Date Discharge/Departure Date Discharge/Departure Disposition Provider(s) Departed Physician/ Provider Office Visit -[facility] Ambulatory June 08, 2025 2:24pm June 08, 2025 4:00pm Discharged to home care or self care (routine discharge) Leonie Krishna MD Registered [facility] July 09, 2025 1 1:31am Manuel Bolivar MDDeparted Physician/Provider Office Visit-Cancer Center AmbulatoryOct2024 3:19pmOctober 2024 3:59pmDischarged to home care or self care (routine discharge)Leonie Krishna MD Recent Diagnosis Onset Date Admit Date Anal squamous cell carcinoma Unknown Sep tember 2024 2:24pm Anal squamous cell carcinoma Unknown Oct luci 2024 3:19pm Assessments Diagnosis Onset Date Resolution Status Admit Date Anal squamous cell carcinoma acuteSeptember 2024 2:24pmAnal squamous cell carcinomaacuteOctober 2024 3:19pm Plan of Treatment Author Leonie Krishna [facility]AuthoredOctober 2024 3:57pmTumor board presentation next August 04 to review outside PET and path Assessment: 54-year-old female with newly diagnosed 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 I discussed with patient's the implication of her anal cancer diagnosis, HPV positivity (she already follows with [facility] due to abnormal Pap smears) and the need for imaging. Currently the pathologist noted that there was difficulty confirming invasive versus squamous cell carcinoma in situ. Patient was reassured that it appears this tumor was caught early and she may be a candidate for surgery alone. Will refer to Dr. Trejo at for anoscopy and consideration for surgical resection. Patient understands that she will also need an MRI to further evaluate the depth of invasion. Should this be a superficial T1 lesion I would favor surgical excision. Should her disease to be more advanced than what appears on exam we are happy to offer definitive concurrent chemoradiation. Patient communicates her understanding and is agreeable plan. Author Leonie Krishna [facility] ColumbusAuthoredSeptember 2024 8:45amReferral to colorectal surgery for EUS/ anoscopy- Dr. Trejo at . 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 I discussed with patient's the implication of her anal cancer diagnosis, HPV positivity (she already follows with [facility] PRES[facility] due to abnormal Pap smears) and the need for imaging. Currently the pathologist noted that there was difficulty confirming invasive versus squamous cell carcinoma in situ. Patient was reassured that it appears this tumor was caught early and she may be a candidate for surgery alone. Will refer to Dr. Trejo at for anoscopy and consideration for surgical resection. Patient understands that she will also need an MRI to further evaluate the depth of invasion. Should this be a superficial T1 lesion I would favor surgical excision. Should her disease to be more advanced than what appears on exam we are happy to offer definitive concurrent chemoradiation. Patient communicates her understanding and is agreeable plan. Future Tests Future scheduled test information is unavailable Pending Tests Pending diagnostic test information is unavailable Future Visits Future appointment information is unavailable Future Procedures Procedure Name Ordered Date Scheduled Date HIV 1/O/2 Antigen/Antibody June 08, 2025 3 :17pm 1 Days Future Medications Future medication information is unavailable Patient Instructions Patient instructions are unavailable Hospital Discharge Instructions Ambulatory Orders* Referral to Oncology Location: None Selected * Referral to Palliative Medicine Time Frame: 07/29/25, Location: None Selected
--- OUTSIDE RECORDS SUMMARY | 2025-08-03 09:50 | XMS_ITS | Encounter Summary ---
Author Organization [facility] Address [address] [place] [address] Care Team Providers Care Water/Wastewater Project Manager Name Role Phone [facility] Primary Care Provide r Sue Denson MD Unavailable Reason for Visit * ReasonCommentsGynecologic Exam Encounter Details DateTypeDepartmentCare Team (Latest Contact Info)Walchdfyicn10/04/2025 9:50 AM ESTProcedure Visit [facility] [address] [id number] Lucas Paulino DO [address] [place], [place] [id number] Atypical squamous cell changes of undetermined significance (ASCUS) on vaginal cytology; Pap smear to confirm normal after abnormal result; H/O: hysterectomy Social History Tobacco UseTypesPacks/DayYears UsedDateSmoking Tobacco: FormerCigarettes Smokeless Tobacco: NeverAlcohol UseStandard Drinks/WeekCommentsYes0 (1 standard drink = 0.6 oz pure alcohol)CommentsNoSex and Gender InformationValue Date RecordedSex Assigned at BirthNot on fileLegal KhuKebxxt75/15/2023 6:38 PM EDTGender IdentityNot on fileSexual OrientationNot on filedocumented as of this encounter Last Filed Vital Signs Vital SignReadingTime TakenCommentsBlood Swztjjha138/7808/03/2025 10:16 AM EST Pulse--Temperature--Respiratory Rate--Oxygen Saturation--Inhaled Oxygen Concentration--Jadsfv57.2 kg (190 lb)08/03/2025 10:16 AM ZUPVinuzb396.6 cm (5' 4 )08/03/2025 10:16 AM ESTBody Mass Index32.6108/03/2025 10:16 AM ESTdocumented in this encounter Plan of Treatment DateTypeDepartmentCare Team (Latest Contact Info)Fbrnkeruxeq38/11/2025 11:00 AM ESTOffice Visit [facility] [address] [facility] [place] [id number] Jr. Dalton Roman, DO [address] [facility] [address] [place] [address] 02/08/2026 1:00 PM EDTProcedure Visit [facility] [address] [id number] Lucas Paulino, DO [address] [place] [address] NameTypePriorityAssociated DiagnosesOrder ScheduleTHIN PREP TIS PAP AND HR HPV DNAPathology and CytologyRoutine Atypical squamous cell changes of undetermined significance (ASCUS) on vaginal cytology Pap smear to confirm normal after abnormal result H/O: hysterectomy Ordered: 08/03/2025documented as of this encounter Visit Diagnoses Diagnosis Atypical squamous cell changes of undetermined significance (ASCUS) on vaginal cytology Pap smear to confirm normal after abnormal result Encounter for Papanicolaou cervical smear to confirm findings of recent normal smear following initial abnormal smear H/O: hysterectomy Acquired absence of both cervix and uterus documented in this encounter Care Teams Team MemberRelationshipSpecialtyStart DateEnd Date Brittanie Marrero MD [address] [place] [address] [facility] Sue Denson MD [address] [place] [address] Referring PhysicianFamily Medicine04/08/24documented as of this encounter
--- OUTSIDE RECORDS SUMMARY | 2025-08-03 18:49 | XMS_ITS | Encounter Summary ---
Author Organization [facility] Address [address] [place] [address] Phone Care Team Providers Care Sdv Pilot/Navigator/Dds Operator Name Role Phone Elise Gonsalez RN Unavailable Unavailable Encounter Details DateTypeDepartmentCare Team (Latest Contact Info)Mpzbtxzevtt83/29/2025Patient Outreach [facility] [address] [place] [address] Elise Gonsalez RN Social History Tobacco UseTypesPacks/DayYears UsedDateSmoking Tobacco: FormerCigarettes Smokeless Tobacco: NeverAlcohol UseStandard Drinks/WeekCommentsYes0 (1 standard drink = 0.6 oz pure alcohol)1-2 drinks per weekCommentsUnknownSex and Gender InformationValueDate RecordedSex Assigned at BirthNot on fileLegal Sex Ylpqkg2208/25/2022 2:38 PM ESTGender IdentityNot on fileSexual OrientationNot on filedocumented as of this encounter Progress Notes * Elise Gonsalez RN - 07/28/2025 12:03 PM EDT Patient is scheduled for a new patient appointment with Dr. Gongora on 08/03/2025. RN spoke with patient regarding NPV. Patient unsure if she wants to keep appointment with Dr. Gongora as she is not very happy with . Patient declined to provide more information at this time. Patient is agreeable to a return call tomorrow at 4:00 PM to discuss NPV further. * Elise Gonsalez RN - 07/28/2025 12:03 PM EDT Attempted to call Ne as requested yesterday - she did not answer call. Detailed voice message left with call back number. documented in this encounter Plan of Treatment Not on file documented as of this encounter Visit Diagnoses Not on filedocumented in this encounter Care Teams Team MemberRelationshipSpecialtyStart DateEnd Date Elise Gonsalez, RN Nurse NavigatorHematology and Wjzeennl44/29/25documented as of this encounter
--- OUTSIDE RECORDS SUMMARY | 2025-08-03 18:49 | XMS_ITS | Clinical Summary ---
Author Organization [facility] Address [address], [address] [place] [address] Care Team Providers Care Electronic Court Recorder Name Role Phone Sharon Kelley MD Primary Care Provider [phone] Allergies Active AllergyReactionsCriticalityNoted DateCommentsDicyclomine HclAnxietyLow 12/08/20157936KhxxhefhyzahorRoffxqwvoibKkfr21/10/2016MetoclopramideAnaphylaxisHigh 12/08/2015 Medications MedicationSigDispense QuantityRefillsLast FilledStart DateEnd DateStatus fluticasone (FLONASE) 50 MCG/ACT nasal spray 1 spray by Nasal route daily 1 Bottle Active omeprazole (PRILOSEC) 20 MG capsule 12/02/2015Active clonazePAM (KLONOPIN) 0.5 MG tablet Take 0.5 mg by mouth 2 times daily as neededActive Active Problems ProblemNoted DateDiagnosed DateHistory of gksogbyubnjtnaf98/11/2016Anxiety 12/08/20153930Ujnejhcsasn42/10/2016Irritable bowel syndrome with yzdradiu71/10/2016 Obesity (BMI 30-39.9)12/08/2015Chronic pain auwhpubo11/10/2016 Family History Medical HistoryRelationNameCommentsDiabetesFatherHeart DiseaseFatherHigh Blood PressureFatherCancerMotherRelationNameStatusCommentsFatherAliveMotherDeceased Social History Tobacco UseTypesPacks/DayYears UsedDateSmoking Tobacco: FormerAlcohol Use Standard Drinks/WeekCommentsNo0 (1 standard drink = 0.6 oz pure alcohol) CommentsNoSex and Gender InformationValueDate RecordedSex Assigned at BirthNot on fileLegal NsmFssuxa72/12/2013 10:29 PM ESTGender IdentityNot on fileSexual OrientationNot on file Last Filed Vital Signs Vital SignReadingTime TakenCommentsBlood Xupphzbi669/80001/09/2016 12:08 PM EDT Nfqkl9915/11/2016 12:08 PM ZOXGkcnwewxmov57.8 ??C (98.3 ??F)01/09/2016 12:08 PM EDTRespiratory Zmhf372301/09/2016 12:08 PM EDTOxygen Xbcjjnieiu01%12/08/2015 9:14 AM ESTInhaled Oxygen Concentration--Lfjrza79.4 kg (214 lb 12.8 oz)01/09/2016 12:08 PM QHPZteocf975 cm (5' 2.99 )01/09/2016 12:08 PM EDTBody Mass Index38.06 01/09/2016 12:08 PM EDT Plan of Treatment Not on file Insurance Care Teams Team MemberRelationshipSpecialtyStart DateEnd Date Sharon Kelley MD PCP - GeneralFamily Medicine12/08/15
--- OUTSIDE RECORDS SUMMARY | 2025-08-03 18:49 | XMS_ITS | Encounter Summary ---
Author Organization [facility] Address [facility] [address] 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 Name Role Phone [facility] Primary Care Provider Encounter Details DateTypeDepartmentCare Team (Latest Contact Info)Guntbsdfcmr15/24/2025Travel Social History Tobacco UseTypesPacks/DayYears UsedDateSmoking Tobacco: FormerSmokeless Tobacco: NeverAlcohol UseStandard Drinks/WeekCommentsNo0 (1 standard drink = 0.6 oz pure alcohol)ChildcareAnswerDate VwxfixadEdtfitoogZfgnzyw70/12/2019EmploymentAnswer Date KnlcbpopLocpsdfzbmUsbhlsx53/12/2019Hunger ScreeningAnswerDate Recorded Within the past 12 months we worried whether our food would run out before we got money to buy more.Never True10/06/2024Within the past 12 months the food we bought just didn't last and we didn't have money to get more.Never True 10/06/2024Purpose - LifeAnswerDate RecordedPurpose and direction in lifeUnknown 1CommentsNoSex and Gender InformationValueDate RecordedSex Assigned at BirthNot on fileLegal JrkKrwxvv54/06/2015 11:23 AM EDTGender IdentityNot on fileSexual OrientationNot on filedocumented as of this encounter Plan of Treatment Not on file documented as of this encounter Visit Diagnoses Not on filedocumented in this encounter Care Teams Team MemberRelationshipSpecialtyStart DateEnd Date Services, [facility] [address] [place], [place] PCP - GeneralFaconestor Medicine10/06/24documented as of this encounter
--- OUTSIDE RECORDS SUMMARY | 2025-08-03 18:49 | XMS_ITS | Clinical Summary ---
Author Organization [employer] tem Address [facility]-[id number] [address] 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 Name Role Phone Services, [facility] Primary Care Provider Allergies Active AllergyReactionsCriticalityNoted IhzeAsnofbubHjkvtcthyjk90/06/2020 FbxcqayypzeadlDabsrtpkcvsAunj13/16/2017Dicyclomine MtmFvrytzwBub53/16/2017 VobeuoydewnjkzAmbrnwxlrttMeax37/16/2017 Medications MedicationSigDispense QuantityRefillsLast FilledStart DateEnd DateStatus clonazePAM (KlonoPIN) 0.5 mg tablet Take by mouth as needed.Active azelastine (ASTELIN) 137 mcg (0.1 %) nasal spray 1 spray 2 (two) times a day.Active cetirizine (ZyrTEC) 10 mg tablet Take 10 mg by mouth nightly.Active docusate sodium (COLACE) 100 mg capsule Take 100 mg by mouth daily.Active ketotifen (ZADITOR) 0.025 % (0.035 %) ophthalmic solution 02/06/2019Active clonazePAM (KlonoPIN) 0.5 mg tablet Take 1 tablet (0.5 mg total) by mouth.Active omeprazole (PriLOSEC) 40 mg capsule Take 40 mg by mouth 2 (two) times a day.Active ibuprofen (MOTRIN) 800 mg tablet Take 1 tablet (800 mg total) by mouth 3 (three) times a day. 21 tablet 4Active tamsulosin (FLOMAX) 0.4 mg capsule Take 1 capsule (0.4 mg total) by mouth in the morning. 7 capsule 4Active ondansetron ODT (ZOFRAN ODT) 4 mg disintegrating tablet Indications:Calculus of distal ureterDissolve 1 tablet (4 mg total) on tongue every 8 (eight) hours as needed for nausea for up to 10 doses. 10 tablet 4Active Active Problems ProblemNoted DateDiagnosed DateAcute zmismrniwhob79/18/2019 Encounters DateTypeDepartmentCare VsnhFlcdubtndgh59/24/2025 9:54 AM EDT - 07/23/2025 11:59 PM EDTHospital Encounter [facility] Madisyn Callejas [facility] - Pet Imaging [address] [place] [phone] Mass in rectum; Anal cancer ([facility]) Discharge Disposition: Home07/23/20253892Xrbiqj61/19/2025 6:02 PM EDT - 06/18/2025 7:24 PM EDTEmergency [place] [address] [place] [id number] Johnny Kuhn, DO Abdominal pain, unspecified abdominal location (Primary Dx); Thrombocytopenia; Leukopenia, unspecified type Discharge Disposition: Home06/18/2025Travelfrom Last 3 Months Family History Medical HistoryRelationNameCommentsDiabetesFatherCancerMotherLiver cancerMother Breast cancerNeg HxRelationNameStatusCommentsFatherAliveMotherDeceased Social History Tobacco UseTypesPacks/DayYears UsedDateSmoking Tobacco: FormerSmokeless Tobacco: NeverAlcohol UseStandard Drinks/WeekCommentsNo0 (1 standard drink = 0.6 oz pure alcohol)ChildcareAnswerDate HmuufnozMuoddhduiYpxnnfg16/12/2019EmploymentAnswer Date RxjaciudRppbknwqxeNchktjv62/12/2019Hunger ScreeningAnswerDate Recorded Within the past 12 months we worried whether our food would run out before we got money to buy more.Never True10/06/2024Within the past 12 months the food we bought just didn't last and we didn't have money to get more.Never True 10/06/2024Purpose - LifeAnswerDate RecordedPurpose and direction in lifeUnknown 1CommentsNoSex and Gender InformationValueDate RecordedSex Assigned at BirthNot on fileLegal HkmMnmlvb50/06/2015 11:23 AM EDTGender IdentityNot on fileSexual OrientationNot on file Last Filed Vital Signs Vital SignReadingTime TakenCommentsBlood Vhmkphhl243/9106/18/2025 6:58 PM EDT Fqpfb120906/18/2025 3:04 PM ESVKwhlnhdemcq79.9 ??C (98.4 ??F)06/18/2025 3:07 PM EDTRespiratory Euyc179606/18/2025 3:04 PM EDTOxygen Gqrpjyuyev74%06/18/2025 3:04 PM EDTInhaled Oxygen Concentration--Ruiwtc14.2 kg (201 lb)07/23/2025 9:00 AM EDT Tkyijq755 cm (5' 3 )06/18/2025 3:04 PM EDTBody Mass Index35.61006/18/2025 3:04 PM EDT Plan of Treatment Health MaintenanceDue DateLast DoneCommentsDepression Jmdjqtjxt87/14/1981Adult BMI Follow Up Plan1987DTaP,Tdap and Td Vaccines (1 - Tdap)1988Zoster (Shingles) Vaccine (1 of 2)1988Influenza Mkqkzxu45/06/2018, 07/24/2017, 08/15/2016, Additional history existsTobacco Rlvklapom16/07/2026 5Adult BMI Oswjslzzd02 Medical Devices Not on file Procedures Procedure NamePriorityDate/TimeAssociated DiagnosisCommentsPET CT SKULL TO THIGH Vgrwapx5707/23/2025 1:08 PM EDT Mass in rectum Anal cancer (CMS-HCC) SEBABLLKVO19/19/2025 4:47 PM EDT COMPREHENSIVE METABOLIC FMLKAAAOB66/19/2025 4:47 PM EDT CBC WITH AUTO IYSRLOCEHAMXYXYG17/19/2025 4:47 PM EDT EXTRA TUBES BLUE HJHHtchsrz60/19/2025 4:46 PM EDT EXTRA EZNODGnctekx72/19/2025 4:46 PM EDT from Last 3 Months Results * PET CT skull to thigh [...] 10:12 AM Authorizing ProviderResult TypeResult StatusEmtariq Sotelo MDMisale PET ORDERABLESFinal Result * (ABNORMAL) CBC auto differential (06/18/2025 4:47 PM EDT)ComponentValueRef RangeTest MethodAnalysis TimePerformed AtPathologist SignatureWBC2.5(L)4 - 11 x10E9/L06/18/2025 6:35 PM EDTPKETTERING HEALTH SPRINGFIELDRBC Count5.21 (H)3.8 - 5.2 X10E12/L06/18/2025 6:35 PM [facility] Ajwyvrywhu95.711.7 - 15.5 g/dL06/18/2025 6:35 PM [facility] HEALTHHematocrit43.135 - 47 %06/18/2025 6:35 PM [facility]MCV8380 - 100 fL06/18/2025 6:35 PM [facility]ALTHMCH28.127 - 34 pg06/18/2025 6:35 PM [facility]ALTHMCHC34.032 - 36 g/dL06/18/2025 6:35 PM [facility]ALTHRDW13.811.5 - 15 %06/18/2025 6:35 PM [facility]ALTHPlatelet Yjimx414(L)150 - 450 X10E9/L06/18/2025 6:35 PM EDT [facility]MPV9.37 - 12 fL06/18/2025 6:35 PM EDT [facility]ENTERBands %1%06/18/2025 6:35 PM [facility]ALTHComment:This is an appended report. These results have been appended to a previously preliminary verified report.Neutrophils %40 %06/18/2025 6:35 PM [facility]Comment:This is an appended report. These results have been appended to a previously preliminary verified report.Lymphocytes %45%06/18/2025 6:35 PM [facility]Comment:This is an appended report. These results have been appended to a previously preliminary verified report.Monocytes %7%06/18/2025 6:35 PM [facility]Comment:This is an appended report. These results have been appended to a previously preliminary verified report.Eosinophils %1%06/18/2025 6:35 PM [facility]Comment:This is an appended report. These results have been appended to a previously preliminary verified report.Atypical Lymphs %6%06/18/2025 6:35 PM [facility]Comment:This is an appended report. These results have been appended to a previously preliminary verified report. Neutrophils Absolute (M)1.0(L)1.5 - 6.6 10*3/uL06/18/2025 6:35 PM [facility]Comment:This is an appended report. These results have been appended to a previously preliminary verified report.Lymphocytes Absolute1.41.0 - 3.5 10*3/uL06/18/2025 6:35 PM [facility]Comment:This is an appended report. These results have been appended to a previously preliminary verified report.Monocytes Absolute0.20.0 - 0.9 10*3/uL06/18/2025 6:35 PM [facility]Comment:This is an appended report. These results have been appended to a previously preliminary verified report.Eosinophils Absolute0.00.0 - 0.4 10*3/06/18/2025 6:35 PM [facility]Comment:This is an appended report. These results have been appended to a previously preliminary verified report.RBC OhcjmsqbldVcrkgh31/19/2025 6:35 PM [facility]:This is an appended report. These results have been appended to a previously preliminary verified report.Differential TypeMANUAL KGKMCVJFVLWY56/19/2025 6:35 PM [facility]: This is an appended report. These results have been appended to a previously preliminary verified report.Specimen (Source)Anatomical Location / Laterality Collection Method / VolumeCollection TimeReceived TimeBloodVenous blood / UnknownVenipuncture / Mtpkaam3806/18/2025 4:47 PM EDT06/18/2025 4:52 PM EDT Narrative Authorizing ProviderResult TypeResult StatusAhpablito MENA BLOOD ORDERABLESFinal ResultPerforming OrganizationAddressCity/State/ZIP CodePhone Number [facility] [address] [place] [address], [place] * (ABNORMAL) Lipase (06/18/2025 4:47 PM EDT)ComponentValueRef RangeTest Method Analysis TimePerformed AtPathologist HpndilxcoRKPGAB25(H)17 - 40 U/L06/18/2025 5:10 PM EDTPWADSWORTH-RITTMAN HOSPITALpecimen (Source)Anatomical Location / LateralityCollection Method / VolumeCollection TimeReceived Time BloodVenous blood / UnknownVenipuncture / Nlyvzno5606/18/2025 4:47 PM EDT 06/18/2025 4:52 PM EDT Narrative Authorizing ProviderResult TypeResult StatusJohnny Kuhn DOLAB BLOOD ORDERABLESFinal ResultPerforming OrganizationAddressCity/State/ZIP CodePhone Number [facility] [address] [place] [address], * (ABNORMAL) Comprehensive metabolic panel (06/18/2025 4:47 PM EDT)Component ValueRef RangeTest MethodAnalysis TimePerformed AtPathologist SignatureSODIUM 248225 - 146 mmol/L06/18/2025 5:12 PM [facility] POTASSIUM4.03.5 - 5.0 mmol/L06/18/2025 5:12 PM EDPEOPLES HOSPITALCHLORIDE10498 - 109 mmol/L06/18/2025 5:12 PM EDPEOPLES HOSPITALCARBON HAHGRZE3160 - 32 mmol/L06/18/2025 5:12 PM EDPEOPLES HOSPITALANION BCK321 - 15 mmol/L06/18/2025 5:12 PM EDT [facility]ENTERBLOOD UREA SULIRDDT678 - 23 mg/dL06/18/2025 5:12 PM EDPEOPLES HOSPITALCREATININE0.940.40 - 1.00 mg/dL 06/18/2025 5:12 PM EDPEOPLES HOSPITALComment:METHOD TRACEABLE TO IDMS JWSXHDBPDJDGJJQ3891 - 99 mg/dL06/18/2025 5:12 PM EDT [facility]ENTERCALCIUM9.28.5 - 10.5 mg/dL06/18/2025 5:12 PM EDTPKETTERING HEALTH SPRINGFIELDTOTAL PROTEIN7.86.0 - 8.0 g/dL 06/18/2025 5:12 PM [facility] HEALTHALBUMIN4.33.2 - 5.3 g/dL06/18/2025 5:12 PM [facility] HEALTHALKALINE SUJQSUVKHJT8060 - 130 U/L06/18/2025 5:12 PM [facility]ALTHAST34<=41 U/L06/18/2025 5:12 PM [facility] ALT37(H)<=31 U/L06/18/2025 5:12 PM [facility] BILIRUBIN,TOTAL0.60.3 - 1.2 mg/dL06/18/2025 5:12 PM [facility] HEALTHEGFR Non-Race Wktuyidpr02>=60 ml/min/1.73sq.m006/18/2025 5:12 PM [facility] HEALTHComment: eGFR not reported due to non-numeric value for Creatinine. Reported eGFR is based on the CKD-EPI 2020 equation that does not use a race coefficient. Specimen (Source)Anatomical Location / LateralityCollection Method / Volume Collection TimeReceived TimeBloodVenous blood / UnknownVenipuncture / Unknown 06/18/2025 4:47 PM EDT06/18/2025 4:52 PM EDT Narrative Authorizing ProviderResult TypeResult StatusAhpablito Kuhn DOLAB BLOOD ORDERABLESFinal ResultPerforming OrganizationAddressCity/State/ZIP CodePhone Number [facility] [address] [place] [address], * Light Blue Top (06/18/2025 4:46 PM EDT)ComponentValueRef RangeTest Method Analysis TimePerformed AtPathologist SignatureExtra TubeAuto Resulted 06/18/2025 6:02 PM [facility]ITALpecimen (Source) Anatomical Location / LateralityCollection Method / VolumeCollection Time Received TimeBloodVenous blood / Rviywgu6606/18/2025 4:46 PM EDT06/18/2025 4:54 PM EDT Narrative Authorizing ProviderResult TypeResult StatusMicagustina Noel DOLAB BLOOD ORDERABLESFinal ResultPerforming OrganizationAddressCity/State/ZIP CodePhone Number [facility] [address] [place] [address], from Last 3 Months Insurance Advance Directives * Full Code (Latest Code Status on File) Date ActivatedDate InactivatedComments03/17/2019 11:30 PM03/18/2019 10:28 PM Care Teams Team MemberRelationshipSpecialtyStart DateEnd Date Services, [facility] [address] [place], [place] PCP - GeneralFamily Medicine10/06/24
--- OUTSIDE RECORDS SUMMARY | 2025-08-03 18:49 | XMS_ITS | CCD ---
Author Organization [facility] Care Team Providers Care Hand Cigar Making Supervisor Name Role Phone DAQUAN NUÑEZ Unavailable Unavailable DAQUAN NUÑEZ Unavailable Unavailable SELF, REFERRED Unavailable Unavailable MIGUEL BOWER Unavailable Unavailable MISC, DR CASTRO Primary Care Unavailable ANTHONY ., MERISSA Consulting Unavailable ANTHONY ., MERSISA Admitting Unavailable ANTHONY ., MERISSA Attending Unavailable ADRIAN HOOKS Consulting Unavailable DIAB ., RUTH Consulting Unavailable JEFFERSON ., DR DOTSON Admitting Unavailable JEFFERSON ., DR DOTSON Attending Unavailable MISC, DR CASTRO Primary Care Unavailable JEFFERSON ., DR DOTSON Consulting Unavailable Bob Marinelli Unavailable Hanna JACKSON, Formerly [facility], [facility] Primary Care Provide r Jarett JACKSON, Sue Unavailable [phone] NON STAFF Primary Care Provider UnavailMD Manuel Arriola Attending Provider ALISA Parkinson Attending Provider [phone] NON STAFF Primary Care Provider UnavailManuel Arriola MD Attending Provider Lucas Paulino DO Attending Provider JR. ROMAN GEORGE C Attending Unavaila LUCAS Williamson Attending Unavailable PAM DEL ROSARIO Attending Unavailable JR. ROMAN GEORGE C Attending Unavaila PAM Panchal Attending Unavailable MIGUEL ÁNGEL, PAM Attending Unavailable LUCAS PAULINO Attending Unavailable JOSÉ PARKINSON Attending Unavailable LUCAS PAULINO Attending Unavailable JOSÉ PARKINSON Attending Unavailable JOSÉ PARKINSON Referring Unavailable MIGUEL ÁNGEL, PAM Attending Unavailable LUCAS PAULINO Attending Unavailable JOSÉ PARKINSON Attending Unavailable LUCAS PAULINO Attending Unavailable MIGUEL ÁNGEL, PAM Attending Unavailable NON STAFF Primary Care Provider Unavailabl e Manuel Bolivar MD Attending Provider [phone] Mikael JACKSON Dora Primary Care Provider [phone] Leonie Krishna MD Attending Provider Ihsan Coronado MD Referring Provider Unavailable Primary Care Provider Unavailabl e SERVICES, [facility] Care Unava ilable VANESSA CRAMER Attending Unavailable SERVICES, [facility] Primary Care Unava ilable CATARINO SURESH Attending Unavailable LUCAS PAULINO Referring Unavailable SERVICES, [facility] Care Unava ilable SERVICES, [facility] Primary Care Unava ilable VERONA WERNER Attending Unavailable YVETTEHA-GOLBEBE MOORE Referring Unavail able SERVICES, [facility] Care Unava ilable YVETTEHAGEN-BEBE ARREDONDO Attending Unava ilable MAYA-ARNULFO, BEBE Silva Admitting Unava ilable STEINHAGEN-GOLBIG, BEBE Silva Attending Unava ilable NON STAFF Primary Care Provider Unavailabl e Manuel Bolivar MD Attending Provider Lucas Paulino Attending Unavailable Lucas Paulino Admitting Unavailable Manuel Bolivar Attending Unavailab le Manuel Bolivar Admitting Unavailab le NON STAFF Primary Care Unavailable Leonie Krishna Attending Unavailable Leonie Krishna Admitting Unavailable Dora Youssef Primary Care Unavailable Ihsan Coronado Referring Unavailable Hanna JACKSON, [facility] Provide r Jarett JACKSON, Sue Unavailable Allergies Allergy ClassificationReported Allergen(s)Allergy TypeDate of OnsetReaction(s) Facility (1 source)azithromycinDrug Msoyqmp13-43-9524UMLEdoOhioHealth Repository (6 sources)clarithromycin; Translations: [CLARITHROMYCIN]Drug Xnyfzbq10-71-5576 AnaphylaxisThe [facility] RepositoryComment on above: Respiratory distress (2 sources)dicyclomineDrug Mejafzp26-66-7282BRFFlw [facility] Repository (2 sources)iothalamateDrug Pfhtcmh53-09-5200WGFMdg [facility] Repository (4 sources)traMADol; Translations: [TRAMADOL]Drug Yejyoug45-77-1307HZW, Nausea [facility] Repository (1 source)ClarithromycinDrug Yucpioc42-47-5167Vac [facility] Repository (2 sources)ClarithromycinDrug Cszdvgs44-79-8896OgedwxyttnrQegfnsuwyo [facility] Work Phone: (20 sources)Dicyclomine; Translations: [DICYCLOMINE]Drug Gjlfzgn53-15-5943 [address] [address] [facility] Other (20 sources)Metoclopramide; Translations: [METOCLOPRAMIDE]Drug Asrczfm62-79-9913 Anaphylaxis, Anxiety, RashNortSCI-Waymart [facility] Glycobia Other (20 sources)ClarithromycinAllergy to vkwfpeykb08-77-3027WeagwcxzekbYGSU Healthcare Work Phone: (20 sources)Dicyclomine; Translations: [DICYCLOMINE HCL]Drug Zczjejy29-49-9690 AnxietyNOMS Healthcare (20 sources)Loratadine; Translations: [LORATADINE]Allergy to dkxzoywmp74-13-1005 [facility] (20 sources)traMADolDrug Ausykor57-46-1007Yjyrua OnlyNOMS Healthcare (20 sources)Macrolides And KetolidesDrug Iqtreua04-48-9429NkmuvtbavjbDUTS Healthcare (20 sources)OtherAllergy to -59-5357ZvviMMAK Healthcare (2 sources)LoratadineDrug Fdvvylp55-21-5651CzzxbbbNxstwyotuy [facility] Work Phone: (1 source)Clarithromycin; Translations: [CLARITHROMYCIN (BULK)]Drug Allergy 48-27-8283SZEast [facility] Repository (1 source)Macrolides (Antibiotic); Translations: [MACROLIDE ANTIBIOTICS] Propensity to adverse reactions to drug (disorder)37-26-0761KFEast [facility] Repository (2 sources)ClarithromycinDrug Iybtavo73-14-0444Jiejtlrwl [facility] Repository (2 sources)DicyclomineDrug Qjneruf15-03-6535ZcspccecpWilson Memorial Hospital Repository (2 sources)MetoclopramideDrug Gelzfdc81-94-1817VgcufeqeaWilson Memorial Hospital Repository (1 source)traMADolDrug Tdpqice36-98-0948ZmtejejboWilson Memorial Hospital Repository Medications Current Medications MedicationDrug Class(es)DatesSig (Normalized)Sig (Original)acetaminophen 325 mg oral tablet (1 source)Start: 39-85-2057enyn 1 tablet by mouth every four hours as zpuspl368 mg, oral, Every 4 hours PRN, pain mild (1-3), first line, Starting on Sat07/02/25 at 1118, Recovery (only), When able to take oral medications., If ordered PRN for pain, nurse is permitted to administer this medication for higher pain scores based on patient preference? YesCalcium (1 source)Phosphate Binder, CalciumCalcium + D Activecalcium chloride 0.0014 meq/ml / potassium chloride 0.004 meq/ml / sodium chloride 0.103 meq/ml / sodium lactate 0.028 meq/ml injectable solution (1 source)Start: 07-02-2025 End: 80-11-4809hcft 100 mL intravenously every iyfw015 mL/hr, intravenous, Continuous, Starting on Sat07/02/25 at 1245, For 2 hours, Recovery & OnUnit cefTRIAXone 500 mg injection (20 sources)Cephalosporin AntibacterialStart: 91-03-9374cieHDEGOqvf (Rocephin) vial 500 mgcephalexin 500 mg oral capsule (20 sources)Cephalosporin AntibacterialStart: 06-08-2024 End: 27-23-5720jemj 1 capsule by mouth in the morning, then take 1 capsule by mouth in the evening, then take 1 capsule by mouth at bedtimecephalexin (Keflex) 500 MG capsule Indications: Urinary tract infection without hematuria, site unsp ecified Take 1 capsule (500 mg) by mouth in the morning and 1 capsule (500 mg) in the evening and 1capsule (500 mg) before bedtime. Do all this for 10 days. 30 capsule 08/04/2024 08/14/2024 Activecetirizine hydrochloride 10 mg oral tablet (20 sources)Histamine-1 Receptor AntagonistStart: 27-22-5088umlb 1 tablet by mouth at bedtimecetirizine (ZyrTEC) 10 MG tablet Take 10 mg by mouth at bedtime 02/20/2024 ActiveclonazePAM 1 mg oral tablet (17 sources)BenzodiazepineStart: 13-82-6525nxoq 1 tablet by mouth once daily as needed End: 28-66-7259frilykrIUK (KlonoPIN) 0.5 mg tablet Take by mouth once daily as needed. ActiveKlonoPIN Activedocusate sodium 100 mg oral capsule (2 sources)Start: 12-17-2024 End: 36-46-2942zdcr 1 capsule by mouth twice daily as needed for constipation docusate sodium (Colace) 100 MG capsule Indications: Constipation, unspecified constipation type Take 1 capsule (100 mg) by mouth 2 (two) times a day as needed for constipation for up to 10 days 20 capsule 12/17/2024 12/27/2024 Active doxycycline hyclate 100 mg oral capsule (3 sources)Tetracycline-class DrugStart: 05-06-2025 End: 19-32-0281rycqriumidh (Vibramycin) 100 MG capsule Indications: Vaginal odor , Yeast infection Take 1 capsule (100 mg) by mouth in the morning and 1 capsule (100 mg) before bedtime. Do all this for 7 days. Takewith at least 8 ounces (large glass) of water, do not lie down for 30 minutes after. 14 capsule 03/202505/13/2025 ActiveEstroven (1 source)Estroven Active1 ml fentaNYL 0.05 mg/ml injection (2 sources)Opioid AgonistStart: mcg, intravenous, Every 5 min PRN, pain severe (7-10), first line, Starting on Sat07/02/25 at 1118, Recovery (only), Max total of 200 micrograms regardless of dose., If ordered PRN for pain, nurseis permitted to administer this medication for higher pain scores based on patient preference? YesStart: mcg, intravenous, Every 5 min PRN, pain moderate (4-6), first line, Starting on Sat07/02/25 at 1118, Recovery (only), Max total of 200 micrograms regardless of dose., If ordered PRN for pain, nurse is permitted to administer this medication for higher pain scores based on patient preference? Yesfluconazole 150 mg oral tablet (2 sources)Azole AntifungalStart: 05-06-2025 End: 77-41-0775qeeu 1 tablet by mouth once, then take 1 tablet by mouth once fluconazole (Diflucan) 150 MG tablet Indications: Yeast infection Take 1 tablet (150 mg) by mouth 1(one) time for 1 dose This is a 1 time dose, take single tablet by mouth. 1 tablet 1 05/06/2025 05/06/2025 Activelabetalol hydrochloride 5 mg/ml injectable solution (1 source)beta-Adrenergic BlockerStart: mg, intravenous, Administer over 1 Minutes, Once as needed, systolic blood pressure greater than 180 mmHg, dystolic blood pressure greater than 100 mmHg and heart rate greater than 60 BPM, Startingon Sat07/02/25 at 1118, For 1 dose, Recovery (only)loratadine 10 mg oral tablet (20 sources)loratadine (Claritin) 10 MG tablet Activeomeprazole 40 mg delayed release oral capsule (20 sources)Proton Pump InhibitorStart: 79-72-1125xpfx 1 capsule by mouth once dailyomeprazole (PriLOSEC) [address] capsule Take by mouth. Active End: 77-99-6258kbtw 1 capsule by mouth before mealtimeomeprazole (PriLOSEC) [address] capsule Take 40 mg by mouth in the morning. Take before meals. 07/29/2024 Discontinued2 ml ondansetron 2 mg/ml injection (2 sources)Serotonin-3 Receptor AntagonistStart: mg, intravenous, Once as needed, nausea/vomiting, first line, Starting on Sat07/02/25 at 1118, For 1 dose, Recovery (only), When administering via IV Push, administer over 3-5 minutes.Start: 24-08-7169ukug 1 tablet by mouth every eight hours as needed for nauseaoxyCODONE hydrochloride 5 mg oral tablet (2 sources)Opioid AgonistStart: 48-09-4866mnel 1 tablet by mouth every six hours for painoxyCODONE (Roxicodone) 5 mg immediate release tablet Indications: Anal cancer (Multi) Take 1 tablet(5 mg) by mouth every 6 hours if needed for severe pain (7 - 10). 15 tablet 07/02/2025 ActiveStart: 07-02-2025 End: 55-12-0225wluy 5 mg by mouth once as needed for pain5 mg, oral, Once, On Sat07/02/25 at 1200, For 1 dose, Recovery (only), If ordered PRN for pain, nurse is permitted to administer this medication for higher pain scores based on patient preference? Yesoxygen (O2) therapy (1 source)Start: 01-14-4826premjxvzkd, Continuous - O2/gases, oxygen, Starting on Sat07/02/25 at 1118, Recovery (only), Device: Nasal Cannula, Rate in liters per minute: Other, Custom Value: 1-6 LPM, Keep O2 Sat Above: 92%Oyster Shell Calcium/D (1 source)Oyster Shell Calcium/D Activephenazopyridine hydrochloride 100 mg oral tablet (12 sources)Start: 06-08-2024 End: 66-81-5947mjbi 1 tablet by mouth three times daily as needed for muscle spasmsphenazopyridine (Pyridium) 100 MG tablet Indications: Urinary tract infection without hematuria, site unspecified Take 1 tablet (100 mg) by mouth 3 (three) times a day as needed for bladder spasms for up to 3 days 10 tablet 07/29/2024 08/01/2024 ActiveRA Allergy Relief (1 source)RA Allergy Relief Activeterconazole 4 mg/ml vaginal cream (6 sources)Azole AntifungalStart: 09-01-2024 End: 40-15-2568fxbiyujkvfa (Terazol 7) 0.4 % vaginal cream Indications: Yeast infection Insert 1 applicator into the vagina at bedtime for 7 days 45 g 09/01/2024 09/08/2024 ActiveStart: 08-04-2024 End: 87-21-7119abcfzypwgtp (Terazol 7) 0.4 % vaginal cream Indications: Yeast infection Insert 1 applicator into the vagina at bedtime for 7 days 45 g 08/04/2024 08/11/2024 ActivevalACYclovir 1000 mg oral tablet (20 sources)Herpesvirus Nucleoside Analog DNA Polymerase Inhibitor, Herpes Simplex Virus Nucleoside Analog DNA Polymerase Inhibitor, Herpes Zoster Virus Nucleoside Analog DNA Polymerase InhibitorStart: 03-23-2025 End: 67-03-5749kfkh 1 tablet by mouth in the morningvalACYclovir (Valtrex) 1 g tablet Indications: HSV (herpes simplex virus) infection Take 1 tablet (1,000 mg) by mouth in the morning and 1 tablet (1,000 mg) before bedtime. Do all this for 10 days. 20 tablet 03/23/2025 04/02/2025 ActiveStart: 07-29-2024 End: 73-55-9605xhiz 1 tablet by mouth once dailyvalACYclovir (Valtrex) 500 MG tablet Indications: Exposure to STD Take 1 tablet (500 mg) by mouth Daily 30 tablet 5 07/29/2024 01/25/2025 Active Completed/Discontinued Medications MedicationDrug Class(es)DatesSig (Normalized)Sig (Original)ascorbic acid 500 mg chewable tablet (12 sources)Vitamin C End: 48-66-6827Vehnhtfy Acid (vitamin C) 500 MG tablet 1 (one) time each day at the same time 09/01/2024 DiscontinuedVitamin C Activecholecalciferol 0.05 mg oral capsule (11 sources)Vitamin D End: 15-09-6840kxaluadxuiqzfry (Vitamin D-3) 50 MCG (1999 UT) capsule 1 capsule 1 (one) time each day at the same time 09/01/2024 Discontinuedhydrocortisone acetate 10 mg/ml / pramoxine hydrochloride 10 mg/ml rectal foam (12 sources)CorticosteroidStart: 04-15-2024 End: 20-79-7573Gfsalbear-Pramoxine, Perianal, (Proctofoam HC) 1-1 % foam Indications: Other hemorrhoids Apply 1 Application topically if needed (every 2 hours) 15 g 04/15/2024 07/29/2024 Discontinuedibuprofen 800 mg oral tablet (11 sources)Nonsteroidal Anti-inflammatory DrugStart: 04-08-2024 End: 13-81-0863wtop 1 tablet by mouth in the morning, then take 1 tablet by mouth in the evening, then take 1 tablet by mouth at bedtimeibuprofen 800 MG tablet Take 800 mg by mouth in the morning and 800 mg in the evening and 800 mg before bedtime. 04/08/2024 09/01/2024 Discontinuedketorolac tromethamine 10 mg oral tablet (11 sources)Nonsteroidal Anti-inflammatory Drug, Cyclooxygenase Inhibitor End: 98-72-4463yzzdpsdrq (Toradol) 10 MG tablet 09/01/2024 Discontinued linaclotide 0.29 mg oral capsule (11 sources)Guanylate Cyclase-C Agonist End: 35-60-2189tzqvABSktcz (Linzess) 290 MCG capsule 09/01/2024 Kfezhlyopycy33 hr loratadine 5 mg / pseudoephedrine sulfate 120 mg extended release oral tablet (11 sources)alpha-Adrenergic Agonist End: 28-59-0458pokwjqazzg-pseudoephedrine ER (Alavert Allergy/Sinus) 5-120 MG 12 hr tablet 09/01/2024 DiscontinuedLORazepam 1 mg oral tablet (11 sources)Benzodiazepine End: 00-71-0232XOLeodnja (Ativan) 1 MG tablet 09/01/2024 Discontinued lubiprostone 0.008 mg oral capsule (11 sources)Chloride Channel Activator End: 47-98-7962mjlufoizerer (Amitiza) 8 MCG capsule 09/01/2024 Discontinued meloxicam 15 mg oral tablet (11 sources)Nonsteroidal Anti-inflammatory Drug End: 96-46-4265kyclcqktv (Mobic) 15 MG tablet 09/01/2024 Discontinued methocarbamol 750 mg oral tablet (11 sources)Muscle Relaxant End: 64-96-9842fqcltxmfvtple (Robaxin) 750 MG tablet 09/01/2024 Zxjpbkeoinii13 hr metoprolol succinate 25 mg extended release oral tablet (11 sources)beta-Adrenergic Diana End: 78-53-9039xhbppkcbca succinate XL (Toprol-XL) 25 MG 24 hr tablet 09/01/2024 DiscontinuedmetroNIDAZOLE 500 mg oral tablet (20 sources)Nitroimidazole AntimicrobialStart: 10-06-2024 End: 87-44-9093xdvz 1 tablet by mouth in the morningmetroNIDAZOLE (Flagyl) 500 MG tablet Indications: BV (bacterial vaginosis) Take 1 tablet (500 mg) by mouth in the morning and 1 tablet (500 mg) before bedtime. Do all this for 7 days. Do not drink alcohol while taking this medication. 14 tablet 10/06/2024 10/20/2024 Discontinued (Therapy completed)Start: 07-31-2024 End: 55-49-5427fvmw 1 tablet by mouth in the morningmetroNIDAZOLE (Flagyl) 500 MG tablet Indications: BV (bacterial vaginosis) Take 1 tablet (500 mg) by mouth in the morning and 1 tablet (500 mg) before bedtime. Do all this for 7 days. Do not drink alcohol while taking this medication. 14 tablet 07/31/2024 08/07/2024 ActiveStart: 06-11-2024 End: 03-06-3277twxv 1 tablet by mouth in the morningmetroNIDAZOLE (Flagyl) 500 MG tablet Indications: Vaginal discharge Take 1 tablet (500 mg) by mouthin the morning and 1 tablet (500 mg) before bedtime. Do all this for 7 days. Do not drink alcohol while taking this medication. 14 tablet 06/11/2024 06/18/2024 Active End: 25-62-4514cqevbIQXQCAKC (Vandazole) 0.75 % vaginal gel 09/01/2024 Discontinuednaproxen 500 mg oral tablet (11 sources)Nonsteroidal Anti-inflammatory Drug End: 36-98-9795gykuzgiy (Naprosyn) 500 MG tablet 09/01/2024 Discontinued simethicone 80 mg chewable tablet (11 sources) End: 17-59-4836tskacodhwgv (Mylicon) 80 MG chewable tablet every 6 (six) hours 09/01/2024 Discontinuedtamsulosin hydrochloride 0.4 mg oral capsule (9 sources)alpha-Adrenergic BlockerStart: 06-08-2024 End: 97-40-8831iuhonrrkqm (Flomax) 0.4 MG 24 hr capsule TAKE 1 CAPUSLE DAILY 30 MINUTES AFTER SAME MEAL EACH DAY 06/08/2024 07/29/2024 Discontinued Problems Active Problems Problem ClassificationProblemDateDocumented DateEpisodic/ChronicAbdominal pain (6 sources)Right upper quadrant pain; Translations: [Right upper quadrant pain] Onset: 008807-81-4379QeqbkxknZidlealajjtwhv/social admission (2 sources)Patient encounter status; Translations: [Person consulting for explanation of examination or test findings]88-09-3022SsezdclqWexu and rectal conditions (6 sources)Rectal mass; Translations: [Other specified diseases of anus and rectum]Onset: 268581-32-0091GahcgmxeIwuxrxp disorders (3 sources)Anxiety disorder, unspecified; Translations: [Anxiety]Onset: 10-67-878328362975-25-3059SqanohqFrlels (2 sources)Asthma; Translations: [Unspecified asthma, uncomplicated]Onset: 291486-90-3585DidfpsyHtqvjn of rectum and anus (17 sources)Malignant tumor of anus; 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, unspecified]Onset: 055500-59-1676KgvzpyeWdglrjdlieo and hemorrhagic disorders (1 source)Thrombocytopenia, unspecified; Translations: [Thrombocytopenia, unspecified]Onset: 83-71-7936XjufembJbhhuwkmhwnkt of surgical procedures or medical care (2 sources)Delayed recovery from general anesthesia; Translations: [Other complications of anesthesia, initialencounter]Onset: EpisodicDiseases of white blood cells (1 source)Decreased white blood cell count, unspecified; Translations: [Decreased white blood cell count, unspecified]Onset: 81-83-9074YdryvzuR Codes: Fall (2 sources)Fall; Translations: [Unspecified fall, initial encounter]06-29-2024 EpisodicEsophageal disorders (4 sources)Gastro-esophageal reflux disease without esophagitis; Translations: [Gastroesophageal reflux disease]Onset: 039268-10-5858YmhoufvAsxnjleru hypertension (3 sources)Hypertensive disorder; Translations: [Essential (primary) hypertension]Onset: 467331-05-0199BjaagpoXbxrqejunpdkc symptoms and ill- defined conditions (4 sources)Dysuria; Translations: [Dysuria]14-90-6473PkusgsfdBxpuoggb; including migraine (4 sources)Headache; including migraine; Translations: [HEADACHE UNSPECIFIED] Onset: 26-48-5639Wsklshvqlcpn with complications and secondary hypertension (1 source)Secondary hypertension, unspecified; Translations: [Secondary hypertension, unspecified]Onset: 41-19-8860TolimhjEcmavycbsytq diseases of female pelvic organs (4 sources)Bacterial vaginosis; Translations: [Acute vaginitis]08-04-2024 EpisodicMycoses (6 sources)Mycosis; Translations: [Candidiasis, unspecified]31-02-6242Urhfiteo Nausea and vomiting (2 sources)Postoperative nausea and vomiting; Translations: [Nausea with vomiting, unspecified]Onset: 866107-28-9007NlmkrbxrJtlkf aftercare (1 source)Other prison (current) drug therapy; Translations: [OTH JUICE MIXER CURRENT DRUG THERAPY]Onset: 78-77-6446YcllaxeiLmzar connective tissue disease (6 sources)Full thickness rotator cuff tear; Translations: [Complete rotator cuff tear or rupture of right shoulder, not specified as traumatic]08-05-2024 EpisodicOther female genital disorders (4 sources)Vaginal discharge; Translations: [Other specified noninflammatory disorders of vagina]10-73-8574XyoujzwbZxewi female genital disorders (4 sources)Vaginal irritation; Translations: [Other specified noninflammatory disorders of vagina]93-54-5423NhygjoqkZitae female genital disorders (4 sources)Vaginal odor; Translations: [Other specified noninflammatory disorders of vagina]68-38-9054CestpgvgNllon female genital disorders (2 sources)Burning sensation of vagina; Translations: [Other specified conditions associated with female genital organs and menstrual cycle]10-06-2024 EpisodicOther gastrointestinal disorders (1 source)Irritable bowel syndrome without diarrhea; Translations: [IRRITABLE BOWEL SYND W/O DIARRHEA]Onset: 26-39-0404SrpnmdhWtyam gastrointestinal disorders (3 sources)Irritable bowel syndrome; Translations: [Irritable bowel syndrome without diarrhea]Onset: 317416-08-3550VpdjlilZqtvj gastrointestinal disorders (1 source)Diarrhea; Translations: [Diarrhea, unspecified]EpisodicOther gastrointestinal disorders (3 sources)Constipation; Translations: [Constipation, unspecified]12-17-2024 EpisodicOther non-traumatic joint disorders (2 sources)Derangement of right shoulder joint; Translations: [Other specific joint derangements of right shoulder, not elsewhere classified]21-76-1756Klgxuop Other non-traumatic joint disorders (1 source)Pain of right wrist; Translations: [Pain in right wrist]EpisodicOther non-traumatic joint disorders (4 sources)Pain in right shoulder; Translations: [Pain in joint, shoulder region]01-95-4781QkwasnqnFoezt non-traumatic joint disorders (6 sources)Chronic pain of right upper limb; Translations: [Pain in right shoulder]82-65-2523AopodddnTulie nutritional; endocrine; and metabolic disorders (2 sources)Obese class II; Translations: [Body mass index (BMI) 36.0-36.9, adult]ChronicResidual codes; unclassified (1 source)Acquired absence of other specified parts of digestive tract; Translations: [ACQ ABSENCE OTH PART DIGESTV TRACT]Onset: 39-41-5644Vmjsojdt Residual codes; unclassified (1 source)Acquired absence of both cervix and uterus; Translations: [ACQUIRED ABSENCE BOTH CERVIX AND UTERUS]Onset: 78-15-9607XdksrzieJcvynevtc and history of mental health and substance abuse codes (1 source)Personal history of nicotine dependence; Translations: [PERSONAL HISTORY OF NICOTINE DEPEND]Onset: 95-72-7126EbgycbwzCsiqogc and strains (2 sources)Strain of muscle(s) and tendon(s) of the rotator cuff of right shoulder, subsequent encounter; Translations: [Other specified aftercare] 15-85-2394CupqwptyQgqkxgzdrzpz (2 sources)Unknown / UNK(Unknown)Onset: 03-28-7711Aceoyilocrft (2 sources)Autogenerated ProblemOnset: 120472-82-0233Zycbjvbdvino (1 source)STOMACH PAINS, NAUSEAOnset: 20-36-3839Rvetivecolfx (6 sources)C21.0 - Malignant neoplasm of anus, unspecifiedUrinary tract infections (10 sources)Urinary tract infectious disease; Translations: [Urinary tract infection, site not specified]00-46-7810RopbypbfLpyhr infection (2 sources)Herpes simplex; Translations: [Herpesviral infection, unspecified] 53-79-0473Npvfeqkz Past or Other Problems Problem ClassificationProblemDateDocumented DateEpisodic/ChronicCalculus of urinary tract (1 source)Calculus of ureter; Translations: [Calculus of ureter]Onset: 27-28-6286HxxnrvyvToujnm of cervix (20 sources)Cervical intraepithelial neoplasia grade 1; Translations: [Low grade squamous intraepithelial lesion on cytologic smear of cervix (LGSIL)]Onset: 987814-83-9031EdgohlhyYazrywzdxuppe and screening for infectious disease (20 sources)Exposure to sexually transmissible disorder; Translations: [Contact with and (suspected) exposure to infections with a predominantly sexual mode of transmission]Onset: [id number] chest pain (1 source)Chest pain, unspecified; Translations: [Chest pain, unspecified]Onset: 24-84-4071VoaxdlbiXapuw screening for suspected conditions (not mental disorders or infectious disease) (5 sources)Encounter for screening for malignant neoplasm of cervix; Translations: [Encounter for screening mammogram for malignant neoplasm of breast]Onset: 05-54-7476SmrgeqbrBfesvaan codes; unclassified (1 source)Asymptomatic menopausal state; Translations: [Asymptomatic menopausal state]Onset: 08-39-1947Lezrpclk Results Test NameValueInterpretationReference RangeFacilityPET CT SKULL TO THIGHon 43-33-5451TYP CT SKULL TO THIGHPET CT SKULL TO THIGH History: Rectal mass removed approximately 3 weeks ago. No chemotherapy or radiation treatment at this time Mass in rectum; Anal cancer ([facility]) Procedure: PET/CT performed from skull base to [...] * Multiple hypermetabolic lymph nodes involving right parapharyngeal region level 2, right axilla, right external iliac, right obturator, and right inguinal. All these areas are suspicious for metastatic adenopathy. * No other suspicious uptake identified currently. Finalized by Malcolm Alvarado MD on 07/26/2025 10:12 AMNormalProMedica Barton Memorial Hospitalurgical pathology studyon [id number] pathology studyPathology report.total SEE COMMENT Surgical Pathology Case: [id number] Authorizing Provider: Bebe Sotelo, Collected: 07/02/2025 1052 MD Ordering Location: [facility] Received: 07/02/2025 2241 OR Pathologist: Miranda Bailey MD Specimen: ANUS EXCISIONAL BIOPSY, anal verge lesion Path report.final diagnosis SEE COMMENT A. 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 Areas of complex endophytic growth favor invasion. Clinicopathologic correlation is recommended. Gift Manager: Dr. Diana Bone at 1059 EDT Laboratory comment By the signature on this report, the individual or group listed as making the Final Interpretation/Diagnosis certifies that they have reviewed this case. Path report.relevant Hx SEE COMMENT Pre-op diagnosis: Anal cancer (Multi) [C21.0] Path report.gross observation SEE COMMENT Received in formalin labeled with the patient's name and hospital number and anal verge lesion , are 7 irregular portions of tissue ranging from 0.3 cm to 1.0 cm in greatest dimensions and aggregating to 1.0 x 0.9 x 0.5 cm. The appreciable excisional surfaces are inked blue. The largest piece shows sloughing areas and hemorrhage about the mucosal tissues. A photograph is taken. The specimen is entirely submitted in 3 cassettes. [facility] Summary of Cassettes: Specimen Label Site A 1 Largest piece, trisected 2 Three fragments, intact 3 Three fragments, intact Gross dissection performed at: [place] [address] LAB AP ASR DISCLAIMER One or more of the reagents used to perform assays on this specimen MAY have contained components considered to be analyte specific reagents (ASR's). ASR's have not been cleared or approved by the U.S. Food and Drug Administration. These assays were developed and their performance characteristics determined by the Department of Pathology at [facility]. The FDA does not require this test to go through premarket FDA review. This test is used for clinical purposes. It should not be regarded as investigational or for research. This laboratory is certified under the Clinical Laboratory Improvement Amendments (CLIA) as qualified to perform high complexity clinical laboratory testing. The assays were performed with appropriate positive and negative controls which stained appropriately.[facility] Hospital - WestComment on above:Order Comment: Pre-op diagnosis: Anal cancer (Multi) [C21.0]MR pelvis wo/w conon [id number] pelvis wo/w con [facility] Main [place] [address] [place] [address] MRI Report Signed Patient: Ne Swann MR#: [id number] : 1970 Acct:[id number] Age/Sex: 54 / F ADM Date: 06/23/25 Loc: Room: Type: [facility] Attending Dr: Leonie Krishna MD Copies to: Leonie Krishna MD Ordering Provider: Leonie Krishna MD Date of Service: 06/23/25 MR/MR pelvis wo/w con: ANAL STAGING PROTOCOL @ MRI OF THE PELVIS WITH AND WITHOUT CONTRAST: CLINICAL HISTORY: Lesion 2 cm right perianal area. Biopsy positive. COMPARISON: None TECHNIQUE: Multisequence, multiplanar imaging of the pelvis was obtained before and after the use of IV contrast. FINDINGS: A T2 hyperintense mass is seen involving the anterior aspect of the anus in the region of the anal verge measuring approximately 8 x 4 x 5 mm. There is associated abnormal enhancement. There is no gross invasion to the anal sphincter complex. There is abnormal soft tissue thickening and enhancement involving the right aspect of the vaginal introitus measuring approximately 3.0 x 2.5 x 2.3 cm. There is associated mass effect. No gross invasion into the urethra is seen. Urinary bladder is grossly unremarkable. Visualized colon appears grossly unremarkable. No free fluid is seen. No lymphadenopathy is noted. No suspicious bony lesion. MR/MR pelvis wo/w con IMPRESSION: A T2 HYPERINTENSE ENHANCING MASS IS SEEN INVOLVING THE ANTERIOR ASPECT OF THE ANAL CANAL IN THE REGION OF THE ANAL VERGE MEASURING 8 X 4 X 5 MM. NO GROSS INVASION IS SEEN INTO THE ANAL SPHINCTER COMPLEX OR ADJACENT STRUCTURES. ABNORMAL SOFT TISSUE THICKENING AND ENHANCEMENT INVOLVING THE RIGHT ASPECT OF THE VAGINAL INTROITUS MEASURING APPROXIMATELY 3.0 X 2.5 X 2.3 CM. THIS ABNORMAL ENHANCEMENT IS NOT CLEARLY CONNECTED TO THE ANAL LESION. FURTHER EVALUATION WITH PELVIC EXAMINATION AND POSSIBLE BIOPSY IS SUGGESTED IF THIS CHANGES MANAGEMENT. Impression dictated by: Daquan Heredia Jr., Danielle 06/23/2025 10:18 AM Dictation Location: [place] [address] Transcribed By: [facility] 06/23/25 1018 Dictated By: Daquan Heredia Jr, DO 06/23/25 0958 Signed By: 06/23/25 1018[facility] WITH AUTO DIFFERENTIALon 84-94-4958Jipx form neutrophils/100 WBC (Bld)1 %[facility] Comment on above:Result Comment: This is an appended report. These results have been appended to a previously preliminary verified report.Performed By: #### KEYA MERINO, 3040-3 #### [facility] ([id number]) [address] [place] [address] [phone] ATYPICAL LYMPHOCYTES RELATIVE PERCENT BY MANUAL COUNT6 %NormalOhioHealth Riverside Methodist HospitalComment on above:Result Comment: This is an appended report. These results have been appended to a previously prelimi nary verified report.Performed By: #### KEYA MERINO, 3040-3 #### [facility] ([id number]) [address] [place] [address] 03289KOGNLIKRCVG DIFFERENTIAL TYPEMANUAL DIFFERENTIALNormalOhioHealth Riverside Methodist HospitalComment on above:Result Comment: This is an appended report. These results have been appended to a previously preliminary verified report. Performed By: #### KEYA MERINO, 3040-3 #### [facility] ([id number]) [address] [place] [address] [id number] EOSINOPHILS ABSOLUTE COUNT (10*3/UL) BY MANUAL COUNT0.0 10*3/uLNormal0.0-0.4ProSaint David's Round [facility] Medical [facility] on above:Result Comment: This is an appended report. These results have been appended to a previously preliminary verified report.Performed By: #### KEYA MERINO, 3040-3 #### [facility] ([id number]) [address] [place] [address] [phone] EOSINOPHILS PERCENT BY MANUAL COUNT1 %Normal ProMLakeside HospitalComselect specialty hospital-[facility] on above:Result Comment: This is an appended report. These results have been appended to a previously preliminary verified report.Performed By: #### KEYA MERINO, 3040-3 #### [facility] ([id number]) [address] [place] [address] [phone] LYMPHOCYTES ABSOLUTE COUNT (10*3/UL) BY MANUAL COUNT1.4 10*3/uLNormal1.0-3.5PLakeHealth TriPoint Medical CenterComselect specialty hospital-[facility] on above:Result Comment: This is an appended report. These results have been appended to a previously preliminary verified report.Performed By: #### KEYA MERINO, 3040-3 #### [facility] ([id number]) [address] [place] [address] 67515ZKEZQTKZBPK LYMPHOCYTES RELATIVE PERCENT BY MANUAL COUNT45 % NormalProTexas Scottish Rite Hospital For ChildrenComselect specialty hospital[facility] on above:Result Comment: This is an appended report. These results have been appended to a previously preliminary verified report.Performed By: #### KEYA MERINO, 3040-3 #### [facility] ([id number]) [address] [place] [address] [phone] MONOCYTES ABSOLUTE COUNT (10*3/UL) IN BLOOD BY MANUAL COUNT0.2 10*3/uLNormal0.0-0.9ProSaint David's Round [facility] Medical [facility] on above: Result Comment: This is an appended report. These results have been appended to a previously preliminary verified report.Performed By: #### KEYA MERINO, 0-3 #### [facility] ([id number]) [address] [place] [address] [phone] MONOCYTES RELATIVE PERCENT BY MANUAL COUNT7 %Normal [facility] Methodist HospitalComselect specialty hospital[facility] on above:Result Comment: This is an appended report. These results have been appended to a previously preliminary verified report.Performed By: #### KEYA MERINO, 3040-3 #### [facility] ([id number]) [address] [place] [address] [phone] NEUTROPHILS ABSOLUTE COUNT BY MANUAL COUNT1.0 10*3/uLLow1.5-6.6Ohio[facility] Methodist HospitalComselect specialty hospital[facility] on above:Result Comment: This is an appended report. These results have been appended to a previously prelimi nary verified report.Performed By: #### KEYA MERINO, 3040-3 #### [facility] ([id number]) [address] [place] [address] [phone] NEUTROPHILS RELATIVE PERCENT BY MANUAL COUNT40 % NormalProTexas Scottish Rite Hospital For ChildrenComselect specialty hospital[facility] on above:Result Comment: This is an appended report. These results have been appended to a previously preliminary verified report.Performed By: #### KEYA MERINO, 3040-3 #### [facility] ([id number]) [address] [place] [address] [phone] RBC MORPHOLOGYNormalNormalProTexas Scottish Rite Hospital For ChildrenComselect specialty hospital[facility] on above:Result Comment: This is an appended report. These results have been appended to a previously preliminary verified report.Performed By: #### KEYA MERINO, 3040-3 #### [facility] ([id number]) [address] [place] [address] 34899Sphqeagcifd distribution width (RBC) [Ratio]13.8 %Lwehpd83.5-15 [facility] HospitalComselect specialty hospital[facility] on above:Performed By: #### KEYA MERINO, 3040-3 #### [facility] ([id number]) [address] [place] [address] 27205Zaudkxfftn (Bld) [Volume fraction]43.1 %Ihbamc06-10WdcFwanvjOhioHealth Riverside Methodist HospitalComment on above:Performed By: #### KEYA MERINO, 3040-3 #### [facility] ([id number]) [address] [place] [address] 27845Sjwnnrkrhy (Bld) [Mass/Vol]14.7 g/uOOilcqp06.7-15.5ProMedica Porterville Developmental CenterComment on above:Performed By: #### KEYA MERINO, 0-3 #### [facility] ([id number]) [address] [place] [address] [phone] (RBC) [Entitic mass]28.1 rlAgxtms36-79NlbEchbwqOhioHealth Riverside Methodist HospitalComment on above:Performed By: #### KEYA MERINO, 3039-3 #### [facility] ([id number]) [address] [place] [address] [phone] (RBC) [Mass/Vol]34.0 g/nHKtryji31-37OckItfmiqOhioHealth Riverside Methodist HospitalComment on above:Performed By: #### KEYA MERINO, 0-3 #### [facility] ([id number]) [address] [place] [address] [phone] (RBC) [Entitic vol]83 mRBmlvuv88-276AuyLcebdp [facility]remont HospitalComment on above:Performed By: #### KEYA MERINO, 0-3 #### [facility] ([id number]) [address] [place] [address] 79402Unpnaaqw mean volume (Bld) [Entitic vol]9.3 fLNormal7-12 ProMedicCentinela Freeman Regional Medical Center, Marina CampusComment on above:Performed By: #### KEYA MERINO, 0-3 #### [facility] ([id number]) [address] [place] [address] [place] [address]Xlqlveeew (Bld) [#/Vol]145 10*3/nOKnj211-716EjaXunkiyTexas Scottish Rite Hospital For ChildrenComment on above:Performed By: #### KEYA MERINO, 3040-3 #### [facility] ([id number]) [address] [place] [address] 84194NOH COUNT5.21 X10E12/LHigh3.8-5.2PLakeHealth TriPoint Medical Center Comment on above:Performed By: #### KEYA MERINO, 0-3 #### [facility] ([id number]) [address] [place] [address] [phone] (Bld) [#/Vol]2.5 10*3/uLLow4-11[facility] Comment on above:Performed By: #### KEYA MERINO, 3039-3 #### [facility] ([id number]) [address] [place] [address] 01710DCBICBCOGGYJW METABOLIC PANELon 70-90-4157Yspzgmw [Mass/Vol]4.3 g/dLNormal3.2-5.3PLakeHealth TriPoint Medical CenterComment on above:Performed By: #### KEYA MERINO, 0-3 #### [facility] ([id number]) [address] [place] [address] 52304EWQ [Catalytic activity/Vol]82 U/ZLcqspm42-803JcsJdoymtTexas Scottish Rite Hospital For ChildrenComment on above:Performed By: #### KEYA MERINO, 0-3 #### [facility] ([id number]) [address] [place] [address] 96796SKX [Catalytic activity/Vol]37 U/LHigh<=31PLakeHealth TriPoint Medical CenterComment on above:Performed By: #### KEYA MERINO, 3040-3 #### [facility] ([id number]) [address] FLO[address] [place], [place] [address]Bwhzr gap [Moles/Vol]10 mmol/LNormal5-15ProTexas Scottish Rite Hospital For ChildrenComment on above:Performed By: #### KEYA MERINO, 3039-3 #### [facility] ([id number]) [address] [place] [address], [place] [address]IMQ [Catalytic activity/Vol]34 U/LNormal<=41ProTexas Scottish Rite Hospital For ChildrenComment on above:Performed By: #### KEYA MERINO, 3039-3 #### [facility] ([id number]) [address] [place] [address], [place] [address]Xlzhpwlck [Mass/Vol]0.6 mg/dLNormal0.3-1.2PLakeHealth TriPoint Medical CenterComment on above:Performed By: #### KEYA MERINO, 3039-3 #### [facility] ([id number]) [address] [place] [address], [place] [address]Bhbfubk [Mass/Vol]9.2 mg/dLNormal8.5-10.5PLakeHealth TriPoint Medical CenterComment on above:Performed By: #### KEYA MERINO, 3039-3 #### [facility] ([id number]) [address] [place] [address], [place] [address]Eqxjweid [Moles/Vol]104 mmol/AErekcy03-758AxfPiyazhTexas Scottish Rite Hospital For ChildrenComment on above:Performed By: #### KEYA MERINO, 3039-3 #### [facility] ([id number]) [address] [place] [address], [place] [address]CW9 [Moles/Vol]25 mmol/XYzvnqu45-14WriZmrdxeLakeHealth TriPoint Medical Center Comment on above:Performed By: #### KEYA MERINO, 3039-3 #### [facility] ([id number]) [address] [place] [address], [place] [address]Xacjnnmhlz [Mass/Vol]0.94 mg/dLNormal0.40-1.00ProTexas Scottish Rite Hospital For ChildrenComment on above:Result Comment: METHOD TRACEABLE TO IDMS STANDARD Performed By: #### KEYA MERINO, 3040-3 #### [facility] ([id number]) [address] [place] [address] 885[address]UST/1.73 sq M.predicted among non-blacks MDRD (S/P/Bld) [Vol rate/Area]72 mL/min/{1.73_m2}Normal>=60ProTexas Scottish Rite Hospital For ChildrenComment on above:Result Comment: eGFR not reported due to non-numeric value for Creatinine. Reported eGFR is based on the CKD-EPI 2020 equation that does not use a race coefficient.Performed By: #### KEYA MERINO, 3040-3 #### [facility] ([id number]) [address] [place] [address] 85209Xvwnbyj [Mass/Vol]90 mg/nGIrnyvk01-93OidQcarfoOhioHealth Riverside Methodist Hospital Comment on above:Performed By: #### KEYA MERINO, 3040-3 #### [facility] ([id number]) [address] [place] [address] 58869Xvabmwsex [Moles/Vol]4.0 mmol/LNormal3.5-5.0OhioHealth Riverside Methodist HospitalComment on above:Performed By: #### KEYA MERINO, 3040-3 #### [facility] ([id number]) [address] [place] [address] 14151Enghujp [Mass/Vol]7.8 g/dLNormal6.0-8.0OhioHealth Riverside Methodist HospitalComment on above:Performed By: #### KEYA MERINO, 3040-3 #### [facility] ([id number]) [address] [place] [address] 73085Ukachn [Moles/Vol]139 mmol/LTkxpbi503-219UbfOkaiqg [facility]remont HospitalComment on above:Performed By: #### KEYA MERINO, 3040-3 #### [facility] ([id number]) [address] [place] [address], [place], [place] [address]Uaqx nitrogen [Mass/Vol]11 mg/dLNormal02-19ProTexas Scottish Rite Hospital For ChildrenComment on above:Performed By: #### CBCAKEYA, 3040-3 #### [facility] ([id number]) [address] [place] [address] 55373MWYTTFqa 14-86-8111Xhxjrr [Catalytic activity/Vol]41 U/LHigh 17-40ProTexas Scottish Rite Hospital For ChildrenComment on above:Performed By: #### CBCAKEYA, 3040-3 #### [facility] ([id number]) [address] [place] [address] 64887RJU 1/O/2 Antigen/Antibodyon 02-41-1188FNB Screen 4th GenerationNon-ReactiveNormalNon ReactiveThe Adventhealth Hendersonville Physician GroupComment on above:Result Comment: HIV-1/HIV-2 antibodies and HIV-1 p24 antigen were NOT detected. There is no laboratory evidence of HIV infection. HIV Negative Performed at: - [facility] [id number] Siphoner: Bruce Osorio PhD, Phone: [phone] PERFORMED BY: [address] [address] PATHOLOGIST RESOURCE DIRECTOR MATA VERDE M.D.Performed By: #### HIV SCREEN #### [facility] ,RECURRENT VAGINITIS (HTRX)on 89-13-6507ELSLJOKSW EOGAKMR8TCYM Healthcare ATOPOBIUM VAGINAENot detectedNOMS HealthcareBVAB 2,3 (BACTERIAL VAGINOSIS ASSOCIATED BACTERIA 2, 3); MOBILUNCUS PRU8EIWX HealthcareBVAB 2,3 (BACTERIAL VAGINOSIS ASSOCIATED BACTERIA 2, 3); MOBILUNCUS SPPNot detectedNOMS Healthcare RUBÉN ALBICANS, PARAPSILOSIS, HNQFVAWEUG9UJNT HealthcareCANDIDA ALBICANS, PARAPSILOSIS, TROPICALISNot detectedNOMS HealthcareCANDIDA JKFKXDBX8ZVZS HealthcareCANDIDA GLABRATANot detectedNOMS HealthcareCANDIDA XYZQSS1DPXB HealthcareCANDIDA KRUSEINot detectedNOMS HealthcareCHLAMYDIA LCFUUVBAFTO8QSQP HealthcareCHLAMYDIA TRACHOMATISNot detectedNOMS HealthcareGARDNERELLA VAGINALIS0 NOMS HealthcareGARDNERELLA VAGINALISNot detectedNOMS HealthcareMEGASPHAERA (TYPES 1, 2)0NOMS HealthcareMEGASPHAERA (TYPES 1, 2)Not detectedNOMS Healthcare MYCOPLASMA BHYRQWCBRW6CVPG HealthcareMYCOPLASMA GENITALIUMNot detectedNOMS HealthcareNEISSERIA ZZROFZWISOX4ADNO HealthcareNEISSERIA GONORRHOEAENot detected NOMS HealthcareTRICHOMONAS EVGZNSTSU7WFGW HealthcareTRICHOMONAS VAGINALISNot detectedNOMS HealthcareNOMS HealthcareUrinalysis macro (dipstick) panel (U)on 16-72-2336Ptdtktccb, UANegativeNegative - 4(70) +++ mg/dLNOMS HealthcareBlood, UAPositiveNegative - 50 Reinaldo/mcLNOMS HealthcareComment on above:1+Clarity, UA ClearNOMS HealthcareColor, UAYellowNOMS HealthcareGlucose, UANegativeNegative - 1999(110) ++++ mg/dLNOND HealthcareInterpretation and review of laboratory resultsAbnormalNOMS HealthcareKetones, UANegativeNegative - 160(16) ++++ mg/dL NOMS HealthcareLeukocytes, UANegativeNegative - 500+++ Rowan/mcLNOND Healthcare Nitrite, UANegativeNegative - PositiveNOMS HealthcarepH, UA55 - 9NOMS Healthcare Protein, UANegativeNegative - 1999(20) ++++ mg/dLNOND HealthcareSpec Grav, UA 1.031 - 1.03NOMS HealthcareUrobilinogen, UA1.00.2 - 12 mg/dLNOMS HealthcareNOMS HealthcarePATHOLOGY REQUEST FOR LAB CORPon [id number] REQUEST FOR LAB CORPNOND HealthcareComment on above:See report. Scanned copy available in EMR. PERIANAL LESIONFIRELANDSNOND HealthcareRECURRENT VAGINITIS (HTRX)on 03-24-2025 ATOPOBIUM KBGNOEV8UHSR HealthcareATOPOBIUM VAGINAENot detectedNOND Healthcare BVAB 2,3 (BACTERIAL VAGINOSIS ASSOCIATED BACTERIA 2, 3); MOBILUNCUS OEJ5SSSJ HealthcareBVAB 2,3 (BACTERIAL VAGINOSIS ASSOCIATED BACTERIA 2, 3); MOBILUNCUS SPPNot detectedNOMS HealthcareCANDIDA ALBICANS, PARAPSILOSIS, PXMWINBNUT5MCAN HealthcareCANDIDA ALBICANS, PARAPSILOSIS, TROPICALISNot detectedNOMS Healthcare RUBÉN BPJDQIMP6ZEBH HealthcareCANDIDA GLABRATANot detectedNOMS Healthcare RUBÉN LNTLVS6SHGE HealthcareCANDIDA KRUSEINot detectedNOMS HealthcareCHLAMYDIA KDTJZAMPCVF7GNLP HealthcareCHLAMYDIA TRACHOMATISNot detectedNOMS Healthcare GARDNERELLA YOCJQWNKX5EVYS HealthcareGARDNERELLA VAGINALISNot detectedNOMS HealthcareMEGASPHAERA (TYPES 1, 2)0NOMS HealthcareMEGASPHAERA (TYPES 1, 2)Not detectedNOMS HealthcareMYCOPLASMA GGOODOERZE8OUUN HealthcareMYCOPLASMA GENITALIUMNot detectedNOMS HealthcareNEISSERIA GJSQOWGBVZI4RATW Healthcare NEISSERIA GONORRHOEAENot detectedNOMS HealthcareTRICHOMONAS WKYRRCFEW7ZYUP HealthcareTRICHOMONAS VAGINALISNot detectedNOMS HealthcareNOMS HealthcareNo Panel InformationOrdered By: Lucas Paulino on 16-15-7017Ubhtlbrwmvdwh Pathology TestSee commentWilson Memorial HospitalComment on above:See report. Scanned copy available in EMR.Pathology Request for Lab Corpon 03-23-2025 Pathology Request for Lab CorpNormMemorial Hospital Pembroke Physician GroupComment on above:Order Comment: PERIANAL LESIONResult Comment: See report. Scanned copy available in EMR. PERFORMED BY: [place] [address] PATHOLOGIST RESOURCE DIRECTOR MATA VERDE M.D.Performed By: #### PATH TO [facility] #### [place] [address] USAUrinalysis macro (dipstick) panel (U)on 03-23-2025 Bilirubin, UANegativeNegative - 4(70) +++ mg/dLNOMS HealthcareBlood, UAPositive Negative - 50 Reinaldo/mcLNOMS HealthcareComment on above:Trace-intactClarity, UA ClearNOMS HealthcareColor, UAYellowNOMS HealthcareGlucose, UANegativeNegative - 2000(110) ++++ mg/dLNOMS HealthcareInterpretation and review of laboratory resultsAbnormalNOMS HealthcareKetones, UANegativeNegative - 160(16) ++++ mg/dL NOMS HealthcareLeukocytes, UANegativeNegative - 500+++ Rowan/mcLNOMS Healthcare Nitrite, UANegativeNegative - PositiveNOMS HealthcarepH, UA5.55 - 9NOMS HealthcareProtein, UANegativeNegative - 2000(20) ++++ mg/dLNOMS HealthcareSpec Grav, UA1.011 - 1.03NOMS HealthcareUrobilinogen, UA0.20.2 - 12 mg/dLNOMS HealthcareNOMS HealthcareUrinalysis macro (dipstick) panel (U)on 12-17-2024 Bilirubin, UANegativeNegative - 4(70) +++ mg/dLNOMS HealthcareBlood, UAPositive Negative - 50 Reinaldo/mcLNOMS HealthcareComment on above:Trace-lysedClarity, UAClear NOMS HealthcareColor, UAYellowNOMS HealthcareGlucose, UANegativeNegative - 2000(110) ++++ mg/dLNOMS HealthcareInterpretation and review of laboratory resultsAbnormalNOMS HealthcareKetones, UANegativeNegative - 160(16) ++++ mg/dL NOMS HealthcareLeukocytes, UANegativeNegative - 500+++ Rowan/mcLNOMS Healthcare Nitrite, UANegativeNegative - PositiveNOMS HealthcarepH, UA5.55 - 9NOMS HealthcareProtein, UANegativeNegative - 2000(20) ++++ mg/dLNOMS HealthcareSpec Grav, UA1.021 - 1.03NOMS HealthcareUrobilinogen, UA0.20.2 - 12 mg/dLNOMS HealthcareNOMS HealthcarePAP IG, APT HPV RFX 16/18,45on [id number] APTIMA NegativeNegativeNOMS HealthcareComment on above:This nucleic acid amplification test detects fourteen high- risk HPV types (16,18,31,33,35,39,45,51,52,56,58,59,66,68) without differentiation. Performed at: - [address] [id number] Siphoner: Bridget Caballero MD, Phone: [phone] Performed at: = - [facility] [address] [facility], [place] [id number] Siphoner: Bridget Caballero MD, Phone: [phone] Interpretation and review of laboratory resultsAbnoalParkland Health Center IG (IMAGE GUIDED)NoteAbnormal.[facility] Regional Medical CenterComment on above:TESTS RESULT FLAG UNITS REF RANGE LAB Clinician Provided Cytology Information Source.............Vagina No. of containers..01 ThinPrep Vial DIAGNOSIS: [A] 01 EPITHELIAL CELL ABNORMALITY. ATYPICAL SQUAMOUS CELLS OF UNDETERMINED SIGNIFICANCE (ASC-US) (VAGINAL). Recommendation: [A] 01 Suggest follow up as clinically appropriate. Specimen adequacy: 01 Satisfactory for evaluation. Performed by: 01 Sade Mauricio, Lay Out Worker (ASCP) Electronically si... 01 Renea Paredes MD, [...] Low,>-Panic High,A-Abnormal,AA-Critical Abnormal Performed at: [address] [address] Bridget Caballero MD, SPATULA-ALONE VAGINA CLINISYNCNOMS HealthcareRECURRENT VAGINITIS (HTRX)on 16-61-9600NANCHZQFW VAGINAE 26.233AbnormalNOMS HealthcareATOPOBIUM VAGINAEDetectedAbnormalNOMS Healthcare BVAB 2,3 (BACTERIAL VAGINOSIS ASSOCIATED BACTERIA 2, 3); MOBILUNCUS [id number] HealthcareBVAB 2,3 (BACTERIAL VAGINOSIS ASSOCIATED BACTERIA 2, 3); MOBILUNCUS SPPNot detectedNOMS HealthcareCANDIDA ALBICANS, PARAPSILOSIS, CMPMIXHLAJ8YHHQ HealthcareCANDIDA ALBICANS, PARAPSILOSIS, TROPICALISNot detectedNOMS Healthcare RUBÉN [id number] HealthcareCANDIDA GLABRATANot detectedNOMS Healthcare RUBÉN TOMMEU7AXKM HealthcareCANDIDA KRUSEINot detectedNOMS HealthcareCHLAMYDIA BDCZDJHWIZV8LZEH HealthcareCHLAMYDIA TRACHOMATISNot detectedNOMS Healthcare ERMB, C; MEFA18.702AbnormalNOMS HealthcareERMB, C; MEFADetectedAbnormalNOMS HealthcareGARDNERELLA DKHSOBWTI61.548AbnormalNOMS HealthcareGARDNERELLA VAGINALISDetectedAbnormalNOMS HealthcareInterpretation and review of laboratory resultsAbnormalNOMS HealthcareMEGASPHAERA (TYPES 1, 2)0[facility] MEGASPHAERA (TYPES 1, 2)Not detectedNOMS HealthcareMYCOPLASMA RFDNHKNTSQ4ASBS HealthcareMYCOPLASMA GENITALIUMNot detectedNOMS HealthcareNEISSERIA GONORRHOEAE0 NOMS HealthcareNEISSERIA GONORRHOEAENot detectedNOMS HealthcareTRICHOMONAS UQXWEJINU0VLJO HealthcareTRICHOMONAS VAGINALISNot detectedNOMS HealthcareNOMS HealthcareMAMM SCREENING BILATERAL W CADon 32-13-7732WRBK SCREENING BILATERAL W CADMAMM SCREENING BILATERAL W CAD NE SWANN 1969 [id number] EXAM: MAMM SCREENING BILATERAL W CAD, 11/11/2024 [...] 11/12/2024 11:01 AM 1 b MAMM 1 [facility]DEX[facility] CENTR[facility] SKELETALon 11-11-2024 DEXA SCAN CENTRAL SKELETALDEXA SCAN CENTRAL SKELETAL CLINICAL INFORMATION: Postmenopausal. TECHNIQUE: [...] if clinically indicated since the etiology of lowBMD cannot be determined by BMD measurement alone. The current National Osteoporosis Foundation guide recommends treating patients with FRAX ten year risk scores of greater than or equal to 3% for hip fracture or greater than or equal to 20% for major osteoporotic fracture, to reduce their fracture risk. Finalized by Girish Ramirez MD on 11/11/2024 3:38 PMNormalOhioHealth Riverside Methodist HospitalRECURRENT VAGINITIS (HTRX)on 93-90-1681ZRBNAIKJD ZWTECRP1GSVW HealthcareATOPOBIUM VAGINAENot detectedNOMS HealthcareBVAB 2,3 (BACTERIAL VAGINOSIS ASSOCIATED BACTERIA 2, 3); MOBILUNCUS JET7VIWY HealthcareBVAB 2,3 (BACTERIAL VAGINOSIS ASSOCIATED BACTERIA 2, 3); MOBILUNCUS SPPNot detectedNOMS HealthcareCANDIDA ALBICANS, PARAPSILOSIS, BRJFQLXBDA1ZCRR HealthcareCANDIDA ALBICANS, PARAPSILOSIS, TROPICALISNot detectedNOMS HealthcareCANDIDA GLABRATA0 NOMS HealthcareCANDIDA GLABRATANot detectedNOMS HealthcareCANDIDA PHLKBZ1NCDB HealthcareCANDIDA KRUSEINot detectedNOMS HealthcareCHLAMYDIA BNTYCOWXMOX9ACAZ HealthcareCHLAMYDIA TRACHOMATISNot detectedNOMS HealthcareGARDNERELLA VAGINALIS 28.648AbnormalNOMS HealthcareGARDNERELLA VAGINALISDetectedAbnormalNOMS HealthcareInterpretation and review of laboratory resultsAbnormalNOMS Healthcare MEGASPHAERA (TYPES 1, 2)0NOMS HealthcareMEGASPHAERA (TYPES 1, 2)Not detectedNOMS HealthcareMYCOPLASMA YPXAZJJWPM1JERL HealthcareMYCOPLASMA GENITALIUMNot detectedNOMS HealthcareNEISSERIA AANNKHSFKGW5SNIH HealthcareNEISSERIA GONORRHOEAENot detectedNOMS HealthcareTRICHOMONAS OSFHMXFHT4ARVO Healthcare TRICHOMONAS VAGINALISNot detectedNOMS HealthcareNOMS HealthcareBASIC METABOLIC PANLon 45-70-4335Pbhak gap [Moles/Vol]9 mmol/LNormal02-11OhioHealth Riverside Methodist HospitalComment on above:Performed By: #### VINICIO MERINO, 59441-7 #### [facility] ([id number]) [address] [place] [address], FIRST FLO[place], [place] [address]Zmiuasz [Mass/Vol]9.2 mg/dLNormal8.5-10.5PLakeHealth TriPoint Medical CenterComment on above:Performed By: #### VINICIO MERINO, 06283-4 #### [facility] ([id number]) [address] [place] [address] 05877Vqquiqjh [Moles/Vol]103 mmol/KXmpwcd61-544QbpJiirwcTexas Scottish Rite Hospital For ChildrenComment on above:Performed By: #### VINICIO MERINO, 95822-2 #### [facility] ([id number]) [address] [place] [address] 70232UI4 [Moles/Vol]25 mmol/LFrqucc39-95TolMzurztLakeHealth TriPoint Medical Center Comment on above:Performed By: #### VINICIO MERINO, 62235-5 #### [facility] ([id number]) [address] [place] [address] 85159Ttudmkpduq [Mass/Vol]1.01 mg/dLHigh0.40-1.00OhioHealth Riverside Methodist HospitalComment on above:Result Comment: METHOD TRACEABLE TO IDMS STANDARD Performed By: #### VINICIO MERINO, 81333-5 #### [facility] ([id number]) [address] [place] [address] 48430REI/1.73 sq M.predicted among non-blacks MDRD (S/P/Bld) [Vol rate/Area]66 mL/min/{1.73_m2}Normal>59ProTexas Scottish Rite Hospital For ChildrenComment on above:Result Comment: Reported eGFR is based on the CKD-EPI 2020 equation that does not use a race coefficient.Performed By: #### VINICIO MERINO, 93153-2 #### [facility] ([id number]) [address] [place] [address] 73572Eozqmed [Mass/Vol]106 mg/qRJlzn23-44RzlMxxpnoOhioHealth Riverside Methodist Hospital Comment on above:Performed By: #### VINICIO MERINO, 82146-2 #### [facility] ([id number]) [address] [place] [address] 09601Vbjrblomz [Moles/Vol]3.7 mmol/LNormal3.5-5.0ProTexas Scottish Rite Hospital For ChildrenComment on above:Performed By: #### VINICIO MERINO, 96371-2 #### [facility] ([id number]) [address] [place] [address] 79242Fbgqah [Moles/Vol]137 mmol/JXtsbtc003-495TmgSyahmr [facility]remont HospitalComment on above:Performed By: #### VINICIO MERINO, 37916-2 #### [facility] ([id number]) [address] [place] [address] 15215Qond nitrogen [Mass/Vol]23 mg/dLNormal5-23ProTexas Scottish Rite Hospital For ChildrenComment on above:Performed By: #### VINICIO MERINO, 00161-4 #### [facility] ([id number]) [address] [place] [address] 58083BUS AND AUTO DIFFon 17-41-1637CEIUZPGG BASOPHIL0.0 X10E9/L Normal0.0-0.2ProMedHuntington HospitalComment on above:Performed By: #### VINICIO MERINO, 53346-6 #### [facility] ([id number]) [address] [place] [address] 71409OELLYOWL NEUTROPHIL6.2 X10E9/LNormal1.5-6.6ProTexas Scottish Rite Hospital For ChildrenComment on above:Performed By: #### VINICIO MERINO, 32245-7 #### [facility] ([id number]) [address] [place] [address] 50642Xbzszzmcq/100 WBC (Bld)0.3 %NormalProTexas Scottish Rite Hospital For Children Comment on above:Performed By: #### VINICIO MERINO, 89040-7 #### [facility] ([id number]) [address] [place] [address] 66838Iwyojprgixy (Bld) [#/Vol]0.2 10*3/uLNormal0.0-0.4ProTexas Scottish Rite Hospital For ChildrenComment on above:Performed By: #### VINICIO MERINO, 10336-6 #### [facility] ([id number]) [address] [place] [address] 88935Rzbzlxayack/100 WBC (Bld)2.0 %NormalProTexas Scottish Rite Hospital For Children Comment on above:Performed By: #### VINICIO MERINO, 00031-0 #### [facility] ([id number]) [address] [place] [address] 52128Cvlgehgdnum distribution width (RBC) [Ratio]13.9 %Normal 11.5-15.0ProTexas Scottish Rite Hospital For ChildrenComment on above:Performed By: #### VINICIO MERINO, 72797-4 #### [facility] ([id number]) [address] [place] [address] 64802Qxngugfrta (Bld) [Volume fraction]42.1 %Yxsvqz23-96AymWdjhxjTexas Scottish Rite Hospital For ChildrenComment on above:Performed By: #### VINICIO MERINO, 77178-1 #### [facility] ([id number]) [address] [place] [address] 79208Bozhsoszpb (Bld) [Mass/Vol]14.0 g/qSEudeed26.7-15.5PLakeHealth TriPoint Medical CenterComment on above:Performed By: #### VINICIO MERINO, 68308-5 #### [facility] ([id number]) [address] [place] [address] 20838Zycpiwktdbd (Bld) [#/Vol]2.2 10*3/uLNormal1.0-3.5PLakeHealth TriPoint Medical CenterComment on above:Performed By: #### VINICIO MERINO, 48390-2 #### [facility] ([id number]) [address] [place] [address] 32526Lnvlgjpwnyk/100 WBC (Bld)23.6 %NormalOhioHealth Riverside Methodist Hospital Comment on above:Performed By: #### VINICIO MERINO, 51451-8 #### [facility] ([id number]) [address] [place] [address] 57445MXO (RBC) [Entitic mass]27.9 ewNdxpdf13-18YdxOpwdhjTexas Scottish Rite Hospital For ChildrenComment on above:Performed By: #### VINICIO MERINO, 20388-3 #### [facility] ([id number]) [address] [place] [address] 92175MCFJ (RBC) [Mass/Vol]33.3 g/kWHinazu13-60JiqSunmgdTexas Scottish Rite Hospital For ChildrenComment on above:Performed By: #### VINICIO MERINO, 75399-3 #### [facility] ([id number]) [address] [place] [address] 28795FDA (RBC) [Entitic vol]84 aOVjciou31-731JseQxhftf [facility]remont HospitalComment on above:Performed By: #### VINICIO MERINO, 64848-6 #### [facility] ([id number]) [address] [place] [address] 16026Aeissaqno (Bld) [#/Vol]0.6 10*3/uLNormal0-0.9OhioHealth Riverside Methodist HospitalComment on above:Performed By: #### VINICIO MERINO, 64569-8 #### [facility] ([id number]) [address] [place] [address] 96392Jhufjhhrz/100 WBC (Bld)6.5 %NormalOhioHealth Riverside Methodist Hospital Comment on above:Performed By: #### VINICIO MERINO, 94660-5 #### [facility] ([id number]) [address] [place] [address] 92843Xhrmytpoxuy/100 WBC (Bld)67.6 %NormalOhioHealth Riverside Methodist Hospital Comment on above:Performed By: #### VINICIO MERINO, 79457-0 #### [facility] ([id number]) [address] [place] [address] 43905Zanduuqd mean volume (Bld) [Entitic vol]9.1 fLNormal7-12 [facility] Methodist HospitalComment on above:Performed By: #### VINICIO MERINO, 96060-2 #### [facility] ([id number]) [address] [place] [address] 58745Vgazkknnp (Bld) [#/Vol]198 10*3/uRMpqqjd346-707UsqJdbgds [facility]remont HospitalComment on above:Performed By: #### VINICIO MERINO, 22850-0 #### [facility] ([id number]) [address] [place] [address] 70114OBD COUNT5.02 X10E12/LNormal3.80-5.20[facility] Comment on above:Performed By: #### VINICIO MERINO, 09367-3 #### [facility] ([id number]) [address] [place] [address] 06577TXQ (Bld) [#/Vol]9.2 10*3/uLNormal4.0-11.0Ohio[facility] Methodist HospitalComment on above:Performed By: #### VINICIO MERINO, 85278-5 #### [facility] ([id number]) [address] [place] [address] 78788Aeuhfdie I.cardiac High sensitivity method [Mass/Vol]on HOUR TROP I, HIGH SENSITIVITY2 ng/LNormal<16ProTexas Scottish Rite Hospital For ChildrenComment on above:Performed By: #### 41177-3 #### [facility] ([id number]) [address] [place] [address] 01956YWHRLIGK I, HIGH SENSITIVITY2 ng/LNormal<16ProTexas Scottish Rite Hospital For ChildrenComment on above:Performed By: #### CBCAg, BMP, 99678-8 #### [facility] ([id number]) [address] [place] [address] 63177Fputvxchff macro (dipstick) panel (U)on 37-23-4131Lxhlfehem, UA NegativeNegative - 4(70) +++ mg/dLNOMS HealthcareBlood, UANegativeNegative - 50 Reinaldo/mcLNOMS HealthcareClarity, UAClearNOMS HealthcareColor, UAYellowNOMS HealthcareGlucose, UANegativeNegative - 2000(110) ++++ mg/dLNOMS Healthcare Interpretation and review of laboratory resultsNormalNOMS HealthcareKetones, UA NegativeNegative - 160(16) ++++ mg/dLNOMS HealthcareLeukocytes, UANegative Negative - 500+++ Rowan/mcLNOMS HealthcareNitrite, UANegativeNegative - Positive NOMS HealthcarepH, UA65 - 9NOMS HealthcareProtein, UANegativeNegative - 2000(20) ++++ mg/dLNOMS HealthcareSpec Grav, UA1.021 - 1.03NOMS HealthcareUrobilinogen, UA0.20.2 - 12 mg/dLNOMS HealthcareNOMS HealthcareCBC AND AUTO DIFFon 08-18-2024 ABSOLUTE BASOPHIL0.0 X10E9/LNormal0.0-0.2ProMedica [facility]ville Developmental CenterComment on above:Performed By: #### CBCA, CMP, 3040-3 #### [facility] ([id number]) [address] [place] [address] 80109CURDVEVN NEUTROPHIL5.0 X10E9/LNormal1.5-6.6ProTexas Scottish Rite Hospital For ChildrenComment on above:Performed By: #### CBCA, CMP, 3040-3 #### [facility] ([id number]) [address] [place] [address] 04883Jjmpawkxu/100 WBC (Bld)0.6 %[facility] Comment on above:Performed By: #### KEYA MERINO, 3040-3 #### [facility] ([id number]) [address] [place] [address] 31626Glgutlmzwus (Bld) [#/Vol]0.1 10*3/uLNormal0.0-0.4Ohio[facility] Methodist HospitalComment on above:Performed By: #### KEYA MERINO, 3039-3 #### [facility] ([id number]) [address] [place] [address] 82393Ykaikrkkjgd/100 WBC (Bld)1.1 %[facility] Comment on above:Performed By: #### KEYA MERINO, 3039-3 #### [facility] ([id number]) [address] [place] [address] 01284Ewtyevkmkoz distribution width (RBC) [Ratio]13.9 %Normal 11.5-15.0OhioHealth Riverside Methodist HospitalComment on above:Performed By: #### KEYA MERINO, 304-3 #### [facility] ([id number]) [address] [place] [address] 33384Zbtfrkqajt (Bld) [Volume fraction]42.3 %Yqlwvj92-56ZgsNcfxmbTexas Scottish Rite Hospital For ChildrenComment on above:Performed By: #### CBCKEYA Luong, 3039-3 #### [facility] ([id number]) [address] [place] [address] 35904Xmidkhepxu (Bld) [Mass/Vol]14.3 g/aWQpjzlv41.7-15.5PLakeHealth TriPoint Medical CenterComment on above:Performed By: #### KEYA MERINO, 3039-3 #### [facility] ([id number]) [address] [place] [address] 88647Smwiyztvpgh (Bld) [#/Vol]1.8 10*3/uLNormal1.0-3.5PLakeHealth TriPoint Medical CenterComment on above:Performed By: #### CBCAg, CMP, 3040-3 #### [facility] ([id number]) [address] [place] [address] 66854Gefhmqdgewf/100 WBC (Bld)24.9 %NormalProTexas Scottish Rite Hospital For Children Comment on above:Performed By: #### CBCA, CMP, 3040-3 #### [facility] ([id number]) [address] [place] [address] 87512CPL (RBC) [Entitic mass]28.3 qvQkpdvv65-70GdhKfdvjuTexas Scottish Rite Hospital For ChildrenComment on above:Performed By: #### CBCAg, CMP, 3040-3 #### [facility] ([id number]) [address] [place] [address] 97748SBXH (RBC) [Mass/Vol]33.7 g/dDPqjqhl50-88CewFgqvqiOhioHealth Riverside Methodist HospitalComment on above:Performed By: #### CBCA, CMP, 3040-3 #### [facility] ([id number]) [address] [place] [address] 51247ATN (RBC) [Entitic vol]84 zRCmjunc13-300RexDkhgdm [facility] HospitalComment on above:Performed By: #### CBCA, CMP, 3040-3 #### [facility] ([id number]) [address] [place] [address] 53479Jdcgsmwbe (Bld) [#/Vol]0.4 10*3/uLNormal0-0.9[facility] Methodist HospitalComment on above:Performed By: #### CBCA, CMP, 3040-3 #### [facility] ([id number]) [address] [place] [address] 71987Kjgcrhhnf/100 WBC (Bld)5.2 %[facility] Comment on above:Performed By: #### CBCAg, CMP, 3040-3 #### [facility] ([id number]) [address] [place] [address] 78035Wpagtiropme/100 WBC (Bld)68.2 %[facility] Comment on above:Performed By: #### CBCAg, CMP, 3040-3 #### [facility] ([id number]) [address] [place] [address] 55197Wkrqjfve mean volume (Bld) [Entitic vol]9.5 fLNormal7-12 [facility] Methodist HospitalComment on above:Performed By: #### WILBER CMP, 3039-3 #### [facility] ([id number]) [address] [place] [address] 68834Aiuwndswj (Bld) [#/Vol]203 10*3/sJVhgnzk596-673EreUldujwOhioHealth Riverside Methodist HospitalComment on above:Performed By: #### WILBER, CMP, 3039-3 #### [facility] ([id number]) [address] [place] [address] 69322RKX COUNT5.04 X10E12/LNormal3.80-5.20[facility] Comment on above:Performed By: #### CBCAg, CMP, 0-3 #### [facility] ([id number]) [address] [place] [address] 61425NGL (Bld) [#/Vol]7.4 10*3/uLNormal4.0-11.0[facility] Methodist HospitalComment on above:Performed By: #### CBCAg, CMP, 0-3 #### [facility] ([id number]) [address] [place] [address] 64272TZIRRQJEARZEF METABOLIC PANELon 94-65-3426Dtzomrm [Mass/Vol]4.5 g/dLNormal3.2-5.3PLakeHealth TriPoint Medical CenterComment on above:Performed By: #### KEYA MERINO, 3040-3 #### [facility] ([id number]) [address] [place] [address], [place] [address]BHH [Catalytic activity/Vol]79 U/QHysygz36-856ZnoIwvwnfTexas Scottish Rite Hospital For ChildrenComment on above:Performed By: #### KEYA MERINO, 0-3 #### [facility] ([id number]) [address] [place] [address], [place] [address]DOH [Catalytic activity/Vol]18 U/LNormal0-31PLakeHealth TriPoint Medical CenterComment on above:Performed By: #### KEYA MERINO, 0-3 #### [facility] ([id number]) [address] [place] [address], [place] [address]Mgmzd gap [Moles/Vol]10 mmol/LNormal5-15ProTexas Scottish Rite Hospital For ChildrenComment on above:Performed By: #### KEYA MERINO, 0-3 #### [facility] ([id number]) [address] [place] [address] 64599VUU [Catalytic activity/Vol]20 U/LNormal0-41ProTexas Scottish Rite Hospital For ChildrenComment on above:Performed By: #### KEYA MERINO, 0-3 #### [facility] ([id number]) [address] [place] [address], [place] [address]Igchvwcib [Mass/Vol]0.8 mg/dLNormal0.3-1.2PLakeHealth TriPoint Medical CenterComment on above:Performed By: #### KEYA MERINO, 3040-3 #### [facility] ([id number]) [address] [place] [address], [place] [address]Patydkk [Mass/Vol]9.7 mg/dLNormal8.5-10.5PLakeHealth TriPoint Medical CenterComment on above:Performed By: #### KEYA MERINO, 3040-3 #### [facility] ([id number]) [address] [place] [address] 61724Omodnuxr [Moles/Vol]104 mmol/NCefklz60-470KwbAsevvaTexas Scottish Rite Hospital For ChildrenComment on above:Performed By: #### KEYA MERINO, 3040-3 #### [facility] ([id number]) [address] [place] [address] 91961VQ0 [Moles/Vol]24 mmol/VPkwlhi15-39SjfNgqepzLakeHealth TriPoint Medical Center Comment on above:Performed By: #### KEYA MERINO, 3040-3 #### [facility] ([id number]) [address] [place] [address] 96627Vfnhyrtonn [Mass/Vol]0.84 mg/dLNormal0.40-1.00ProTexas Scottish Rite Hospital For ChildrenComment on above:Result Comment: METHOD TRACEABLE TO IDMS STANDARD Performed By: #### KEYA MERINO, 3040-3 #### [facility] ([id number]) [address] [place] [address] 71483OOW/1.73 sq M.predicted among non-blacks MDRD (S/P/Bld) [Vol rate/Area]82 mL/min/{1.73_m2}Normal>59ProTexas Scottish Rite Hospital For ChildrenComment on above:Result Comment: Reported eGFR is based on the CKD-EPI 1 equation that does not use a race coefficient.Performed By: #### KEYA MERINO, 3040-3 #### [facility] ([id number]) [address] [place] [address] 87542Ajgbpld [Mass/Vol]86 mg/eHZwxbha73-12DvfUbbymaOhioHealth Riverside Methodist Hospital Comment on above:Performed By: #### KEYA MERINO, 3040-3 #### [facility] ([id number]) [address] [place] [address] 45137Kbskifcaz [Moles/Vol]4.2 mmol/LNormal3.5-5.0[facility] HospitalComment on above:Performed By: #### KEYA MERINO, 3040-3 #### [facility] ([id number]) [address] [place] [address] 60117Ogorwht [Mass/Vol]8.1 g/dLHigh6.0-8.0[facility] Comment on above:Performed By: #### KEYA MERINO, 3040-3 #### [facility] ([id number]) [address] [place] [address] 60389Tqkvpk [Moles/Vol]138 mmol/PCjsjmd472-070YnhCquimg Fremont HospitalComment on above:Performed By: #### KEYA MERINO, 3040-3 #### [facility] ([id number]) [address] [place] [address] 59632Dzrc nitrogen [Mass/Vol]12 mg/dLNormal5-23ProTexas Scottish Rite Hospital For ChildrenComment on above:Performed By: #### KEYA MERINO, 3040-3 #### [facility] ([id number]) [address] [place] [address] [id number] ABDOMEN AND PELVIS WO CONTon [id number] ABDOMEN AND PELVIS WO CONTCT ABDOMEN AND PELVIS WO CONT CT ABDOMEN AND PELVIS WO CONT HISTORY: Left-sided abdominal pain radiating to the back COMPARISON: CT abdomen pelvis 03/17/2019 TECHNIQUE: CT images of abdomen and pelvis obtained without the administration of contrast. Lack ofIV contrast limits evaluation, especially solid organs. Automated [...] No pericolonic fat stranding or free intraperitoneal gas.Mild colonic diverticulosis. Small fat-containing periumbilical hernia. VASCULATURE: [...] by Sean Lambert MD on 08/18/2024 8:25 PMNormalProMedica Porterville Developmental CenterLIPASEon [id number] [Catalytic activity/Vol]34 U/SKvfkxf09-90 [facility] Developmental CenterComment on above:Performed By: #### CBCA, CMP, 3040-3 #### [facility] ([id number]) [address] [place] [address], [place], [place] [address]URINE CULTUREon [id number] identified Cx Nom (U)CULTURE RESULTS NO GROWTH AT <1000 CFU/mLNormalProTexas Scottish Rite Hospital For ChildrenComment on above: Performed By: #### 630-4 #### [facility] ([id number]) [address] [place] [address], [address] [place], [place] [address]CQE MACROSCOPIC NURon [id number] NURNegativeNormalNEG [facility] Developmental CenterComment on above:Performed By: #### NUM #### [facility] ([id number]) [address] [place] [address], [facility] [place], [place] [address]SIGHU/HGB NURTraceAbnormalNEGProTexas Scottish Rite Hospital For ChildrenComment on above:Performed By: #### NUM #### [facility] ([id number]) [address] [place] [address], [facility], [place] [address]PXLAEYW NURNegativeNormalNEGProTexas Scottish Rite Hospital For ChildrenComment on above:Performed By: #### NUM #### [facility] ([id number]) [address] [place] [address], [place] [address]TGYEMIN NURNegativeNormalNEGProSt. Elizabeth Hospitalca Porterville Developmental CenterComment on above:Performed By: #### NUM #### [facility] ([id number]) [address] [place] [address], [place] [address]WDEQLIUOC ESTERASE NURNegativeNormalNEGProTexas Scottish Rite Hospital For ChildrenComment on above:Performed By: #### NUM #### [facility] ([id number]) [address] [place] [address], [place] [address]AZXVYBB NURNegativeNormalNEGProTexas Scottish Rite Hospital For ChildrenComment on above:Performed By: #### NUM #### [facility] ([id number]) [address] [place] [address], [place] [address]VW NUR5.7Ldoklw0.0-8.5Pro[facility] Developmental CenterComment on above:Performed By: #### NUM #### [facility] ([id number]) [address] [place] [address], [place], [place] [address]QSZMBVN NURNegativeNormalNEGProTexas Scottish Rite Hospital For ChildrenComment on above:Performed By: #### NUM #### [facility] ([id number]) [address] [place] [address], [place], [place] [address]AUEYJSGG GRAVITY NUR1.838Bvgjhn2.003-1.035ProTexas Scottish Rite Hospital For ChildrenComment on above:Performed By: #### NUM #### [facility] ([id number]) [address] [place] [address], [facility], [place] [address]WABBAHXBIZQQ NUR0.2 eu/dLNormal<1.1PLakeHealth TriPoint Medical Center Comment on above:Performed By: #### NUM #### [facility] ([id number]) [address] [place] [address], [place], [place] [address]Oomnraguru macro (dipstick) panel (U)on 34-57-7431Esrputhqp, UA NegativeNegative - 4(70) +++ mg/dLNOMS HealthcareBlood, UAPositiveNegative - 50 Reinaldo/mcLNOMS HealthcareComment on above:traceClarity, UAClearNOMS Healthcare Color, UAYellowNOMS HealthcareGlucose, UANegativeNegative - 1999(110) ++++ mg/dL NOMS HealthcareInterpretation and review of laboratory resultsAbnormalNOMS HealthcareKetones, UANegativeNegative - 160(16) ++++ mg/dLNOMS Healthcare Leukocytes, UANegativeNegative - 500+++ Rowan/mcLNOMS HealthcareNitrite, UA NegativeNegative - PositiveNOMS HealthcarepH, UA5.55 - 9NOMS HealthcareProtein, UANegativeNegative - 1999(20) ++++ mg/dLNOMS HealthcareSpec Grav, UA1.011 - 1.03 NOMS HealthcareUrobilinogen, UA0.20.2 - 12 mg/dLNOMS HealthcareNOMS Healthcare RECURRENT VAGINITIS (HTRX)on 36-57-6385MEWVFPCLK WKUEREJ46.259AbnormalNOMS HealthcareATOPOBIUM VAGINAEDetectedAbnormalNOMS HealthcareBVAB 2,3 (BACTERIAL VAGINOSIS ASSOCIATED BACTERIA 2, 3); MOBILUNCUS EBN0VURS HealthcareBVAB 2,3 (BACTERIAL VAGINOSIS ASSOCIATED BACTERIA 2, 3); MOBILUNCUS SPPNot detectedNOMS HealthcareCANDIDA ALBICANS, PARAPSILOSIS, FRHGHATCSY2SUUU HealthcareCANDIDA ALBICANS, PARAPSILOSIS, TROPICALISNot detectedNOMS HealthcareCANDIDA GLABRATA0 NOMS HealthcareCANDIDA GLABRATANot detectedNOMS HealthcareCANDIDA THFNXD5SYHZ HealthcareCANDIDA KRUSEINot detectedNOMS HealthcareCHLAMYDIA PYBRLIPLTGL4POUJ HealthcareCHLAMYDIA TRACHOMATISNot detectedNOMS HealthcareERMB, C; MEFA16.78 AbnormalNOMS HealthcareERMB, C; MEFADetectedAbnormalNOMS HealthcareGARDNERELLA XNPVQALHV90.99AbnormalNOMS HealthcareGARDNERELLA VAGINALISDetectedAbnormalNOMS HealthcareInterpretation and review of laboratory resultsAbnormalNOMS Healthcare MEGASPHAERA (TYPES 1, 2)0NOMS HealthcareMEGASPHAERA (TYPES 1, 2)Not detectedNOMS HealthcareMYCOPLASMA UIINUNQYJQ0WRZM HealthcareMYCOPLASMA GENITALIUMNot detected NOMS HealthcareNEISSERIA YBMRLXAJXOW9KOJT HealthcareNEISSERIA GONORRHOEAENot detectedNOMS HealthcareTET B, TET M19.734AbnormalNOMS HealthcareTET B, TET M DetectedAbnormalNOMS HealthcareTRICHOMONAS OZYVUGPPO7UZUK HealthcareTRICHOMONAS VAGINALISNot detectedNOMS HealthcareNOMS HealthcareUrinalysis macro (dipstick) panel (U)on 64-23-4183Xyozpiara, UANegativeNegative - 4(70) +++ mg/dLNOMS HealthcareBlood, UAPositiveNegative - 50 Reinaldo/mcLNOMS HealthcareComment on above: moderateClarity, UAClearNOMS HealthcareColor, UAYellowNOMS HealthcareGlucose, UA NegativeNegative - 2000(110) ++++ mg/dLNOMS HealthcareInterpretation and review of laboratory resultsAbnormalNOMS HealthcareKetones, UANegativeNegative - 160(16) ++++ mg/dLNOMS HealthcareLeukocytes, UAPositiveNegative - 500+++ Rowan/mcL NOMS HealthcareComment on above:largeNitrite, UANegativeNegative - PositiveNOMS HealthcarepH, UA75 - 9NOMS HealthcareProtein, UANegativeNegative - 2000(20) ++++ mg/dLNOND HealthcareSpec Grav, UA1.021 - 1.03NOND HealthcareUrobilinogen, UA0.2 0.2 - 12 mg/dLAdventHealthXR Shoulder - right 2 Viewson [id number] Result: scapular Y, axillary and AP x-rays of right shoulder showed humeral head to be well centered in the glenoid fossa. There was no evidence of subluxation or dislocation. There was no evidence of degenerative joint disease. Acromioclavicular joint appeared to be well preserved. There was no acute bony process including but not limited to fracture and/or dislocation. Impression: Unremarkable right shoulder. [facility] CenterXR Shoulder - right 2 ViewsOrdered By: Jr. Roman on 07-01-2024 [facility] Work Phone: XR Shoulder - right 2 Viewson [id number] Study observation (narrative)[facility] Medical CenterCytology Cervical or vaginal smear or scraping studyon 07-70-6085SADDSaint John's Breech Regional Medical CenterPAP ACOG PANEL 2: 30 to 65on 12-06-2022..NormalThe [facility] Brentwood HospitalComment on above:Result Comment: Performed at: WBPerformed By: #### [id number] #### [facility] [address] [address] [address] Michael Matos Gdln ACOG Wwvofdv59-10AlatknTuqCleveland Clinic Akron GeneralComment on above:Performed By: #### [id number] #### [facility] [address] [address] [address] Michael ArndtDIAGNOSIS:CommentMercy Health Fairfield HospitalComment on above: Result Comment: NEGATIVE FOR INTRAEPITHELIAL LESION OR MALIGNANCY. Performed at: WBPerformed By: #### [id number] #### [facility] [address] [address] [address] Michael ArndtHPV AptimaNegativeNormalNegativeThe [facility] & Brentwood HospitalComment on above:Result Comment: This nucleic acid amplification test detects fourteen high-risk HPV types (16,18,31,33,35,39,45,51,52,56,58,59,66,68) without differentiation. Performed at: =GPerformed By: #### [id number] #### [facility] [address] [place] [address] Dr. Michael ArndtHPV Genotype ReflexCommentMercy Health Anderson Hospital on above:Result Comment: Criteria not met, HPV Genotype not performed. Performed at: WBPerformed By: #### [id number] #### [facility] [address] [place] [address] Dr. Michael ArndtMethodology:CommentMercy Health Anderson Hospital on above: Result Comment: This liquid based ThinPrep(R) pap test was screened with the use of an image guided system. Performed at: WBPerformed By: #### [id number] #### [facility] [address] [place] [address] Dr. Michael ArndtNote:CommentMercy Health Anderson Hospital on above:Result Comment: The Pap smear is a screening test designed to aid in the detection of premalignant and malignant conditions of the uterine cervix. It is not a diagnostic procedure and should not be used as the sole means of detecting cervical cancer. Both false-positive and false-negative reports do occur. . Performed at: WBPerformed By: #### [id number] #### [facility] [address] [place] [address] Dr. Michael ArndtPerformed by:CommentNoPike Community Hospital on above: Result Comment: Faina Puga, Lay Out Worker (ASCP) Performed at: WBPerformed By: #### [id number] #### [facility] [address] [place] [address] Dr. Michael ArndtSpecimemarifer adequacy:CommentMercy Health Anderson Hospital on above:Result Comment: Satisfactory for evaluation. Performed at: WBPerformed By: #### [id number] #### [facility] [address] [place] [address] Dr. Mihcael ArndtCBC AUTO DIFFon [id number] #0.1 103/ulNormal0.0-0.1The [facility] Brentwood HospitalComment on above:Performed By: #### CBC #### [facility] [address] [address] [address] Michael ArndtBasophils/100 WBC (Bld)0.6 %Normal0.2-2.0The [facility] Comment on above:Performed By: #### CBC #### [facility] [address] [address] [address] Michael Foster #0.2 103/ulNormal0.0-0.7The [facility] Brentwood HospitalComment on above: Performed By: #### CBC #### [facility] [address] [place] [address] Dr. Michael Donosinophils/100 WBC (Bld)2.2 %Normal0.9-7.0The [facility] Comment on above:Performed By: #### CBC #### [facility] [address] [place] [address] Dr. Michael Donrythrocyte distribution width (RBC) [Ratio]13.2 %Uhudjm17.0-15.0 The [facility] Brentwood HospitalComment on above:Performed By: #### CBC #### [facility] [address] [place] [address] Dr. Michael ArndtHematocrit (Bld) [Volume fraction]42.9 %Ojjmbl86.0-48.0The [facility] Brent[facility] HospitalComment on above:Performed By: #### CBC #### [facility] [address] [place] [address] Dr. Michael ArndtHemoglobin (Bld) [Mass/Vol]14.0 g/zUAzteou00.0-16.0The [facility] HospitalComment on above:Performed By: #### CBC #### [facility] [address] [place] [address] Dr. Michael Colby #0.03 10e3/ulNormal0.00-0.03The [facility] Brent[facility] HospitalComment on above:Performed By: #### CBC #### [facility] [address] [address] [address] Michael Colby %0.4 %Normal0.0-0.5The [facility] on above: Performed By: #### CBC #### [facility] [address] [address] [address] Michael Reich #2.1 103/ulNormal1.2-3.8The Kindred Hospital Daytonment on above:Performed By: #### CBC #### [facility] [address] [place] [address] Dr. Michael Motleyhocytes/100 WBC (Bld)26.2 %Fkrldb73.5-60.0The [facility] on above:Performed By: #### CBC #### [facility] [address] [place] [address] Dr. Michael XiongUAL DIFF REQNONormalThe [facility] Brentwood HospitalComment on above: Performed By: #### CBC #### [facility] [address] [place] [address] Dr. Michael Ayala (RBC) [Entitic mass]27.1 apBdnmjp33.7-34.0The [facility] on above:Performed By: #### CBC #### [facility] [address] [place] [address] Dr. Michael Ayala (RBC) [Mass/Vol]32.6 g/tIJnzzat92.9-35.2The [facility] on above:Performed By: #### CBC #### [facility] [address] [place] [address] Dr. Michael Ayala (RBC) [Entitic vol]83.1 tVSciycs01.0-99.0The [facility] on above:Performed By: #### CBC #### [facility] [address] [place] [address] Dr. Michael Landry #0.5 103/ulNormal0.3-0.8The [facility] on above:Performed By: #### CBC #### [facility] [address] [address] [address] Michael Doeocytes/100 WBC (Bld)6.5 %Normal1.7-12.0The [facility] Comment on above:Performed By: #### CBC #### [facility] [address] [place] [address] Dr. Michael McallisterUT #5.2 103/ulNormal1.4-6.5The [facility] Brent[facility] HospitalComment on above:Performed By: #### CBC #### [facility] [address] [place] [address] Dr. Michael Mcallisterutrophils/100 WBC (Bld)64.1 %Vlytky35.0-75.0The [facility] HospitalComment on above:Performed By: #### CBC #### [facility] [address] [place] [address] Dr. Michael rAndtPlatelet mean volume (Bld) [Entitic vol]10.6 fLNormal9.5-13.5The [facility] HospitalComment on above:Performed By: #### CBC #### [facility] [address] [place] [address] Dr. Michael ArndtPLT206 103/xcHcqwth922-043Laq [facility] HospitalComment on above: Performed By: #### CBC #### [facility] [address] [place] [address] Dr. Michael ArndtRBC5.16 106/ulNormal4.20-5.40The [facility] Brent[facility] HospitalComment on above:Performed By: #### CBC #### [facility] [address] [place] [address] Dr. Michael ArndtWBC8.1 103/ulNormal4.0-11.0The [facility] Brentwood HospitalComment on above: Performed By: #### CBC #### [facility] [address] [place] [address] Dr. Michael ArndtCT HEAD WO CONon [id number] HEAD WO CONEXAMINATION: CT HEAD WO CON, 11/29/2022 6:11 PM [...] Electronically authenticated by: ADRIAN HOOKS Date: 2022-11-29 19:11[facility]field HospitalPROF 14(COMP METB)on [id number] [Mass/Vol]3.9 g/dLNormal 3.4-5.0The [facility] HospitalComment on above:Performed By: #### CMP #### [facility] [address] [place] [address] Dr. Michael ArndtAlbumin/Globulin [Mass ratio]1.0 {ratio}NormalThe [facility] on above:Performed By: #### CMP #### [facility] [address] [place] [address] Dr. Michael MayersP [Catalytic activity/Vol]95 U/MCzrlec51-789Qou [facility] on above:Performed By: #### CMP #### [facility] [address] [place] [address] Dr. Michael Jaime [Catalytic activity/Vol]27 U/AOeyyue62-85Wzz [facility] on above:Performed By: #### CMP #### [facility] [address] [place] [address] Dr. Michael Baptiste gap [Moles/Vol]6.7 mmol/LNormalThe [facility]red Hospital Daytonment on above:Performed By: #### CMP #### [facility] [address] [place] [address] Dr. Michael Johnson [Catalytic activity/Vol]30 U/SDphfoz24-36Fbg [facility] on above:Performed By: #### CMP #### [facility] [address] [place] [address] Dr. Yilan ChangBilirubin [Mass/Vol]0.5 mg/dLNormal0.2-1.0The [facility] Comment on above:Performed By: #### CMP #### [facility] [address] [address] [address] Michael ArndtCalcium [Mass/Vol]9.5 mg/dLNormal8.5-10.1The [facility] Comment on above:Performed By: #### CMP #### [facility] [address] [address] [address] Michael ArndtChloride [Moles/Vol]102 mmol/TQzqfcl91-534Tdh [facility] Comment on above:Performed By: #### CMP #### [facility] [address] [address] [address] Michael ArndtCO2 [Moles/Vol]27.9 mmol/SUzrptl92.0-32.0The [facility] Comment on above:Performed By: #### CMP #### [facility] [address] [address] [address] Michael ArndtCreatinine [Mass/Vol]0.89 mg/dLNormal0.55-1.02The [facility] HospitalComment on above:Performed By: #### CMP #### [facility] [address] [place] [address] Dr. Michael DonGFR-AF SERBIAN>60Normal>=60The [facility] Brentwood HospitalComment on above:Performed By: #### CMP #### [facility] [address] [address] [address] Michael DonGFR-NON AF SERBIAN>60Normal>=60The [facility] HospitalComment on above:Performed By: #### CMP #### [facility] [address] [address] [address] Michael ArndtGlobulin (S) [Mass/Vol]4.0 g/dLNormalThe [facility] HospitalComment on above:Performed By: #### CMP #### [facility] [address] [address] [address] Michael ArndtGlucose [Mass/Vol]76 mg/nYTdvmtn39-116Hho [facility] Comment on above:Performed By: #### CMP #### [facility] [address] [address] [address] Michael ArndtPotassium [Moles/Vol]3.6 mmol/LNormal3.5-5.1The [facility] Comment on above:Performed By: #### CMP #### [facility] [address] [address] [address] Michael ArndtProtein [Mass/Vol]7.9 g/dLNormal6.4-8.2The [facility] Comment on above:Performed By: #### CMP #### [facility] [address] [address] [address] Michael ArndtSodium [Moles/Vol]133 mmol/LCritically abg613-720Ear [facility] HospitalComment on above:Performed By: #### CMP #### [facility] [address] [address] [address] Michael ArndtUrea nitrogen [Mass/Vol]12.0 mg/dLNormal7.0-18.0[facility] HospitalComment on above:Performed By: #### CMP #### [facility] [address] [place] [address] Dr. Michael Alfaro nitrogen/Creatinine [Mass ratio]13.5 mg/mgNormalThe [facility] Brent[facility] HospitalComment on above:Performed By: #### CMP #### [facility] [address] [address] [address] Michael ArndtSED RATE SHREVEPORTERGRENon 86-31-8014SVO RATE29 mm/hrNormal<=30[facility] HospitalComment on above:Performed By: #### SEDR #### [facility] [address] [place] [address] Dr. Michael Arndt Vital Signs Date TimeVital SignValuePerforming HpdfirbpcLdzcciyw73-96-5628 11:52-0400Body mmkyyvqrlpo59.5 [degF]Bebe Sotelo MD Work Phone: [facility]10-03-2025 11:52-0400 Diastolic blood klgfijnw07 mm[Hg]Bebe Sotelo MD Work Phone: [phone]10-03-2025 11:52-0400 Heart rate64 /Justin Sotelo MD Work Phone: [phone])[address] [place], [place] 1349210-03-2025 11:52-0400 Respiratory rate18 /Justin Sotelo MD Work Phone: [phone])[address] [place], [place] 1349210-03-2025 11:52-0400 SaO2% (BldA) [Mass fraction]96 %Bebe Sotelo MD Work Phone: [address] [place], [place] 1349210-03-2025 11:52-0400 Systolic blood tbvodnwx659 mm[Hg]Bebe Sotelo MD Work Phone: [address] [place], [place] 1349210-03-2025 09:13-0400 Body bghkoq245 Delphine Sotelo MD Work Phone: [phone] [place], [place] 1349210-03-2025 09:13-0400 Body mass index (BMI) [Ratio]33.86 kg/b7RwpazBebe Sotelo MD Work Phone: [phone] [place], [place] 1349210-03-2025 09:13-0400 Body kdymrc03.7 kgBebe Sotelo MD Work Phone: [address] [place], [place] 1349209-26-2025 12:28-0400 Body xxupyb90.64 kgBebe Sotelo MD Work Phone: [address] [place], [place] 1349209-26-2025 12:28-0400 Diastolic blood ppaypluh04 mm[Hg]Bebe Sotelo MD Work Phone: [phone])[address]09-26-2025 12:28-0400 Heart rate75 /Justin Sotelo MD Work Phone: [facility]09-26-2025 12:28-0400 Systolic blood jmgmsmma968 mm[Hg]Bebe Sotelo MD Work Phone: [facility]09-23-2025 08:45-0400 Body taiekc906.56 cmDora Youssef MD Work Phone: [facility]09-09-2025 14:34-0400 Body quajnxbzgdh64.4 [degF]Lucas Jefferson DO Work Phone: [phone]09-09-2025 14:34-0400 Body .1 kgCorey Jefferson DO Work Phone: [phone])[address]09-09-2025 14:34-0400 Diastolic blood vchzfedt809 mm[Hg]Lucas Jefferson DO Work Phone: [phone] [place], [place] 1793009-09-2025 14:34-0400 Heart rate83 /minCorey Jefferson DO Work Phone: [phone] [place], [place] 1793009-09-2025 14:34-0400 Respiratory rate16 /minCorey Jefferson DO Work Phone: [phone] [place], [place] 1793009-09-2025 14:34-0400 SaO2% (BldA) [Mass fraction]100 %Lucas Jefferson DO Work Phone: [phone] [place], [place] 1793009-09-2025 14:34-0400 Systolic blood docdsrtm842 mm[Hg]Lucas Ejfferson DO Work Phone: [phone] [place], [place] 1793008-07-2025 14:26-0400 Body mass index (BMI) [Ratio]33.44 kg/m2Pam PLUMMER Work Phone: [facility] CenterGduwbfsgzv86-80-8757 14:26-0400Body jajlwx78.36 kgPma PLUMMER Work Phone: [phone]-[facility] CenterOnjatamrqu63-40-3912 14:26-0400Diastolic blood srazgyvd47 mm[Hg]Pam [place] PA Work Phone: [facility] CenterDumtnxiuuw40-23-7348 14:26-0400Systolic blood tpsxtfxi426 mm[Hg]Pam [place] PA Work Phone: [phone] [place], [place] [address]Kjpqoqgaan49-07-4301 13:12-0400Body mass index (BMI) [Ratio]33.43 kg/m2Amy Miguel Ángel PA Work Phone: [phone] [place], [place] [address]Qaoolopwlb40-61-7390 13:12-0400Body uygvzr18.34 kgPam Del Rosario PA Work Phone: [facility] CenterJijnisypqm16-97-4238 13:12-0400Diastolic blood wktgorqr50 mm[Hg]Pam [place] PA Work Phone: [phone] [place], [place] [address]Pyttslhdla68-03-9415 13:12-0400Systolic blood rfiadtke195 mm[Hg]Pam [place] PA Work Phone: [phone] [place], [place] [address]Nbzjihvxog84-22-9800 08:44-0400Body mass index (BMI) [Ratio]33.44 kg/m2Amy Miguel Ángel PA Work Phone: [phone] [place], [place] [address]Iqgiuiokpe39-21-0281 08:44-0400Body xcimvf51.36 kgPam Del Rosario PA Work Phone: [phone])313-[address] [place], [place] [address]Olumuqgtmg17-61-6420 08:44-0400Diastolic blood apjmfqxa33 mm[Hg]Pam Del Rosario PA Work Phone: [phone])291-[facility] CenterJxargdfpij54-69-1950 08:44-0400Systolic blood hynlzuyg741 mm[Hg]Pam Del Rosario PA Work Phone: [phone] [place], [place] [address]Vuzmegfwek69-55-4624 11:27-0500Body mass index (BMI) [Ratio]33.61 kg/a1Vugbh Jefferson DO Work Phone: [phone])[phone] [place], [place] [address]Mbkdgezizm65-32-3495 11:27-0500Body cqenxi78.81 kgCorey Jefferson DO Work Phone: 1([phone])225-[facility]Saint [facility] CenterOslbufrzvo21-58-1186 11:27-0500Diastolic blood vssdbast09 mm[Hg]Lucas Jefferson DO Work Phone: [facility] CenterLafugagwyc09-60-7779 11:27-0500Systolic blood hwazlzgr001 mm[Hg]Lucas Jefferson DO Work Phone: [facility] CenterQgqmeknpif71-08-4876 13:48-0500Body mass index (BMI) [Ratio]33.81 kg/m2Pam Del Rosario KAVITHA Work Phone: [facility] CenterQfvqmndicd08-59-3960 13:48-0500Body nukjnb01.36 kgPam Del Rosario PA Work Phone: [facility] CenterMkpbhwexky57-72-0989 13:48-0500Diastolic blood qrozrijs47 mm[Hg]Pam Fitzpatrickdavin PLUMMER Work Phone: [facility] CenterAiwmcycgnz52-97-5241 13:48-0500Systolic blood bmqyjnah838 mm[Hg]Pam Del Rosario KAVITHA Work Phone: [facility] CenterZxomvfozbo33-41-4245 14:41-0500Body horzzf818.6 cmCorey Jefferson DO Work Phone: [phone]-[facility]Saint [facility] CenterOiseagjkjk23-20-6166 14:41-0500Body mass index (BMI) [Ratio]34.64 kg/c6Tmqlq Jefferson DO Work Phone: [facility] CenterEifsslwbdv58-11-7634 14:41-0500Body .54 kgCorey Jefferson DO Work Phone: [facility] CenterDdrshyrcma10-88-6075 14:41-0500Diastolic blood wkrzbubs06 mm[Hg]Lucas Jefferson DO Work Phone: [facility] CenterTkmskixoxr99-57-4562 14:41-0500Systolic blood krxqexwl775 mm[Hg]Lucas Jefferson DO Work Phone: [facility] CenterRkdvhkgfwe03-63-3739 13:32-0500Body mass index (BMI) [Ratio]35.96 kg/q6Cspjz Jefferson DO Work Phone: [facility] CenterWyesyizswy77-66-9104 13:32-0500Body jacxxz55.08 kgCorey Jefferson DO Work Phone: [facility] CenterTsxffngsis03-97-2338 13:32-0500Diastolic blood rwroguft60 mm[Hg]Lucas Jefferson DO Work Phone: [facility] HospitalWsmaiqqdmy89-66-2540 13:32-0500Systolic blood soipfdkj822 mm[Hg]Lucas Jefferson DO Work Phone: [facility] CenterUwskdmhalo33-71-2491 15:21-0400Body mass index (BMI) [Ratio]35.61 kg/m2Pam Del Rosario KAVITHA Work Phone: [facility] CenterSpzuxrfqgg55-95-7523 15:21-0400Body qipkzh28.17 kgAmy Miguel Ángel KAVITHA Work Phone: [facility] CenterRgguwyoxrf97-92-7545 11:24-0400Body qjyigl801 cm Lucas Jefferson DO Work Phone: [facility] CenterAsovwfjsne86-97-8133 11:24-0400Body mass index (BMI) [Ratio]35.78 kg/s6Jppyf Jefferson DO Work Phone: [facility] CenterBsqidvepwj10-05-5981 11:24-0400Body .63 kgCorey Jefferson DO Work Phone: [facility] CenterOhepcgjjfl75-00-6141 11:24-0400Diastolic blood absvxxmc72 mm[Hg]Lucas Jefferson DO Work Phone: [facility] CenterOswdlisdwe21-73-4278 11:24-0400Systolic blood rfdjkenu588 mm[Hg]Lucas Jefferson DO Work Phone: [facility] Healthcare Encounters Encounter DateEncounter TypeCare ProviderFacilityStart: 08-03-2025 End: 26-05-7590Rsmxkh flowsheetCorey Jefferson DO Work Phone: [facility]BGYNStart: 08-03-2025 End: 54-16-2295Kepmfc flowsheetCorey Jefferson DO Work Phone: [facility] OBGYNStart: 40-84-0293knwmglajpxmalorie BolivarFacility:[facility] Hospitaltart: 07-29-2025 End: 29-52-8350Ofnbjur encounter Tonja Krishna MD-[facility] Work Phone: Start: 07-29-2025 End: 93-79-9743flhefaavefUntnx Masood MD Work Phone: [phone]-Fvhuol Center AmbulatoryStart: 07-23-2025 End: 83-91-9972azyqtlkisyZEECX STEINHAGENUniversity Hospitals Elyria Medical Centertart: 71-35-5228Axdxyykuel Jackson Bolivar MDWALDO [facility] CredibleStart: 07-02-2025 End: 03-86-8857mqbbizwuqnTALEA F [facility] Hospitaltart: 07-02-2025 End: 81-48-6250Fxgxcczzvh hospital visit by physicianBebe Sotelo MD Work Phone: [facility] ORComment on above:Mass in rectum (Primary Dx); Anal cancer (Multi)Start: 06-25-2025 End: 81-36-8596Mpkyun outpatient new 45 minutesEmtariq Sotelo MD Work Phone: [facility] CenterComment on above:Mass in rectum (Primary Dx); Anal cancer (Multi)Start: 06-25-2025 End: 31-44-0266clulqcgrqdIRENL F STEINWVUMedicine Barnesville Hospitaltart: 06-18-2025 End: 90-38-5127Oiuonftmw department patient visitCOMMUNTRUMBULL MEMORIAL H[facility] Healthtart: 56-73-9409Lqzzdcqbvc Marisol Krishna MD-[facility] Acute Work Phone: Start: 06-08-2025 End: 60-76-9535izdwafjbvoHWSMercy Health St[facility] Work Phone: Start: 06-08-2025 End: 52-27-3097Nvpuknx encounter procedureNokendrick Krishna MD-[facility] Work Phone: Start: 33-00-2683Xasytmwrqy RecurringManuel Bolivar MDWALDO [facility]OS[facility] CredibleStart: 05-06-2025 End: 94-36-4437Ibpnbj outpatient visit 15 minutesAmy Miguel Ángel PLUMMER Work Phone: noMS Adam OBGYNComment on above:Vaginal odor; Yeast infection; Dysuria; E-coli UTIStart: 05-06-2025 End: 30-70-3154tntonzjfhjLTH MIGUEL ÁNGELNot AvailableStart: 05-06-2025 End: 65-55-7489Bzldcy flowsheetPam Del Rosario PA Work Phone: [facility]BGYNStart: 05-06-2025 End: 66-86-9165Kmviub flowsheetPam Del Rosario PA Work Phone: [facility] Adam OBGYNStart: 05-06-2025 End: 67-78-1712Xfsxutye Result EncounterAmy Miguel Ángel PA Work Phone: noMS External Department UnsolicitedStart: 03-23-2025 End: 44-52-7661Bpwnyc flowsheetPam Del Rosario PA Work Phone: [facility] BCP OBStart: 03-23-2025 End: 73-22-6801Mwwsbl flowsheetPam Del Rosario PA Work Phone: [facility] BCP OBStart: 03-23-2025 End: 25-93-2611Djxgdplo Result EncounterAmy Miguel Ángel PA Work Phone: NOMS External Department UnsolicitedStart: 03-23-2025 End: 35-19-7931Rvticz outpatient visit 15 minutesAmy Miguel Ángel PLUMMER Work Phone: noMS BCP OBComment on above:Vaginal irritation; Dysuria; HSV (herpes simplex virus) infectionStart: 03-23-2025 End: 42-70-3021qyzudfvtjbMMN [facility] Work Phone: Start: 03-23-2025 End: 03-30-0137Ocnuohhg ReferredCorey Jefferson-LAB Path Spec [facility] HospStart: 03-09-2025 End: 52-07-5014Fxefup flowsheetJr. Nisha Cruz Jessie DO Work Phone: noms FB ORTHOPAEDICSStart: 03-09-2025 End: 98-65-8412Hngobd flowsheetJr. Nisha Reynagasher DO Work Phone: noms FB ORTHOPAEDICSStart: 03-09-2025 End: 05-70-5104Njyqdk outpatient visit 15 minutesJr. Nisha Reynagasher DO Work Phone: noms FB ORTHOPAEDICSComment on above:Right shoulder pain, unspecified chronicity (Primary Dx); Complete tear of right rotator cuff, unspecified whether traumaticStart: 03-09-2025 End: 78-02-9265obmlenkcgaYP., NISHA Regan AvailableStart: 03-04-2025 Registered [place] CredibleStart: 12-17-2024 End: 88-05-6680Yrcymh flowsheetAmy Miguel Ángel PA Work Phone: [facility] BCP OBStart: 12-17-2024 End: 59-68-5013Qirqwp flowsheetAmy Miguel Ángel PA Work Phone: [facility] BCP OBStart: 12-17-2024 End: 34-44-7365Ejbrst outpatient visit 15 minutesAmy Miguel Ángel PA Work Phone: [facility] BCP OBComment on above:Constipation, unspecified constipation type (Primary Dx); Vaginal pain; Vaginal dischargeStart: 12-17-2024 End: 16-22-3608omnfxhwzjnVSV RAMEYNot AvailableStart: 11-23-2024 End: 79-76-8767Yxebpx flowsheetCorey Jefferson DO Work Phone: [facility] BCP OBStart: 11-23-2024 End: 87-89-8931Txlcxr flowsheetCorey Jefferson DO Work Phone: [facility] BCP OBStart: 11-23-2024 End: 67-11-1884Jmqqaicdv Result EncounterCorey Jefferson DO Work Phone: NOSW External Department UnsolicitedStart: 11-23-2024 End: 59-18-4990Opgthxsd Result EncounterCorey Jefferson DO Work Phone: NOPY External Department UnsolicitedStart: 11-23-2024 End: 18-57-1764Hvlhdb outpatient visit 15 minutesCorey Jefferson DO Work Phone: [facility]OM[facility] BCP OBComment on above:LGSIL of cervix of undetermined significance; STD exposureStart: 11-23-2024 End: 48-64-5558umsgxwqkajGDTJK FAZIONot AvailableStart: 11-11-2024 End: 24-38-8865jtvefhydovPPMBE [facility] Centerca [place] HospitalStart: 10-20-2024 End: 10-38-8157Gzscjr flowsheetJr. Nisha Roman DO Work Phone: NOQB FB ORTHOPAEDICSStart: 10-20-2024 End: 55-72-6479Bxvplo flowsheetJr. Nisha Roman DO Work Phone: noms FB ORTHOPAEDICSStart: 10-20-2024 End: 35-41-6690Lusips outpatient visit 15 minutesJr. Nisha Roman DO Work Phone: noms FB ORTHOPAEDICSComment on above:Complete tear of right rotator cuff, unspecified whether traumatic (Primary Dx); Chronic right shoulder painStart: 10-20-2024 End: 33-15-3917lzqkflhtjaTL., NISHA ROMANNot AvailableStart: 10-06-2024 End: 22-24-5279Hibyqm Deanna PLUMMER Work Phone: [facility] BCP OBStart: 10-06-2024 End: 18-79-5072Zqrfeu flowsTonny PLUMMER Work Phone: [facility] BCP OBStart: 10-06-2024 End: 46-37-9904Dkcwbnnl Result EncounterPam PLUMMER Work Phone: noms External Department UnsolicitedStart: 10-06-2024 End: 02-07-4831eehedpttqtBFX RAMEYNot AvailableStart: 10-06-2024 End: 12-99-1214Pkboqp outpatient visit 15 minutesAmy Miguel Ángel PLUMMER Work Phone: noms BCP OBComment on above:Exposure to STD; Vaginal burning; BV (bacterial vaginosis)Start: 10-06-2024 End: 74-78-1192Mlcmhpbmw department patient visitIndian Health Service Hospitaltart: 09-01-2024 End: 85-84-6117Boksbe outpatient visit 15 minutesCorey Jefferson DO Work Phone: noms BCP OBComment on above:E-coli UTI; Yeast infectionStart: 09-01-2024 End: 65-47-7476vexhhgsckjFSCIG FAZIONot AvailableStart: 09-01-2024 End: 90-29-0880Fjysni flowsheetCorey Jefferson DO Work Phone: noms BCP OBStart: 09-01-2024 End: 04-85-8494Hutprw flowsheetCorey Jefferson DO Work Phone: noms BCP OBStart: 08-18-2024 End: 78-84-3892Xptgyhwmb department patient visitIndian Health Service Hospitaltart: 08-05-2024 End: 89-89-1665Vkbtoa outpatient visit 15 minutesJosé Parkinson NP Work Phone: noms FB ORTHOPAEDICSComment on above:Complete tear of right rotator cuff, unspecified whether traumatic (Primary Dx); Chronic right shoulder painStart: 08-05-2024 End: 53-04-8416defqzttgilERXJB T OLSENNot AvailableStart: 08-04-2024 End: 36-84-1536Givcsr flowsheetCorey Jefferson DO Work Phone: noms BCP OBStart: 08-04-2024 End: 71-48-7772Ppmooe flowsheetCorey Jefferson DO Work Phone: noms BCP OBStart: 08-04-2024 End: 43-29-0153aadpsvjhgkOVMKL FAZIONot AvailableStart: 08-04-2024 End: 49-14-5058Tftynj outpatient visit 15 minutesCorey Jefferson DO Work Phone: noms BCP OBComment on above:Encounter to discuss test results; BV (bacterial vaginosis); E-coli UTI; Urinary tract infection without hematuria, site unspecified; Yeast infectionStart: 07-29-2024 End: 13-78-3107Ioxevr outpatient visit 15 minutesPam PLUMMER Work Phone: noms BCP OBComment on above:Exposure to STD; Urinary tract infection without hematuria, site unspecifiedStart: 07-29-2024 End: 84-96-2319tiwmjuzbeqEZI Andreas AvailableStart: 07-29-2024 End: 25-55-8745Bavvkmwj Result EncounterPam PLUMMER Work Phone: noms External Department UnsolicitedStart: 07-29-2024 End: 79-16-8488Pjkqmzjr Result EncounterPam Miguel Ángel PLUMMER Work Phone: noms External Department UnsolicitedStart: 07-23-2024 End: 90-38-0679ugxcjwaejhAIC [facility] Work Phone: Start: 07-23-2024 End: 36-83-7456Xsqzowb encounter [facility] C[facility]-MRI [address] Work Phone: Start: 56-20-9411Nvvvploqwu [facility] Ctr-BH CredibleStart: 07-08-2024 End: 54-24-6534Bxynjwabf encounterJosé Parkinson SOUND CONTROLLER Work Phone: noms FB ORTHOPAEDICSStart: 07-02-2024 End: 86-69-3238Zmfoghsas encounterJosé Parkinson SOUND CONTROLLER Work Phone: noms FB ORTHOPAEDICSStart: 06-29-2024 End: 83-78-1172Qmacas outpatient visit 10 minutesJosé Parkinson NP Work Phone: NOFT FB ORTHOPAEDICSComment on above:Internal derangement of right shoulder (Primary Dx); Right shoulder pain, unspecified chronicity; Fall, initial encounterStart: 06-29-2024 End: 21-81-7061ktjuvmapzkPFXTA T OLSENNot AvailableStart: 06-29-2024 End: 70-93-1550Diolir Perez Parkinson SOUND CONTROLLER Work Phone: NOGP FB ORTHOPAEDICSStart: 06-29-2024 End: 33-08-6328Hckyxh Perez Parkinson SOUND CONTROLLER Work Phone: NOFQ FB ORTHOPAEDICSStart: 06-11-2024 End: 03-86-8977Rewabc outpatient visit 15 minutesCorey Jefferson DO Work Phone: noms BCP OBComment on above:Vaginal discharge; Sexually transmitted disease exposure; Vaginal irritation; Vaginal odorStart: 06-11-2024 End: 96-05-1811hrqdxmcgcdPONIH FAZIONot AvailableStart: 06-10-2024 End: 07-56-0251Hpnncq outpatient visit 10 minutesJosé Parkinson NP Work Phone: noms FB ORTHOPAEDICSComment on above:Strain of tendon of right rotator cuff, subsequent encounter (Primary Dx); Chronic right shoulder painStart: 06-10-2024 End: 77-60-6757sdxbpzwzbtVIYWW T OLSENNot AvailableStart: 06-10-2024 End: 24-76-1543Snzciq Perez Parkinson SOUND CONTROLLER Work Phone: NOQR FB ORTHOPAEDICSStart: 06-10-2024 End: 40-92-3360Fmludo Perez Parkinson SOUND CONTROLLER Work Phone: NOPJ FB ORTHOPAEDICSStart: 05-12-2024 End: 63-64-3353fdijbawcksWMRYE FAZIONot AvailableStart: 12-14-2022 End: 93-32-1082ewphpsnsacCvrbkdmq McCormack Other [facility] [employer] Other Start: 07-70-7668Gaqbcevlz encounterLawrence Isis BALBUENA Palliative CareStart: 11-29-2022 End: 22-37-9503oatudivmlwCZ DOCTOR MISCFacility:K1Zerkz: 11-28-2022 End: 09-46-7607ewdtbtwtoqCI LUCAS PAULINO .Facility:O9Zmdud: 03-18-2017 End: 85-99-7725KyyiobgaxnAFKGOT N ATALLAHFacility:[facility] Procedures DateProcedureProcedure DetailPerforming ClinicianStart: 47-90-9461SJGOV OXIMETRY, CONTINUOUSRodnina F Vo DO Work Phone: Start: 25-57-9675NBEIXPSUN VAGINITIS (HTRX)Pam PLUMMER Work Phone: Start: 51-76-9644Pfljf dip stick/tablet rgnt non-auto w/o micrscpAmy Miguel Ángel PLUMMER Work Phone: Start: 60-47-0680CRJACFEZA VAGINITIS (HTRX)Pam PLUMMER Work Phone: Start: 69-80-7549Uvwfx dip stick/tablet rgnt non-auto w/o micrscpAmy Miguel Ángel PLUMMER Work Phone: Start: 30-30-3987IMJYSTLKK REQUEST FOR LAB CORPCorey Jefferson DO Work Phone: Start: 57-94-4076Bkard dip stick/tablet rgnt non-auto w/o micrscpCorey Jefferson DO Work Phone: Start: 49-21-4757UAXAYFSNJ VAGINITIS (HTRX)Lucas Jefferson DO Work Phone: Start: 71-85-2716AQE IG, APT HPV RFX 16/18,45Corey Jefferson DO Work Phone: Start: 54-76-8682EtnrfuhlwcoKujtx Steinhagen-Golbig MD Work Phone: Start: 13-73-6964RYNFXABPS VAGINITIS (HTRX)Pam PLUMMER Work Phone: Start: 03-97-7671Bevdt dip stick/tablet rgnt non-auto w/o micrscpCorey Jefferson DO Work Phone: Start: 10-38-5741Hcrob dip stick/tablet rgnt non-auto w/o micrscpCorey Jefferson DO Work Phone: Start: 64-17-9966XJWIOQAIK VAGINITIS (HTRX)Pam PLUMMER Work Phone: Start: 74-03-3908Xazbu dip stick/tablet rgnt non-auto w/o micrscpAmy Miguel Ángel PLUMMER Work Phone: Start: 51-01-9350FVC of right shoulderStart: 34-58-0057Tdypc shoulder complete minimum 2 viewsEmmanuellet Emilia Parkinson NP Work Phone: Start: 10-71-0786Iefd cerv/vag auto thin layer prep mnl screenCorey Jefferson DO Work Phone: Plan of Treatment DateCare ActivityDetailAuthorStart: 48-97-2166Liuypafgs for malignant neoplasm of breastMammogramParkview Health Montpelier HospitalStart: 08-10-2025 End: 07-34-9184Ifdltup encounter fgltyfwwl52/11/2025 11:00 AM EST Office Visit [facility] [place] [facility] [place] [place] [address] Jr. Nisha Roman [address] [facility] [address] [place] [address] [facility] [place] [facility]opaedicsStart: 08-03-2025 End: 21-84-5998Fejdyja encounter ppwdkocke61/04/2025 9:50 AM EST Procedure Visit [facility] [address] [facility] [facility] [place] [address] Lucas Paulino DO [address] [place] [address] ArrivedNOMS [place] OBGYNComment on above:ArrivedStart: 07-06-2025 End: 00-54-2599Peubyhw encounter procedureNOMS FB ORTHOPAEDICSStart: 07-02-2025 Subsequent hospital visit by qtjbiqymc78/03/2025 Hospital Encounter [facility] [place] [address] [place], [phone] [place] [address] [facility] Department of Surgery-[place], [place] [phone] [facility] ORStart: 06-25-2025 End: 22-50-1631HC PET CT colorectal initial diagnosisNM PET CT colorectal initial diagnosis Imaging STAT Mass in rectum Anal cancer (Multi) Expected: , Expires: 06/25/2026[facility] Service Area Work Phone: Comment on above:Expected: 06/25/2025, Expires: 06/25/2026Start: 06-25-2025 End: 99-99-2735Gvqptbmi pathology studyUnBerger Hospital Work Phone: Comment on above:Expected: 06/25/2025 (Approximate), Expires: 06/25/2026Start: 46-31-2349HriwlaorwSt. Vincent Hospitaltart: 06-01-2025 End: 77-01-0024Fidsrvi encounter procedureNOMS BCP OBStart: 20-32-0659DFZMN-19 Vaccine ( season)COVID-19 Vaccine ( season)[facility] HospitalStart: 89-68-6978Okteboiwt vaccinationInfluenza Vaccine (#1)[facility] HospitalStart: 05-06-2025 End: 71-43-0133Mxdpbqt encounter azljevxod48/07/2025 3:00 PM EDT Office Visit [facility] [address] [place] [address] Pam Del Rosario, PA [address] [facility] [place] [address] ArrivedNOMS Kerns OBGYNComment on above:ArrivedStart: 04-26-2025 End: 46-28-9797Vfmubbx encounter ndwsdnzub97/28/2025 2:40 PM EDT Office Visit [facility] [address] [facility] [place] [address] Lucas Paulino, DO [address] [facility] [address] [place], [place] [id number] [facility]OMS BCP OBStart: 03-23-2025 End: 72-80-2809Uwdmjdo encounter osacskvmx28/24/2025 1:30 PM EDT Office Visit [facility] [address] [facility] [place] [address] Pam Del Rosario, PA [address] [facility] [address] [place], [facility] ArrivedMAURICE [facility] OBComment on above:ArrivedStart: 03-23-2025 [facility]: 03-09-2025 End: 60-14-0628Ufywjkk encounter bezfsfttv08/10/2025 10:45 AM EDT Office Visit [facility] [address] [place] [phone] Jr. Nisha Roman, DO [address] [facility] [address] [place] [address] ArrivedNO FB ORTHOPAEDICSComment on above:ArrivedStart: 12-29-2024 End: 82-95-1284Xnlndkn encounter /01/2025 10:45 AM EDT Office Visit [facility] [address] [place] [phone] Jr. Nisha Roman, DO [address] [place] [address] NOMS FB ORTHOPAEDICSStart: 12-17-2024 End: 15-75-9648Zniwgsk encounter epzjcpbpy39/20/2025 9:00 AM EDT Office Visit [facility] [address] [facility] [place] [phone] Pam Del Rosario, PA [address] [facility] [place] [address] ArrivedNOMS BCP OBComment on above:ArrivedStart: 12-01-2024 End: 26-87-8881Hkhzsav encounter ubirgfxnj04/04/2025 11:00 AM EST Office Visit [facility] [address] [place] [address] Jr. Nisha Roman, DO [address] [place] [address] [place] [address] NOMS FB ORTHOPAEDICSStart: 11-23-2024 End: 65-57-0459Alpcqls encounter mlpbcapne64/24/2025 11:30 AM EST Procedure Visit [facility] [address] [facility] [place] [phone] Lucas Paulino [address] [facility] [place] [address] ArrivedNOMS BCP OBComment on above: ArrivedStart: 11-12-2024 End: 07-90-1882Rqxotru encounter mjljozgta97/13/2025 11:00 AM EST Procedure Visit [facility] [address] [facility] [place] [address] Lucas Paulino, [address] [facility] [address] [place], [place] [phone] NOMS BCP OBStart: 10-20-2024 End: 95-76-3388Awvuvho encounter procedureNOMS FB ORTHOPAEDICSComment on above: ArrivedStart: 09-09-2024 End: 73-45-6841Bmsdrps encounter vmxclagcc09/11/2024 11:15 AM EST Office Visit [facility] [address] [facility] [address] [place] [phone] Jr. Nisha Roman, DO [address] [facility] [address] [place] [address] NOMS SWS ORTHOStart: 09-01-2024 End: 31-77-3582Ahdfrke encounter procedureNOMS BCP OBComment on above:Arrived Start: 08-12-2024 End: 78-30-0200Fqokltn encounter oktpbjqwy62/13/2024 1:45 PM EST Office Visit [facility] [address] [facility] [address] [place] [address] Jr. Nisha Roman, DO [address] [facility] [address] [place] [address] [facility] ORTHOStart: 08-05-2024 End: 30-47-1322Rhbaqks encounter dkumpnqii62/06/2024 1:00 PM EST Office Visit [facility] [address] [place] [address] José Parkinson, SOUND CONTROLLER [address] [place] [address] NOMS FB ORTHOPAEDICSStart: 15-56-4435SJ pre/post mri xrayXR pre/post mri xraySt. Vincent Hospitaltart: 20-15-5216OhvwbimcaSt. Vincent Hospitaltart: 07-14-2024 End: 55-62-1027Jupymnslhamk / ancillary services nvghzzsocu83/15/2024 2:30 PM EDT Ancillary Procedure [facility] MR [address] [facility] [address] [place] [phone] NOMS FNR MRStart: 07-01-2024 End: 66-78-5524vboxiviqvw99/02/2024 1:00 PM EDT Evaluation [facility] PT [address] [place] [phone] Noam Carl, PT [address] [facility], [place] [id number] NOMS FB PTStart: 06-29-2024 End: 18-46-6144Luutxho encounter thebnyked36/30/2024 2:15 PM EDT Office Visit [facility] [address] [place] [address] José Parkinson, SOUND CONTROLLER [address] [place], [place] [phone] ArrivedNOMS ORTHOPAEDICSComment on above:ArrivedStart: 06-29-2024 End: 15-98-7630FX Shoulder - right WO contrastMR shoulder right wo IV contrast Imaging Routine Internal derangement of right shoulder Expected: 06/29/2024 (Approximate), Expires: 06/29/2025[facility] Work Phone: Comment on above:Expected: 06/29/2024 (Approximate), Expires: 06/29/2025Start: 06-11-2024 End: 64-75-2599Pqtpjsu encounter nbipjdrrd93/12/2024 11:30 AM EDT Office Visit [facility] [address] [facility] [facility] [place] [phone] Lucas Paulino, DO [address] [place] [address] [place] [address] NOMS BCP OBStart: 06-10-2024 End: 07-22-2550Nqyqysb encounter jukpaadew75/11/2024 2:30 PM EDT Office Visit [facility] [address] [facility] [place] [address] José Parkinson, SOUND CONTROLLER [address] [place], [place] [phone] ArrivedNOCOX WALNUT LAWN ORTHOPAEDICSComment on above:ArrivedStart: 2019 Pneumococcal vaccinationPneumococcal Vaccine (1 of 1 - PCV)[facility]: 74-41-2364Rpgqkn Vaccines (1 of 2)Zoster Vaccines (1 of 2) [facility]: 83-96-9236JDxN/Tdap/Td Vaccines (1 - Tdap)DTaP/Tdap/Td Vaccines (1 - Tdap)[facility]: 93-07-1891Uostubkie for malignant neoplasm of cervixUnSt. Elizabeth Hospital: 24-82-4223Bzpafhaha B Vaccines (1 of 3 - 19+ 3-dose series) Hepatitis B Vaccines (1 of 3 - 19+ 3-dose series)[facility]: 76-22-6828Nqpxepzbaxwz vaccinationPneumococcal Vaccine (1 of 2 - PCV)[facility]: 56-78-5096Yifhifij mellitus screeningDiabetes ScreeningUnSt. Elizabeth Hospital: 1988 Hepatitis C screeningHepatitis C ScreeningUnBerger Hospital Start: 35-26-6009YCA Vaccines (1 of 1 - Standard series)MMR Vaccines (1 of 1 - Standard series)[facility]: 50-89-3394DOF screening HIV ScreeningUnSt. Elizabeth Hospital: 05-33-2768Gshum panelLipid PanelUnSt. Elizabeth Hospital: 1969Medicare Annual Wellness VisitMedicare Annual Wellness Visit (AWV)[facility]: 36-57-9033Gumdjxwza for malignant neoplasm of colonUnBerger HospitalAnoscopy ablation lesionANOSCOPY, WITH LESION REMOVAL Anal cancer (Multi)[facility] SUB[facility] ORBacteria identified in Urine by CultureUrine culture Microbiology Routine Vaginal discharge Ordered: 12/17/2024[facility] Work Phone: comment on above:Ordered: 5Bacteria identified in Urine by CultureUrine culture Microbiology Routine Dysuria Ordered: 03/23/2025[facility] HealthcareComment on above:Ordered: 5Bacteria identified in Urine by CultureUrine culture Microbiology Routine Vaginal odor Dysuria E-coli UTI Ordered: 05/06/2025[facility] HealthcareComment on above:Ordered: 05/06/2025 End: 05-72-7163Rlyqz type and Indirect antibody screen panel - BloodType And Screen Lab Timed As needed (Lab) until discontinued starting 07/02/2025 [facility] Work Phone: Comment on above:As needed (Lab) until discontinued starting 07/02/2025HLAMYDIA TRACHOMATIS (GENITO/STI)CHLAMYDIA TRACHOMATIS (GENITO/STI) Lab Routine Exposure to STD Ordered: 07/29/2024[facility] Healthcare Comment on above:Ordered: 07/29/2024HLAMYDIA TRACHOMATIS (GENITO/STI)CHLAMYDIA TRACHOMATIS (GENITO/STI) Lab Routine Vaginal discharge Ordered: 06/11/2024[facility] HealthcareComment on above:Ordered: 06/11/2024HLAMYDIA TRACHOMATIS (GENITO/STI) CHLAMYDIA TRACHOMATIS (GENITO/STI) Lab Routine STD exposure Ordered: 11/23/2024 [facility] Healthcare[facility] on above:Ordered: 11/23/2024HLAMYDIA TRACHOMATIS (GENITO/STI)CHLAMYDIA TRACHOMATIS (GENITO/STI) Lab Routine Vaginal discharge Ordered: 12/17/2024[facility] HealthcareComment on above:Ordered: 12/17/2024HLAMYDIA TRACHOMATIS (GENITO/STI)CHLAMYDIA TRACHOMATIS (GENITO/STI) Lab Routine Vaginal irritation Ordered: 03/23/2025[facility] HealthcareComment on above:Ordered: 03/23/2025HLAMYDIA TRACHOMATIS (GENITO/STI)CHLAMYDIA TRACHOMATIS (GENITO/STI) Lab Routine Vaginal odor Ordered: 05/06/2025[facility] HealthcareComment on above: Ordered: 05/06/2025 End: 52-46-7249Mazlhjkbcbghrlrmkr ( test) [Presence] in UrinePOCT , urine Point of Care Testing Routine Once (Lab) for 1 Occurrences starting 07/02/2025 until 07/02/2025[facility] Service Area Work Phone: Comment on above:Once (Lab) for 1 Occurrences starting 07/02/2025 until 07/02/2025Hepatitis B virus surface Ag [Presence] in Serum or Plasma by ImmunoassayHepatitis BsAg Lab Routine Vaginal discharge Vaginal irritation Vaginal odor Ordered: 06/11/2024[facility] HealthcareComment on above: Ordered: 06/11/2024HIV-1/HIV-2 antigen/antibody combination immunoassayHIV-1 and HIV-2 antibodies Lab Routine Sexually transmitted disease exposure Ordered: 06/11/2024[facility] HealthcareComment on above:Ordered: 06/11/2024Human immunodeficiency virus antibody testWilson [facility] HospitalNeisseria gonorrhoeae DNA [Presence] in Unspecified specimen by ASHLEE with probe detection Neisseria gonorrhea DNA probe, direct Lab Routine Exposure to STD Ordered: 07/29/2024[facility] HealthcareComment on above:Ordered: 07/29/2024Neisseria gonorrhoeae DNA [Presence] in Unspecified specimen by ASHLEE with probe detection Neisseria gonorrhea DNA probe, direct Lab Routine Vaginal discharge Ordered: 06/11/2024[facility] HealthcareComment on above:Ordered: 06/11/2024Neisseria gonorrhoeae DNA [Presence] in Unspecified specimen by ASHLEE with probe detection Neisseria gonorrhea DNA probe, direct Lab Routine STD exposure Ordered: 11/23/2024[facility] HealthcareComment on above:Ordered: 11/23/2024Neisseria gonorrhoeae DNA [Presence] in Unspecified specimen by ASHLEE with probe detection Neisseria gonorrhea DNA probe, direct Lab Routine Vaginal discharge Ordered: 12/17/2024[facility] HealthcareComment on above:Ordered: 12/17/2024Neisseria gonorrhoeae DNA [Presence] in Unspecified specimen by ASHLEE with probe detection Neisseria gonorrhea DNA probe, direct Lab Routine Vaginal irritation Ordered: 03/23/2025[facility] HealthcareComment on above:Ordered: 03/23/2025Neisseria gonorrhoeae DNA [Presence] in Unspecified specimen by ASHLEE with probe detection Neisseria gonorrhea DNA probe, direct Lab Routine Vaginal odor Ordered: 05/06/2025[facility] HealthcareComment on above:Ordered: 05/06/2025 End: 78-64-4397Mgkew oximetry, spotPulse oximetry, spot Respiratory Care Routine Once for 1 Occurrences starting 07/02/2025 until 07/02/2025[facility] Work Phone: Comment on above:Once for 1 Occurrences starting 07/02/2025 until 07/02/2025Reagin Ab [Presence] in Serum by RPRRPR Lab Routine Vaginal discharge Vaginal irritation Vaginal odor Ordered: 06/11/2024[facility] HealthcareComment on above:Ordered: 06/11/2024SURESWAB(R) ADVANCED VAGINITIS PLUS, TMASURESWAB(R) ADVANCED VAGINITIS PLUS, TMA Pathology and Cytology Routine Exposure to STD Ordered: 07/29/2024[facility] Work Phone: comment on above:Ordered: 07/29/2024SURESWAB(R) ADVANCED VAGINITIS PLUS, TMASURESWAB(R) ADVANCED VAGINITIS PLUS, TMA Pathology and Cytology Routine Vaginal discharge Ordered: 06/11/2024[facility] [employer] Work Phone: comment on above:Ordered: 06/11/2024SURESWAB(R) ADVANCED VAGINITIS PLUS, TMASURESWAB(R) ADVANCED VAGINITIS PLUS, TMA Pathology and Cytology Routine STD exposure Ordered: 11/23/2024[facility] HealthcareComment on above:Ordered: 11/23/2024SURESWAB(R) ADVANCED VAGINITIS PLUS, TMASURESWAB(R) ADVANCED VAGINITIS PLUS, TMA Pathology and Cytology Routine Vaginal discharge Ordered: 12/17/2024[facility] HealthcareComment on above:Ordered: 12/17/2024 SURESWAB(R) ADVANCED VAGINITIS PLUS, TMASURESWAB(R) ADVANCED VAGINITIS PLUS, TMA Pathology and Cytology Routine Vaginal irritation Ordered:03/23/2025[facility] Work Phone: comment on above:Ordered: 03/23/2025SURESWAB(R) ADVANCED VAGINITIS PLUS, TMASURESWAB(R) ADVANCED VAGINITIS PLUS, TMA Pathology and Cytology Routine Vaginal odor Ordered: 05/06/2025[facility] Work Phone: comment on above:Ordered: 05/06/2025Surgical pathology studySurgical Pathology Exam Pathology and Cytology Timed Anal cancer (Multi) Release Upon Ordering for 1 Occurrences starting 07/02/2025[facility] Work Phone: Comment on above:Release Upon Ordering for 1 Occurrences starting 07/02/2025THIN PREP TIS PAP AND HR HPV DNATHIN PREP TIS PAP AND HR HPV DNA Pathology and Cytology Routine LGSIL of cervix of undetermined significance Ordered: 11/23/2024[facility] Work Phone: comment on above:Ordered: 11/23/2024 Immunizations Immunization DateImmunizationNotesCare CvnnhojzSbcndlsj00-81-1755eamdfstcn virus vaccine, unspecified formulationBebe Sotelo MD Work Phone: [facility] Work Phone: Payers DatePayer CategoryPayerPolicy [id number] Eligibility Medicare/Medicaid OrganizationANTHEM DUAL ADVANTAGE [id number]-nku [id number] MEDICARE ADVANTAGE [facility] MEDICARE ADVANTAGE [id number] 2020-Present [address] [place] [id number] 2021Medicare (Managed Care)[facility] MEDICARE ADVANTAGE Member Subscriber Plan / Payer (Effective 2020-) Name: Ne Swann Relation to Subscriber: Self Name: Ne Swann SubscriberID: [id number] Payer ID: Not on file Group ID: [id number] Type: Not on file Address: [address] [place] [id number] 2020Medicaid [id number] 2.16.840.1.633198.3.57[id number] 2.16.840.1.054669.3.57[id number] 2..840.1.429876.3.57[id number] 2..840.1.405745.3.57[id number] 2..840.1.664319.3.57[id number] 2..840.1.162410.3.57[id number] 2.840.1.950408.3.57[id number] 2..840.1.835929.3.57[id number] 2.840.1.436142.3.57[id number] 2..840.1.722926.3.57[id number] 2.840.1.834857.3.579.2.[id number] 2..840.1.722258.3.57[id number] 2.16.840.1.709690.3.57[id number] 2.16.840.1.126177.3.57[id number] 2.16.840.1.826733.3.57[id number] 2.16.840.1.777749.3.57[id number] 2.16.840.1.712901.3.57[id number] 2..840.1.724478.3.57[id number] 2..840.1.073292.3.579.[id number] 2.0.1.714808.3.57[id number] 2..0.1.657740.3.579.[id number] 2..840.1.230818.3.579.[id number] 2.0.1.590496.3.57[id number] 2.0.1.691392.3.57[id number] 2.0.1.612735.3.579.[id number] 2..840.1.727363.3.579.2.1245 [id number] 1961Unknown [id number] 2.16.840.1.642436.3.579.2.531 [id number] 2.16.840.1.42[id number] 2.16.840.1.183691.3.579.2.531 Social History DateTypeDetailFacilityUnknown if ever smokedNouniversity hospital [email or web address] Other Start: 10-20-2024 End: 07-37-4845Fpa Assigned At BirthNouniversity hospital [email or web address] Other Tobacco smoking status NHISTobacco smoking consumption unknownNOMS HealthcareStart: 59-54-1874Nes assigned at birthNot on fileNOMS HealthcareStart: 97-94-6884Slbifgr smoking status NHISNever smoked tobacco (finding)[facility]: 86-54-6527Uyz Assigned At FemaleFirCleveland Clinic Hillcrest Hospitaltart: 10-20-2024 End: 95-67-5378Gqulikh smoking status NHISEx-smokerNOMS HealthcareHistory of tobacco useCurrent smokerNOMS HealthcareHistory of tobacco useCigarette Smoker [facility] HealthcareStart: 10-20-2024 End: 05-45-8056Iyclzlg use and exposureSmokeless tobacco non-userN[facility]S Healthcare Start: 10-20-2024 End: 60-85-4618Ssvoqweol beverage intakeCurrent drinker of alcohol (finding)[facility] HealthcareStart: 10-20-2024 End: 78-16-2005Ybhwzcz of Social functionNOMS HealthcareSexFemale (finding) [facility]tart: 08-25-2022 End: 59-74-5786PhlLhqxymUbrqmmayucMercy Health Allen HospitalStart: 06-28-2025 Alcohol Comment1-2 drinks per weekParkview Health [facility] Work Phone: Goals DatePatient GoalDesired Activity/StatePersonal health goal Functional Status ArfqShmxmbvjmnWbphlyGawptdki05-95-5678Rkkrxdpqhz [facility] Work Phone: [phone]hnpqdgjt spldgo886/89[facility] Work Phone: 1(658) 530-260909-127204-37-7758Eofys signs75 06/25/2025 12:28 PM EDT Claudia Laura, HERMESParkview Health Montpelier Hospital Work Phone: [phone]) [phone]FuebbqytzwParkview Health Montpelier Hospital Work Phone: [facility] Mental Status ZrirCtkqwygawgHoevaiOifnefbq72-38-9053Strzajkpu function findingNegative 07/02/2025 11:52 AM EDT Claudia Vo, JOSE [facility] Work Phone: Clinical Notes 06-10-2024 to 07-29-2025 Note Date & OddiNactTibszasb15-68-7948 Hospital Discharge instructionsAmbulatory Orders* Referral to Oncology Location: None Selected * Referral to Palliative Medicine Time Frame: 07/29/25, Location: None Selected [facility] Work Phone: [phone]) 116-344410-03-2025 Miscellaneous Notes* Op Note - Bebe Sotelo MD - 07/02/2025 10:46 AM EDT High Resolution Anoscopy with Biopsy, excision anal lesion Operative Note Date: 07/02/2025 OR Location: [facility] [place] [facility] OR Name: Ne Swann, : 1970, Age: 54 y.o., , Sex: female Diagnosis Pre-op Diagnosis * Anal cancer (Multi) [C21.0] Post-op Diagnosis * Anal cancer (Multi) [C21.0] Procedures High Resolution Anoscopy with Biopsy, excision anal lesion 00788 - AR ANOSCOPY ABLATION LESION Surgeons * Bebe Sotelo - Primary Resident/Fellow/Other Linux Server Administrator: Surgeons and Role: * No surgeons found with a matching role * Staff: Flap Curer: Mary Beth Nicole Person: Bianca Anesthesia Staff: Anesthesiologist: Katy Rooney MD CERTIFIED LACTATION EDUCATOR: Jimmy M O'Day, COMPUTER SYSTEMS TECHNICIAN-CERTIFIED LACTATION EDUCATOR Procedure Summary Anesthesia: General ASA: III Estimated Blood Loss: 2mL Intra-op Medications: Administrations occurring from 0808 to 0853 on 07/02/25: * No intraprocedure medications in log * Anesthesia Record Intraprocedure I/O Totals Intake LR bolus 300.00 mL Total Intake 300 mL Specimen: ID Type Source Tests Collected by Time 1 : anal verge lesion Tissue SKIN EXCISION SURGICAL PATHOLOGY EXAM Bebe Sotelo MD 07/02/2025 1052 Drains and/or Catheters: * None in log * Tourniquet Times: Implants: Findings: right anterior papillary appearing lesion, 7mm, mobile Indications: Ne Swann is an 54 y.o. female who is having surgery for Anal cancer (Multi) [C21.0]. The patient was seen in the preoperative area. The risks, benefits, complications, treatment options, non-operative alternatives, expected recovery and outcomes were discussed with the patient. The possibilities of reaction to medication, pulmonary aspiration, injury to surrounding structures, bleeding, recurrent infection, the need for additional procedures, failure to diagnose a condition, and creating a complication requiring transfusion or operation were discussed with the patient. The patient concurred with the proposed plan, giving informed consent. The site of surgery was properly noted/marked if necessary per policy. The patient has been actively warmed in preoperative area. Preoperative antibiotics are not indicated. Venous thrombosis prophylaxis have been ordered including bilateral sequential compression devices Procedure Details: Procedure: Informed consent was obtained including discussion of risks, benefits, and alternatives. The patient was brought to the operating room and placed supine. Sequential compression devices were placed. Huddle was completed in accordance with hospital procedures. Anesthesia was induced and LMA was placed. The patient was placed in lithotomy with all pressure points padded. The area was prepped and draped in the usual fashion. Time out was completed. Perineal and digital rectal exam were performed. Pudendal nerve block was performed with 1/4% marcaine with epinephrine. Intersphincteric block was also performed. A total of 30cc of local anesthesiawas utilized. Perineal exam was notable for a 7mm papillary appearing, mobile lesion at the anal verge in the right anterior. A margin was marked out. It was excised sharply. Lighted Sivakumar-Mc anoscope was introduced. The anal canal was examined sequentially. The canal itself was divided into octants and in each octant, the distal rectum, dentate, anal canal, and analverge was examined. Magnification, acetic acid, and Lugol's were utilized to improve visualization.There were no internal abnormalities. The excision site was loosely re approximated with 2 sutures of 2-0 vicryl. The area was checked for hemostasis and found to be adequate. All visible lesions were addressed. The patient was then returned to supine. Anesthesia was weaned. The patient was transferred to PACUawake and in stable conditions. Counts were reported correct at the end of the procedure. I was present and scrubbed throughout. Evidence of Infection: No Complications: None; patient tolerated the procedure well. Disposition: PACU - hemodynamically stable. Condition: stable Additional Details: none Attending Attestation: I was present and scrubbed for the entire procedure. Bebe Sotelo * CPM/PAT H&P - Melissa Goyal PA-C - 06/28/2025 1:32 PM EDT CPM/PAT Evaluation Name: Ne Swann /Age: 10 1970 TELEMEDICINE ENCOUNTER Patient was interviewed by telephone for preadmission testing perioperative risk assessment prior to surgery. DATE OF CONSULT: 06/28/2025 REFERRING PROVIDER: Dr. Bebe Trejo SURGERY, DATE, AND LENGTH: High resolution anoscopy with biopsy and excision of anal lesion; 07/02/2025; 40 minutes CHIEF COMPLAINT Anal cancer HPI Ne Swann is a 54-year-old female with history of anal SCC diagnosed 03/24/25. Recent gynecologic exam was notable for a lesion in the right perineum. Biopsy of lesion demonstrated fragments of tumor compatible with squamous cell carcinoma. Patient has been referred to preadmission testing in anticipation of high-resolution anoscopy with biopsy and excision of anal lesion. Patient with medical history significant for hypertension; IBS; GERD; seizure disorder (per patient anxiety induced); generalized anxiety disorder; class I obesity with BMI of 33.64; right shoulder pain from torn right rotator cuff; thrombocytopenia with platelet count of 145 per CBC from 03/18/2025. Patient reportsrecent viral infection of foot and mouth disease on 06/15/2025 which she got from her grandchildren.Patient denies any current symptoms. ACTIVE PROBLEMS Problem List[1] PAST MEDICAL HISTORY Medical History[2] SURGICAL HISTORY Surgical History[3] ANESTHESIA HISTORY History of PONV, and delayed awakening. Denies other problems with anesthesia in the past such as awareness, dental damage, aspiration, cardiac arrest, difficult intubation, or unexpected hospital admissions. Denies family history of malignant hyperthermia, or pseudocholinesterase deficiency. Patient has significant anxiety regarding anesthesia. SOCIAL HISTORY Former cigarette smoker quit in 2007; EtOH: 1-2 drinks a week; occasional marijuana as a sleep aid;no other recreational drug use. FAMILY HISTORY Family History[4] ALLERGIES RX Allergies[5] MEDICATIONS Current Medications[6] REVIEW OF SYSTEMS Review of Systems Gastrointestinal: Anal lesion All other systems reviewed and are negative. STOP BANG: Negative for FRANNIE METS 6 Patient is able to do moderate activities such as housecleaning, walking up a flight of steps, likegardening, going for a 15-minute walk at a moderate pace without cardiac chest pain or limiting shortness of breath. PHYSICAL EXAM Deferred AIRWAY EXAM Deferred VITALS No vitals taken for telemedicine visit BMI Readings from Last 1 Encounters: No data found for BMI BP Readings from Last 4 Encounters: 06/25/25 130/89 LABS Comprehensive metabolic panel from 06/18/2025 Component Ref Range & Units 10 d ago SODIUM 134 - 146 mmol/L 139 POTASSIUM 3.5 - 5.0 mmol/L 4 CHLORIDE 98 - 109 mmol/L 104 CARBON DIOXIDE 22 - 32 mmol/L 25 ANION GAP 5 - 15 mmol/L 10 BLOOD UREA NITROGEN 5 - 23 mg/dL 11 CREATININE 0.40 - 1.00 mg/dL 0.94 Comment: METHOD TRACEABLE TO IDMS STANDARD GLUCOSE 65 - 99 mg/dL 90 CALCIUM 8.5 - 10.5 mg/dL 9.2 TOTAL PROTEIN 6.0 - 8.0 g/dL 7.8 ALBUMIN 3.2 - 5.3 g/dL 4.3 ALKALINE PHOSPHATASE 39 - 130 U/L 82 AST <=41 U/L CBC from 06/18/2025 Component Ref Range & Units 10 d ago WBC 4 - 11 x10E9/L 2.5 Low RBC Count 3.8 - 5.2 X10E12/L 5.21 High Hemoglobin 11.7 - 15.5 g/dL 14.7 Hematocrit 35 - 47 % 43.1 MCV 80 - 100 fL 83 MCH 27 - 34 pg 28.1 MCHC 32 - 36 g/dL 34 RDW 11.5 - 15 % 13.8 Platelet Count 150 - 450 X10E9/L 145 Low MPV 7 - 12 fL 9.3 Bands % % 1 Comment: This is an appended report. These results have been appended to a previously preliminary verified report. Neutrophils % % 40 Comment: This is an appended report. These results have been appended to a previously preliminary verified report. Lymphocytes % % 45 Comment: This is an appended report. These results have been appended to a previously preliminary verified report. Monocytes % % 7 Comment: This is an appended report. These results have been appended to a previously preliminary verified report. Eosinophils % % 1 Comment: This is an appended report. These results have been appended to a previously preliminary verified report. Atypical Lymphs % % 6 Comment: This is an appended report. These results have been appended to a previously preliminary verified report. Neutrophils Absolute (M) 1.5 - 6.6 10*3/uL 1 Low Comment: This is an appended report. These results have been appended to a previously preliminary verified report. Lymphocytes Absolute 1.0 - 3.5 10*3/uL 1.4 Comment: This is an appended report. These results have been appended to a previously preliminary verified report. Monocytes Absolute 0.0 - 0.9 10*3/uL 0.2 Comment: This is an appended report. These results have been appended to a previously preliminary verified report. Eosinophils Absolute 0.0 - 0.4 10*3/uL 0 Comment: This is an appended report. These results have been appended to a previously preliminary verified report. RBC Morphology Normal Comment: This is an appended report. These results have been appended to a previously preliminary verified report. Differential Type MANUAL DIFFERENTIAL Comment: This is an appended report. These results have been appended to a previously preliminary verified report. Resulting Agency [facility] ASSESSMENT/PLAN Anal cancer High-resolution anoscopy with biopsy and excision of anal lesion Preoperative instructions reviewed in detail with patient during this encounter. A copy of these instructions has been unloaded to [facility] [employer]) along with a copy sent to either home email address or mailed to home address. This note was created in part upon personal review of patient's medical records. Speech recognitiontranscription software was used in the creation of this note. Despite proofreading, several typographical errors might be present that might affect the meaning of the content. [1] Patient Active Problem List Diagnosis Anal cancer (Multi) [2] Past Medical History: Diagnosis Date Anxiety VIOLET Delayed emergence from general anesthesia GERD (gastroesophageal reflux disease) Hypertension Irritable bowel syndrome PONV (postoperative nausea and vomiting) Seasonal allergies Seizures (Multi) Anxiety induced [3] Past Surgical History: Procedure Laterality Date APPENDECTOMY CHOLECYSTECTOMY COLONOSCOPY HYSTERECTOMY UPPER GASTROINTESTINAL ENDOSCOPY [4] No family history on file. [5] Allergies Allergen Reactions Clarithromycin (Bulk) Anaphylaxis Macrolide Antibiotics Anaphylaxis Other Reaction(s): respiratory distress Metoclopramide Anaphylaxis, Anxiety and Rash Other Reaction(s): other Loratadine Unknown Other Reaction(s): skin feels like on fire Tramadol Nausea Only Dicyclomine Anxiety Other Reaction(s): Comments: increases pt's anxiety, increased anxiety Other Reaction(s): other [6] No current facility-administered medications for this encounter. Current Outpatient Medications: cetirizine (ZyrTEC) 10 mg tablet, Take 1 tablet (10 mg) by mouth once daily at bedtime., Disp: , Rfl: clonazePAM (KlonoPIN) 0.5 mg tablet, Take by mouth once daily as needed., Disp: , Rfl: omeprazole (PriLOSEC) [address] capsule, Take by mouth., Disp: , Rfl: * Preprocedure Instructions - Melissa Goyal PA-C - 06/28/2025 1:28 PM EDT PREOPERATIVE INSTRUCTIONS Your surgery has been scheduled at [facility] at [address] in [facility], [address], in the [facility]. Parking is to the left of the main entrance. You will be contacted about the time of your surgery the day before your surgery (if your surgery is on a Saturday, you will be called the Saturday before surgery). If you are unable to answer the phone,a detailed voicemail message will be left. Make sure that your voicemail box is not full so a message can be left. If you have not received a call by 3:00 pm you may call [phone] between the hours of 3:00 and 3:30 pm. Please be available by phone the night before/day of surgery in case there is a change in the schedule which may require you to arrive earlier/later ? ?7 DAYS BEFORE SURGERY STOP THESE MEDICATIONS: *Multiple Vitamins containing Vitamin E * Herbal supplements, Fish Oil, garlic pills, turmeric, CoQ enzyme *Stop taking aspirin, aspirin-containing products, and NSAID's like Advil, Motrin, Aleve, Ibuprofen, Meloxicam, Celecoxib, and Diclofenac.. Tylenol is okay to take for pain relief. *If you are currently taking Coumadin/Warfarin, we will have to coordinate that with your PCP &/or the Anticoagulation Clinic. THE EVENING BEFORE SURGERY: Do not eat any food after midnight the night before surgery. You are permitted to have no more than 4 ounces of clear liquid from midnight until 3 hours before your arrival time. Clear liquids are liquids you see through such as: water, pulp-free juices like apple or white grape juice, coffee and tea without creamer or milk (sugar is okay); clear soda and sports drinks. MORNING OF SURGERY TAKE THESE MEDICATIONS (if it is not listed, do not take it.) Take: Clonazepam; omeprazole If taking medications in tablet/capsule form take with a small sip of water. OTHER MORNING OF SURGERY INSTRUCTIONS: *Shower either the night before your surgery or the morning of your surgery *Do not use moisturizers, creams, lotions or perfume, or make-up. *Wear comfortable, loose fitting clothing. *All jewelry and valuables should be left at home. *Prosthetic devices such as contact lenses, hearing aids, dentures, eyelash extensions, hairpins and body piercings must be removed before surgery. Bring containers for eyeglasses/contacts, dentures, or hearing aids with you. ? Diabetics: Please check fasting blood sugars upon waking up. ?If fasting blood sugars are <80ml/dl, please drink 100ml/3oz. of apple juice no later than 2 hours prior to surgery. ?BRING WITH YOU: *You must arrive with a family member, friend, or medical case manager who will stay at the surgery center until you are ready for discharge to escort you home or back to a medical facility. *Photo ID and insurance card *Current list of medicines and allergies *Pacemaker/Defibrillator/Heart stent cards *Copy of your complete Advanced Directive/DHPOA, or proof of guardianship-if applicable ?SMOKING: *Quitting smoking can make a huge difference to your health and recovery from surgery. ? *If you need help with quitting, call 3-810-[facility]-NOW. ALCOHOL: *No alcoholic beverages for 48 hours before surgery. ?AFTER OUTPATIENT SURGERY: *A responsible adult MUST accompany you at the time of discharge and stay with you for 24 hours after your surgery. *You may NOT drive yourself home after surgery. *You may use a taxi, ride sharing service ([employer], [employer]), or medical transport to return home ONLY ifyou are accompanied by a friend, family member, or medical case manager. *Instructions for resuming your medications will be provided by your surgeon. CONTACT SURGEON'S OFFICE IF YOU DEVELOP: *Fever =/>?100.4 F *New respiratory symptoms (e.g. cough, shortness of breath, respiratory distress, sore throat) *Recent loss of taste or smell *Flu like symptoms such as headache, fatigue or gastrointestinal symptoms *If you develop any open sores, shingles, burning or painful urination AND/OR: *You no longer wish to have the surgery. *Any other personal circumstances change that may lead to the need to cancel or defer this surgery. *You were admitted to any hospital within one week of your planned procedure. If you have questions regarding you surgical procedure, or post-operative care/recovery please callyour surgeon's office. Link to [facility] Laboratory Services Locations [email or web address] Link to [facility] Payoneerhart [email or web address] [facility] Work Phone: 1(831) 632-315610-03-2025 Surgery Surgical operation note* Op Note - Bebe Sotelo MD - 07/02/2025 10:46 AM EDT High Resolution Anoscopy with Biopsy, excision anal lesion Operative Note Date: 07/02/2025 OR Location: [facility] OR Name: Ne Swann, : 1970, Age: 54 y.o., , Sex: female Diagnosis Pre-op Diagnosis * Anal cancer (Multi) [C21.0] Post-op Diagnosis * Anal cancer (Multi) [C21.0] Procedures High Resolution Anoscopy with Biopsy, excision anal lesion 10452 - AR ANOSCOPY ABLATION LESION Surgeons * Bebe Sotelo - Primary Resident/Fellow/Other Linux Server Administrator: Surgeons and Role: * No surgeons found with a matching role * Staff: Flap Curer: Mary Beth Nicole Person: Bianca Anesthesia Staff: Anesthesiologist: Katy Rooney MD CERTIFIED LACTATION EDUCATOR: Jimmy Adame APRN-CERTIFIED LACTATION EDUCATOR Procedure Summary Anesthesia: General ASA: III Estimated Blood Loss: 2mL Intra-op Medications: Administrations occurring from 0808 to 0853 on 07/02/25: * No intraprocedure medications in log * Anesthesia Record Intraprocedure I/O Totals Intake LR bolus 300.00 mL Total Intake 300 mL Specimen: ID Type Source Tests Collected by Time 1 : anal verge lesion Tissue SKIN EXCISION SURGICAL PATHOLOGY EXAM Bebe Sotelo MD 07/02/2025 1052 Drains and/or Catheters: * None in log * Tourniquet Times: Implants: Findings: right anterior papillary appearing lesion, 7mm, mobile Indications: Ne Swann is an 54 y.o. female who is having surgery for Anal cancer (Multi) [C21.0]. The patient was seen in the preoperative area. The risks, benefits, complications, treatment options, non-operative alternatives, expected recovery and outcomes were discussed with the patient. The possibilities of reaction to medication, pulmonary aspiration, injury to surrounding structures, bleeding, recurrent infection, the need for additional procedures, failure to diagnose a condition, and creating a complication requiring transfusion or operation were discussed with the patient. The patient concurred with the proposed plan, giving informed consent. The site of surgery was properly noted/marked if necessary per policy. The patient has been actively warmed in preoperative area. Preoperative antibiotics are not indicated. Venous thrombosis prophylaxis have been ordered including bilateral sequential compression devices Procedure Details: Procedure: Informed consent was obtained including discussion of risks, benefits, and alternatives. The patient was brought to the operating room and placed supine. Sequential compression devices were placed. Huddle was completed in accordance with hospital procedures. Anesthesia was induced and LMA was placed. The patient was placed in lithotomy with all pressure points padded. The area was prepped and draped in the usual fashion. Time out was completed. Perineal and digital rectal exam were performed. Pudendal nerve block was performed with 1/4% marcaine with epinephrine. Intersphincteric block was also performed. A total of 30cc of local anesthesiawas utilized. Perineal exam was notable for a 7mm papillary appearing, mobile lesion at the anal verge in the right anterior. A margin was marked out. It was excised sharply. Lighted Hill-Mc anoscope was introduced. The anal canal was examined sequentially. The canal itself was divided into octants and in each octant, the distal rectum, dentate, anal canal, and analverge was examined. Magnification, acetic acid, and Lugol's were utilized to improve visualization.There were no internal abnormalities. The excision site was loosely re approximated with 2 sutures of 2-0 vicryl. The area was checked for hemostasis and found to be adequate. All visible lesions were addressed. The patient was then returned to supine. Anesthesia was weaned. The patient was transferred to PACUawake and in stable conditions. Counts were reported correct at the end of the procedure. I was present and scrubbed throughout. Evidence of Infection: No Complications: None; patient tolerated the procedure well. Disposition: PACU - hemodynamically stable. Condition: stable Additional Details: none Attending Attestation: I was present and scrubbed for the entire procedure. Bebe Sotelo [facility] Work Phone: 1(852) 913-666310-03-2025 Attending History and physical note* Nicole Miner MD - 07/02/2025 7:32 AM EDT H&P reviewed. The patient was examined and there are no changes to the H&P. 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 DATE OF CONSULT: 06/28/2025 REFERRING PROVIDER: Dr. Bebe Trejo SURGERY, DATE, AND LENGTH: High resolution anoscopy with biopsy and excision of anal lesion; 07/02/2025; 40 minutes CHIEF COMPLAINT Anal cancer HPI Ne Swann is a 54-year-old female with history of anal SCC diagnosed 03/24/25. Recent gynecologic exam was notable for a lesion in the right perineum. Biopsy of lesion demonstrated fragments of tumor compatible with squamous cell carcinoma. Patient has been referred to preadmission testing in anticipation of high-resolution anoscopy with biopsy and excision of anal lesion. Patient with medical history significant for hypertension; IBS; GERD; seizure disorder (per patient anxiety induced); generalized anxiety disorder; class I obesity with BMI of 33.64; right shoulder pain from torn right rotator cuff; thrombocytopenia with platelet count of 145 per CBC from 03/18/2025. Patient reportsrecent viral infection of foot and mouth disease on 06/15/2025 which she got from her grandchildren.Patient denies any current symptoms. ACTIVE PROBLEMS Problem List[1] PAST MEDICAL HISTORY Medical History[2] SURGICAL HISTORY Surgical History[3] ANESTHESIA HISTORY History of PONV, and delayed awakening. Denies other problems with anesthesia in the past such as awareness, dental damage, aspiration, cardiac arrest, difficult intubation, or unexpected hospital admissions. Denies family history of malignant hyperthermia, or pseudocholinesterase deficiency. Patient has significant anxiety regarding anesthesia. SOCIAL HISTORY Former cigarette smoker quit in 2007; EtOH: 1-2 drinks a week; occasional marijuana as a sleep aid;no other recreational drug use. FAMILY HISTORY Family History[4] ALLERGIES RX Allergies[5] MEDICATIONS Current Medications[6] REVIEW OF SYSTEMS Review of Systems Gastrointestinal: Anal lesion All other systems reviewed and are negative. STOP BANG: Negative for FRANNIE METS 6 Patient is able to do moderate activities such as housecleaning, walking up a flight of steps, likegardening, going for a 15-minute walk at a moderate pace without cardiac chest pain or limiting shortness of breath. PHYSICAL EXAM Deferred AIRWAY EXAM Deferred VITALS No vitals taken for telemedicine visit BMI Readings from Last 1 Encounters: No data found for BMI BP Readings from Last 4 Encounters: 06/25/25 130/89 LABS Comprehensive metabolic panel from 06/18/2025 Component Ref Range & Units 10 d ago SODIUM 134 - 146 mmol/L 139 POTASSIUM 3.5 - 5.0 mmol/L 4 CHLORIDE 98 - 109 mmol/L 104 CARBON DIOXIDE 22 - 32 mmol/L 25 ANION GAP 5 - 15 mmol/L 10 BLOOD UREA NITROGEN 5 - 23 mg/dL 11 CREATININE 0.40 - 1.00 mg/dL 0.94 Comment: METHOD TRACEABLE TO IDMS STANDARD GLUCOSE 65 - 99 mg/dL 90 CALCIUM 8.5 - 10.5 mg/dL 9.2 TOTAL PROTEIN 6.0 - 8.0 g/dL 7.8 ALBUMIN 3.2 - 5.3 g/dL 4.3 ALKALINE PHOSPHATASE 39 - 130 U/L 82 AST <=41 U/L CBC from 06/18/2025 Component Ref Range & Units 10 d ago WBC 4 - 11 x10E9/L 2.5 Low RBC Count 3.8 - 5.2 X10E12/L 5.21 High Hemoglobin 11.7 - 15.5 g/dL 14.7 Hematocrit 35 - 47 % 43.1 MCV 80 - 100 fL 83 MCH 27 - 34 pg 28.1 MCHC 32 - 36 g/dL 34 RDW 11.5 - 15 % 13.8 Platelet Count 150 - 450 X10E9/L 145 Low MPV 7 - 12 fL 9.3 Bands % % 1 Comment: This is an appended report. These results have been appended to a previously preliminary verified report. Neutrophils % % 40 Comment: This is an appended report. These results have been appended to a previously preliminary verified report. Lymphocytes % % 45 Comment: This is an appended report. These results have been appended to a previously preliminary verified report. Monocytes % % 7 Comment: This is an appended report. These results have been appended to a previously preliminary verified report. Eosinophils % % 1 Comment: This is an appended report. These results have been appended to a previously preliminary verified report. Atypical Lymphs % % 6 Comment: This is an appended report. These results have been appended to a previously preliminary verified report. Neutrophils Absolute (M) 1.5 - 6.6 10*3/uL 1 Low Comment: This is an appended report. These results have been appended to a previously preliminary verified report. Lymphocytes Absolute 1.0 - 3.5 10*3/uL 1.4 Comment: This is an appended report. These results have been appended to a previously preliminary verified report. Monocytes Absolute 0.0 - 0.9 10*3/uL 0.2 Comment: This is an appended report. These results have been appended to a previously preliminary verified report. Eosinophils Absolute 0.0 - 0.4 10*3/uL 0 Comment: This is an appended report. These results have been appended to a previously preliminary verified report. RBC Morphology Normal Comment: This is an appended report. These results have been appended to a previously preliminary verified report. Differential Type MANUAL DIFFERENTIAL Comment: This is an appended report. These results have been appended to a previously preliminary verified report. Resulting Agency [facility] ASSESSMENT/PLAN Anal cancer High-resolution anoscopy with biopsy and excision of anal lesion Preoperative instructions reviewed in detail with patient during this encounter. A copy of these instructions has been unloaded to [facility]) along with a copy sent to either home email address or mailed to home address. This note was created in part upon personal review of patient's medical records. Speech recognitiontranscription software was used in the creation of this note. Despite proofreading, several typographical errors might be present that might affect the meaning of the content. [1] Patient Active Problem List Diagnosis Anal cancer (Multi) [2] Past Medical History: Diagnosis Date Anxiety VIOLET Delayed emergence from general anesthesia GERD (gastroesophageal reflux disease) Hypertension Irritable bowel syndrome PONV (postoperative nausea and vomiting) Seasonal allergies Seizures (Multi) Anxiety induced [3] Past Surgical History: Procedure Laterality Date APPENDECTOMY CHOLECYSTECTOMY COLONOSCOPY HYSTERECTOMY UPPER GASTROINTESTINAL ENDOSCOPY [4] No family history on file. [5] Allergies Allergen Reactions Clarithromycin (Bulk) Anaphylaxis Macrolide Antibiotics Anaphylaxis Other Reaction(s): respiratory distress Metoclopramide Anaphylaxis, Anxiety and Rash Other Reaction(s): other Loratadine Unknown Other Reaction(s): skin feels like on fire Tramadol Nausea Only Dicyclomine Anxiety Other Reaction(s): Comments: increases pt's anxiety, increased anxiety Other Reaction(s): other [6] No current facility-administered medications for this encounter. Current Outpatient Medications: cetirizine (ZyrTEC) 10 mg tablet, Take 1 tablet (10 mg) by mouth once daily at bedtime., Disp: , Rfl: clonazePAM (KlonoPIN) 0.5 mg tablet, Take by mouth once daily as needed., Disp: , Rfl: omeprazole (PriLOSEC) [address] capsule, Take by mouth., Disp: , Rfl: [facility] Work Phone: [phone] 160-430910-03-2025 History and physical note* Nicole Miner MD - 07/02/2025 7:32 AM EDT H&P reviewed. The patient was examined and there are no changes to the H&P. 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 DATE OF CONSULT: 06/28/2025 REFERRING PROVIDER: Dr. Bebe Trejo SURGERY, DATE, AND LENGTH: High resolution anoscopy with biopsy and excision of anal lesion; 07/02/2025; 40 minutes CHIEF COMPLAINT Anal cancer HPI Ne Swann is a 54-year-old female with history of anal SCC diagnosed 03/24/25. Recent gynecologic exam was notable for a lesion in the right perineum. Biopsy of lesion demonstrated fragments of tumor compatible with squamous cell carcinoma. Patient has been referred to preadmission testing in anticipation of high-resolution anoscopy with biopsy and excision of anal lesion. Patient with medical history significant for hypertension; IBS; GERD; seizure disorder (per patient anxiety induced); generalized anxiety disorder; class I obesity with BMI of 33.64; right shoulder pain from torn right rotator cuff; thrombocytopenia with platelet count of 145 per CBC from 03/18/2025. Patient reportsrecent viral infection of foot and mouth disease on 06/15/2025 which she got from her grandchildren.Patient denies any current symptoms. ACTIVE PROBLEMS Problem List[1] PAST MEDICAL HISTORY Medical History[2] SURGICAL HISTORY Surgical History[3] ANESTHESIA HISTORY History of PONV, and delayed awakening. Denies other problems with anesthesia in the past such as awareness, dental damage, aspiration, cardiac arrest, difficult intubation, or unexpected hospital admissions. Denies family history of malignant hyperthermia, or pseudocholinesterase deficiency. Patient has significant anxiety regarding anesthesia. SOCIAL HISTORY Former cigarette smoker quit in 2007; EtOH: 1-2 drinks a week; occasional marijuana as a sleep aid;no other recreational drug use. FAMILY HISTORY Family History[4] ALLERGIES RX Allergies[5] MEDICATIONS Current Medications[6] REVIEW OF SYSTEMS Review of Systems Gastrointestinal: Anal lesion All other systems reviewed and are negative. STOP BANG: Negative for FRANNIE METS 6 Patient is able to do moderate activities such as housecleaning, walking up a flight of steps, likegardening, going for a 15-minute walk at a moderate pace without cardiac chest pain or limiting shortness of breath. PHYSICAL EXAM Deferred AIRWAY EXAM Deferred VITALS No vitals taken for telemedicine visit BMI Readings from Last 1 Encounters: No data found for BMI BP Readings from Last 4 Encounters: 06/25/25 130/89 LABS Comprehensive metabolic panel from 06/18/2025 Component Ref Range & Units 10 d ago SODIUM 134 - 146 mmol/L 139 POTASSIUM 3.5 - 5.0 mmol/L 4 CHLORIDE 98 - 109 mmol/L 104 CARBON DIOXIDE 22 - 32 mmol/L 25 ANION GAP 5 - 15 mmol/L 10 BLOOD UREA NITROGEN 5 - 23 mg/dL 11 CREATININE 0.40 - 1.00 mg/dL 0.94 Comment: METHOD TRACEABLE TO IDND STANDARD GLUCOSE 65 - 99 mg/dL 90 CALCIUM 8.5 - 10.5 mg/dL 9.2 TOTAL PROTEIN 6.0 - 8.0 g/dL 7.8 ALBUMIN 3.2 - 5.3 g/dL 4.3 ALKALINE PHOSPHATASE 39 - 130 U/L 82 AST <=41 U/L CBC from 06/18/2025 Component Ref Range & Units 10 d ago WBC 4 - 11 x10E9/L 2.5 Low RBC Count 3.8 - 5.2 X10E12/L 5.21 High Hemoglobin 11.7 - 15.5 g/dL 14.7 Hematocrit 35 - 47 % 43.1 MCV 80 - 100 fL 83 MCH 27 - 34 pg 28.1 MCHC 32 - 36 g/dL 34 RDW 11.5 - 15 % 13.8 Platelet Count 150 - 450 X10E9/L 145 Low MPV 7 - 12 fL 9.3 Bands % % 1 Comment: This is an appended report. These results have been appended to a previously preliminary verified report. Neutrophils % % 40 Comment: This is an appended report. These results have been appended to a previously preliminary verified report. Lymphocytes % % 45 Comment: This is an appended report. These results have been appended to a previously preliminary verified report. Monocytes % % 7 Comment: This is an appended report. These results have been appended to a previously preliminary verified report. Eosinophils % % 1 Comment: This is an appended report. These results have been appended to a previously preliminary verified report. Atypical Lymphs % % 6 Comment: This is an appended report. These results have been appended to a previously preliminary verified report. Neutrophils Absolute (M) 1.5 - 6.6 10*3/uL 1 Low Comment: This is an appended report. These results have been appended to a previously preliminary verified report. Lymphocytes Absolute 1.0 - 3.5 10*3/uL 1.4 Comment: This is an appended report. These results have been appended to a previously preliminary verified report. Monocytes Absolute 0.0 - 0.9 10*3/uL 0.2 Comment: This is an appended report. These results have been appended to a previously preliminary verified report. Eosinophils Absolute 0.0 - 0.4 10*3/uL 0 Comment: This is an appended report. These results have been appended to a previously preliminary verified report. RBC Morphology Normal Comment: This is an appended report. These results have been appended to a previously preliminary verified report. Differential Type MANUAL DIFFERENTIAL Comment: This is an appended report. These results have been appended to a previously preliminary verified report. Resulting Agency [facility] ASSESSMENT/PLAN Anal cancer High-resolution anoscopy with biopsy and excision of anal lesion Preoperative instructions reviewed in detail with patient during this encounter. A copy of these instructions has been unloaded to [facility]) along with a copy sent to either home email address or mailed to home address. This note was created in part upon personal review of patient's medical records. Speech recognitiontranscription software was used in the creation of this note. Despite proofreading, several typographical errors might be present that might affect the meaning of the content. [1] Patient Active Problem List Diagnosis Anal cancer (Multi) [2] Past Medical History: Diagnosis Date Anxiety VIOLET Delayed emergence from general anesthesia GERD (gastroesophageal reflux disease) Hypertension Irritable bowel syndrome PONV (postoperative nausea and vomiting) Seasonal allergies Seizures (Multi) Anxiety induced [3] Past Surgical History: Procedure Laterality Date APPENDECTOMY CHOLECYSTECTOMY COLONOSCOPY HYSTERECTOMY UPPER GASTROINTESTINAL ENDOSCOPY [4] No family history on file. [5] Allergies Allergen Reactions Clarithromycin (Bulk) Anaphylaxis Macrolide Antibiotics Anaphylaxis Other Reaction(s): respiratory distress Metoclopramide Anaphylaxis, Anxiety and Rash Other Reaction(s): other Loratadine Unknown Other Reaction(s): skin feels like on fire Tramadol Nausea Only Dicyclomine Anxiety Other Reaction(s): Comments: increases pt's anxiety, increased anxiety Other Reaction(s): other [6] No current facility-administered medications for this encounter. 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 DATE OF CONSULT: 06/28/2025 REFERRING PROVIDER: Dr. Bebe Trejo SURGERY, DATE, AND LENGTH: High resolution anoscopy with biopsy and excision of anal lesion; 07/02/2025; 40 minutes CHIEF COMPLAINT Anal cancer HPI Ne Swann is a 54-year-old female with history of anal SCC diagnosed 03/24/25. Recent gynecologic exam was notable for a lesion in the right perineum. Biopsy of lesion demonstrated fragments of tumor compatible with squamous cell carcinoma. Patient has been referred to preadmission testing in anticipation of high-resolution anoscopy with biopsy and excision of anal lesion. Patient with medical history significant for hypertension; IBS; GERD; seizure disorder (per patient anxiety induced); generalized anxiety disorder; class I obesity with BMI of 33.64; right shoulder pain from torn right rotator cuff; thrombocytopenia with platelet count of 145 per CBC from 03/18/2025. Patient reportsrecent viral infection of foot and mouth disease on 06/15/2025 which she got from her grandchildren.Patient denies any current symptoms. ACTIVE PROBLEMS Problem List[1] PAST MEDICAL HISTORY Medical History[2] SURGICAL HISTORY Surgical History[3] ANESTHESIA HISTORY History of PONV, and delayed awakening. Denies other problems with anesthesia in the past such as awareness, dental damage, aspiration, cardiac arrest, difficult intubation, or unexpected hospital admissions. Denies family history of malignant hyperthermia, or pseudocholinesterase deficiency. Patient has significant anxiety regarding anesthesia. SOCIAL HISTORY Former cigarette smoker quit in 2007; EtOH: 1-2 drinks a week; occasional marijuana as a sleep aid;no other recreational drug use. FAMILY HISTORY Family History[4] ALLERGIES RX Allergies[5] MEDICATIONS Current Medications[6] REVIEW OF SYSTEMS Review of Systems Gastrointestinal: Anal lesion All other systems reviewed and are negative. STOP BANG: Negative for FRANNIE METS 6 Patient is able to do moderate activities such as housecleaning, walking up a flight of steps, likegardening, going for a 15-minute walk at a moderate pace without cardiac chest pain or limiting shortness of breath. PHYSICAL EXAM Deferred AIRWAY EXAM Deferred VITALS No vitals taken for telemedicine visit BMI Readings from Last 1 Encounters: No data found for BMI BP Readings from Last 4 Encounters: 06/25/25 130/89 LABS Comprehensive metabolic panel from 06/18/2025 Component Ref Range & Units 10 d ago SODIUM 134 - 146 mmol/L 139 POTASSIUM 3.5 - 5.0 mmol/L 4 CHLORIDE 98 - 109 mmol/L 104 CARBON DIOXIDE 22 - 32 mmol/L 25 ANION GAP 5 - 15 mmol/L 10 BLOOD UREA NITROGEN 5 - 23 mg/dL 11 CREATININE 0.40 - 1.00 mg/dL 0.94 Comment: METHOD TRACEABLE TO IDMS STANDARD GLUCOSE 65 - 99 mg/dL 90 CALCIUM 8.5 - 10.5 mg/dL 9.2 TOTAL PROTEIN 6.0 - 8.0 g/dL 7.8 ALBUMIN 3.2 - 5.3 g/dL 4.3 ALKALINE PHOSPHATASE 39 - 130 U/L 82 AST <=41 U/L CBC from 06/18/2025 Component Ref Range & Units 10 d ago WBC 4 - 11 x10E9/L 2.5 Low RBC Count 3.8 - 5.2 X10E12/L 5.21 High Hemoglobin 11.7 - 15.5 g/dL 14.7 Hematocrit 35 - 47 % 43.1 MCV 80 - 100 fL 83 MCH 27 - 34 pg 28.1 MCHC 32 - 36 g/dL 34 RDW 11.5 - 15 % 13.8 Platelet Count 150 - 450 X10E9/L 145 Low MPV 7 - 12 fL 9.3 Bands % % 1 Comment: This is an appended report. These results have been appended to a previously preliminary verified report. Neutrophils % % 40 Comment: This is an appended report. These results have been appended to a previously preliminary verified report. Lymphocytes % % 45 Comment: This is an appended report. These results have been appended to a previously preliminary verified report. Monocytes % % 7 Comment: This is an appended report. These results have been appended to a previously preliminary verified report. Eosinophils % % 1 Comment: This is an appended report. These results have been appended to a previously preliminary verified report. Atypical Lymphs % % 6 Comment: This is an appended report. These results have been appended to a previously preliminary verified report. Neutrophils Absolute (M) 1.5 - 6.6 10*3/uL 1 Low Comment: This is an appended report. These results have been appended to a previously preliminary verified report. Lymphocytes Absolute 1.0 - 3.5 10*3/uL 1.4 Comment: This is an appended report. These results have been appended to a previously preliminary verified report. Monocytes Absolute 0.0 - 0.9 10*3/uL 0.2 Comment: This is an appended report. These results have been appended to a previously preliminary verified report. Eosinophils Absolute 0.0 - 0.4 10*3/uL 0 Comment: This is an appended report. These results have been appended to a previously preliminary verified report. RBC Morphology Normal Comment: This is an appended report. These results have been appended to a previously preliminary verified report. Differential Type MANUAL DIFFERENTIAL Comment: This is an appended report. These results have been appended to a previously preliminary verified report. Resulting Agency [facility] ASSESSMENT/PLAN Anal cancer High-resolution anoscopy with biopsy and excision of anal lesion Preoperative instructions reviewed in detail with patient during this encounter. A copy of these instructions has been unloaded to [facility] [employer]) along with a copy sent to either home email address or mailed to home address. This note was created in part upon personal review of patient's medical records. Speech recognitiontranscription software was used in the creation of this note. Despite proofreading, several typographical errors might be present that might affect the meaning of the content. [1] Patient Active Problem List Diagnosis Anal cancer (Multi) [2] Past Medical History: Diagnosis Date Anxiety VIOLET Delayed emergence from general anesthesia GERD (gastroesophageal reflux disease) Hypertension Irritable bowel syndrome PONV (postoperative nausea and vomiting) Seasonal allergies Seizures (Multi) Anxiety induced [3] Past Surgical History: Procedure Laterality Date APPENDECTOMY CHOLECYSTECTOMY COLONOSCOPY HYSTERECTOMY UPPER GASTROINTESTINAL ENDOSCOPY [4] No family history on file. [5] Allergies Allergen Reactions Clarithromycin (Bulk) Anaphylaxis Macrolide Antibiotics Anaphylaxis Other Reaction(s): respiratory distress Metoclopramide Anaphylaxis, Anxiety and Rash Other Reaction(s): other Loratadine Unknown Other Reaction(s): skin feels like on fire Tramadol Nausea Only Dicyclomine Anxiety Other Reaction(s): Comments: increases pt's anxiety, increased anxiety Other Reaction(s): other [6] No current facility-administered medications for this encounter. Current Outpatient Medications: cetirizine (ZyrTEC) 10 mg tablet, Take 1 tablet (10 mg) by mouth once daily at bedtime., Disp: , Rfl: clonazePAM (KlonoPIN) 0.5 mg tablet, Take by mouth once daily as needed., Disp: , Rfl: omeprazole (PriLOSEC) [address] capsule, Take by mouth., Disp: , Rfl: [facility] Work Phone: [phone]) 900-825909-29-2025 Instructions* Preprocedure Instructions - Melissa Goyal PA-C - 06/28/2025 1:28 PM EDT PREOPERATIVE INSTRUCTIONS Your surgery has been scheduled at [facility] at [address] in [facility], [address], in the [facility]. Parking is to the left of the main entrance. You will be contacted about the time of your surgery the day before your surgery (if your surgery is on a Saturday, you will be called the Saturday before surgery). If you are unable to answer the phone,a detailed voicemail message will be left. Make sure that your voicemail box is not full so a message can be left. If you have not received a call by 3:00 pm you may call [phone] between the hours of 3:00 and 3:30 pm. Please be available by phone the night before/day of surgery in case there is a change in the schedule which may require you to arrive earlier/later ? ?7 DAYS BEFORE SURGERY STOP THESE MEDICATIONS: *Multiple Vitamins containing Vitamin E * Herbal supplements, Fish Oil, garlic pills, turmeric, CoQ enzyme *Stop taking aspirin, aspirin-containing products, and NSAID's like Advil, Motrin, Aleve, Ibuprofen, Meloxicam, Celecoxib, and Diclofenac.. Tylenol is okay to take for pain relief. *If you are currently taking Coumadin/Warfarin, we will have to coordinate that with your PCP &/or the Anticoagulation Clinic. THE EVENING BEFORE SURGERY: Do not eat any food after midnight the night before surgery. You are permitted to have no more than 4 ounces of clear liquid from midnight until 3 hours before your arrival time. Clear liquids are liquids you see through such as: water, pulp-free juices like apple or white grape juice, coffee and tea without creamer or milk (sugar is okay); clear soda and sports drinks. MORNING OF SURGERY TAKE THESE MEDICATIONS (if it is not listed, do not take it.) Take: Clonazepam; omeprazole If taking medications in tablet/capsule form take with a small sip of water. OTHER MORNING OF SURGERY INSTRUCTIONS: *Shower either the night before your surgery or the morning of your surgery *Do not use moisturizers, creams, lotions or perfume, or make-up. *Wear comfortable, loose fitting clothing. *All jewelry and valuables should be left at home. *Prosthetic devices such as contact lenses, hearing aids, dentures, eyelash extensions, hairpins and body piercings must be removed before surgery. Bring containers for eyeglasses/contacts, dentures, or hearing aids with you. ? Diabetics: Please check fasting blood sugars upon waking up. ?If fasting blood sugars are <80ml/dl, please drink 100ml/3oz. of apple juice no later than 2 hours prior to surgery. ?BRING WITH YOU: *You must arrive with a family member, friend, or medical case manager who will stay at the surgery center until you are ready for discharge to escort you home or back to a medical facility. *Photo ID and insurance card *Current list of medicines and allergies *Pacemaker/Defibrillator/Heart stent cards *Copy of your complete Advanced Directive/DHPOA, or proof of guardianship-if applicable ?SMOKING: *Quitting smoking can make a huge difference to your health and recovery from surgery. ? *If you need help with quitting, call [phone]. ALCOHOL: *No alcoholic beverages for 48 hours before surgery. ?AFTER OUTPATIENT SURGERY: *A responsible adult MUST accompany you at the time of discharge and stay with you for 24 hours after your surgery. *You may NOT drive yourself home after surgery. *You may use a taxi, ride sharing service ([employer], [employer]), or medical transport to return home ONLY ifyou are accompanied by a friend, family member, or medical case manager. *Instructions for resuming your medications will be provided by your surgeon. CONTACT SURGEON'S OFFICE IF YOU DEVELOP: *Fever =/>?100.4 F *New respiratory symptoms (e.g. cough, shortness of breath, respiratory distress, sore throat) *Recent loss of taste or smell *Flu like symptoms such as headache, fatigue or gastrointestinal symptoms *If you develop any open sores, shingles, burning or painful urination AND/OR: *You no longer wish to have the surgery. *Any other personal circumstances change that may lead to the need to cancel or defer this surgery. *You were admitted to any hospital within one week of your planned procedure. If you have questions regarding you surgical procedure, or post-operative care/recovery please callyour surgeon's office. Link to [facility] Laboratory Services Locations [email or web address] Link to [facility] MyChart [email or web address] [facility] Work Phone: [phone]) 276-812609-26-2025 History of Present illness Narrative* Bebe Sotelo MD - 06/25/2025 12:30 PM EDT No chief complaint on file. History Of Present Illness Ne Swann is a 54 y.o. female who was referred by Dr. Krishna for anal SCC diagnosed 03/24/25. She was seen by gynecology and exam was notable for a lesion in the right perineum. She then underwent biopsy which demonstrated fragments of tumor compatible with squamous cell carcinoma. On chart, the documentation from the referring physician states that per the pathologist there was difficulty de termining in situ vs. Invasive disease. She was seen by Dr. Krishna 06/08/25 who notes that a small papillary lesion at approximately 11:00 was present. OMAYRA shows a mass extending into the anterior anal canal approximately 5-10mm. The original tumor stage was T1N0. She has had abnormal cervical pap's. Most recent PET scan: Most recent CT scan: Most recent MRI 06/23/25 (requested to PACS): Colonoscopy: Non-smoker/No ETOH/No Illicit drug use PMH: seizure, IBS, HTN, anxiety, bladder prolapse, HLD, depression, arthritis PSH: laparoscopy, hysterectomy, cholecystectomy, appendectomy Allergies: No family history of CRC or IBD Employment: Subjective Past Medical History Medical History[1] .[facility] Surgical History Surgical History[2] Social History She has no history on file for tobacco use, alcohol use, and drug use. Family History Family History[3] Allergies Patient has no allergy information on record. Home Medications Prior to Admission medications Not on File Review of Systems Physical Exam Perineal/OMAYRA: Perineum: 8mm lesion right anterior, just at anal verge; short perineum OMAYRA: Tone: Procedures Last Recorded Vitals There were no vitals taken for this visit. Assessment/Plan 54 y.o. female here for workup of possible anal cancer. She had a biopsy but unclear if Tis vs invasive. There is still lesion present. I think an excisional biopsy makes the most sense. We discussedin detail the rationale and that we do not know her diagnosis yet. Risks/benefits/alternatives discussed. [1] No past medical history on file. [2] No past surgical history on file. [3] No family history on file. documented [facility] encounter[facility] Work Phone: 1(204) 123-649509-09-2025 Evaluation note* Diagnosis Onset Date Resolution Status Admit Date Anal squamous cell carcinoma acuteSeptember 2024 2:24pmAnal squamous cell carcinomaacuteOctober 2024 3:19pm [facility] Work Phone: [phone]) 225-938806-24-2025 History of Present illness Narrative* KAVITHA Saldivar - 03/23/2025 1:30 PM EDT Images from the original note were not [...] nursing note reviewed. Exam conducted with a clay pigeon setter present. Vitals: Estimated body mass index is [...] Cultures obtained. Pt advised to take valtrex. Ptvoiced understanding. Pt has a small lesion on right perineal area. patient was placed in dorsal lithotomy position and was draped in normal fashion. Area cleansed with alcohol, lidocaine injected after allowing sufficient time to take affect. grape picker and scissors used to remove affected area. Placed in formalin and sent to pathology. Post-procedure instructions given. Pt to follow up with Dr Paulino. Rx for valtrex faxed to pharmacy Follow Up: In one month with Dr Paulino Documented by Fabiola Flores LPN on behalf of: KAVITHA Saldivar documented in this encounterSaint John's Breech Regional Medical [id number] History of Present illness Narrative* Jr. Nisha Roman, - 03/09/2025 10:45 AM EDT Images from the original note were not included. HISTORY OF PRESENT ILLNESS: EST PT Ne Swann is an 54 y.o. @ female. (EST PT) RT SHOULDER INJURY 04/05/24 (~11MO) - POSSIBLY DISCUSS SURGERY-PT FEARFUL ABOUT SURGERY/ANESTHESIA- IF SURGERY IS NEED SHE WOULD LIKE TO WAIT UNTIL WINTER XRAY EPIC 06/29/24 XRAY [facility] SHOULDER AND HUMERUS 04/06/[address] [facility] 07/23/24 (PUSHED THROUGH [...] for fear of anesthetic. She understands the risksand benefits of waiting on surgical intervention versus surgical intervention. She is willing to except those risks. We'll see her back in June. If Still symptomatic we recommended arthroscopy forrotator cuff tear and SLAP lesion. Questions answered in laymen terms at the bedside. The diagnosis, home exercise plan and any ongoing restrictions/ recommendations reviewed. If unable to be reached in office, I recommend evaluation at nearest Emergency Room if any symptoms worsened or new symptoms develop for requiring urgent evaluation. documented in this encounterSaint John's Breech Regional Medical [id number] History of Present illness Narrative* KAVITHA Saldivar - 12/17/2024 9:00 AM EDT Reason for Appointment: Patient ID: Ne [...] behalf of: KAVITHA Saldivar documented in this encounterSaint John's Breech Regional Medical [id number] History of Present illness Narrative* Nicole Cadena LPN - 11/23/2024 11:30 AM EST Reason for Appointment: Patient ID: Ne Swann [...] (CMS/HCC) Elevated cholesterol (CMS/HCC) Female bladder prolapse VILOET (generalized anxiety disorder) (CMS/HCC) Hypertension (CMS/HCC) IBS [...] nursing note reviewed. Exam conducted with a clay pigeon setter present. Vitals: Estimated body mass index is [...] of: Lucas Paulino DO documented in this encounterSaint John's Breech Regional Medical [id number] History of Present illness Narrative* Jr. Nisha Roman DO - 10/20/2024 11:00 AM EST Images from the original note were not included. HISTORY OF PRESENT ILLNESS: EST PT Ne Swann is an 54 y.o. @ female. (EST PT) RT SHOULDER INJURY 04/05/24 (6 MTHS), TRIPPED AND FELL. ON 06/27/24, SHE WENT OUT WITH HER FRIENDS AND TRIPPED ON THE SIDEWALK AND FELL. HERE TO DISCUSS SURGICAL OPTIONS. PT FEARFUL ABOUT SURGERY/ANESTHESIA. XRAY EPIC 06/29/24 XRAY [facility] SHOULDER AND HUMERUS 04/06/[address] [facility] 07/23/24 (PUSHED THROUGH PACS) DEPO INJECTION 04/08/24 PHYSICIAN DIRECTED HEP PAIN DIFFUSE IN SHOULDER AND IN AXILLA. NOTES INTERMITTENT FLARE UPS, WORSE WITH COLD WEATHER. TAKING TYL PRN. USING ICE AND HEAT PRN. LIMITED ROM. ADMITS STIFFNESS AND TIGHTNESS. INTERMITTENT N/T INFINGERS. DOES NOT WAKE AT HS. PAIN /10 [...] exam at length. She has a large rotatorcuff tear with impingement syndrome. We have discussed [...] possibly discuss arthroscopy for attempted rotator cuff repairright shoulder. Questions answered in laymen terms at the bedside. The diagnosis, home exercise plan and any ongoing restrictions/ recommendations reviewed. If unable to be reached in office, I recommend evaluation at nearest Emergency Room if any symptoms worsened or new symptoms develop for requiring urgent evaluation. documented in this encounterSaint John's Breech Regional Medical [id number] History of Present illness Narrative* KAVITHA Saldivar - 10/06/2024 1:10 PM EST Reason for Appointment: Patient ID: Ne Swann [...] nursing note reviewed. Exam conducted with a clay pigeon setter present. Vitals: Estimated body mass index is [...] behalf of: KAVITHA Saldivar documented in this encounterSaint John's Breech Regional Medical [id number] History of Present illness Narrative* Fabiola Sandra, KELLIE - 09/01/2024 2:10 PM EST Reason for Appointment: Patient ID: Ne Swann [...] nursing note reviewed. Exam conducted with a clay pigeon setter present. Vitals: Estimated body mass index is [...] has yeast infection after antibiotic. Rx for terazol7 faxed to pharmacy. Pt to return for annual exam unless needed sooner. Documented by Fabiola Flores LPN on behalf of: Lucas Paulino DO documented in this encounterSaint John's Breech Regional Medical [id number] History of Present illness Narrative* José Parkinson NP - 08/05/2024 1:00 PM EST Images from the original note were not included. NAME: Ne Swann : 1970 HISTORY OF PRESENT ILLNESS: Ne Swann is an 54 y.o. @ female. (EST PT) RT SHOULDER INJURY 04/05/24 (4 MTHS), TRIPPED AND FELL. ON 06/27/24, SHE WENT OUT WITH HER FRIENDS AND TRIPPED ON THE SIDEWALK AND FELL. S/P MRI @ [facility] XRAY EPIC 06/29/24 XRAY [facility] SHOULDER AND HUMERUS 04/06/[address] [facility] 07/23/24 (PUSHED THROUGH [...] Hypertension (CMS/HCC) IBS (irritable bowel syndrome) Seizures (CMS/[facility]) Venous stasis PAST SURGICAL HISTORY: Past Surgical [...] Oral, Nightly cholecalciferol (Vitamin D-3) 50 MCG (2000 UT) capsule 1 capsule, Every 24 hours [...] test due to pain. IMAGING: MRI from [facility] of the right [...] arthroscopic surgery. Patient is hesitant as she hasfears about going through general anesthesia. Discussion included but was not limited to the risk of infection, blood clot, failure to improve and need for additional surgery. The patient was advisedthat surgery is not likely to make them [...] develop for requiring urgent evaluation. José Parkinson APRN-COLLAR STARCHER documented in this encounterSaint John's Breech Regional Medical [id number] History of Present illness Narrative* Fabiola Flores LPN - 08/04/2024 1:00 PM EST Reason for Appointment: Patient ID: Ne Swann [...] Female bladder prolapse VIOLET (generalized anxiety disorder) ([facility]/HCC) Hypertension (CMS/HCC) IBS (irritable bowel syndrome) Seizures [...] of: Lucas Paulino DO documented in this encounterSaint John's Breech Regional Medical [id number] History of Present illness Narrative* KAVITHA Saldivar - 07/29/2024 3:20 PM EDT Reason for Appointment: Patient ID: [...] and a UTI. Pt is complaining of burningand irritation when she urinates. Complains of rectal [...] Pt was advised the cx's will come backin 2 days and someone in the office [...] behalf of: KAVITHA Saldivar documented in this encounterSaint John's Breech Regional Medical [id number] Telephone encounter Note* Telephone Encounter - Awa Brown - 07/14/2024 8:07 AM EDT error [facility] [id number] Miscellaneous Notes* Telephone Encounter - Awa Brown - 07/14/2024 8:07 AM EDT error documented in this [facility]10-03-2024 Telephone encounter Note* Telephone Encounter - Awa Brown - 07/02/2024 11:58 AM EDT Patient called asking if she could get her MRI done at [facility]? She called and they have an open machine. [facility] [id number] Miscellaneous Notes* Telephone Encounter - Awa Brown - 07/02/2024 11:58 AM EDT Patient called asking if she could get her MRI done at [facility]? She called and they have an open machine. documented in this [facility]09-30-2024 History of Present illness Narrative* José Parkinson NP - 06/29/2024 2:15 PM EDT Images from the original note were not [...] TIMES DAILY FOR 7 DAYS UNITL GONE TAKEWITH FOOD cetirizine (ZYRTEC) 10 mg, Oral, Nightly [...] xray of humerus and right shoulder from [facility] 04/06/24 which showed no acute findings. XR shoulder 2+ views right Imaging Result: scapular Y, axillary and AP x-rays of right shoulder showed humeral head to be well centered in theglenoid fossa. There was no evidence of subluxation [...] area of ecchymosis over right eye and painover posterior aspect of skull. I recommend that patient go to the ER for further evaluation. Questions answered in laymen terms at the bedside. The diagnosis, home exercise plan and any ongoing restrictions/ recommendations reviewed. If unable to be reached in office, I recommend evaluation at nearest Emergency Room if any symptoms worsened or new symptoms develop for requiring urgent evaluation. José Parkinson, DEJA-COLLAR STARCHER documented in this encounterSaint John's Breech Regional Medical [id number] History of Present illness Narrative* Nicole Cadena, KELLIE - 06/11/2024 11:30 AM EDT Reason for Appointment: Patient ID: Ne Swann is a 53 y.o. female who presents for STI Screening Patient presents today for Consult appointment. MEDICATIONS Current Outpatient Medications Medication Instructions cephalexin (Keflex) 500 MG capsule TAKE 1 CAPSULE BY MOUTH 3 TIMES DAILY FOR 7 DAYS UNITL GONE TAKEWITH FOOD cetirizine (ZYRTEC) 10 mg, Oral, Nightly [...] Female bladder prolapse VIOLET (generalized anxiety disorder) ([facility]/HCC) Hypertension (CMS/HCC) IBS (irritable bowel syndrome) Seizures ([facility]/HCC) Venous stasis Social History Tobacco Use Smoking [...] nursing note reviewed. Exam conducted with a clay pigeon setter present. Vitals: Estimated body mass index is [...] of: Lucas Paulino DO documented in this encounterSaint John's Breech Regional Medical [id number] History of Present illness Narrative* José Parkinson NP - 06/10/2024 2:30 PM EDT Images from the original note were not [...] TIMES DAILY FOR 7 DAYS UNITL GONE TAKEWITH FOOD cetirizine (ZYRTEC) 10 mg, Oral, Nightly [...] xray of humerus and right shoulder from [facility] 04/06/24 which showed no acute findings. Procedures [...] will follow up in 6-8 weeks for RCK.Consider MRI if still painful. Questions answered in laymen terms at the bedside. The diagnosis, home exercise plan and any ongoing restrictions/ recommendations reviewed. If unable to be reached in office, I recommend evaluation at nearest Emergency Room if any symptoms worsened or new symptoms develop for requiring urgent evaluation. José Parkinson APRN-MAVERICK documented in this encounterM[facility] HealthcareEvaluation noteNo InformationNouniversity hospital [email or web address] Other Evaluation note* Diagnosis Internal derangement of right shoulder- Primary Right shoulder pain, unspecified chronicity Fall, initial encounter documented in this encounter [facility] HealthcareEvaluation noteNo assessment information availableSt. Charles Hospital Work Phone: Evaluation note* Diagnosis Exposure to STD Urinary tract infection without hematuria, site unspecified documented in this encounter [facility] HealthcareEvaluation note* Diagnosis Complete tear of right rotator cuff, unspecified whether traumatic- Primary Chronic right shoulder pain Pain in joint, shoulder region documented in this encounter [facility] [facility] Healthcare[facility]* Diagnosis Encounter to discuss test results Other specified counseling BV (bacterial vaginosis) Unspecified vaginitis and vulvovaginitis E-coli UTI Urinary tract infection without hematuria, site unspecified Yeast infection documented in this encounter [facility] HealthcareEvaluation note* Diagnosis E-coli UTI Yeast infection documented in this encounter [facility] HealthcareEvaluation note* Diagnosis Strain of tendon of right rotator cuff, subsequent encounter- Primary Chronic right shoulder pain Pain in joint, shoulder region documented in this encounter [facility] HealthcareEvaluation note* Diagnosis Vaginal discharge Leukorrhea, not specified as infective Sexually transmitted disease exposure Contact with or exposure to venereal diseases Vaginal irritation Pruritus of genital organs Vaginal odor Unspecified symptom associated with female genital organs documented in this encounter [facility] HealthcareEvaluation note* Diagnosis Exposure to STD Vaginal [...] STD exposure documented in this encounter [facility]* Diagnosis Constipation, unspecified constipation type- Primary Vaginal pain Unspecified symptom associated with female genital organs Vaginal discharge Leukorrhea, not specified as infective documented in this encounter [facility]* Diagnosis Right shoulder pain, unspecified chronicity- Primary Complete tear of right rotator cuff, unspecified whether traumatic documented in this encounter [facility]* Diagnosis Vaginal irritation Pruritus of genital organs Dysuria HSV (herpes simplex virus) infection Herpes simplex without mention of complication documented in this encounter [facility]* Diagnosis Vaginal odor Unspecified symptom associated with female genital organs Yeast infection Dysuria E-coli UTI documented in this encounter [facility]* Diagnosis Onset Date Resolution Status Admit Date Anal squamous cell carcinoma acuteSeptember 2024 2:24pm [facility] Work Phone: Evaluation note* Diagnosis Mass in rectum- Primary Other symptoms involving digestive system Anal cancer (Multi) Malignant neoplasm of anus, unspecified site Anal cancer (Multi)- Primary Malignant neoplasm of anus, unspecified site documented in this encounter [facility] Work Phone: Evaluation note* Diagnosis Anal cancer (Multi)- Primary Malignant neoplasm of anus, unspecified site Mass in rectum Other symptoms involving digestive system PONV (postoperative nausea and vomiting) Nausea with vomiting HTN (hypertension) Unspecified essential hypertension Gastroesophageal reflux disease Esophageal reflux Delayed emergence from anesthesia Anxiety Anxiety state, unspecified Irritable bowel syndrome Asthma (HHS-HCC) Unspecified asthma documented in this encounter [facility] Work Phone: History general Narrative - Reported* Type Description Date Medical History Hypertension Medical HistoryhypercholesterolemiaMedical HistoryAnxietyMedical Historyseizures Surgical HistoryGALL BLADDERSurgical HistoryPARTIAL HYSTERECTOMYSurgical History APPENDECTOMY [employer] Other History of Present illness Narrative* KAVITHA [...] nursing note reviewed. Exam conducted with a clay pigeon setter present. Vitals: Estimated body mass index is [...] behalf of: KAVITHA Saldivar documented in this encounterNOMercy [facility]oks HospitalReason for referral (narrative)No reason for referral information availableAv[facility] Work Phone: Reason for visit Narrative* Auth/CertSpecialty Diagnoses / ProceduresReferred By ContactReferred To Contact Diagnoses Anal cancer (Multi) Anal cancer (Multi) [C21.0] Procedures AR ANOSCOPY ABLATION LESION High Resolution Anoscopy with [place], [place] [address] [address] Department [place] [address] Phone: tel: fax: [facility] OR [address] [facility] [address] [place] [address] Phone: tel: fax: Referral IDStatusReasonStart DateExpiration DateVisits RequestedVisits [id number] [facility] Work Phone: Summary Purpose Family History Relationship Condition Age at Onset Recorded Date/T josh aunt Malignant neoplasm Unknown DeceasedUnknownmotherDeceasedUnknownMalignant neoplasmUnknown Relationship Condition Age at Onset Recorded Date/T josh aunt Malignant neoplasm Unknown DeceasedUnknownmotherDeceasedUnknownMalignant neoplasmUnknownDiabetes mellitus UnknownfatherHeart diseaseUnknownHypertensionUnknownHigh blood cholesterol Unknown Advance Directives Advance Directive Response Recorded Date/ Time Advance Directives No May 4:30pm Date ActivatedDate [id number]/3/2025 9:18 AMQuestionAnswerComments Plan of Care:* Code Status Discussion Not Completed Decision Maker:* Provider Rationale:* Patient condition does not warrant discussion Reason for Referral SpecialtyDiagnoses / ProceduresReferred By ContactReferred To ContactPhysical Therapy Diagnoses Strain of tendon of right rotator cuff, subsequent encounter Chronic right shoulder pain Procedures AR OFFICE/OUTPATIENT NEW HIGH MDM 60 MINUTES José Parkinson, NETTIE [address] [place] [address] Noam Carl, PT [address] [place] [address] Referral IDStatusReasonStnorthville DateExpiration DateVisits RequestedVisits [id number] Review Specialty Services Required /[id number] / ProceduresReferred By ContactReferred To ContactRadiology Diagnoses Internal derangement of right shoulder Procedures MR shoulder right wo IV contrast José Parkinson, NETTIE [address] [place] [address] [facility] Fnr Mr [address] [facility] [address] [place] [address] Referral IDStatusReasonStart DateExpiration DateVisits RequestedVisits [id number]/ Chief Complaint and Reason for Visit Chief [...] Anal squamous cell carcinoma June 082024 2:24pm Chief Complaint Admit Date New Patient, SCC Anus June 08 2:24pm July 09, 2025 1 1:31am Follow Up, Review EUS Findings July 022024 3:19pm 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 Anal squamous cell carcinoma June 3:19pm Additional Source Comments INFORMATION SOURCE (unrecogn ized section and content) DATE CREATED AUTHOR 03/20/2018 [facility] DATE CREATED AUTHOR AUTHOR'S ORGANIZ ATION 12/07/2022 [facility] DATE CREATED AUTHOR AUTHOR'S ORGANIZ ATION 05/09/2025 [facility] DATE CREATED AUTHOR AUTHOR'S ORGANIZ ATION 07/27/2025 [facility] DATE CREATED AUTHOR AUTHOR'S ORGANIZ ATION 07/30/2025 [facility] DATE CREATED AUTHOR AUTHOR'S ORGANIZ ATION 08/03/2025 [facility] REASON FOR VISIT (unrecogniz ed section and content) ReasonCommentsFollow-upReasonCommentsSTI ScreeningPt present today for std check ReasonCommentsFollow-upReasonCommentsabnormal cxPt present today to discuss abnormal test results. Pt was positive for BV and positive Ecoli. Pt would like to discuss why she still has Ecoli after taking medication.ReasonCommentsSTI ScreeningReasonCommentsSTI ScreeningPT present today for STD check and vaginal burning.ReasonCommentsPainReasonCommentsRepeat PapReasonCommentsVaginal Pain ReasonCommentsVaginal IrritationReasonCommentsvaginal odor Care Teams (unrecognized sec tion and content) Team Status: Active Member Role Status Dates Dora Youssef MD Primary Care Provider Active Team Status: Inactive Member Role Status Dates Lucas Paulino DO Attending Provider Active Start : March 23, 2025 End: March 23, 2025 Team Status: Active Member Role Status Dates NON STAFF Primary Care Provider Active Start: May 27, 2025 Manuel Bolivar , MDAttending ProviderActiveStart: May 27, 2025 Team Status: Inactive Member Role Status Dates Dora Youssef MD Primary Care Provider Active S tart: June 08, 2025 End: June 08, 2025Nokendrick Krishna MDAttending ProviderActiveStart: June 08, 2025 End: June 08, 2025Ihsan Coronado , MDReferring ProviderActiveStart: June 08, 2025 End: June 08, 2025 Team Status: Active Member Role Status Dates Dora Youssef MD Primary Care Provider Active S tart: June 08, 2025 Leoine Krishna , MDAttending ProviderActiveStart: June 08, 2025 Ihsan Coronado , MDReferring ProviderActiveStart: June 08, 2025 Team MemberRelationshipSpecialtyStart DateEnd Date Brittanie Ferreira MD [address] [place] [address] PCP - [facility]04/08/24 Sue Denson MD [address] [facility] [place], [place] [id number] Referring PhysicianBuchanan County Health Centerly Medicine04/08/24Team MemberRelationshipSpecialtyStart DateEnd Date Brittanie Ferreira MD [address] [place], [place] [id number] PCP - [facility]04/08/24 Sue Denson MD [address] [place] [address] [facility]04/08/24Team MemberRelationshipSpecialtyStart DateEnd Date Brittanie Ferreira MD [address] [place] [address] PCP - [facility]04/08/24 Sue Denson MD [address] [place] [address] Referring [facility]icianGr[facility] Medicine04/08/24 Team Status: Active Member Role Status Dates NON STAFF Primary Care Provider Active Team Status: Active Member Role Status Dates NON STAFF Primary Care Provider Active Start: July 10, 2024 Hope Botello ProviderActiveStart: July 10, 2024 Team Status: Inactive Member Role Status Dates NON STAFF Primary Care Provider Active Start: July 23, 2024 End: July 23, 2024Grant Godwin Muir ProviderActiveStart: July 23, 2024 End: July 23, 2024Team MemberRelationshipSpecialtyStart DateEnd Date Brittanie Ferreira MD [address] [place] [address] PCP - [facility]04/08/24 Sue Denson MD [address] [place] [address] Referring [facility]icianGr[facility] Medicine04/08/24Team MemberRelationshipSpecialtyStart DateEnd Date Brittanie Ferreira MD [address] [place] [address] PCP - [facility]04/08/24 Sue Denson MD [address] [place] [address] Referring Physicianmily Medicine04/08/24Team MemberRelationshipSpecialtyStart DateEnd Brittanie Ferreira MD [address] [place] [address] [facility]24 Sue Denson MD [address] [place] [address] Referring [facility]icianEm[facility]04/08/24Te MemberRelationshipSpecialtyStart DateEnd Brittanie Ferreira MD [address] [place] [address] PCP - [facility]04/08/24 Sue Denson MD [address] [place] [address] Referring PhysicianEm[facility]04/08/24Team MemberRelationshipSpecialtyStart DateEnd Brittanie Ferreira MD [address] [place] [address] PCP - [facility]04/08/24 Sue Denson MD [address] [place] [place] [address] Referring [facility]icianGr[facility] Medicine04/08/24Team MemberRelationshipSpecialtyStart DateEnd Brittanie Ferreira MD [address] [place] [place] [address] PCP - [facility]04/08/24 Sue Denson MD [address] [place] [address] Referring Physicianmily Medicine04/08/24Team MemberRelationshipSpecialtyStart DateEnd Date Brittanie Ferreira MD [address] [place] [address] PCP - [facility]04/08/24 Sue Denson MD [address] [place] [address] Referring PhysicianEm[facility]04/08/24Team MemberRelationshipSpecialtyStart DateEnd Date Brittanie Ferreira MD [address] [place] [address] PCP - [facility]04/08/24 Sue Denson MD [address] [place] [address] Referring PhysicianBuchanan County Health Centerly Medicine04/08/24Team MemberRelationshipSpecialtyStart DateEnd Date Brittanie Ferreira MD [address] [place] [address] PCP - [facility]04/08/24 Sue Denson MD [address] [place] [place] [address] Referring PhysicianBuchanan County Health Centerly Medicine04/08/24Team MemberRelationshipSpecialtyStart DateEnd Date Brittanie Ferreira MD [address] [place] [address] PCP - [facility]04/08/24 Sue Denson MD [address] [place] [address] Referring PhysicianEm[facility]04/08/24Te MemberRelationshipSpecialtyStart DateEnd Date Brittanie Ferreira MD [address] [place] [address] PCP - [facility]04/08/24 Sue Denson MD [address] [place] [address] Referring PhysicianEm[facility]04/08/24Te MemberRelationshipSpecialtyStart DateEnd Date Brittanie Ferreira MD [address] [place] [address] PCP - [facility]04/08/24 Sue Denson MD [address] [place] [address] Referring PhysicianEm[facility]04/08/24Te MemberRelationshipSpecialtyStart DateEnd Date Brittanie Ferreira MD [address] [place] [address] PCP - [facility]04/08/24 Sue Denson MD [address] [place] [address] Referring PhysicianEm[facility]04/08/24Team MemberRelationshipSpecialtyStart DateEnd Date Brittanie Ferreira MD [address] [place] [address] PCP - [facility]04/08/24 Sue Denson MD [address] [place] [address] Referring PhysicianEm[facility]04/08/24Team MemberRelationshipSpecialtyStart DateEnd Date Brittanie Ferreira MD [address] [place] [address] PCP - [facility]04/08/24 Sue Denson MD [address] [place] [address] Referring PhysicianEmory [facility]04/08/24 Team Status: Active Member Role Status Dates NON STAFF Primary Care Provider Active Start: March 04, 2025 Hope Botello ProviderActiveStart: March 04, 2025 Team Status: Active Member Role/Relationship Status Dates Dora Youssef MD Primary Care Provider Active Team Status: Inactive Member Role/Relationship Status Dates Dora Youssef MD Primary Care Provider Active S tart: June 08, 2025 End: June 08, 2025Nokendrick Krishna MDAttending ProviderActiveStart: June 08, 2025 End: June 08, 2025BEST Burrelleferring ProviderActiveStart: June 08, 2025 End: June 08, 2025 Team Status: Active Member Role/Relationship Status Dates NON STAFF Primary Care Provider Active Start: July 09, 2025 Hope Botello ProviderActiveStart: July 09, 2025 Team Status: Inactive Member Role/Relationship Status Dates Dora Youssef MD Primary Care Provider Active S tart: July 29, 2025 End: July 29, 2025Leonie Krishna MDAttryan ProviderActiveStart: July 29, 2025 End: July 29, 2025Immanuel Burrellerring ProviderActiveStart: July 29, 2025 Goals (unrecognized section and content) Goals may be documented in a n alternate section Scheduled Active and Recently Administ ered Medications (unrecognized section and content) Medication Order/ lidocaine PF (Xylocaine) 10 mg/mL (1 %) injection 1 mg 1 mg (0.1 mL), subcutaneous, Once, On Sat07/02/25 at 0945, For 1 dose, Preprocedure, To be used forIV insertion ONLY * 0945 (Due) oxyCODONE (Roxicodone) immediate release tablet 5 mg (COMPLETED) 5 mg, oral, Once, On Sat07/02/25 at 1200, For 1 dose, Recovery (only), If ordered PRN for pain, nurse is permitted to administer this medication for higher pain scores based on patient preference? Yes * 1139 (Given - Provider: Claudia Vo RN) Medication Order// lactated Ringer's infusion 100 mL/hr, intravenous, Continuous, Starting on Sat07/02/25 at 1245, For 2 hours, Recovery & OnUnit * 1245 (Due) Medication Order// acetaminophen (Tylenol) tablet 650 mg 650 mg, oral, Every 4 hours PRN, pain mild (1-3), first line, Starting on Sat07/02/25 at 1118, Recovery (only), When able to take oral medications., If ordered PRN for pain, nurse is permitted to administer this medication for higher pain scores based on patient preference? Yes acetic acid (bulk) external solution (CANCELED) As needed, Starting on Sat07/02/25 at 1054, Intraprocedure * 1054 (Given - Provider: Bebe Sotelo MD) BUPivacaine-EPINEPHrine (Marcaine w/EPI) 0.5 %-1:200,000 injection (CANCELED) As needed, Starting on Sat07/02/25 at 1047, Intraprocedure * 1047 (Given - Provider: Bebe Sotelo MD) fentaNYL PF (Sublimaze) injection 25 mcg 25 mcg, intravenous, Every 5 min PRN, pain moderate (4-6), first line, Starting on Sat07/02/25 at 1118, Recovery (only), Max total of 200 micrograms regardless of dose., If ordered PRN for pain, nurse is permitted to administer this medication for higher pain scores based on patient preference? Yes fentaNYL PF (Sublimaze) injection 50 mcg 50 mcg, intravenous, Every 5 min PRN, pain severe (7-10), first line, Starting on Sat07/02/25 at 1118, Recovery (only), Max total of 200 micrograms regardless of dose., If ordered PRN for pain, nurseis permitted to administer this medication for higher pain scores based on patient preference? Yes iodine-potassium iodide (Lugol's) topical solution (CANCELED) As needed, Starting on Sat07/02/25 at 1054, Intraprocedure * 1054 (Given - Provider: Bebe Sotelo MD) labetaloL (Normodyne,Trandate) injection 5 mg 5 mg, intravenous, Administer over 1 Minutes, Once as needed, systolic blood pressure greater than 180 mmHg, dystolic blood pressure greater than 100 mmHg and heart rate greater than 60 BPM, Startingon Sat07/02/25 at 1118, For 1 dose, Recovery (only) ondansetron (Zofran) injection 4 mg 4 mg, intravenous, Once as needed, nausea/vomiting, first line, Starting on Sat07/02/25 at 1118, For 1 dose, Recovery (only), When administering via IV Push, administer over 3-5 minutes. oxygen (O2) therapy inhalation, Continuous - O2/gases, oxygen, Starting on Sat07/02/25 at 1118, Recovery (only), Device: Nasal Cannula, Rate in liters per minute: Other, Custom Value: 1-6 LPM, Keep O2 Sat Above: 92% sodium chloride 0.9 % irrigation solution (CANCELED) As needed, Starting on Sat07/02/25 at 1039, Intraprocedure * 1039 (Given - Provider: Bebe Sotelo MD - Comment: on the sterile field) surgical lubricant gel (CANCELED) As needed, Starting on Sat07/02/25 at 1046, Intraprocedure * 1046 (Given - Provider: Bebe Sotelo MD) FOR RECORDS PERTAINING TO PATIENTS WHO ARE [...] BE BASED ON THE PRIMARY CLINICAL RECORDS. [employer] provides no warranty or guarantee of the accuracy or completeness of information in this document.
--- OUTSIDE RECORDS SUMMARY | 2025-08-03 18:49 | XMS_ITS | Clinical Summary ---
Author Organization [facility] Address [address] [place] [address] Phone Care Team Providers Care Explosives Operator Name Role Phone Elise Gonsalez RN Unavailable Unavailable Allergies Active AllergyReactionsCriticalityNoted DateCommentsClarithromycin (Bulk) HyyrhacsjtgKudm42/29/2016GjoqbeqjghcKpkpqucNpo44/10/2016 Other Reaction(s): Comments: increases pt's anxiety, increased anxiety Other Reaction(s): other XllqwpijapIhbjmvb60/25/2024 Other Reaction(s): skin feels like on fire Macrolide SehqyipyybiShijdyyeobrTdxr94/10/2016 Other Reaction(s): respiratory distress MetoclopramideAnaphylaxis,Anxiety,EpyeFmst76/10/2016 Other Reaction(s): other TramadolNausea Only03/21/2021 Medications MedicationSigDispense QuantityRefillsLast FilledStart DateEnd DateStatus cetirizine (ZyrTEC) 10 mg tablet Take 1 tablet (10 mg) by mouth once daily at bedtime.4Active omeprazole (PriLOSEC) [address] capsule Take by mouth.Active clonazePAM (KlonoPIN) 0.5 mg tablet Take by mouth once daily as needed.Active oxyCODONE (Roxicodone) 5 mg immediate release tablet Indications:Anal cancer (Multi)Take 1 tablet (5 mg) by mouth every 6 hours if needed for severe pain (7 - 10). 15 tablet 5Active Active Problems ProblemNoted DateDiagnosed DatePONV (postoperative nausea and vomiting) 07/02/2025HTN (hypertension)07/02/2025Gastroesophageal reflux ckwurhd2707/02/2025 Delayed emergence from vpkuvfgxmd98/03/1909Vgmzten69/03/2025Irritable bowel gvnlosda51/03/1040Ptmwsn85/03/2025Anal mqxkha5706/25/2025 Encounters DateTypeDepartmentCare PuwoPvxqowwdagm63/31/2025Orders Only [facility] [place] [address] [place] [address] [place] [address] Vandana Sarabia RN Anal cancer (Multi)07/28/2025Patient Outreach [facility] [address] [place] [phone] Elise Gonsalez RN 07/15/2025Telephone [facility] [address] [place] [address] Quiana Sotelo MD 07/15/2025Orders Only [facility] [address] [place] [address] [place] [address] Vandana Sarabia RN Anal cancer (Multi)07/08/2025Erroneous [facility] [address] [place] [address] [place] [address] Vandana Sarabia RN 07/08/2025Orders Only [facility] [address] [place] [address] [place] [address] Vandana Sarabia RN Anal cancer (Multi)07/02/2025 10:35 AM EDTAnesthesia Event [facility] [place] [address] [place] [phone] Katy Rooney MD Pinto, Rodnina F, DO 07/02/2025 8:08 AM EDT - 07/02/2025 8:53 AM EDTSurgery [facility] [place] [address] [place] [address] Quiana Sotelo MD High Resolution Anoscopy with Biopsy, excision anal lesion [39084 (CPT??)] 07/02/2025 7:19 AM EDT - 07/02/2025 12:11 PM EDTHospital Encounter [facility] [place] [address] [place] [address] Quiana Sotelo MD Mass in rectum (Primary Dx); Anal cancer (Multi) Discharge Disposition: Home07/02/20255503Mniygc88/26/2025 12:30 PM EDTOffice Visit [facility] [address] [place] [address] Quaina Sotelo MD Mass in rectum (Primary Dx); Anal cancer (Multi) Discharge Disposition: Home06/25/2025Orders Only [facility] [address] [place] [address] Vandana Sarabia RN Anal cancer (Multi)06/25/2025Prep for Procedure [facility] [address] [place] [address] Quiana Sotelo MD 06/25/20253955Qarysi50/15/2025Transcribe Orders [facility] [address] [place] [address] [place] [address] Leonie Krishna MD Malignant neoplasm of anus, unspecified (Primary Dx)from Last 3 Months Social History Tobacco UseTypesPacks/DayYears UsedDateSmoking Tobacco: FormerCigarettes Smokeless Tobacco: Never Tobacco Cessation:Counseling Given: Not Answered Alcohol UseStandard Drinks/WeekCommentsYes0 (1 standard drink = 0.6 oz pure alcohol)1-2 drinks per weekCommentsUnknownSex and Gender Information ValueDate RecordedSex Assigned at BirthNot on fileLegal HdmXelgiw98/26/2022 2:38 PM ESTGender IdentityNot on fileSexual OrientationNot on file Last Filed Vital Signs Vital SignReadingTime TakenCommentsBlood Begeifjo721/8107/02/2025 11:52 AM EDT Xfvkf529407/02/2025 11:52 AM TDZGdnppoyhkly52.4 ??C (97.5 ??F)07/02/2025 11:52 AM EDTRespiratory Jumv4630 11:52 AM EDTOxygen Kglttblngi09%07/02/2025 11:52 AM EDTInhaled Oxygen Concentration--Uaekca61.7 kg (191 lb 2.2 oz)07/02/2025 9:13 AM XTKIadzda142 cm (5' 3 )07/02/2025 9:13 AM EDTBody Mass Index33.8607/02/2025 9:13 AM EDT Plan of Treatment Health MaintenanceDue DateLast DoneCommentsCT Boislpuknnrh1969Colonoscopy 1969Colorectal Cancer Rmtthpano1969FIT-DNA (Cologuard)1969FIT 1969HIV Jlxwarkke1969Lipid Panel1969Medicare Annual Wellness Visit (AWV)1970 1340Tiqorjdmkyrnb1969MMR Vaccines (1 of 1 - Standard series)1970Diabetes Whhlpbqgh67/14/1987Hepatitis C Ybwjfwdud23/14/1987 Hepatitis B Vaccines (1 of 3 - 19+ 3-dose series)1988Pneumococcal Vaccine (1 of 2 - PCV)1988Cervical Cancer Wynsrfnmz28/14/1990HPV/Opwuio5407/13/1990 Pap Smear1990DTaP/Tdap/Td Vaccines (1 - Tdap)1991Zoster Vaccines (1 of 2)2019Influenza Vaccine (#1)509/06/2018, 07/24/2017, 08/15/2016, Additional history existsCOVID-19 Vaccine (1 - 2024- season) 05/31/20255242Ocliaqjes57/13/804693/, 11/11/2024, 12/13/2021HIB VaccinesAged OutNo longer eligible based on patient's age to complete this topicHPV Vaccines Aged OutNo longer eligible based on patient's age to complete this topic Hepatitis A VaccinesAged OutNo longer eligible based on patient's age to complete this topicIPV VaccinesAged OutNo longer eligible based on patient's age to complete this topicMeningococcal VaccineAged OutNo longer eligible based on patient's age to complete this topicRotavirus VaccinesAged OutNo longer eligible based on patient's age to complete this topic Procedures Procedure NamePriorityDate/TimeAssociated DiagnosisCommentsPULSE OXIMETRY, HNTGPHPLEJFzsrzoq31/03/2025 11:18 AM EDTSURGICAL PATHOLOGY DOGSUqaetbd36/03/2025 10:52 AM EDT Anal cancer (Multi) [place] AN ELECTIVE SUPRAGLOTTIC UUGZRYGrsaedw70/03/2025 10:42 AM EDT [place] ANOSCOPY ABLATION FIKOCH1307/02/2025 10:28 AM EDT Anal cancer (Multi) from Last 3 Months Results * Surgical Pathology Exam (07/02/2025 10:52 AM EDT)ComponentValueRef RangeTest MethodAnalysis TimePerformed AtPathologist SignatureCase ReportSurgical Pathology ?Case: [id number] ? Authorizing Provider: ??Quiana Sotelo, Collected: ? 07/02/2025 1052 ? MD ? Ordering Location: ? [facility] ??Received: ?07/02/2025 2241 ? OR ? Pathologist: ? Miranda Bailey MD ? Specimen: ?ANUS EXCISIONAL BIOPSY, anal verge lesion ? 07/14/2025 10:59 AM [facility] LABFINAL DIAGNOSISA. 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 Areas of complex endophytic growth favor invasion. Clinicopathologic correlation is recommended. Chief Innovation Officer: Dr. Diana Charless1 10:59 AM [facility] at 1059 EDTBy the signature on this report, the individual or group listed as making the Final Interpretation/D iagnosis certifies that they have reviewed this case.07/14/2025 10:59 AM [facility] LABClinical HistoryPre-op diagnosis: Anal cancer (Multi) [C21.0]07/14/2025 10:59 AM [facility] LABGross Description Received in formalin labeled with the patient's [...] Three fragments, intact Gross dissection performed at: [facility] [address] [place] [address] 07/14/2025 10:59 AM [facility] DisclaimerOne or more of the reagents used to perform assays on this specimen MAY have contained components considered to be analyte specific reagents (ASR's). ASR's have not been cleared or approved by the U.S. Food and Drug Administration. These assays were developed and their performance characteristics determined by the Department of Pathology at [facility]. The FDA does not require this test to go through premarket FDA review. This test is used for clinical purposes. It should not be regarded as investigational or for research. This laboratory is certified under the Clinical Laboratory Improvement Amendments (CLIA) as qualified to perform high complexity clinical laboratory testing. The assays were performed with appropriate positive and negative controls which stained appropriately.07/14/2025 10:59 AM [facility] LABSpecimen (Source)Anatomical Location / LateralityCollection Method / VolumeCollection TimeReceived Time Tissue (ANUS EXCISIONAL BIOPSY)07/02/2025 10:52 AM EDT1 10:41 PM EDT Comment:Pre-op diagnosis: Anal cancer (Multi) [C21.0] Narrative Authorizing ProviderResult TypeResult StatusQuiana OGDEN PATHOLOGY ORDERABLESFinal ResultPerforming OrganizationAddressCity/State/ZIP CodePhone Number [facility] [address] [facility] [address] [place] [address] * [place] AN ELECTIVE SUPRAGLOTTIC AIRWAY (07/02/2025 10:42 AM EDT) Narrative Jimmy Adame APRN-GABRIEL - 07/02/2025 10:42 AM EDT WILMAR Zamora 07/02/2025 10:49 AM Airway Date/Time: 07/02/2025 10:42 AM Reason: elective Airway not difficult Staffing Performed: [employer] Authorized by: Katy Rooney MD ?? Performed by: WILMAR Zamora Patient location during procedure: OR Patient Condition Indications for airway management: anesthesia Patient position: sniffing Planned trial extubation Sedation level: deep Final Airway Details Preoxygenated: yes Final airway type: supraglottic airway Successful airway: Size: 4 Number of attempts at approach: 1 Additional Comments igel Authorizing ProviderResult TypeResult StatusKaty Rooney MDANESTHESIA ORDERABLESFinal Result from Last 3 Months Insurance * Guarantor: Silas Swann TypeRelation to PatientDate of BirthPhone Billing AddressPersonal/BpfvumDtin1970 ([place]) [address] [place] [id number] Advance Directives For more information, please contact: [phone] (Available ) * Full Code (Latest Code Status on File) Date ActivatedDate QrhivwjibflNwougpet58/3/2025 9:18 AMQuestionAnswerComments Plan of Care:* Code Status Discussion Not Completed Decision Maker:* Provider Rationale:* Patient condition does not warrant discussion Care Teams Team MemberRelationshipSpecialtyStart DateEnd Date Elise Gonsalez, RN Nurse NavigatorHematology and Tlykwisk00/29/25
--- OUTSIDE RECORDS SUMMARY | 2025-08-03 18:49 | XMS_ITS | Encounter Summary ---
Author Organization [facility] Address [address] [place] [address] Phone Care Team Providers Care Compliance Monitor Name Role Phone Elise Gonsalez RN Unavailable Unavailable Encounter Details DateTypeDepartmentCare Team (Latest Contact Info)Ynwjjudpmug13/31/2025Orders Only [facility] [place] [address] [place] [address] [place] [address] Vandana Sarabia RN Anal cancer (Multi) Social History Tobacco UseTypesPacks/DayYears UsedDateSmoking Tobacco: FormerCigarettes Smokeless Tobacco: NeverAlcohol UseStandard Drinks/WeekCommentsYes0 (1 standard drink = 0.6 oz pure alcohol)1-2 drinks per weekCommentsUnknownSex and Gender InformationValueDate RecordedSex Assigned at BirthNot on fileLegal Sex Uypbll6608/25/2022 2:38 PM ESTGender IdentityNot on fileSexual OrientationNot on filedocumented as of this encounter Plan of Treatment Not on file documented as of this encounter Visit Diagnoses Diagnosis Anal cancer (Multi) Malignant neoplasm of anus, unspecified site documented in this encounter Care Teams Team MemberRelationshipSpecialtyStart DateEnd Date Elise Gonsalez, JOSE Nurse NavigatorHematology and Cqjrvbqn12/29/25documented as of this encounter
--- OUTSIDE RECORDS SUMMARY | 2025-08-03 18:50 | XMS_ITS | Patient Health Record ---
Author Organization [facility] Address [address] [place] [address] Care Team Providers Care Junior Copywriter Name Role Phone Sue Denson MD Primary Care Provider Unavail able Allergies Allergen (clinical drug ingredient) Drug/Non Drug Allergy documented on EMR Reaction Allergy Type Onset Date Status Bentyl (dicyclomine)UnknownDrug AllergyActiveReglan (metoclopramide)UnknownDrug AllergyActiveBiaxin (clarithromycin)UnknownDrug AllergyActive Reason For Referral No Information Medications Medication SIG (Take, Route, Frequency, Duration) Notes Start Date End Date Status Diclofenac Sodium 1 % as directed Transdermal QI D PRN; Duration: 30 days 05/09/2020ActiveLevocetirizine-LoratadineActiveOmeprazole 40 MG1 capsule 30 minutes before morning meal Orally BIDActiveCeleBREX 200 MG1 capsule with food Orally Once a day; Duration: 30 day(s)1Active Social History Tobacco Use: Social History Observation Description Date Details (start date - stop date) Never Smoker NA - NA Tobacco Use/Smoking Question Answer Notes Patient is a nonsmoker Problems Problem Type SNOMED Code ICD Code Onset Dates Problem Status W/U Status Risk Notes Problem Anxiety disorder (682052248) Anxiety diso rder, unspecified (F41.9) Activeconfirmed Plan Of Treatment No Information Insurance Providers Payer Name Payer Address Payer Phone Subscriber Number Group Number Insured Name Patient Relationship to Insured Coverage Start Date Coverage End Date [employer] MED[employer]LUE DUAL ADV PRIMARY MEDICARE [address] [place] [address] [id number] Ne Swann Self - patient is the insured 1 MEDICAID [place] [address] [facility] [place] [id number] [phone], JudithSelf - patient is the insured Medications Administered Medication Instructions Date of Administration Dosage Notes Depo-Medrol, 40 mg/mL mLCervical paraspinal and upper/lower trapeziusDepo-Medrol, 40 mg/mL mLcevical Paraspinal and upper trapeziusLidocaine HCl 1%, 10 mg/mL mLCervical paraspinal and upper/lower trapeziusLidocaine HCl 1%, 10 mg/mL mLCervical Paraspinal and Upper Trapezius Medical (General) History Medical History History ICD Code History of chronic kidney disease NKF cl assification anxietyacid refluxhypertensionSurgical History Surgery Date(Month/Year) partial hysterectomy VDFiuqqozaxjdrezjokvbotbbh85/2019
--- OUTSIDE RECORDS SUMMARY | 2025-08-03 18:50 | XMS_ITS | Clinical Summary ---
Author Organization [facility] Address [address] [place] [address] Care Team Providers Care Liquor Inspector Name Role Phone [facility] Primary Care Provide r Sue Denson MD Unavailable [phone] Allergies Active AllergyReactionsCriticalityNoted DateCommentsClarithromycinAnaphylaxis High12/08/2015 Other Reaction(s): respiratory distress ZzcqfpwrfysLmzbfaeAzw51/10/2016 Other Reaction(s): Comments: increases pt's anxiety, increased anxiety Other Reaction(s): other Other Reaction(s): Comments: increases pt's anxiety, increased anxiety ??Other Reaction(s): other Dicyclomine YccSzbdjasXwx44/10/2958Vazrtbccbz83/25/2024 Other Reaction(s): skin feels like on fire Other Reaction(s): Unknown Macrolides And SkiorlghuYwcbxdzhuwfVdgu83/10/2016 Other Reaction(s): respiratory distress Respiratory distress MetoclopramideAnaphylaxis,Anxiety,DsckOntt11/10/2016 Other Reaction(s): other WoyxfZdrhRfn40/20/2023TramadolNausea HizfSpy3003/21/2021 Other Reaction(s): Nausea Medications MedicationSigDispense QuantityRefillsLast FilledStart DateEnd DateStatus cetirizine (ZyrTEC) 10 MG tablet Take 10 mg by mouth at gpqvtzj1802/20/2024ctive loratadine (Claritin) 10 MG tablet Active omeprazole (PriLOSEC) [address] capsule Take 40 mg by mouth in the morning. Take before meals.08/09/2024ctiveHospital, Clinic, or Other Facility Administered MedicationOrdered DoseRouteFrequencyStart DateEnd DateStatus cefTRIAXone (Rocephin) vial 500 mg Indications:Exposure to JDK951 mwZYRrem42/30/2024ctive Active Problems ProblemNoted DateDiagnosed DateLGSIL of cervix of undetermined significance 11/23/2024STD /24/2025 Encounters DateTypeDepartmentCare OohtCxnxjdyhebk27/04/2025 9:50 AM ESTProcedure Visit NOMK[facility] MARTINES [address] [place] [address] Lucas Paulino, Atypical squamous cell changes of undetermined significance (ASCUS) on vaginal cytology; Pap smear to confirm normal after abnormal result; H/O: yuuskiuqpxhk79/04/2025amboo flowsheet [facility] Luis F OBPARAS [address] [place] [address] Lucas Paulino DO 06/01/2025Telephone [facility] Luis F OBGYMatilde [address] [place] [address] Catherine Bae MA 05/06/2025 3:00 PM EDTOffice Visit [facility] Luis F MARTINES [address] [place] [address] Pam Del Rosario PA Vaginal odor; Yeast infection; Dysuria; E-coli UTI05/06/2025External Result Encounter [facility] External Department Unsolicited Pam Del Rosario PA 05/06/2025ambdanya flowsheet [facility] Luis F OBGYMatilde [address] [place] [address] Pam Del Rosario PA from Last 3 Months Family History Medical HistoryRelationNameCommentsArthritisFatherDiabetesFatherHeart disease FatherHeart failureFatherHyperlipidemiaFatherHypertensionFatherDiabetesMother Liver cancerMotherOvarian cancerMotherRelationNameStatusCommentsFatherMother Social History Tobacco UseTypesPacks/DayYears UsedDateSmoking Tobacco: FormerCigarettes Smokeless Tobacco: Never Tobacco Cessation:Counseling Given: Not Answered Alcohol UseStandard Drinks/WeekCommentsYes0 (1 standard drink = 0.6 oz pure alcohol)CommentsNoSex and Gender InformationValueDate RecordedSex Assigned at BirthNot on fileLegal FysVztlps46/15/2023 6:38 PM EDTGender Identity Not on fileSexual OrientationNot on file Last Filed Vital Signs Vital SignReadingTime TakenCommentsBlood Kzlsoyib458/7808/03/2025 10:16 AM EST Pulse--Temperature--Respiratory Rate--Oxygen Saturation--Inhaled Oxygen Concentration--Cxmamb07.2 kg (190 lb)08/03/2025 10:16 AM JOULvyhcd736.6 cm (5' 4 )08/03/2025 10:16 AM ESTBody Mass Index32.6108/03/2025 10:16 AM EST Plan of Treatment DateTypeDepartmentCare Team (Latest Contact Info)Kzkruvqgprq60/11/2025 11:00 AM ESTOffice Visit [facility] [address] [facility] [place] [address] Jr. Dalton Roman, [address] [address] 02/08/2026 1:00 PM EDTProcedure Visit MAURICE [place] OBGYMatilde [address] [place] [address] Lucas Paulino [address] [facility] [place] [address] Procedures Procedure NamePriorityDate/TimeAssociated DiagnosisCommentsRECURRENT VAGINITIS (HTRX)Azaihjc5505/06/2025 2:48 PM EDT URINARY TRACT INFECTION (HTRX)Xfffaih3905/06/2025 2:47 PM EDT POCT URINALYSIS OEPPEVFDFmignqf35/07/2025 2:30 PM EDT Vaginal odor from Last 3 Months Results * RECURRENT VAGINITIS (HTRX) (05/06/2025 2:48 PM EDT)ComponentValueRef RangeTest MethodAnalysis TimePerformed AtPathologist SignatureATOPOBIUM AGZMHVU512.961 - 24.689 ppm05/07/2025 6:08 AM EDTHealthTrackRx at LabPortATOPOBIUM VAGINAENot Pwincwrs90.961 - 24.689 ppm05/07/2025 6:08 AM EDTHealthTrackRx at [facility] ServicesBVAB 2,3 (BACTERIAL VAGINOSIS ASSOCIATED BACTERIA 2, 3); MOBILUNCUS XDZ700.961 - 24.689 ppm05/07/2025 6:08 AM EDTHealthTrackRx at [facility] Health ServicesBVAB 2,3 (BACTERIAL VAGINOSIS ASSOCIATED BACTERIA 2, 3); MOBILUNCUS SPPNot Yvabfxpp56.961 - 24.689 ppm05/07/2025 6:08 AM EDTHealthTrackRx at [facility] SystemPortCANDIDA ALBICANS, PARAPSILOSIS, BZBENNXRBS903.000 - 30.347 ppm05/07/2025 6:08 AM EDT [facility] at LabPortCANDIDA ALBICANS, PARAPSILOSIS, TROPICALISNot Detected 23.000 - 30.347 ppm05/07/2025 6:08 AM EDTHealthTrackRx at [facility] ServicesCANDIDA EKYVNSTD370.000 - 31.618 ppm05/07/2025 6:08 AM EDTHealthTrackRx at [facility] RUBÉN GLABRATANot Xoyjciyb64.000 - 31.618 ppm05/07/2025 6:08 AM EDT [facility] SystemPortCANDIDA DPPDWU387.000 - 30.873 ppm05/07/2025 6:08 AM EDTHealthTrackRx at LabPortCANDIDA KRUSEINot Mlyxzgre36.000 - 30.873 ppm 05/07/2025 6:08 AM EDTHealthTrackRx at [facility] SystemPortCHLAMYDIA EEUQPTXLJIR974.000 - 31.586 ppm05/07/2025 6:08 AM EDTHealthTrackRx at [facility] Health ServicesCHLAMYDIA TRACHOMATIS Not Lwpfrtek21.000 - 31.586 ppm05/07/2025 6:08 AM EDTHealthTrackRx at [facility] GARDNERELLA TZZVUVGYG986.961 - 24.689 ppm05/07/2025 6:08 AM EDTHealthTrackRx at [facility] Health ServicesGARDNERELLA VAGINALISNot Drbzdpih43.961 - 24.689 ppm05/07/2025 6:08 AM EDTHealthTrackRx at [facility] Health ServicesMEGASPHAERA (TYPES 1, 2)019.961 - 24.689 ppm 05/07/2025 6:08 AM EDTHealthTrackRx at [facility] Health ServicesMEGASPHAERA (TYPES 1, 2)Not Qacveggk79.961 - 24.689 ppm05/07/2025 6:08 AM EDT[facility] at [facility] NEISSERIA RNVDCPKRNIJ838.000 - 32.587 ppm05/07/2025 6:08 AM EDTHealthTrackRx at [facility] Health ServicesNEISSERIA GONORRHOEAENot Oxndwuwk93.000 - 32.587 ppm05/07/2025 6:08 AM EDTHealthTrackRx at [facility] Health ServicesTRICHOMONAS EVBXAFVXU066.000 - 31.995 ppm 05/07/2025 6:08 AM EDTHealthTrackRx at [facility] Health ServicesTRICHOMONAS VAGINALISNot Brbkpxmh69.000 - 31.995 ppm05/07/2025 6:08 AM EDT[facility] at [facility] MYCOPLASMA MQBRJADWAM235.961 - 24.689 ppm05/07/2025 6:08 AM EDTHealthTrackRx at [facility] Health ServicesMYCOPLASMA GENITALIUMNot Bgcjmqko66.961 - 24.689 ppm05/07/2025 6:08 AM EDTHealthTrackRx at [facility] Health ServicesSpecimen (Source)Anatomical Location / LateralityCollection Method / VolumeCollection TimeReceived TimeTissue 05/06/2025 2:48 PM EDT05/07/2025 1:53 AM EDT Narrative Authorizing ProviderResult TypeResult StatusAmy Miguel Ángel GERARDO BLOOD ORDERABLES Final ResultPerforming OrganizationAddressCity/State/ZIP CodePhone Number [facility] [place] [id number] [address] [address] * URINARY TRACT INFECTION (HTRX) (05/06/2025 2:47 PM EDT)ComponentValueRef Range Test MethodAnalysis TimePerformed AtPathologist SignatureACINETOBACTER JRFGKCIS991.961 - 24.689 ppm05/07/2025 7:22 AM EDTHealthTrackRx at [facility] ACINETOBACTER BAUMANIINot Rypjakbx98.961 - 24.689 ppm05/07/2025 7:22 AM EDT [facility] at LabPortCITROBACTER LUVGOYHE774.000 - 32.015 ppm05/07/2025 7:22 AM EDTHealthTrackRx at LabPortCITROBACTER FREUNDIINot Tfbvkmuu10.000 - 32.015 ppm05/07/2025 7:22 AM EDTHealthTrackRx at LabPortENTEROBACTER AEROGENES, SSVKJNM959.000 - 32.290 ppm05/07/2025 7:22 AM EDTHealthTrackRx at LabPortENTEROBACTER AEROGENES, CLOACAENot Ztdqxjuy62.000 - 32.290 ppm 05/07/2025 7:22 AM EDTHealthTrackRx at LabPortENTEROCOCCUS FAECALIS, FAECIUM0 26.000 - 33.043 ppm05/07/2025 7:22 AM EDTHealthTrackRx at LabPortENTEROCOCCUS FAECALIS, FAECIUMNot Ttpvktgu69.000 - 33.043 ppm05/07/2025 7:22 AM EDT [facility] at LabPortESCHERICHIA KTGN601.000 - 28.500 ppm05/07/2025 7:22 AM EDTHealthTrackRx at LabPortESCHERICHIA COLINot Lbprfaht32.000 - 28.500 ppm 05/07/2025 7:22 AM EDTHealthTrackRx at LabPortKLEBSIELLA PNEUMONIAE, OXYTOCA0 23.000 - 31.865 ppm05/07/2025 7:22 AM EDTHealthTrackRx at LabPortKLEBSIELLA PNEUMONIAE, OXYTOCANot Ohakyact06.000 - 31.865 ppm05/07/2025 7:22 AM EDT [facility] at LabPortMORGANELLA JNACDXGX656.961 - 24.689 ppm05/07/2025 7:22 AM EDTHealthTrackRx at LabPortMORGANELLA MORGANIINot Cbqjmtnk99.961 - 24.689 ppm05/07/2025 7:22 AM EDTHealthTrackRx at LabPortPROTEUS MIRABILIS, VULGARIS0 23.000 - 28.500 ppm05/07/2025 7:22 AM EDTHealthTrackRx at LabPortPROTEUS MIRABILIS, VULGARISNot Undzwbvb91.000 - 28.500 ppm05/07/2025 7:22 AM EDT [facility] at LabPortPSEUDOMONAS NUOVNEPMOP906.000 - 31.801 ppm05/07/2025 7:22 AM EDTHealthTrackRx at LabPortPSEUDOMONAS AERUGINOSANot Moznwvri08.000 - 31.801 ppm05/07/2025 7:22 AM EDTHealthTrackRx at LabPortSTAPHYLOCOCCUS AUREUS0 26.000 - 31.595 ppm05/07/2025 7:22 AM EDTHealthTrackRx at [facility] STAPHYLOCOCCUS AUREUSNot Kmukqewo35.000 - 31.595 ppm05/07/2025 7:22 AM EDT [facility] at LabPortSTREPTOCOCCUS AGALACTIAE (GROUP B STREP)026.000 - 32.435 ppm05/07/2025 7:22 AM EDTHealthTrackRx at LabPortSTREPTOCOCCUS AGALACTIAE (GROUP B STREP)Not Hndaagto20.000 - 32.435 ppm05/07/2025 7:22 AM EDTHealthTrackRx at LabPortCANDIDA ALBICANS, PARAPSILOSIS, ZQIJPTISYZ965.000 - 30.347 ppm05/07/2025 7:22 AM EDTHealthTrackRx at LabPortCANDIDA ALBICANS, PARAPSILOSIS, TROPICALISNot Ujiyhwen55.000 - 30.347 ppm05/07/2025 7:22 AM EDT [facility] at LabPortCANDIDA XMNFBIDD270.000 - 31.618 ppm05/07/2025 7:22 AM EDTHealthTrackRx at LabPortCANDIDA GLABRATANot Qtcvqcnc69.000 - 31.618 ppm 05/07/2025 7:22 AM EDTHealthTrackRx at LabPortCANDIDA GOIBBH683.000 - 30.873 ppm05/07/2025 7:22 AM EDTHealthTrackRx at LabPortCANDIDA KRUSEINot Detected 23.000 - 30.873 ppm05/07/2025 7:22 AM EDTHealthTrackRx at LabPortSERRATIA XCIWAPNGVG875.000 - 31.581 ppm05/07/2025 7:22 AM EDTHealthTrackRx at [facility] SERRATIA MARCESCENSNot Pvhsskpc63.000 - 31.581 ppm05/07/2025 7:22 AM EDT [facility] at [facility] ServicesSTREPTOCOCCUS PYOGENES (GROUP A STREP)019.961 - 24.689 ppm05/07/2025 7:22 AM EDTHealthTrackRx at LabPortSTREPTOCOCCUS PYOGENES (GROUP A STREP)Not Rwuxgrzu24.961 - 24.689 ppm05/07/2025 7:22 AM EDTHealthTrackRx at [facility] Health ServicesSTAPHYLOCOCCUS EPIDERMIDIS, HAEMOLYTICUS, LUGDUNENSIS, SAPROPHYTICUS (NMXQS375.961 - 24.689 ppm05/07/2025 7:22 AM EDTHealth[facility] at [facility] STAPHYLOCOCCUS EPIDERMIDIS, HAEMOLYTICUS, LUGDUNENSIS, SAPROPHYTICUS (URINANot Hatdbvep77.961 - 24.689 ppm05/07/2025 7:22 AM EDTHealthTrackRx at [facility] SystemPort STAPHYLOCOCCUS EPIDERMIDIS, HAEMOLYTICUS, LUGDUNENSIS, SAPROPHYTICUS (URINA0 19.961 - 24.689 ppm05/07/2025 7:22 AM EDTHealthTrackRx at [facility] SystemPort STAPHYLOCOCCUS EPIDERMIDIS, HAEMOLYTICUS, LUGDUNENSIS, SAPROPHYTICUS (URINANot Dbbrhnxx71.961 - 24.689 ppm05/07/2025 7:22 AM EDTHealthTrackRx at [facility] SystemPort Specimen (Source)Anatomical Location / LateralityCollection Method / Volume Collection TimeReceived DqueAdlsq82/07/2025 2:47 PM EDT05/07/2025 1:53 AM EDT Narrative Authorizing ProviderResult TypeResult StatusAmy [facility] BLOOD ORDERABLES Final ResultPerforming OrganizationAddressCity/State/ZIP CodePhone Number [facility] [address] [address] * (ABNORMAL) POCT urinalysis dipstick manually resulted (05/06/2025 2:30 PM EDT) ComponentValueRef RangeTest MethodAnalysis TimePerformed AtPathologist SignatureColor, UAYellowClarity, UAClearGlucose, UANegativeNegative - 2000(110) ++++ mg/dLBilirubin, UANegativeNegative - 4(70) +++ mg/dLKetones, UA NegativeNegative - 160(16) ++++ mg/dLSpec Grav, UA1.0301 - 1.03Blood, UA PositiveNegative - 50 Reinaldo/mcLComment:1+pH, UA5.05 - 9Protein, UANegative Negative - 2000(20) ++++ mg/dLUrobilinogen, UA1.00.2 - 12 mg/dLLeukocytes, UA NegativeNegative - 500+++ Rowan/mcLNitrite, UANegativeNegative - Positive Specimen (Source)Anatomical Location / LateralityCollection Method / Volume Collection TimeReceived CzcyOlhgk82/07/2025 2:30 PM EDT Narrative Authorizing ProviderResult TypeResult StatusAmy [facility] TEST ENTER/EDIT ORDERABLESFinal Result from Last 3 Months Insurance Care Teams Team MemberRelationsSutter Delta Medical CenterpecialtyStart DateEnd Date Brittanie Marrero MD [address], [place] [phone] PCP - [facility]04/08/24 Sue Denson MD [address], [place] [phone] Referring PhysicianEdward P. Boland [facility] Medicine04/08/24
--- OUTSIDE RECORDS SUMMARY | 2025-08-03 18:50 | XMS_ITS | Encounter Summary ---
Author Organization [facility] Address [address] [place] [address] Care Team Providers Care Guitar Maker Name Role Phone [facility] Primary Care Provide r Sue Denson MD Unavailable [phone] Encounter Details DateTypeDepartmentCare Team (Latest Contact Info)Fgvxhzwqwog19/04/2025amboo flowsheet [facility] [address] [place] [address] Lucas Paulino DO [address] [place] [address] Social History Tobacco UseTypesPacks/DayYears UsedDateSmoking Tobacco: FormerCigarettes Smokeless Tobacco: NeverAlcohol UseStandard Drinks/WeekCommentsYes0 (1 standard drink = 0.6 oz pure alcohol)CommentsNoSex and Gender InformationValue Date RecordedSex Assigned at BirthNot on fileLegal PzzCfgqfi59/15/2023 6:38 PM EDTGender IdentityNot on fileSexual OrientationNot on filedocumented as of this encounter Plan of Treatment DateTypeDepartmentCare Team (Latest Contact Info)Xwggftypbij82/11/2025 11:00 AM ESTOffice Visit [facility] [address] [place] [address] Jr. Dalton Roman DO [address] [address] 02/08/2026 1:00 PM EDTProcedure Visit [facility] Luis F MARTINES [address] [place] [address] Lucas Paulino DO [address] [place] [address] documented as of this encounter Visit Diagnoses Not on filedocumented in this encounter Care Teams Team MemberRelationshipSpecialtyStart DateEnd Date Brittanie Ferreira MD [address] [place], [place] [phone] [facility] Sue Denson MD [address] [place], [place] [phone] Referring PhysicianFamily Medicine04/08/24documented as of this encounter
== END 2025-08-03 18:45 | disposition home or self-care (01) ==
LOC: LAB 18:44
PROVIDERS: Visit Provider Obstetrics & Gynecology
DX: Z01.42 Encounter for cervical smear to confirm findings of recent normal smear following initial abnormal smear (principal); R87.620 Atypical squamous cells of undetermined significance on cytologic smear of vagina (ASC-US); Z90.710 Acquired absence of both cervix and uterus
CPT/HCPCS: 87624; 88175